=== PATIENT | female | born 1950 | race African-American/Black ===

== ENCOUNTER 2019-06-20 08:52 | Inpatient (IN) | payer MEDICARE, MEDICAID ==
[~2019-06-20] VITALS: Ht 167.6 cm; Wt 69.9 kg
[~2019-06-20 08:52] MED LIST: ACIDOPHILUS-PE1 EACH GT; AMBIEN5 MG GT; ATIVAN1 MG GT; BISACODYL10 M1 RC; CARVEDILOL6.25 MG GT; CHILDREN'S15 MG/1 M2 PO; COLACE100 MG GT; DITROPAN10 MG GT; FAMOTIDINE20 MG GT; FERROUS SU325 MG/5 M GT; FLEET ENEMA133 ML RECTAL; FUROSEMIDE20 M1 GT
[2019-06-20] MEDS ORDERED: SPIRONOLACTONE25 MG GT (09:04)
[2019-06-20] MEDS ORDERED: ARTIFICIAL TEA1 EAC2 OP (09:04)
[2019-06-20] MEDS ORDERED: LIPITOR10 MG GT (09:04)
[2019-06-20 09:05] VITALS: BP 114/72
[2019-06-20] MEDS ORDERED: BENADRYL A12.5 MG/5 ORAL (09:08)
[2019-06-20] MEDS ORDERED: CLONAZEPAM0.125 MG GT (09:08)
[2019-06-20] MEDS ORDERED: CARVEDILOL3.125 MG GT (09:08)
[2019-06-20 09:11] LABS: BASOPHILS % (AUTO) 0.5 % (0.0-2.0); EOSINOPHILS % (AUTO) 0.8 % (0.0-3.0); HEMATOCRIT 39.8 % (37.0-47.0); HEMOGLOBIN 12.4 G/DL (12.0-16.0); LYMPHOCYTES % (AUTO) 15.5 % (20.0-45.0); MEAN CORPUSCULAR VOLUME 84 FL (80-99); MONOCYTES % (AUTO) 5.3 % (1.0-10.0); NEUTROPHILS % (AUTO) 77.8 % (45.0-75.0); PLATELET COUNT 250 K/UL (150-450); RED BLOOD COUNT 4.76 M/UL (4.20-5.40); RED CELL DISTRIBUTION WIDTH 14.6 % (11.6-14.8); WHITE BLOOD COUNT 15.9 K/UL (4.8-10.8)
[2019-06-20] MEDS ORDERED: ACETAMINOP160 MG/54 ORAL (09:14)
[2019-06-20] MEDS ORDERED: VITAMIN C500 M1 GT (09:14)
[2019-06-20] MEDS ORDERED: MILK OF MA400 MG/51 ORAL (09:14)
[2019-06-20 09:24] LABS: ANION GAP 2 mmol/L (5-15); BLOOD UREA NITROGEN 19 mg/dL (7-18); CALCIUM 9.6 MG/DL (8.5-10.1); CARBON DIOXIDE 39 MMOL/L (21-32); CHLORIDE 100 MMOL/L (98-107); CREATININE 0.5 MG/DL (0.55-1.30); POTASSIUM 5.1 MMOL/L (3.5-5.1); SODIUM 141 MMOL/L (136-145)
--- NOTE | 2019-06-20 09:37 | Emergency Room Report ---
History of Present Illness General Chief Complaint: Dyspnea/Respdistress Source: Patient Present Illness HPI Patient is a 69-year-old female presented from residential after increased respiratory difficulty and desaturation. Patient had prior history of chronic debilitation secondary to spinal injury. She had been noted to have difficulty with movements to both upper and lower extremities. 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 Prior history of pneumonia. She had been receiving tube feeding. She had frequent episodes of constipation and requires frequent disimpactions for bowel movements. Had been at her baseline mental status. Patient is somewhat verbal. Previously had tardive dyskinesia due to chronic psychiatric medication use.Patient had not recently been on any antibiotics. She had not been vomiting. Allergies: Coded Allergies: No Known Allergies (Unverified , 03/03/19) Patient History Past Medical History: see triage record Now: No Reviewed Nursing Documentation: PMH: Agreed; PSxH: Agreed Nursing Documentation-PMH Hx Cardiac Problems: Yes - dept trach, cardiomyopathy, quadriplegia Hx Hypertension: Yes Hx Gastrointestinal Problems: Yes - dysphagia, g-tube, GERD History Of Psychiatric Problem: Yes - Altered mental status, unspecified, Anxiety, Parkinson's disease Review of Systems All Other Systems: negative except mentioned in HPI Physical Exam Vital Signs Date Time Temp Pulse Resp B/P (MAP) Pulse Ox O2 Delivery O2 Flow Rate FiO2 06/20/19 08:32 98.6 111 18 114/72 (86) 100 Mechanical Ventilator Sp02 EP Interpretation: reviewed, normal General Appearance: normal inspection, alert, GCS 15, Chronically Ill Head: atraumatic ENT: normal ENT inspection, normal voice, other - Tracheostomy present Neck: normal inspection, full range of motion, supple, no bony tend, tracheotomy Respiratory: normal inspection, lungs clear, no respiratory distress, no retraction, decreased breath sounds Cardiovascular #1: regular rate, rhythm, no edema Gastrointestinal: normal inspection, normal bowel sounds, non tender, soft, no guarding, no hernia, other - slight distention, G-tube stoma Genitourinary: no CVA tenderness Musculoskeletal: normal inspection, back normal, normal range of motion Neurologic: alert, motor weakness - bilateral lower extremity, responsive, speech normal, normal inspection Psychiatric: normal inspection, judgement/insight normal, mood/affect normal Medical Decision Making Diagnostic Impression: Primary Impression: Respiratory failure Additional Impressions: Bilateral pleural effusion Pneumonia Ventilator dependence ER Course Presented for desaturation. Patient presented for desaturation. Differential diagnosis include was not limited to pneumonia, bronchitis, arrhythmia, among others. Because of complexity of patient's case laboratory tests and imaging studies were ordered. ABG showed some evidence of CO2 retention with a normal pH. Chest x-ray read by radiology showed bilateral pleural effusions with possible infiltrate. Patient was noted to have some chronic history of constipation. She had previous a urinary tract infection was treated at [facility] approximately 1 month ago. Patient will be admitted to the hospital for further evaluation and treatment of desaturation and possible pneumonia. Dr. Delmy Pardo was contacted for inpatient management and will be admitting physician. Labs Test 06/20/19 08:53 06/20/19 08:55 Arterial Blood pH 7.424 (7.350-7.450) Arterial Blood Partial Pressure CO2 57.3 mmHg (35.0-45.0) Arterial Blood Partial Pressure O2 110.1 mmHg (75.0-100.0) Arterial Blood HCO3 36.7 mmol/L (22.0-26.0) Arterial Blood Oxygen Saturation 98.2 % (95-100) Arterial Blood Base Excess 10.4 (-2-2) Madhu Test Positive White Blood Count 15.9 K/UL (4.8-10.8) Red Blood Count 4.76 M/UL (4.20-5.40) Hemoglobin 12.4 G/DL (12.0-16.0) Hematocrit 39.8 % (37.0-47.0) Mean Corpuscular Volume 84 FL (80-99) Mean Corpuscular Hemoglobin 26.0 PG (27.0-31.0) Mean Corpuscular Hemoglobin Concent 31.0 G/DL (32.0-36.0) Red Cell Distribution Width 14.6 % (11.6-14.8) Platelet Count 250 K/UL (150-450) Mean Platelet Volume 7.1 FL (6.5-10.1) Neutrophils (%) (Auto) 77.8 % (45.0-75.0) Lymphocytes (%) (Auto) 15.5 % (20.0-45.0) Monocytes (%) (Auto) 5.3 % (1.0-10.0) Eosinophils (%) (Auto) 0.8 % (0.0-3.0) Basophils (%) (Auto) 0.5 % (0.0-2.0) Sodium Level 141 MMOL/L (136-145) Potassium Level 5.1 MMOL/L (3.5-5.1) Chloride Level 100 MMOL/L (98-107) Carbon Dioxide Level 39 MMOL/L (21-32) Anion Gap 2 mmol/L (5-15) Blood Urea Nitrogen 19 mg/dL (7-18) Creatinine 0.5 MG/DL (0.55-1.30) Estimat Glomerular Filtration Rate > 60 mL/min (>60) Glucose Level 150 MG/DL (74-106) Calcium Level 9.6 MG/DL (8.5-10.1) Troponin I 0.000 ng/mL (0.000-0.056) EKG Diagnostic Results Rate: normal Rhythm: NSR ST Segments: no acute changes Last Vital Signs Date Time Temp Pulse Resp B/P (MAP) Pulse Ox O2 Delivery O2 Flow Rate FiO2 06/20/19 09:07 102 15 Mechanical Ventilator 06/20/19 09:05 98.6 114/72 100 Status: unchanged Disposition: ADMITTED INPATIENT Condition: Serious Tr Sosa MD Jun 20, 2019 09:37
[2019-06-20 09:38] LABS: ALANINE AMINOTRANSFERASE 67 U/L (12-78); ALBUMIN 2.6 G/DL (3.4-5.0); ALBUMIN/GLOBULIN RATIO 0.4 (1.0-2.7); ALKALINE PHOSPHATASE 180 U/L (46-116); ASPARTATE AMINO TRANSFERASE 50 U/L (15-37); BILIRUBIN,TOTAL 0.2 MG/DL (0.2-1.0); CKMB 1.7 NG/ML (0.0-3.6); CREATINE KINASE 105 U/L (26-308); PHOSPHORUS 4.1 MG/DL (2.5-4.9)
[2019-06-20] MEDS ORDERED: Fleet's Enema 133ml RECTAL ONE (09:45)
--- NOTE | 2019-06-20 09:45 | Diagnostic Imaging Report ---
EXAM: XR Chest, 1 View CLINICAL HISTORY: Shortness of breath TECHNIQUE: Frontal view of the chest. COMPARISON: Chest x-rays dated 03/03/19 FINDINGS: Lungs: Dependent atelectasis versus infiltrates in bilateral lung bases. Pleural space: Small bilateral layering pleural effusions. Heart: Cardiac silhouette appears mildly enlarged, however may be magnified by the portable AP technique. Mediastinum: Unremarkable. Bones/joints: Unremarkable. Tubes, lines and devices: Stable positioning of the tracheostomy tube. Telemetry leads overlie the thorax. IMPRESSION: 1. Small bilateral layering pleural effusions. 2. Dependent atelectasis versus infiltrates in bilateral lung bases.
[2019-06-20] MEDS ORDERED: Vancomycin 1 GM in NS 275 ML IVPB ONE (10:00)
[2019-06-20] MEDS ORDERED: Cefepime HCl 1 GM in D5W 55 ML IVPB ONE (10:00)
[2019-06-20] MEDS ORDERED: Albuterol ud Inhalation ONE (10:49)
[2019-06-20] MEDS ORDERED: Ipratropium 0.02% Inh Soln 2.5ml UD ONE (10:49)
[2019-06-20 10:55] LABS: APPEARANCE,URINE SLIGHTLY CLOUDY; BILIRUBIN, URINE NEGATIVE (NEGATIVE); COLOR,URINE PALE YELLOW; GLUCOSE, URINE (UA) NEGATIVE (NEGATIVE); KETONES,URINE NEGATIVE (NEGATIVE); LEUKOCYTE ESTERASE ,URINE 3+ (NEGATIVE); NITRITE,URINE NEGATIVE (NEGATIVE); PH,URINE 8 (4.5-8.0); PROTEIN,URINE 1+ (NEGATIVE); UROBILINOGEN,URINE NORMAL MG/DL (0.0-1.0)
[2019-06-20] MEDS: Albuterol/Ipratropium 3ml neb HHN ONE ×2 (10:56→14:15)
[2019-06-20 11:11] VITALS: BP 111/68
[2019-06-20 12:30] VITALS: BP 126/76
--- NOTE | 2019-06-20 13:42 | Consultation ---
History of Present Illness General Date patient seen: Jun 20, 2019 Reason for Hospitalization: Dyspnea/Respdistress Present Illness HPI This is a 69-year-old female who presented from residential after increased respiratory difficulty and desaturation. Patient had prior history of chronic debilitation secondary to spinal injury. She had been noted to have difficulty with movements to both upper and lower extremities. 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 Prior history of pneumonia. She had been receiving tube feeding. She had frequent episodes of constipation and requires frequent disimpactions for bowel movements. Had been at her baseline mental status. Patient is somewhat verbal. Previously had tardive dyskinesia due to chronic psychiatric medication use.Patient had not recently been on any antibiotics. She had not been vomiting. admitted for care and management. on admission noted to have large abnormal area of skin tissue on sacral / buttock area. surgery called to evaluate and assist with care. daughter at bedside who is a surgical nurse at [employer]. states was worse and improving now. has had for some time. has great care and she advocates for turning and caring for her. Allergies: Coded Allergies: No Known Allergies (Unverified , 03/03/19) Medication History Scheduled Ascorbic Acid* (Vitamin C*), 500 MG ORAL DAILY, (Reported) Atorvastatin Calcium* (Lipitor*), 10 MG GT BEDTIME, (Reported) Cholecalciferol (Vitamin D3) (Vitamin D3), 5,000 UNIT GT DAILY, (Reported) Cran/Vitc/Mannose/Inulin/Brom (Uti-Stat Liquid), 30 ML PO BID, (Reported) Docusate Sodium* (Colace*), 100 MG GT TWICE A DAY, (Reported) Famotidine* (Pepcid 20mg tablet*), 20 MG GT DAILY, (Reported) Ferrous Sulfate (Ferrous Sulfate), 325 MG GT DAILY, (Reported) Multivitamin Liquid* (Multi-Delyn*), 5 ML ORAL DAILY, (Reported) Spironolactone* (Aldactone*), 25 MG GT DAILY, (Reported) Scheduled PRN Acetaminophen* (Acetaminophen*), 320 MG ORAL Q4HR PRN for Mild Pain/Temp > 100.5 , (Reported) Bisacodyl (Bisacodyl), 10 MG RC NEEDED PRN for Constipation, (Reported) Carvedilol* (Carvedilol*), 3.125 MG GT EVERY 12 HOURS PRN for For High Blood Pressure, (Reported) Clonazepam (Clonazepam), 0.125 MG GT BID PRN for For Anxiety, (Reported) Diphenhydramine Hcl* (Benadryl Allergy*), 25 MG ORAL Q6H PRN for Itching, ( Reported) Levalbuterol Hcl (Levalbuterol Concentrate), 1.25 MG IH EVERY 3 HOURS PRN for Bronchospasm, (Reported) Levalbuterol Hcl (Xopenex*), 0.63 MG HHN Q6H PRN for Shortness of Breath, ( Reported) Magnesium Hydroxide* (Milk Of Magnesia*), 30 ML ORAL 3XW PRN for Constipation, ( Reported) Ondansetron* (Zofran*), 4 MG IV Q6H PRN for Nausea & Vomiting, (Reported) Miscellaneous Medications Dextran 70/Hypromellose (Artificial Tears), 1 EACH OP, (Reported) Patient History Limited by: age, medical condition History Provided By: Patient, Family Member, Medical Record, PMD Healthcare decision maker Resuscitation status Advanced Directive on File Past Medical/Surgical History Past Medical/Surgical History: (1) Decubitus skin ulcer (2) Sacral decubitus ulcer, stage II (3) Incontinence associated dermatitis (4) Respiratory failure (5) Pneumonia (6) Ventilator dependence (7) Bilateral pleural effusion Review of Systems Review of Symptoms General ROS: no weight loss or fever Psychological ROS: no depression or mood changes, no memory loss Ophthalmic ROS: no visual changes or eye irritation ENT ROS: no nasal congestion, hearing loss, dizziness Allergy and Immunology ROS: no allergic symptoms or urticaria Hematological and Lymphatic ROS: no swollen glands, unusual bleeding or bruising Endocrine ROS: no polyuria, polydipsia, weight changes, temperature intolerance Respiratory ROS: no cough, shortness of breath, or wheezing Cardiovascular ROS: no chest pain or dyspnea on exertion Gastrointestinal ROS: denies abdominal pain, bright red blood in stool. Musculoskeletal ROS: no myalgias or arthralgias Neurological ROS: no TIA or stroke symptoms Dermatological ROS: no new or changing skin lesions, rashes or pruritis limited given medical condition daughter helps provide Physical Exam Physical Exam General appearance: alert, cooperative, no distress, appears stated age Head: Normocephalic, without obvious abnormality, atraumatic Eyes: conjunctivae/corneas clear. PERRL, EOM's intact. Fundi benign Throat: Lips, mucosa, and tongue normal. Teeth and gums normal Neck: supple, symmetrical, trachea midline, no adenopathy, thyroid: not enlarged, symmetric, no tenderness/mass/nodules, no carotid bruit and no JVD Lungs: clear to auscultation bilaterally Heart: regular rate and rhythm, S1, S2 normal, no murmur, click, rub or gallop Abdomen: soft, non-tender. Bowel sounds normal. No masses, no organomegaly Extremities: extremities normal, atraumatic, no cyanosis or edema Pulses: 2+ and symmetric Skin: Skin color, texture, turgor normal. No rashes or lesions Neurologic: Grossly normal Last 24 Hour Vital Signs Date Time Temp Pulse Resp B/P (MAP) Pulse Ox O2 Delivery O2 Flow Rate FiO2 06/20/19 13:18 91 10 70 06/20/19 12:30 97.9 93 21 126/76 (93) 100 06/20/19 11:55 98.6 110 13 111/68 99 Mechanical Ventilator 60 06/20/19 11:11 98.6 110 13 111/68 99 Mechanical Ventilator 60 06/20/19 10:56 115 10 100 Mechanical Ventilator 60 110 9 100 06/20/19 09:15 98 9 70 06/20/19 09:07 102 15 Mechanical Ventilator 06/20/19 09:05 98.6 102 15 114/72 100 Mechanical Ventilator 06/20/19 08:35 102 10 70 06/20/19 08:35 102 10 100 Mechanical Ventilator 70 06/20/19 08:32 98.6 111 18 114/72 (86) 100 Mechanical Ventilator Laboratory Tests Test 06/20/19 08:53 06/20/19 08:55 06/20/19 09:45 Arterial Blood pH 7.424 (7.350-7.450) Arterial Blood Partial Pressure CO2 57.3 mmHg (35.0-45.0) *H Arterial Blood Partial Pressure O2 110.1 mmHg (75.0-100.0) H Arterial Blood HCO3 36.7 mmol/L (22.0-26.0) H Arterial Blood Oxygen Saturation 98.2 % (95-100) Arterial Blood Base Excess 10.4 (-2-2) *H Madhu Test Positive White Blood Count 15.9 K/UL (4.8-10.8) H Red Blood Count 4.76 M/UL (4.20-5.40) Hemoglobin 12.4 G/DL (12.0-16.0) Hematocrit 39.8 % (37.0-47.0) Mean Corpuscular Volume 84 FL (80-99) Mean Corpuscular Hemoglobin 26.0 PG (27.0-31.0) L Mean Corpuscular Hemoglobin Concent 31.0 G/DL (32.0-36.0) L Red Cell Distribution Width 14.6 % (11.6-14.8) Platelet Count 250 K/UL (150-450) Mean Platelet Volume 7.1 FL (6.5-10.1) Neutrophils (%) (Auto) 77.8 % (45.0-75.0) H Lymphocytes (%) (Auto) 15.5 % (20.0-45.0) L Monocytes (%) (Auto) 5.3 % (1.0-10.0) Eosinophils (%) (Auto) 0.8 % (0.0-3.0) Basophils (%) (Auto) 0.5 % (0.0-2.0) Sodium Level 141 MMOL/L (136-145) Potassium Level 5.1 MMOL/L (3.5-5.1) Chloride Level 100 MMOL/L (98-107) Carbon Dioxide Level 39 MMOL/L (21-32) H Anion Gap 2 mmol/L (5-15) L Blood Urea Nitrogen 19 mg/dL (7-18) H Creatinine 0.5 MG/DL (0.55-1.30) L Estimat Glomerular Filtration Rate > 60 mL/min (>60) Glucose Level 150 MG/DL (74-106) H Lactic Acid Level 2.00 mmol/L (0.4-2.0) Calcium Level 9.6 MG/DL (8.5-10.1) Phosphorus Level 4.1 MG/DL (2.5-4.9) Magnesium Level 2.2 MG/DL (1.8-2.4) Total Bilirubin 0.2 MG/DL (0.2-1.0) Aspartate Amino Transf (AST/SGOT) 50 U/L (15-37) H Alanine Aminotransferase (ALT/SGPT) 67 U/L (12-78) Alkaline Phosphatase 180 U/L (46-116) H Total Creatine Kinase 105 U/L (26-308) Creatine Kinase MB 1.7 NG/ML (0.0-3.6) Creatine Kinase MB Relative Index 1.6 Troponin I 0.000 ng/mL (0.000-0.056) Total Protein 9.2 G/DL (6.4-8.2) H Albumin 2.6 G/DL (3.4-5.0) L Globulin 6.6 g/dL Albumin/Globulin Ratio 0.4 (1.0-2.7) L Thyroid Stimulating Hormone (TSH) 1.110 uiU/mL (0.358-3.740) Urine Color Pale yellow Urine Appearance Slightly cloudy Urine pH 8 (4.5-8.0) Urine Specific [place] 1.010 (1.005-1.035) Urine Protein 1+ (NEGATIVE) H Urine Glucose (UA) Negative (NEGATIVE) Urine Ketones Negative (NEGATIVE) Urine Blood 1+ (NEGATIVE) H Urine Nitrite Negative (NEGATIVE) Urine Bilirubin Negative (NEGATIVE) Urine Urobilinogen Normal MG/DL (0.0-1.0) Urine Leukocyte Esterase 3+ (NEGATIVE) H Urine RBC 2-4 /HPF (0 - 2) H Urine WBC 5-10 /HPF (0 - 2) H Urine Squamous Epithelial Cells Few /LPF (NONE/OCC) Urine Triple Phosphate Crystals Moderate /LPF (NONE) H Urine Bacteria Few /HPF (NONE) Microbiology Date/Time Source Procedure Growth Status 06/20/19 09:00 Rectum Received Height (Feet): 5 Height (Inches): 6.00 Weight (Pounds): 125 Assessment/Plan Problem List: (1) Sacral decubitus ulcer, stage II Assessment & Plan: Patient presented from nursing facility with sacral decubitus ulcer on admission. Patient's daughter is a surgical nurse who helps care for patient and her wounds for some time now. States that ongoing wound in the sacral area from pressure as well as incontinence. Daughter has been applying creams and helping with turning and dressing changes for some time now. Stated it is improved compared to prior. Noted to have areas of breakdown potentially is close to stage III full-thickness and small little portions but a majority it still covered with creams and at times difficult to completely evaluate. Wounds washed zinc applied dressings applied care instructions discussed with patient's family and nursing staff. Recommend turning every 2 hours, air soft mattress, nutritional optimization. Continue with dressing changes daily and as needed saturation as above. ICD Codes: L89.152 - Pressure ulcer of sacral region, stage 2 SNOMED: 673584101, [id number] (2) Incontinence associated dermatitis ICD Codes: L30.8 - Other specified dermatitis; R32 - Unspecified urinary incontinence SNOMED: 308144385 (3) Decubitus skin ulcer ICD Codes: L89.90 - Pressure ulcer of unspecified site, unspecified stage SNOMED: [id number] Mauro Roldan Jun 20, 2019 13:42
[2019-06-20] MEDS ORDERED: Milk of Magnesia 30ml Ud GT PRN (15:45)
[2019-06-20] MEDS ORDERED: Acetaminophen 650mg/20.3ml GT PRN (15:45)
[2019-06-20 16:00] VITALS: BP 111/70
[2019-06-20] MEDS: Levalbuterol Inh UD 1.25mg/0.5ml HHN SCH (19:20)
[2019-06-20 20:00] VITALS: BP 108/63
[2019-06-20] MEDS ORDERED: Zolpidem 5mg tab GT PRN (20:15)
[2019-06-20] MEDS ORDERED: Vancomycin 1 GM in D5W 275 ML IVPB SCH (21:00)
[2019-06-20] MEDS: Docusate 100mg/10ml Liq GT SCH (21:00)
[2019-06-20] MEDS: Heparin 5000 units/ml inj SUBQ SCH (21:00)
[2019-06-20] MEDS: Vancomycin 500mg/D5W 110ml IVPB SCH ×2 (22:57)
--- NOTE | 2019-06-20 23:40 | Pulmonology Progress Note ---
Assessment/Plan Assessment/Plan Pulmonary Consultation HPI Patient is a 69-year-old female admitted from her [facility] with Pneumonia, had been noted to have increased respiratory difficulty and desaturation. Patient has prior history of spinal injury, weakness with difficulty with movements to both upper and lower extremities. 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 Prior history of Cardiomyopathy, HTN, pneumonia. S/p tracheostomy and G-tube, receiving tube feeding. She had frequent episodes of constipation and requires frequent disimpactions for bowel movements. Had been at her baseline mental status. Patient is somewhat verbal. Prior history of tardive dyskinesia due to chronic psychiatric medication use. No recent vomiting. Has h/o decubitus ulcers. Allergies: No Known Allergies Past Medical History: Spinal Injury, Quadriplegia, Ventilator Dependant Respiratory Failure, Pneumonia, Hypertension, Cardiomyopathy, Hypertension, Parkinsons Disease, Tardive Dyskinesia, GERD, Decubitus Ulcers, Anxiety All Other Systems: negative except mentioned in HPI Physical Exam Vital Signs Noted Date Time Temp Pulse Resp B/P (MAP) Pulse Ox O2 Delivery O2 Flow Rate FiO2 06/20/19 08:32 98.6 111 18 114/72 (86) 100 Mechanical Ventilator General Appearance: normal inspection, alert, GCS 15, Chronically Ill Head: atraumatic ENT: normal ENT inspection, normal voice, other - Tracheostomy present Neck: normal inspection, full range of motion, supple, no bony tend, tracheotomy Respiratory: normal inspection, lungs clear, no respiratory distress, no retraction, decreased breath sounds Cardiovascular: regular rate, rhythm, HS1, HS2, RRR, no edema Gastrointestinal: normal inspection, normal bowel sounds, non tender, soft, no guarding, no hernia, other - slight distention, G-tube stoma Genitourinary: no CVA tenderness Musculoskeletal: normal inspection, back normal, normal range of motion, generally weak, no edema, decubiti Neurologic: alert, motor weakness - general, responsive to command Impression: Ventilator Dependant Respiratory failure Pneumonia Small bilateral pleural effusion Spinal Injury Quadriplegia Hypertension Cardiomyopathy Hypertension Parkinsons Disease, Tardive Dyskinesia GERD Decubitus Ulcers Anxiety Plan IV Antibiotics SIMV, adjust PS 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 G tube feeds PPX LE Dupplex Sugery following for wounds Monitor Labs Labs Test 06/20/19 08:53 06/20/19 08:55 Arterial Blood pH 7.424 (7.350-7.450) Arterial Blood Partial Pressure CO2 57.3 mmHg (35.0-45.0) Arterial Blood Partial Pressure O2 110.1 mmHg (75.0-100.0) Arterial Blood HCO3 36.7 mmol/L (22.0-26.0) Arterial Blood Oxygen Saturation 98.2 % (95-100) Arterial Blood Base Excess 10.4 (-2-2) Madhu Test Positive White Blood Count 15.9 K/UL (4.8-10.8) Red Blood Count 4.76 M/UL (4.20-5.40) Hemoglobin 12.4 G/DL (12.0-16.0) Hematocrit 39.8 % (37.0-47.0) Mean Corpuscular Volume 84 FL (80-99) Mean Corpuscular Hemoglobin 26.0 PG (27.0-31.0) Mean Corpuscular Hemoglobin Concent 31.0 G/DL (32.0-36.0) Red Cell Distribution Width 14.6 % (11.6-14.8) Platelet Count 250 K/UL (150-450) Mean Platelet Volume 7.1 FL (6.5-10.1) Neutrophils (%) (Auto) 77.8 % (45.0-75.0) Lymphocytes (%) (Auto) 15.5 % (20.0-45.0) Monocytes (%) (Auto) 5.3 % (1.0-10.0) Eosinophils (%) (Auto) 0.8 % (0.0-3.0) Basophils (%) (Auto) 0.5 % (0.0-2.0) Sodium Level 141 MMOL/L (136-145) Potassium Level 5.1 MMOL/L (3.5-5.1) Chloride Level 100 MMOL/L (98-107) Carbon Dioxide Level 39 MMOL/L (21-32) Anion Gap 2 mmol/L (5-15) Blood Urea Nitrogen 19 mg/dL (7-18) Creatinine 0.5 MG/DL (0.55-1.30) Estimat Glomerular Filtration Rate > 60 mL/min (>60) Glucose Level 150 MG/DL (74-106) Calcium Level 9.6 MG/DL (8.5-10.1) Troponin I 0.000 ng/mL (0.000-0.056) EKG: Rate: normal Rhythm: NSR ST Segments: no acute changes CXR: Basal atelectasis, small bilateral effusions Subjective ROS Limited/Unobtainable: No Allergies: Coded Allergies: No Known Allergies (Unverified , 03/03/19) Objective Last 24 Hour Vital Signs Date Time Temp Pulse Resp B/P (MAP) Pulse Ox O2 Delivery O2 Flow Rate FiO2 06/20/19 21:32 67 24 70 06/20/19 21:00 86 108/63 06/20/19 20:00 82 06/20/19 20:00 98.1 86 10 108/63 (78) 99 06/20/19 19:20 83 11 100 Mechanical Ventilator 70 85 12 70 06/20/19 17:06 84 10 70 06/20/19 16:53 80 06/20/19 16:00 99.0 89 10 111/70 (84) 99 06/20/19 16:00 Mechanical Ventilator 06/20/19 15:46 87 10 70 06/20/19 13:59 Mechanical Ventilator 06/20/19 13:18 91 10 70 06/20/19 12:30 97.9 93 21 126/76 (93) 100 06/20/19 12:11 95 06/20/19 11:55 98.6 110 13 111/68 99 Mechanical Ventilator 60 06/20/19 11:11 98.6 110 13 111/68 99 Mechanical Ventilator 60 06/20/19 10:56 115 10 100 Mechanical Ventilator 60 110 9 100 06/20/19 09:15 98 9 70 06/20/19 09:07 102 15 Mechanical Ventilator 06/20/19 09:05 98.6 102 15 114/72 100 Mechanical Ventilator 06/20/19 08:35 102 10 70 06/20/19 08:35 102 10 100 Mechanical Ventilator 70 06/20/19 08:32 98.6 111 18 114/72 (86) 100 Mechanical Ventilator Microbiology Date/Time Source Procedure Growth Status 06/20/19 09:00 Rectum Received Laboratory Tests 06/20/19 08:53: Arterial Blood pH 7.424, Arterial Blood Partial Pressure CO2 57.3*H, Arterial Blood Partial Pressure O2 110.1H, Arterial Blood HCO3 36.7H, Arterial Blood Oxygen Saturation 98.2, Arterial Blood Base Excess 10.4*H, Madhu Test Positive 06/20/19 08:55: White Blood Count 15.9H, Red Blood Count 4.76, Hemoglobin 12.4, Hematocrit 39.8 , Mean Corpuscular Volume 84, Mean Corpuscular Hemoglobin 26.0L, Mean Corpuscular Hemoglobin Concent 31.0L, Red Cell Distribution Width 14.6, Platelet Count 250, Mean Platelet Volume 7.1, Neutrophils (%) (Auto) 77.8H, Lymphocytes (%) (Auto) 15.5L, Monocytes (%) (Auto) 5.3, Eosinophils (%) (Auto) 0.8, Basophils (%) (Auto) 0.5, Sodium Level 141, Potassium Level 5.1, Chloride Level 100, Carbon Dioxide Level 39H, Anion Gap 2L, Blood Urea Nitrogen 19H, Creatinine 0.5L, Estimat Glomerular Filtration Rate > 60, Glucose Level 150H, Lactic Acid Level 2.00, Calcium Level 9.6, Phosphorus Level 4.1, Magnesium Level 2.2, Total Bilirubin 0.2, Aspartate Amino Transf (AST/SGOT) 50H, Alanine Aminotransferase (ALT/SGPT) 67, Alkaline Phosphatase 180H, Total Creatine Kinase 105, Creatine Kinase MB 1.7, Creatine Kinase MB Relative Index 1.6, Troponin I 0.000, Total Protein 9.2H, Albumin 2.6L, Globulin 6.6, Albumin/ Globulin Ratio 0.4L, Thyroid Stimulating Hormone (TSH) 1.110 06/20/19 09:45: Urine Color Pale yellow, Urine Appearance Slightly cloudy, Urine pH 8, Urine Specific [place] 1.010, Urine Protein 1+H, Urine Glucose (UA) Negative, Urine Ketones Negative, Urine Blood 1+H, Urine Nitrite Negative, Urine Bilirubin Negative, Urine Urobilinogen Normal, Urine Leukocyte Esterase 3+H, Urine RBC 2- 4H, Urine WBC 5-10H, Urine Squamous Epithelial Cells Few, Urine Triple Phosphate Crystals ModerateH, Urine Bacteria Few Current Medications Medications (Trade) Dose Ordered Sig/Rizwana Route PRN Reason Start Time Stop Time Status Last Admin Dose Admin Acetaminophen (Tylenol) 650 mg Q4H PRN GT Mild Pain/Temp > 100.5 06/20/19 15:45 07/20/19 15:44 Ascorbic Acid (Vitamin C) 500 mg DAILY GT 06/21/19 09:00 07/21/19 08:59 Atorvastatin Calcium (Lipitor) 10 mg BEDTIME GT 06/20/19 21:00 07/20/19 20:59 06/20/19 21:20 Bisacodyl (Dulcolax) 10 mg DAILYPRN PRN RECTAL Constipation 06/20/19 15:45 07/20/19 15:44 Carvedilol (Coreg) 3.125 mg EVERY 12 HOURS GT 06/20/19 21:00 07/20/19 20:59 Cefepime HCl 1 gm/ Dextrose 55 ml @ 110 mls/hr Q24H IVPB 06/21/19 09:00 06/28/19 08:59 Clonazepam (KlonoPIN) 0.125 mg DAILY GT 06/21/19 09:00 06/28/19 08:59 Docusate Sodium (Colace) 100 mg EVERY 12 HOURS GT 06/20/19 21:00 07/20/19 20:59 Heparin Sodium (Porcine) (Heparin 5000 units/ml) 5,000 units EVERY 12 HOURS SUBQ 06/20/19 21:00 07/20/19 20:59 Levalbuterol HCl (Xopenex) 0.63 mg Q6HRT HHN 06/20/19 19:00 06/25/19 18:59 06/20/19 19:20 Magnesium Hydroxide (Mom) 30 ml HSPRN PRN GT Constipation 06/20/19 15:45 07/20/19 15:44 Metronidazole 100 ml @ 100 mls/hr Q8HR IVPB 06/20/19 22:00 06/27/19 21:59 06/20/19 21:21 Multivitamins (Multivitamins W/ Minerals 15ml Liquid) 15 ml DAILY GT 06/21/19 09:00 07/21/19 08:59 Ondansetron HCl (Zofran) 4 mg Q6H PRN IVP Nausea & Vomiting 06/20/19 20:15 07/20/19 20:14 Pantoprazole (Protonix) 40 mg DAILY IVP 06/21/19 09:00 07/21/19 08:59 Spironolactone (Aldactone) 25 mg DAILY GT 06/21/19 09:00 07/21/19 08:59 Vancomycin HCl (Vanco rx to dose) 1 ea DAILY PRN MISC . 06/20/19 20:30 07/20/19 20:29 Vancomycin HCl 500 mg/Dextrose 110 ml @ 110 mls/hr Q12HR@1100,2300 IVPB 06/20/19 23:00 06/25/19 22:59 06/20/19 22:57 Vitamin D (Vitamin D) 5,000 intlu DAILY GT 06/21/19 09:00 07/21/19 08:59 Zolpidem Tartrate (Ambien) 5 mg HSPRN PRN GT Insomnia 06/20/19 20:15 06/27/19 20:14 06/20/19 21:22 Altaf Garrett MD Jun 20, 2019 23:40
[2019-06-21] MEDS: Levalbuterol Inh UD 1.25mg/0.5ml HHN SCH ×6 (01:00→23:00)
[2019-06-21 04:30] VITALS: BP 111/72
[2019-06-21 05:49] LABS: BASOPHILS % (AUTO) 0.5 % (0.0-2.0); EOSINOPHILS % (AUTO) 1.6 % (0.0-3.0); HEMATOCRIT 32.5 % (37.0-47.0); HEMOGLOBIN 10.6 G/DL (12.0-16.0); LYMPHOCYTES % (AUTO) 24.8 % (20.0-45.0); MEAN CORPUSCULAR VOLUME 82 FL (80-99); MONOCYTES % (AUTO) 5.5 % (1.0-10.0); NEUTROPHILS % (AUTO) 67.6 % (45.0-75.0); PLATELET COUNT 269 K/UL (150-450); RED BLOOD COUNT 3.99 M/UL (4.20-5.40); RED CELL DISTRIBUTION WIDTH 14.2 % (11.6-14.8); WHITE BLOOD COUNT 12.2 K/UL (4.8-10.8)
[2019-06-21 06:08] LABS: ANION GAP 5 mmol/L (5-15); BLOOD UREA NITROGEN 18 mg/dL (7-18); CALCIUM 8.5 MG/DL (8.5-10.1); CARBON DIOXIDE 36 MMOL/L (21-32); CHLORIDE 101 MMOL/L (98-107); CREATININE 0.5 MG/DL (0.55-1.30); POTASSIUM 3.9 MMOL/L (3.5-5.1); SODIUM 142 MMOL/L (136-145)
[2019-06-21 08:00] VITALS: BP 117/76
[2019-06-21] MEDS: Heparin 5000 units/ml inj SUBQ SCH ×2 (09:00→21:00)
--- NOTE | 2019-06-21 09:30 | Diagnostic Imaging Report ---
EXAM: XR Chest, 1 View CLINICAL HISTORY: INFECT TECHNIQUE: Frontal view of the chest. COMPARISON: Chest x-ray 06-20-19. FINDINGS: Lungs: Mild right lung base atelectasis. Left lung base atelectasis/airspace disease. Pleural space: Improved pleural effusions. Small residual left pleural effusion. No pneumothorax. Heart: Mild cardiomegaly. Mediastinum: Unremarkable. Bones/joints: Unremarkable. Tubes, lines and devices: Tracheostomy tube. IMPRESSION: 1. Improved pleural effusions. Right pleural effusion resolved, small residual left pleural effusion. 2. Left lung base atelectasis/airspace disease. Improved right lung base opacities.
[2019-06-21] MEDS: Spironolactone 25mg tab GT SCH (09:38)
[2019-06-21] MEDS: clonazePAM 0.5mg tab GT SCH (09:38)
[2019-06-21] MEDS: Docusate 100mg/10ml Liq GT SCH ×2 (09:38→21:37)
[2019-06-21] MEDS: Ascorbic Acid 500mg tab GT SCH (09:39)
[2019-06-21] MEDS: Multivitamins W/Minerals 15 ML UDC GT SCH (09:40)
[2019-06-21] MEDS: Vitamin D 1000 IU Tab GT SCH (09:40)
[2019-06-21] MEDS: Pantoprazole Inj IVP SCH (09:40)
[2019-06-21] MEDS: Cefepime HCl 1 GM in D5W 55 ML IVPB SCH (09:41)
[2019-06-21] MEDS ORDERED: Levalbuterol Inh UD 1.25mg/0.5ml HHN SCH (10:00)
[2019-06-21] MEDS ORDERED: NS 275ml ONE (10:03)
[2019-06-21] MEDS ORDERED: Sterile Water Irrig 1000ml IRRIG ONE (10:03)
[2019-06-21] MEDS ORDERED: Tubing IV Secondary IV ONE (10:03)
--- NOTE | 2019-06-21 10:39 | Pulmonology Progress Note ---
Assessment/Plan Assessment/Plan Pulmonary Progress Note HPI Patient is a 69-year-old female admitted from her [facility] with Pneumonia, had been noted to have increased respiratory difficulty and desaturation. Patient has prior history of spinal injury, weakness with difficulty with movements to both upper and lower extremities. 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 Prior history of Cardiomyopathy, HTN, pneumonia. S/p tracheostomy and G-tube, receiving tube feeding. She had frequent episodes of constipation and requires frequent disimpactions for bowel movements. Had been at her baseline mental status. Patient is somewhat verbal. Prior history of tardive dyskinesia due to chronic psychiatric medication use. No recent vomiting. Has h/o decubitus ulcers. CXR improving Allergies: No Known Allergies Past Medical History: Spinal Injury, Quadriplegia, Ventilator Dependant Respiratory Failure, Pneumonia, Hypertension, Cardiomyopathy, Hypertension, Parkinsons Disease, Tardive Dyskinesia, GERD, Decubitus Ulcers, Anxiety All Other Systems: negative except mentioned in HPI Physical Exam Vital Signs Noted General Appearance: normal inspection, alert, GCS 15, Chronically Ill Head: atraumatic ENT: normal ENT inspection, normal voice, other - Tracheostomy present Neck: normal inspection, full range of motion, supple, no bony tend, tracheotomy Respiratory: normal inspection, lungs clear, no respiratory distress, no retraction, decreased breath sounds Cardiovascular: regular rate, rhythm, HS1, HS2, RRR, no edema Gastrointestinal: normal inspection, normal bowel sounds, non tender, soft, no guarding, no hernia, other - slight distention, G-tube stoma Genitourinary: no CVA tenderness Musculoskeletal: normal inspection, back normal, normal range of motion, generally weak, no edema, decubiti Neurologic: alert, motor weakness - general, responsive to command Impression: Ventilator Dependant Respiratory failure Pneumonia Small bilateral pleural effusion Spinal Injury Quadriplegia Hypertension Cardiomyopathy Hypertension Parkinsons Disease, Tardive Dyskinesia GERD Decubitus Ulcers Anxiety Plan IV Antibiotics SIMV, adjust PS 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 PPX LE Alina Sugjanneth following for wounds Monitor Labs CXR repeat PRN Labs Test 06/20/19 08:53 06/20/19 08:55 Arterial Blood pH 7.424 (7.350-7.450) Arterial Blood Partial Pressure CO2 57.3 mmHg (35.0-45.0) Arterial Blood Partial Pressure O2 110.1 mmHg (75.0-100.0) Arterial Blood HCO3 36.7 mmol/L (22.0-26.0) Arterial Blood Oxygen Saturation 98.2 % (95-100) Arterial Blood Base Excess 10.4 (-2-2) Maduh Test Positive White Blood Count 15.9 K/UL (4.8-10.8) Red Blood Count 4.76 M/UL (4.20-5.40) Hemoglobin 12.4 G/DL (12.0-16.0) Hematocrit 39.8 % (37.0-47.0) Mean Corpuscular Volume 84 FL (80-99) Mean Corpuscular Hemoglobin 26.0 PG (27.0-31.0) Mean Corpuscular Hemoglobin Concent 31.0 G/DL (32.0-36.0) Red Cell Distribution Width 14.6 % (11.6-14.8) Platelet Count 250 K/UL (150-450) Mean Platelet Volume 7.1 FL (6.5-10.1) Neutrophils (%) (Auto) 77.8 % (45.0-75.0) Lymphocytes (%) (Auto) 15.5 % (20.0-45.0) Monocytes (%) (Auto) 5.3 % (1.0-10.0) Eosinophils (%) (Auto) 0.8 % (0.0-3.0) Basophils (%) (Auto) 0.5 % (0.0-2.0) Sodium Level 141 MMOL/L (136-145) Potassium Level 5.1 MMOL/L (3.5-5.1) Chloride Level 100 MMOL/L (98-107) Carbon Dioxide Level 39 MMOL/L (21-32) Anion Gap 2 mmol/L (5-15) Blood Urea Nitrogen 19 mg/dL (7-18) Creatinine 0.5 MG/DL (0.55-1.30) Estimat Glomerular Filtration Rate > 60 mL/min (>60) Glucose Level 150 MG/DL (74-106) Calcium Level 9.6 MG/DL (8.5-10.1) Troponin I 0.000 ng/mL (0.000-0.056) EKG: Rate: normal Rhythm: NSR ST Segments: no acute changes CXR: Basal atelectasis, small bilateral effusions Seen earlier Subjective ROS Limited/Unobtainable: No Allergies: Coded Allergies: No Known Allergies (Unverified , 03/03/19) Objective Last 24 Hour Vital Signs Date Time Temp Pulse Resp B/P (MAP) Pulse Ox O2 Delivery O2 Flow Rate FiO2 06/21/19 09:39 86 117/76 06/21/19 09:09 66 17 60 06/21/19 07:11 64 16 99 Mechanical Ventilator 50.0 60 86 16 60 06/21/19 05:10 71 12 70 06/21/19 04:30 97.7 84 12 111/72 (85) 98 06/21/19 04:00 Mechanical Ventilator 06/21/19 04:00 78 06/21/19 03:50 73 16 70 06/21/19 01:29 68 19 70 06/21/19 00:00 82 06/21/19 00:00 Mechanical Ventilator 06/20/19 21:32 67 24 70 06/20/19 21:00 86 108/63 06/20/19 20:00 82 06/20/19 20:00 Mechanical Ventilator 06/20/19 20:00 98.1 86 12 108/63 (78) 99 06/20/19 19:20 83 11 100 Mechanical Ventilator 70 85 12 70 06/20/19 17:06 84 10 70 06/20/19 16:53 80 06/20/19 16:00 99.0 89 10 111/70 (84) 99 06/20/19 16:00 Mechanical Ventilator 06/20/19 15:46 87 10 70 06/20/19 13:59 Mechanical Ventilator 06/20/19 13:18 91 10 70 06/20/19 12:30 97.9 93 21 126/76 (93) 100 06/20/19 12:11 95 06/20/19 11:55 98.6 110 13 111/68 99 Mechanical Ventilator 60 06/20/19 11:11 98.6 110 13 111/68 99 Mechanical Ventilator 60 06/20/19 10:56 115 10 100 Mechanical Ventilator 60 110 9 100 Intake and Output 06/20/19 06/21/19 19:00 07:00 Intake Total 655 ml Output Total 500 ml Balance 155 ml Intake IV Total 310 ml Tube Feeding 345 ml Output Urine Total 500 ml # Bowel Movements 2 Microbiology Date/Time Source Procedure Growth Status 06/20/19 09:00 Rectum Received Laboratory Tests 06/21/19 04:25: White Blood Count 12.2H, Red Blood Count 3.99L, Hemoglobin 10.6L, Hematocrit 32.5L, Mean Corpuscular Volume 82, Mean Corpuscular Hemoglobin 26.6L, Mean Corpuscular Hemoglobin Concent 32.7, Red Cell Distribution Width 14.2, Platelet Count 269, Mean Platelet Volume 6.7, Neutrophils (%) (Auto) 67.6, Lymphocytes (% ) (Auto) 24.8, Monocytes (%) (Auto) 5.5, Eosinophils (%) (Auto) 1.6, Basophils ( %) (Auto) 0.5, Sodium Level 142, Potassium Level 3.9, Chloride Level 101, Carbon Dioxide Level 36H, Anion Gap 5, Blood Urea Nitrogen 18, Creatinine 0.5L, Estimat Glomerular Filtration Rate > 60, Glucose Level 103, Calcium Level 8.5 06/21/19 10:16: Arterial Blood pH 7.427, Arterial Blood Partial Pressure CO2 55.1*H, Arterial Blood Partial Pressure O2 233.9H, Arterial Blood HCO3 35.5H, Arterial Blood Oxygen Saturation 99.3, Arterial Blood Base Excess 9.5*H, Madhu Test Positive Current Medications Medications (Trade) Dose Ordered Sig/Rizwana Route PRN Reason Start Time Stop Time Status Last Admin Dose Admin Acetaminophen (Tylenol) 650 mg Q4H PRN GT Mild Pain/Temp > 100.5 06/20/19 15:45 07/20/19 15:44 Ascorbic Acid (Vitamin C) 500 mg DAILY GT 06/21/19 09:00 07/21/19 08:59 06/21/19 09:39 Atorvastatin Calcium (Lipitor) 10 mg BEDTIME GT 06/20/19 21:00 07/20/19 20:59 06/20/19 21:20 Bisacodyl (Dulcolax) 10 mg DAILYPRN PRN RECTAL Constipation 06/20/19 15:45 07/20/19 15:44 06/21/19 08:20 Carvedilol (Coreg) 3.125 mg EVERY 12 HOURS GT 06/20/19 21:00 07/20/19 20:59 06/21/19 09:39 Cefepime HCl 1 gm/ Dextrose 55 ml @ 110 mls/hr Q24H IVPB 06/21/19 09:00 06/28/19 08:59 06/21/19 09:41 Clonazepam (KlonoPIN) 0.125 mg DAILY GT 06/21/19 09:00 06/28/19 08:59 06/21/19 09:38 Docusate Sodium (Colace) 100 mg EVERY 12 HOURS GT 06/20/19 21:00 07/20/19 20:59 06/21/19 09:38 Heparin Sodium (Porcine) (Heparin 5000 units/ml) 5,000 units EVERY 12 HOURS SUBQ 06/20/19 21:00 07/20/19 20:59 Levalbuterol HCl (Xopenex) 1.25 mg ONCE HHN 06/21/19 10:00 06/21/19 11:00 06/21/19 09:57 Levalbuterol HCl (Xopenex) 1.25 mg Q4HRT HHN 06/21/19 11:00 06/26/19 10:59 Magnesium Hydroxide (Mom) 30 ml HSPRN PRN GT Constipation 06/20/19 15:45 07/20/19 15:44 Metronidazole 100 ml @ 100 mls/hr Q8HR IVPB 06/20/19 22:00 06/27/19 21:59 06/21/19 05:19 Multivitamins (Multivitamins W/ Minerals 15ml Liquid) 15 ml DAILY GT 06/21/19 09:00 07/21/19 08:59 06/21/19 09:40 Ondansetron HCl (Zofran) 4 mg Q6H PRN IVP Nausea & Vomiting 06/20/19 20:15 07/20/19 20:14 Pantoprazole (Protonix) 40 mg DAILY IVP 06/21/19 09:00 07/21/19 08:59 06/21/19 09:40 Spironolactone (Aldactone) 25 mg DAILY GT 06/21/19 09:00 07/21/19 08:59 06/21/19 09:38 Vancomycin HCl (Vanco rx to dose) 1 ea DAILY PRN MISC . 06/20/19 20:30 07/20/19 20:29 Vancomycin HCl 500 mg/Dextrose 110 ml @ 110 mls/hr Q12HR@1100,2300 IVPB 06/20/19 23:00 06/25/19 22:59 06/20/19 22:57 Vitamin D (Vitamin D) 5,000 intlu DAILY GT 06/21/19 09:00 07/21/19 08:59 06/21/19 09:40 Zolpidem Tartrate (Ambien) 5 mg HSPRN PRN GT Insomnia 06/20/19 20:15 06/27/19 20:14 06/20/19 21:22 Altaf Garrett MD Jun 21, 2019 10:39
--- NOTE | 2019-06-21 11:17 | Surgery Progress Note ---
Surgery Progress Note Subjective Additional Comments no acute events labs noted exam stable Objective Last 24 Hour Vital Signs Date Time Temp Pulse Resp B/P (MAP) Pulse Ox O2 Delivery O2 Flow Rate FiO2 06/21/19 09:39 86 117/76 06/21/19 09:09 66 17 60 06/21/19 08:00 98.6 86 20 117/76 (90) 99 06/21/19 08:00 Mechanical Ventilator 06/21/19 08:00 86 06/21/19 07:11 64 16 99 Mechanical Ventilator 50.0 60 86 16 60 06/21/19 05:10 71 12 70 06/21/19 04:30 97.7 84 12 111/72 (85) 98 06/21/19 04:00 Mechanical Ventilator 06/21/19 04:00 78 06/21/19 03:50 73 16 70 06/21/19 01:29 68 19 70 06/21/19 00:00 82 06/21/19 00:00 Mechanical Ventilator 06/20/19 21:32 67 24 70 06/20/19 21:00 86 108/63 06/20/19 20:00 82 06/20/19 20:00 Mechanical Ventilator 06/20/19 20:00 98.1 86 12 108/63 (78) 99 06/20/19 19:20 83 11 100 Mechanical Ventilator 70 85 12 70 06/20/19 17:06 84 10 70 06/20/19 16:53 80 06/20/19 16:00 99.0 89 10 111/70 (84) 99 06/20/19 16:00 Mechanical Ventilator 06/20/19 15:46 87 10 70 06/20/19 13:59 Mechanical Ventilator 06/20/19 13:18 91 10 70 06/20/19 12:30 97.9 93 21 126/76 (93) 100 06/20/19 12:11 95 06/20/19 11:55 98.6 110 13 111/68 99 Mechanical Ventilator 60 I&O Intake and Output 06/20/19 06/21/19 19:00 07:00 Intake Total 655 ml Output Total 500 ml Balance 155 ml Intake IV Total 310 ml Tube Feeding 345 ml Output Urine Total 500 ml # Bowel Movements 2 Dressing: dry Wound: clean Cardiovascular: RSR Respiratory: clear Abdomen: soft, non-tender, present bowel sounds Extremities: no edema, no tenderness Laboratory Tests Test 06/21/19 04:25 06/21/19 10:16 White Blood Count 12.2 K/UL (4.8-10.8) H Red Blood Count 3.99 M/UL (4.20-5.40) L Hemoglobin 10.6 G/DL (12.0-16.0) L Hematocrit 32.5 % (37.0-47.0) L Mean Corpuscular Volume 82 FL (80-99) Mean Corpuscular Hemoglobin 26.6 PG (27.0-31.0) L Mean Corpuscular Hemoglobin Concent 32.7 G/DL (32.0-36.0) Red Cell Distribution Width 14.2 % (11.6-14.8) Platelet Count 269 K/UL (150-450) Mean Platelet Volume 6.7 FL (6.5-10.1) Neutrophils (%) (Auto) 67.6 % (45.0-75.0) Lymphocytes (%) (Auto) 24.8 % (20.0-45.0) Monocytes (%) (Auto) 5.5 % (1.0-10.0) Eosinophils (%) (Auto) 1.6 % (0.0-3.0) Basophils (%) (Auto) 0.5 % (0.0-2.0) Sodium Level 142 MMOL/L (136-145) Potassium Level 3.9 MMOL/L (3.5-5.1) Chloride Level 101 MMOL/L (98-107) Carbon Dioxide Level 36 MMOL/L (21-32) H Anion Gap 5 mmol/L (5-15) Blood Urea Nitrogen 18 mg/dL (7-18) Creatinine 0.5 MG/DL (0.55-1.30) L Estimat Glomerular Filtration Rate > 60 mL/min (>60) Glucose Level 103 MG/DL (74-106) Calcium Level 8.5 MG/DL (8.5-10.1) Arterial Blood pH 7.427 (7.350-7.450) Arterial Blood Partial Pressure CO2 55.1 mmHg (35.0-45.0) *H Arterial Blood Partial Pressure O2 233.9 mmHg (75.0-100.0) H Arterial Blood HCO3 35.5 mmol/L (22.0-26.0) H Arterial Blood Oxygen Saturation 99.3 % (95-100) Arterial Blood Base Excess 9.5 (-2-2) *H Madhu Test Positive Plan Problems: (1) Sacral decubitus ulcer, stage II Assessment & Plan: Patient presented from nursing facility with sacral decubitus ulcer on admission. Patient's daughter is a surgical nurse who helps care for patient and her wounds for some time now. States that ongoing wound in the sacral area from pressure as well as incontinence. Daughter has been applying creams and helping with turning and dressing changes for some time now. Stated it is improved compared to prior. Noted to have areas of breakdown potentially is close to stage III full-thickness and small little portions but a majority it still covered with creams and at times difficult to completely evaluate. Wounds washed zinc applied dressings applied care instructions discussed with patient's family and nursing staff. Recommend turning every 2 hours, air soft mattress, nutritional optimization. Continue with dressing changes daily and as needed saturation as above. (2) Incontinence associated dermatitis (3) Decubitus skin ulcer Assessment & Plan: turned patient with daughter. wound evaluate and area of stage 3 noted in small areas identified and chronic Mauro Roldan Jun 21, 2019 11:17
[2019-06-21] MEDS: Vancomycin 500mg/D5W 110ml IVPB SCH ×4 (11:56→23:23)
[2019-06-21 12:00] VITALS: BP 119/78
[2019-06-21] MEDS ORDERED: ZOFRAN 4 MG4 MG/2 ML IV (12:57)
[2019-06-21] MEDS ORDERED: UTI-STAT L3875 MG/31 GT (12:57)
[2019-06-21] MEDS ORDERED: MULTI-DELYN237 ML ORAL (12:57)
[2019-06-21] MEDS ORDERED: XOPENEX0.63 MG/3 HHN (12:57)
[2019-06-21] MEDS ORDERED: VITAMIN C500 M1 ORAL (12:57)
[2019-06-21] MEDS ORDERED: LEVALBUTER1.25 MG/0. IH (12:57)
[2019-06-21] MEDS ORDERED: VITAMIN D34000 UNIT GT (12:57)
[2019-06-21] MEDS ORDERED: MILK OF MA400 MG/51 ORAL (12:57)
[2019-06-21 16:00] VITALS: BP 121/78
[2019-06-21 20:00] VITALS: BP 117/71
[2019-06-22] MEDS: Levalbuterol Inh UD 1.25mg/0.5ml HHN SCH ×6 (03:00→23:19)
--- NOTE | 2019-06-22 05:00 | History and Physical Report ---
DATE OF ADMISSION: 06/20/2019 NOTE: INCOMPLETE DICTATION HISTORY OF PRESENT ILLNESS: This is one of several admissions to [facility] for this 69-year-old lady because of fever and shortness of breath and . Delmy Pardo M.D. DR: SLADE JOB#: [id number] CC:
[2019-06-22 05:20] LABS: BASOPHILS % (AUTO) 0.3 % (0.0-2.0); EOSINOPHILS % (AUTO) 2.5 % (0.0-3.0); HEMATOCRIT 32.3 % (37.0-47.0); HEMOGLOBIN 10.4 G/DL (12.0-16.0); LYMPHOCYTES % (AUTO) 21.3 % (20.0-45.0); MEAN CORPUSCULAR VOLUME 81 FL (80-99); MONOCYTES % (AUTO) 7.4 % (1.0-10.0); NEUTROPHILS % (AUTO) 68.5 % (45.0-75.0); PLATELET COUNT 262 K/UL (150-450); RED BLOOD COUNT 3.98 M/UL (4.20-5.40); RED CELL DISTRIBUTION WIDTH 14.3 % (11.6-14.8); WHITE BLOOD COUNT 11.6 K/UL (4.8-10.8)
[2019-06-22 05:50] LABS: ANION GAP 4 mmol/L (5-15); BLOOD UREA NITROGEN 15 mg/dL (7-18); CALCIUM 8.7 MG/DL (8.5-10.1); CARBON DIOXIDE 34 MMOL/L (21-32); CHLORIDE 105 MMOL/L (98-107); CREATININE 0.5 MG/DL (0.55-1.30); SODIUM 143 MMOL/L (136-145)
[2019-06-22 08:00] VITALS: BP 131/83
[2019-06-22] MEDS: Heparin 5000 units/ml inj SUBQ SCH ×2 (09:00→20:54)
--- NOTE | 2019-06-22 09:01 | History and Physical Report ---
DATE OF ADMISSION: 06/20/2019 This is a H and P examination to [facility] of this 69-year-old lady because of right lower lobe pneumonia. HISTORY OF PRESENT ILLNESS: The patient is a resident of an extended care facility subacute unit. The patient has been in relatively stable condition for the last several months. She is known to have several chronic medical syndrome that will be detailed in the following paragraphs, but she has been stable on current medication. On the day of admission, she developed shortness of breath, tachycardia, tachypnea, and O2 desaturation. She was transferred by paramedics to [facility] ER where she was found to have bilateral pneumonia and the patient was admitted. PAST MEDICAL HISTORY: The patient underwent cervical spine surgery following which she became quadriplegic with respiratory failure. She underwent tracheostomy. She was unable to be weaned. She had gastrostomy and transferred to subacute unit. In addition, the patient has quadriplegia, cardiomyopathy, and high blood pressure. She is ventilator dependent, she is fed by G-tube. She has frequent episodes of intestinal impaction or constipation which did not respond to the standard medical treatment. In addition, she has because of her cancer treatment that she received in the past. Her face is masked face in light of Parkinson disease as well. She denies having since the last year. ALLERGIES: No known drug allergies. MEDICATIONS: The patient has been on levalbuterol and ipratropium bromide respiratory therapy. She is on spironolactone 25 mg daily, clonazepam 0.25 mg daily, vitamin tablet daily, ascorbic acid 500 mg daily, and vitamin D 5000 units daily. She was placed on three antibiotics, cefepime 1 g q.12 h., vancomycin 1 g q.12 h., metronidazole 500 mg q.8 h. She is on atorvastatin 10 mg daily, carvedilol 3.125 mg b.i.d., and heparin 5000 units subcutaneous. She is on zolpidem 5 mg daily, . FAMILY HISTORY: Noncontributory. She has one daughter who is a surgical nurse at [employer], in good health. HABITS: The patient did not smoke, drink, or use illicit drugs. REVIEW OF SYSTEMS: The patient cannot give any information regarding her state of health. PHYSICAL EXAMINATION: VITAL SIGNS: Blood pressure is 121/78, pulse is 85, respirations are 15, and temperature of 99.5. HEENT: Eyes were normal. Pupils were round, equal, and reacting to light. Sclerae were white. Conjunctivae were pink. Extraocular movements were normal. Temporal arteries were palpable bilaterally. There was no bilateral temporal wasting. Visual meier to confrontation and neglect sign could not be assessed. Facial expression was masked face and appeared to be parkinsonian. NECK: Supple. There was no goiter. No mass. No lymphadenopathy. There was no JVD. No bruit. Carotid upstroke was 2+. LUNGS: Clear. HEART: PMI was fifth left intercostal space in midclavicular line. There was normal S1 and normal S2. There was no murmur. No arrhythmia. No S3. No S4. No pericardial rub. ABDOMEN: Soft and nontender without organomegaly. There were no masses palpable. Normal bowel sounds without bruits. There was no guarding. No rebound tenderness. No ascites. No hernia. No CVA tenderness. Liver span was 8 cm, mostly nontender. EXTREMITIES: No cyanosis, no clubbing, and no edema. Extremities were warm. NEUROLOGICAL EXAMINATION: Reflexes in biceps, triceps, and brachioradialis were difficult to obtain. Patellar retinaculum were difficult to obtain. Plantars were in flexion. Cranial nerves II through XII were symmetric and equal. Cerebellar function, there was no tremor. There was some cogwheel rigidity in the upper extremity and lower extremity, but mainly attributed to flexion contraction. 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 The patient with insomnia during the night, probably not during the day. Motor strength could not be assessed because of the patient's . LABORATORY AND DIAGNOSTIC DATA: Hemoglobin is 12.4, hematocrit 39.8 with MCV of 84, WBC of 15.9 and platelets is 250. Her BUN and creatinine is 19 and 0.5 respectively. Sodium is 141, potassium 5.1, chloride 100, and CO2 is 39. Her TSH was 1.1. Her albumin was 2.3. Total protein is 9.2. Troponin was undetected. Chest x-ray revealed small bilateral pleural effusion, atelectasis, infiltrate in both lungs. IMPRESSION: The patient has fever, tachycardia , and leukocytosis associated with abnormal x-ray. She was placed on triple antibiotics with respiratory therapy. Pulmonary consulted, Neurology consulted, and selling specialist was consulted in the management of this case. Delmy Pardo M.D. DR: Jesús JOB#: [id number] CC:
[2019-06-22] MEDS: Docusate 100mg/10ml Liq GT SCH ×2 (09:35→21:05)
[2019-06-22] MEDS: Spironolactone 25mg tab GT SCH (09:35)
[2019-06-22] MEDS: Ascorbic Acid 500mg tab GT SCH (09:35)
[2019-06-22] MEDS: Vitamin D 1000 IU Tab GT SCH (09:36)
[2019-06-22] MEDS: Pantoprazole Inj IVP SCH (09:36)
[2019-06-22] MEDS: clonazePAM 0.5mg tab GT SCH (09:36)
[2019-06-22] MEDS: Multivitamins W/Minerals 15 ML UDC GT SCH (09:37)
[2019-06-22] MEDS: Cefepime HCl 1 GM in D5W 55 ML IVPB SCH (09:41)
[2019-06-22] MEDS: Miralax 17gm pkt GT SCH (10:07)
--- NOTE | 2019-06-22 11:13 | Surgery Progress Note ---
Surgery Progress Note Subjective Additional Comments leukocytosis improving comfortable appearing daughter at bedside turned and dressings changed with daughter. zinc creamapplied small scattered areas of breakdown noted Objective Last 24 Hour Vital Signs Date Time Temp Pulse Resp B/P (MAP) Pulse Ox O2 Delivery O2 Flow Rate FiO2 06/22/19 10:42 103 10 100 Mechanical Ventilator 60 72 10 60 06/22/19 09:35 83 131/83 06/22/19 08:00 Mechanical Ventilator 06/22/19 08:00 60 06/22/19 08:00 97.7 83 20 131/83 (99) 99 06/22/19 07:59 83 10 100 Mechanical Ventilator 60 85 15 60 06/22/19 06:07 88 12 60 06/22/19 04:00 90 06/22/19 04:00 60 06/22/19 04:00 Mechanical Ventilator 06/22/19 03:29 81 12 60 06/22/19 01:30 81 12 60 06/22/19 00:00 Mechanical Ventilator 06/22/19 00:00 98.6 06/22/19 00:00 85 06/21/19 23:22 85 18 60 06/21/19 21:06 89 18 60 06/21/19 21:00 85 117/71 06/21/19 20:00 Mechanical Ventilator 06/21/19 20:00 99.9 88 20 117/71 (86) 99 06/21/19 20:00 89 06/21/19 19:28 85 18 99 Mechanical Ventilator 60 89 10 89 06/21/19 17:16 85 06/21/19 17:00 102 23 60 06/21/19 16:00 Mechanical Ventilator 06/21/19 16:00 99.5 85 15 121/78 (92) 99 06/21/19 15:02 85 20 99 Mechanical Ventilator 50.0 60 82 16 60 06/21/19 12:53 85 20 60 06/21/19 12:00 92 06/21/19 12:00 99.0 88 24 119/78 (92) 99 06/21/19 12:00 Mechanical Ventilator I&O Intake and Output 06/21/19 06/22/19 19:00 07:00 Intake Total 795 ml 905 ml Output Total 350 ml 700 ml Balance 445 ml 205 ml Intake Free Water 80 ml 200 ml IV Total 220 ml 210 ml Tube Feeding 495 ml 495 ml Output Urine Total 350 ml 700 ml # Bowel Movements 4 Dressing: dry Wound: clean Cardiovascular: RSR Respiratory: clear Abdomen: soft, non-tender, present bowel sounds Extremities: no tenderness, no cyanosis Laboratory Tests Test 06/22/19 03:25 06/22/19 09:50 White Blood Count 11.6 K/UL (4.8-10.8) H Red Blood Count 3.98 M/UL (4.20-5.40) L Hemoglobin 10.4 G/DL (12.0-16.0) L Hematocrit 32.3 % (37.0-47.0) L Mean Corpuscular Volume 81 FL (80-99) Mean Corpuscular Hemoglobin 26.2 PG (27.0-31.0) L Mean Corpuscular Hemoglobin Concent 32.3 G/DL (32.0-36.0) Red Cell Distribution Width 14.3 % (11.6-14.8) Platelet Count 262 K/UL (150-450) Mean Platelet Volume 6.2 FL (6.5-10.1) L Neutrophils (%) (Auto) 68.5 % (45.0-75.0) Lymphocytes (%) (Auto) 21.3 % (20.0-45.0) Monocytes (%) (Auto) 7.4 % (1.0-10.0) Eosinophils (%) (Auto) 2.5 % (0.0-3.0) Basophils (%) (Auto) 0.3 % (0.0-2.0) Sodium Level 143 MMOL/L (136-145) Potassium Level 4.0 MMOL/L (3.5-5.1) Chloride Level 105 MMOL/L (98-107) Carbon Dioxide Level 34 MMOL/L (21-32) H Anion Gap 4 mmol/L (5-15) L Blood Urea Nitrogen 15 mg/dL (7-18) Creatinine 0.5 MG/DL (0.55-1.30) L Estimat Glomerular Filtration Rate > 60 mL/min (>60) Glucose Level 145 MG/DL (74-106) H Calcium Level 8.7 MG/DL (8.5-10.1) Vancomycin Level Trough 8.1 ug/mL (5.0-12.0) Plan Problems: (1) Sacral decubitus ulcer, stage II Assessment & Plan: Patient presented from nursing facility with sacral decubitus ulcer on admission. Patient's daughter is a surgical nurse who helps care for patient and her wounds for some time now. States that ongoing wound in the sacral area from pressure as well as incontinence. Daughter has been applying creams and helping with turning and dressing changes for some time now. Stated it is improved compared to prior. Noted to have areas of breakdown potentially is close to stage III full-thickness and small little portions but a majority it still covered with creams and at times difficult to completely evaluate. Wounds washed zinc applied dressings applied care instructions discussed with patient's family and nursing staff. Recommend turning every 2 hours, air soft mattress, nutritional optimization. Continue with dressing changes daily and as needed saturation as above. (2) Incontinence associated dermatitis (3) Decubitus skin ulcer Mauro Roldan Jun 22, 2019 11:13
--- NOTE | 2019-06-22 11:21 | Pulmonolgy Critical Care Note ---
Critical Care - Asmt/Plan Problems: (1) Chronic respiratory failure (2) Nosocomial pneumonia (3) Sacral decubitus ulcer, stage II (4) Bilateral pleural effusion (5) Feeding by G-tube (6) Ventilator dependence Respiratory: monitor respiratory rate, adjust FIO2, CXR Cardiac: continue to monitor HR/BP Renal: F/U I&O Infectious Disease: check cultures Gastrointestinal: continue feedings/current rate Endocrine: monitor blood sugar Hematologic: monitor H/H, transfuse if hgb<8.5 Neurologic: PRN Ativan, keep patient comfortable Affect: PRN ativan Prophylaxis: Heparin Time Spent (Minutes): 40 Notes Reviewed: internal communications manager Discussed with: nurses, consultants, social work case managerrequirements manager - Objective Last 24 Hour Vital Signs Date Time Temp Pulse Resp B/P (MAP) Pulse Ox O2 Delivery O2 Flow Rate FiO2 06/22/19 10:42 103 10 100 Mechanical Ventilator 60 72 10 60 06/22/19 09:35 83 131/83 06/22/19 08:00 Mechanical Ventilator 06/22/19 08:00 60 06/22/19 08:00 97.7 83 20 131/83 (99) 99 06/22/19 07:59 83 10 100 Mechanical Ventilator 60 85 15 60 06/22/19 06:07 88 12 60 06/22/19 04:00 90 06/22/19 04:00 60 06/22/19 04:00 Mechanical Ventilator 06/22/19 03:29 81 12 60 06/22/19 01:30 81 12 60 06/22/19 00:00 Mechanical Ventilator 06/22/19 00:00 98.6 06/22/19 00:00 85 06/21/19 23:22 85 18 60 06/21/19 21:06 89 18 60 06/21/19 21:00 85 117/71 06/21/19 20:00 Mechanical Ventilator 06/21/19 20:00 99.9 88 20 117/71 (86) 99 06/21/19 20:00 89 06/21/19 19:28 85 18 99 Mechanical Ventilator 60 89 10 89 06/21/19 17:16 85 06/21/19 17:00 102 23 60 06/21/19 16:00 Mechanical Ventilator 06/21/19 16:00 99.5 85 15 121/78 (92) 99 06/21/19 15:02 85 20 99 Mechanical Ventilator 50.0 60 82 16 60 06/21/19 12:53 85 20 60 06/21/19 12:00 92 06/21/19 12:00 99.0 88 24 119/78 (92) 99 06/21/19 12:00 Mechanical Ventilator Status: awake Condition: improving HEENT: atraumatic Neck: full ROM Lungs: chest wall tender Heart: HR/BP stable Abdomen: soft, non-tender Extremities: no C/C/E, edema Micro: Microbiology Date/Time Source Procedure Growth Status 06/20/19 08:55 Blood Blood Culture - Preliminary NO GROWTH AFTER 24 HOURS Resulted 06/20/19 08:45 Blood Blood Culture - Preliminary NO GROWTH AFTER 24 HOURS Resulted 06/20/19 09:00 Nasal Nares MRSA Culture - Final NO METHICILLIN RESISTANT STAPH AUREUS... Complete 06/20/19 09:00 Rectum VRE Culture - Final NO VANCOMYCIN RESISTANT ENTEROCOCCUS ... Complete Critical Care - Subjective ROS Limited/Unobtainable: Yes Condition: critical EKG Rhythm: Sinus Rhythm FI02: 60 Vent Support Breath Rate: 10 Vent Support Mode: IMV/SIMV Vent Tidal Volume: 450 Sputum Amount: Small PEEP: 5.0 PIP: 35 Tube Feeding Amount: 45 I&O: Intake and Output 06/21/19 06/22/19 19:00 07:00 Intake Total 795 ml 905 ml Output Total 350 ml 700 ml Balance 445 ml 205 ml Intake Free Water 80 ml 200 ml IV Total 220 ml 210 ml Tube Feeding 495 ml 495 ml Output Urine Total 350 ml 700 ml # Bowel Movements 4 CXR: less pulmonary edema Labs: Laboratory Tests Test 06/22/19 03:25 06/22/19 09:50 White Blood Count 11.6 K/UL (4.8-10.8) H Red Blood Count 3.98 M/UL (4.20-5.40) L Hemoglobin 10.4 G/DL (12.0-16.0) L Hematocrit 32.3 % (37.0-47.0) L Mean Corpuscular Volume 81 FL (80-99) Mean Corpuscular Hemoglobin 26.2 PG (27.0-31.0) L Mean Corpuscular Hemoglobin Concent 32.3 G/DL (32.0-36.0) Red Cell Distribution Width 14.3 % (11.6-14.8) Platelet Count 262 K/UL (150-450) Mean Platelet Volume 6.2 FL (6.5-10.1) L Neutrophils (%) (Auto) 68.5 % (45.0-75.0) Lymphocytes (%) (Auto) 21.3 % (20.0-45.0) Monocytes (%) (Auto) 7.4 % (1.0-10.0) Eosinophils (%) (Auto) 2.5 % (0.0-3.0) Basophils (%) (Auto) 0.3 % (0.0-2.0) Sodium Level 143 MMOL/L (136-145) Potassium Level 4.0 MMOL/L (3.5-5.1) Chloride Level 105 MMOL/L (98-107) Carbon Dioxide Level 34 MMOL/L (21-32) H Anion Gap 4 mmol/L (5-15) L Blood Urea Nitrogen 15 mg/dL (7-18) Creatinine 0.5 MG/DL (0.55-1.30) L Estimat Glomerular Filtration Rate > 60 mL/min (>60) Glucose Level 145 MG/DL (74-106) H Calcium Level 8.7 MG/DL (8.5-10.1) Vancomycin Level Trough 8.1 ug/mL (5.0-12.0) Ethel Curtis MD Jun 22, 2019 11:21
[2019-06-22 12:00] VITALS: BP 145/72
[2019-06-22] MEDS ORDERED: Vancomycin 1gm/D5W 275ml IVPB ONE ×2 (12:00)
[2019-06-22] MEDS ORDERED: Levalbuterol Inh UD 1.25mg/0.5ml HHN PRN (14:00)
--- NOTE | 2019-06-22 14:48 | Consultation ---
History of Present Illness General Date patient seen: Jun 22, 2019 Chief Complaint: Dyspnea/Respdistress Present Illness HPI 69 y/o F with hx of spinal injury, quadriplegia, HTN, cardiomyopathy, GERD, chronic respiratory failure trach/vent dependant, dysphagia s/p GT, PNA, constipation, tardive dyskinesia, [facility] resident presented to ED on 06/20 with increased SOB, hypoxia No vomiting Allergies: Coded Allergies: No Known Allergies (Unverified , 03/03/19) Medication History Scheduled Ascorbic Acid* (Vitamin C*), 500 MG ORAL DAILY, (Reported) Atorvastatin Calcium* (Lipitor*), 10 MG GT BEDTIME, (Reported) Cholecalciferol (Vitamin D3) (Vitamin D3), 5,000 UNIT GT DAILY, (Reported) Cran/Vitc/Mannose/Inulin/Brom (Uti-Stat Liquid), 30 ML PO BID, (Reported) Docusate Sodium* (Colace*), 100 MG GT TWICE A DAY, (Reported) Famotidine* (Pepcid 20mg tablet*), 20 MG GT DAILY, (Reported) Ferrous Sulfate (Ferrous Sulfate), 325 MG GT DAILY, (Reported) Multivitamin Liquid* (Multi-Delyn*), 5 ML ORAL DAILY, (Reported) Spironolactone* (Aldactone*), 25 MG GT DAILY, (Reported) Scheduled PRN Acetaminophen* (Acetaminophen*), 320 MG ORAL Q4HR PRN for Mild Pain/Temp > 100.5 , (Reported) Bisacodyl (Bisacodyl), 10 MG RC NEEDED PRN for Constipation, (Reported) Carvedilol* (Carvedilol*), 3.125 MG GT EVERY 12 HOURS PRN for For High Blood Pressure, (Reported) Clonazepam (Clonazepam), 0.125 MG GT BID PRN for For Anxiety, (Reported) Diphenhydramine Hcl* (Benadryl Allergy*), 25 MG ORAL Q6H PRN for Itching, ( Reported) Levalbuterol Hcl (Levalbuterol Concentrate), 1.25 MG IH EVERY 3 HOURS PRN for Bronchospasm, (Reported) Levalbuterol Hcl (Xopenex*), 0.63 MG HHN Q6H PRN for Shortness of Breath, ( Reported) Magnesium Hydroxide* (Milk Of Magnesia*), 30 ML ORAL 3XW PRN for Constipation, ( Reported) Ondansetron* (Zofran*), 4 MG IV Q6H PRN for Nausea & Vomiting, (Reported) Miscellaneous Medications Dextran 70/Hypromellose (Artificial Tears), 1 EACH OP, (Reported) Patient History Healthcare decision maker Lucrecia Gaffney Resuscitation status Full Code Advanced Directive on File No Patient History Narrative Pmhx: as above Shx: The patient did not smoke, drink, or use illicit drugs. Fhx: non contributory Review of Systems All Other Systems: negative except mentioned in HPI Physical Exam Physical Exam Narrative General appearance: alert, cooperative, no distress, appears stated age Head: Normocephalic, without obvious abnormality, atraumatic Eyes: conjunctivae/corneas clear. PERRL, EOM's intact. Fundi benign Throat: Lips, mucosa, and tongue normal. Teeth and gums normal Neck: supple, symmetrical, trachea midline, no adenopathy, thyroid: not enlarged, symmetric, no tenderness/mass/nodules, no carotid bruit and no JVD Lungs: clear to auscultation bilaterally Heart: regular rate and rhythm, S1, S2 normal, no murmur, click, rub or gallop Abdomen: soft, non-tender. Bowel sounds normal. No masses, no organomegaly Extremities: extremities normal, atraumatic, no cyanosis or edema Pulses: 2+ and symmetric Skin: Skin color, texture, turgor normal. No rashes or lesions Neurologic: Grossly normal Last 24 Hour Vital Signs Date Time Temp Pulse Resp B/P (MAP) Pulse Ox O2 Delivery O2 Flow Rate FiO2 06/22/19 12:00 97.6 60 20 145/72 (96) 100 06/22/19 12:00 83 06/22/19 12:00 Mechanical Ventilator 06/22/19 12:00 60 06/22/19 10:42 103 10 100 Mechanical Ventilator 60 72 10 60 06/22/19 09:35 83 131/83 06/22/19 08:00 Mechanical Ventilator 06/22/19 08:00 87 06/22/19 08:00 60 06/22/19 08:00 97.7 83 20 131/83 (99) 99 06/22/19 07:59 83 10 100 Mechanical Ventilator 60 85 15 60 06/22/19 06:07 88 12 60 06/22/19 04:00 90 06/22/19 04:00 60 06/22/19 04:00 Mechanical Ventilator 06/22/19 03:29 81 12 60 06/22/19 01:30 81 12 60 06/22/19 00:00 Mechanical Ventilator 06/22/19 00:00 98.6 06/22/19 00:00 85 06/21/19 23:22 85 18 60 06/21/19 21:06 89 18 60 06/21/19 21:00 85 117/71 06/21/19 20:00 Mechanical Ventilator 06/21/19 20:00 99.9 88 20 117/71 (86) 99 06/21/19 20:00 89 06/21/19 19:28 85 18 99 Mechanical Ventilator 60 89 10 89 06/21/19 17:16 85 06/21/19 17:00 102 23 60 06/21/19 16:00 Mechanical Ventilator 06/21/19 16:00 99.5 85 15 121/78 (92) 99 06/21/19 15:02 85 20 99 Mechanical Ventilator 50.0 60 82 16 60 Intake and Output 06/21/19 06/22/19 19:00 07:00 Intake Total 795 ml 905 ml Output Total 350 ml 700 ml Balance 445 ml 205 ml Intake Free Water 80 ml 200 ml IV Total 220 ml 210 ml Tube Feeding 495 ml 495 ml Output Urine Total 350 ml 700 ml # Bowel Movements 4 Laboratory Tests Test 06/22/19 03:25 06/22/19 09:50 White Blood Count 11.6 K/UL (4.8-10.8) H Red Blood Count 3.98 M/UL (4.20-5.40) L Hemoglobin 10.4 G/DL (12.0-16.0) L Hematocrit 32.3 % (37.0-47.0) L Mean Corpuscular Volume 81 FL (80-99) Mean Corpuscular Hemoglobin 26.2 PG (27.0-31.0) L Mean Corpuscular Hemoglobin Concent 32.3 G/DL (32.0-36.0) Red Cell Distribution Width 14.3 % (11.6-14.8) Platelet Count 262 K/UL (150-450) Mean Platelet Volume 6.2 FL (6.5-10.1) L Neutrophils (%) (Auto) 68.5 % (45.0-75.0) Lymphocytes (%) (Auto) 21.3 % (20.0-45.0) Monocytes (%) (Auto) 7.4 % (1.0-10.0) Eosinophils (%) (Auto) 2.5 % (0.0-3.0) Basophils (%) (Auto) 0.3 % (0.0-2.0) Sodium Level 143 MMOL/L (136-145) Potassium Level 4.0 MMOL/L (3.5-5.1) Chloride Level 105 MMOL/L (98-107) Carbon Dioxide Level 34 MMOL/L (21-32) H Anion Gap 4 mmol/L (5-15) L Blood Urea Nitrogen 15 mg/dL (7-18) Creatinine 0.5 MG/DL (0.55-1.30) L Estimat Glomerular Filtration Rate > 60 mL/min (>60) Glucose Level 145 MG/DL (74-106) H Calcium Level 8.7 MG/DL (8.5-10.1) Vancomycin Level Trough 8.1 ug/mL (5.0-12.0) Height (Feet): 5 Height (Inches): 6.00 Weight (Pounds): 154 Medications Current Medications Medications (Trade) Dose Ordered Sig/Rizwana Route PRN Reason Start Time Stop Time Status Last Admin Dose Admin Acetaminophen (Tylenol) 650 mg Q4H PRN GT Mild Pain/Temp > 100.5 06/20/19 15:45 07/20/19 15:44 Ascorbic Acid (Vitamin C) 500 mg DAILY GT 06/21/19 09:00 07/21/19 08:59 06/22/19 09:35 Atorvastatin Calcium (Lipitor) 10 mg BEDTIME GT 06/20/19 21:00 07/20/19 20:59 06/21/19 21:37 Bisacodyl (Dulcolax) 10 mg DAILYPRN PRN RECTAL Constipation 06/20/19 15:45 07/20/19 15:44 06/21/19 08:20 Carvedilol (Coreg) 3.125 mg EVERY 12 HOURS GT 06/20/19 21:00 07/20/19 20:59 06/22/19 09:35 Cefepime HCl 1 gm/ Dextrose 55 ml @ 110 mls/hr Q24H IVPB 06/21/19 09:00 06/28/19 08:59 06/22/19 09:41 Clonazepam (KlonoPIN) 0.125 mg DAILY GT 06/21/19 09:00 06/28/19 08:59 06/22/19 09:36 Docusate Sodium (Colace) 100 mg EVERY 12 HOURS GT 06/20/19 21:00 07/20/19 20:59 06/22/19 09:35 Heparin Sodium (Porcine) (Heparin 5000 units/ml) 5,000 units EVERY 12 HOURS SUBQ 06/20/19 21:00 07/20/19 20:59 Levalbuterol HCl (Xopenex) 1.25 mg Q4H PRN HHN Shortness of breath 06/22/19 14:00 06/27/19 13:59 Levalbuterol HCl (Xopenex) 1.25 mg Q4HRT HHN 06/21/19 11:00 06/26/19 10:59 06/22/19 10:32 Magnesium Hydroxide (Mom) 30 ml HSPRN PRN GT Constipation 06/20/19 15:45 07/20/19 15:44 Metronidazole 100 ml @ 100 mls/hr Q8HR IVPB 06/20/19 22:00 06/27/19 21:59 06/22/19 06:02 Multivitamins (Multivitamins W/ Minerals 15ml Liquid) 15 ml DAILY GT 06/21/19 09:00 07/21/19 08:59 06/22/19 09:37 Ondansetron HCl (Zofran) 4 mg Q6H PRN IVP Nausea & Vomiting 06/20/19 20:15 07/20/19 20:14 Pantoprazole (Protonix) 40 mg DAILY IVP 06/21/19 09:00 07/21/19 08:59 06/22/19 09:36 Polyethylene Glycol (Miralax) 17 gm DAILY GT 06/22/19 10:00 07/22/19 20:59 06/22/19 10:07 Quetiapine Fumarate (SEROqueL) 25 mg BEDTIME ORAL 06/21/19 21:45 07/21/19 21:44 06/21/19 21:41 Spironolactone (Aldactone) 25 mg DAILY GT 06/21/19 09:00 07/21/19 08:59 06/22/19 09:35 Vancomycin HCl (Vanco rx to dose) 1 ea DAILY PRN MISC . 06/20/19 20:30 07/20/19 20:29 Vancomycin HCl 750 mg/Sodium Chloride 275 ml @ 183.333 mls/hr Q12HR@0000,1200 IVPB 06/23/19 00:00 06/28/19 00:00 Vitamin D (Vitamin D) 5,000 intlu DAILY GT 06/21/19 09:00 07/21/19 08:59 06/22/19 09:36 Assessment/Plan Assessment/Plan: Abx: IV Vancomycin 06/20- Cefepime 06/20- Flagyl 06/20- Assessment: Sepsis PNA -06/21 CXR: Improved pleural effusions. Right pleural effusion resolved, small residual left pleural effusion. Left lung base atelectasis/airspace disease. Improved right lung base opacities. -06/20 CXR: Small bilateral layering pleural effusions. Dependent atelectasis versus infiltrates in bilateral lung bases. -Bcx NTD Probable UTI -u/a wbc 5-10, nit neg, leuk +3; ucx p Afebrile Leukocytosis, improving spinal injury quadriplegia HTN cardiomyopathy GERD chronic respiratory failure trach/vent dependant dysphagia s/p GT hx of PNA constipation tardive dyskinesia [place] resident Plan: -Continue empiric IV Vancomycin, Cefepime and Flagyl #3 pending sp cx -f/u cx -Monitor CBC/CMP, temperatures -sp cx, influenza sc -PEG/trach care -aspiration precautions Thank you for this consultation. Will continue to follow along with you. Discussed with Hollie Das M.D. Jun 22, 2019 14:48
[2019-06-22] MEDS ORDERED: NS 275ml ONE (15:01)
[2019-06-22 16:00] VITALS: BP 126/71
[2019-06-22 20:00] VITALS: BP 139/75
[2019-06-22] MEDS ORDERED: Miralax 17gm pkt ORAL SCH (21:00)
[2019-06-22] MEDS: metroNIDAZOLE 500mg tab GT SCH (21:06)
[2019-06-22] MEDS: Vancomycin 750mg/NS 275ml IVPB SCH ×2 (23:16)
[2019-06-23] VITALS: BP 134/79
[2019-06-23] MEDS: Levalbuterol Inh UD 1.25mg/0.5ml HHN SCH ×6 (03:37→21:32)
[2019-06-23 04:00] VITALS: BP 149/72
[2019-06-23] MEDS: metroNIDAZOLE 500mg tab GT SCH ×3 (05:15→21:21)
[2019-06-23 06:45] LABS: BASOPHILS % (AUTO) 0.4 % (0.0-2.0); HEMATOCRIT 33.3 % (37.0-47.0); HEMOGLOBIN 10.9 G/DL (12.0-16.0); LYMPHOCYTES % (AUTO) 17.3 % (20.0-45.0); MEAN CORPUSCULAR VOLUME 80 FL (80-99); MONOCYTES % (AUTO) 6.8 % (1.0-10.0); NEUTROPHILS % (AUTO) 72.6 % (45.0-75.0); PLATELET COUNT 276 K/UL (150-450); RED BLOOD COUNT 4.14 M/UL (4.20-5.40); RED CELL DISTRIBUTION WIDTH 14.6 % (11.6-14.8); WHITE BLOOD COUNT 12.3 K/UL (4.8-10.8)
[2019-06-23 07:32] LABS: ALANINE AMINOTRANSFERASE 45 U/L (12-78); ALBUMIN 2.2 G/DL (3.4-5.0); ALBUMIN/GLOBULIN RATIO 0.4 (1.0-2.7); ALKALINE PHOSPHATASE 114 U/L (46-116); ANION GAP 6 mmol/L (5-15); ASPARTATE AMINO TRANSFERASE 26 U/L (15-37); BILIRUBIN,TOTAL 0.3 MG/DL (0.2-1.0); BLOOD UREA NITROGEN 13 mg/dL (7-18); CALCIUM 9.1 MG/DL (8.5-10.1); CARBON DIOXIDE 31 MMOL/L (21-32); CHLORIDE 105 MMOL/L (98-107); CREATININE 0.6 MG/DL (0.55-1.30); PHOSPHORUS 3.2 MG/DL (2.5-4.9); POTASSIUM 4.3 MMOL/L (3.5-5.1); SODIUM 142 MMOL/L (136-145)
[2019-06-23 08:00] VITALS: BP 166/113
[2019-06-23] MEDS: Heparin 5000 units/ml inj SUBQ SCH ×2 (09:00→21:00)
[2019-06-23] MEDS: Miralax 17gm pkt GT SCH (09:34)
[2019-06-23] MEDS: Cefepime HCl 1 GM in D5W 55 ML IVPB SCH (09:34)
[2019-06-23] MEDS: Vitamin D 1000 IU Tab GT SCH (09:35)
[2019-06-23] MEDS: Docusate 100mg/10ml Liq GT SCH ×2 (09:35→21:21)
[2019-06-23] MEDS: Spironolactone 25mg tab GT SCH (09:35)
[2019-06-23] MEDS: Pantoprazole Inj IVP SCH (09:36)
[2019-06-23] MEDS: Multivitamins W/Minerals 15 ML UDC GT SCH (09:36)
[2019-06-23] MEDS: Ascorbic Acid 500mg tab GT SCH (09:36)
[2019-06-23] MEDS: clonazePAM 0.5mg tab GT SCH (09:36)
--- NOTE | 2019-06-23 10:14 | Pulmonolgy Critical Care Note ---
Critical Care - Asmt/Plan Problems: (1) Chronic respiratory failure (2) Nosocomial pneumonia (3) Sacral decubitus ulcer, stage II (4) Bilateral pleural effusion (5) Feeding by G-tube (6) Ventilator dependence Respiratory: monitor respiratory rate, adjust FIO2, CXR Cardiac: continue to monitor HR/BP Renal: F/U I&O Infectious Disease: check cultures, other - sputum cultures are not back Endocrine: monitor blood sugar Hematologic: monitor H/H, transfuse if hgb<8.5 Neurologic: keep patient comfortable Affect: PRN ativan Notes Reviewed: nutrient management specialist, cardio Discussed with: nurses, consultants, supportive employment case managerdistrict manager - Objective Last 24 Hour Vital Signs Date Time Temp Pulse Resp B/P (MAP) Pulse Ox O2 Delivery O2 Flow Rate FiO2 06/23/19 09:35 89 166/113 06/23/19 08:53 89 15 60 06/23/19 08:00 60 06/23/19 08:00 97.9 93 18 166/113 (130) 100 93 06/23/19 08:00 88 06/23/19 07:28 83 10 100 Mechanical Ventilator 60 84 10 60 06/23/19 05:35 85 21 60 06/23/19 04:00 60 06/23/19 04:00 97.9 87 20 149/72 (97) 99 87 06/23/19 04:00 86 06/23/19 04:00 Mechanical Ventilator 06/23/19 03:37 83 12 60 06/23/19 01:36 85 23 Mechanical Ventilator 60 06/23/19 00:00 60 06/23/19 00:00 89 06/23/19 00:00 Mechanical Ventilator 06/23/19 00:00 98.3 90 19 134/79 (97) 100 06/22/19 23:19 74 10 100 Mechanical Ventilator 60 76 10 60 06/22/19 23:09 104 134/86 06/22/19 21:14 83 10 Mechanical Ventilator 60 06/22/19 21:00 60 128/75 06/22/19 20:37 85 14 100 Mechanical Ventilator 60 06/22/19 20:00 89 06/22/19 20:00 60 06/22/19 20:00 98.7 83 19 139/75 (96) 100 06/22/19 20:00 Mechanical Ventilator 06/22/19 19:28 89 23 Mechanical Ventilator 60 06/22/19 17:05 83 10 Mechanical Ventilator 60 06/22/19 16:00 60 06/22/19 16:00 Mechanical Ventilator 06/22/19 16:00 81 06/22/19 16:00 97.9 82 20 126/71 (89) 100 06/22/19 15:06 81 18 100 Mechanical Ventilator 60 72 10 60 06/22/19 12:00 97.6 60 20 145/72 (96) 100 06/22/19 12:00 83 06/22/19 12:00 Mechanical Ventilator 06/22/19 12:00 60 06/22/19 10:42 103 10 100 Mechanical Ventilator 60 72 10 60 Status: awake Condition: improving HEENT: atraumatic Lungs: rales Heart: HR/BP stable, edema Abdomen: soft, non-tender Extremities: no C/C/E Micro: Microbiology Date/Time Source Procedure Growth Status 06/22/19 15:12 Sputum Gram Stain Pending Resulted 06/22/19 15:12 Sputum Culture - Preliminary Gram Negative Bacillus 1 Resulted 06/22/19 15:04 Nasopharynx - Final Complete 06/22/19 15:04 Nasopharynx - Final Complete 06/22/19 15:04 Indwelling Cath Urine Culture - Preliminary NO GROWTH Resulted Critical Care - Subjective ROS Limited/Unobtainable: Yes Interval Events: awake, comfortable, daughter at bed site. FI02: 60 Vent Support Breath Rate: 10 Vent Support Mode: IMV/SIMV Vent Tidal Volume: 450 Sputum Amount: Small PEEP: 5.0 PIP: 34 Tube Feeding Amount: 45 I&O: Intake and Output 06/22/19 06/23/19 19:00 07:00 Intake Total 740 ml 970.000 ml Output Total 850 ml 900 ml Balance -110 ml 70.000 ml Intake Free Water 200 ml 200 ml IV Total 275.000 ml Tube Feeding 540 ml 495 ml Output Urine Total 850 ml 900 ml # Bowel Movements 1 Labs: Laboratory Tests Test 06/23/19 06:01 White Blood Count 12.3 K/UL (4.8-10.8) H Red Blood Count 4.14 M/UL (4.20-5.40) L Hemoglobin 10.9 G/DL (12.0-16.0) L Hematocrit 33.3 % (37.0-47.0) L Mean Corpuscular Volume 80 FL (80-99) Mean Corpuscular Hemoglobin 26.3 PG (27.0-31.0) L Mean Corpuscular Hemoglobin Concent 32.7 G/DL (32.0-36.0) Red Cell Distribution Width 14.6 % (11.6-14.8) Platelet Count 276 K/UL (150-450) Mean Platelet Volume 6.6 FL (6.5-10.1) Neutrophils (%) (Auto) 72.6 % (45.0-75.0) Lymphocytes (%) (Auto) 17.3 % (20.0-45.0) L Monocytes (%) (Auto) 6.8 % (1.0-10.0) Eosinophils (%) (Auto) 3.0 % (0.0-3.0) Basophils (%) (Auto) 0.4 % (0.0-2.0) Erythrocyte Sedimentation Rate Pending Sodium Level 142 MMOL/L (136-145) Potassium Level 4.3 MMOL/L (3.5-5.1) Chloride Level 105 MMOL/L (98-107) Carbon Dioxide Level 31 MMOL/L (21-32) Anion Gap 6 mmol/L (5-15) Blood Urea Nitrogen 13 mg/dL (7-18) Creatinine 0.6 MG/DL (0.55-1.30) Estimat Glomerular Filtration Rate > 60 mL/min (>60) Glucose Level 156 MG/DL (74-106) H Calcium Level 9.1 MG/DL (8.5-10.1) Phosphorus Level 3.2 MG/DL (2.5-4.9) Magnesium Level 1.8 MG/DL (1.8-2.4) Total Bilirubin 0.3 MG/DL (0.2-1.0) Aspartate Amino Transf (AST/SGOT) 26 U/L (15-37) Alanine Aminotransferase (ALT/SGPT) 45 U/L (12-78) Alkaline Phosphatase 114 U/L (46-116) C-Reactive Protein, Quantitative 1.7 mg/dL (0.00-0.90) H Pro-B-Type Natriuretic Peptide 487 pg/mL (0-125) H Total Protein 7.9 G/DL (6.4-8.2) Albumin 2.2 G/DL (3.4-5.0) L Globulin 5.7 g/dL Albumin/Globulin Ratio 0.4 (1.0-2.7) L Ethel Curtis MD Jun 23, 2019 10:14
--- NOTE | 2019-06-23 11:15 | Infectious Diseases Prog Note ---
Assessment/Plan Assessment/Plan Assessment: Sepsis PNA -2/3 sp cx GNR -06/21 CXR: Improved pleural effusions. Right pleural effusion resolved, small residual left pleural effusion. Left lung base atelectasis/airspace disease. Improved right lung base opacities. -06/20 CXR: Small bilateral layering pleural effusions. Dependent atelectasis versus infiltrates in bilateral lung bases. -Bcx NTD -influenza sc neg Probable UTI -u/a wbc 5-10, nit neg, leuk +3; ucx NTD Afebrile Leukocytosis, improving spinal injury quadriplegia HTN cardiomyopathy GERD chronic respiratory failure trach/vent dependant dysphagia s/p GT hx of PNA constipation tardive dyskinesia [facility] resident Plan: -Continue empiric IV Vancomycin, Cefepime and Flagyl #4 pending sp cx -if no gram positive growth, will d/c Vancomycin -f/u cx -Monitor CBC/CMP, temperatures -f/u sp cx -PEG/trach care -aspiration precautions Thank you for this consultation. Will continue to follow along with you. Discussed with RN Subjective Allergies: Coded Allergies: No Known Allergies (Unverified , 03/03/19) Subjective afebrile wbc overall improved Bcx NTD Objective Vital Signs Last 24 Hour Vital Signs Date Time Temp Pulse Resp B/P (MAP) Pulse Ox O2 Delivery O2 Flow Rate FiO2 06/23/19 10:58 68 11 100 Mechanical Ventilator 60 60 10 60 06/23/19 09:35 89 166/113 06/23/19 08:53 89 15 60 06/23/19 08:00 60 06/23/19 08:00 97.9 93 18 166/113 (130) 100 93 06/23/19 08:00 88 06/23/19 07:28 83 10 100 Mechanical Ventilator 60 84 10 60 06/23/19 05:35 85 21 60 06/23/19 04:00 60 06/23/19 04:00 97.9 87 20 149/72 (97) 99 87 06/23/19 04:00 86 06/23/19 04:00 Mechanical Ventilator 06/23/19 03:37 83 12 60 06/23/19 01:36 85 23 Mechanical Ventilator 60 06/23/19 00:00 60 06/23/19 00:00 89 06/23/19 00:00 Mechanical Ventilator 06/23/19 00:00 98.3 90 19 134/79 (97) 100 06/22/19 23:19 74 10 100 Mechanical Ventilator 60 76 10 60 06/22/19 23:09 104 134/86 06/22/19 21:14 83 10 Mechanical Ventilator 60 06/22/19 21:00 60 128/75 06/22/19 20:37 85 14 100 Mechanical Ventilator 60 06/22/19 20:00 89 06/22/19 20:00 60 06/22/19 20:00 98.7 83 19 139/75 (96) 100 06/22/19 20:00 Mechanical Ventilator 06/22/19 19:28 89 23 Mechanical Ventilator 60 06/22/19 17:05 83 10 Mechanical Ventilator 60 06/22/19 16:00 60 06/22/19 16:00 Mechanical Ventilator 06/22/19 16:00 81 06/22/19 16:00 97.9 82 20 126/71 (89) 100 06/22/19 15:06 81 18 100 Mechanical Ventilator 60 72 10 60 06/22/19 12:00 97.6 60 20 145/72 (96) 100 06/22/19 12:00 83 06/22/19 12:00 Mechanical Ventilator 06/22/19 12:00 60 Height (Feet): 5 Height (Inches): 6.00 Weight (Pounds): 153 Objective General appearance: alert, cooperative, no distress, appears stated age Head: Normocephalic, without obvious abnormality, atraumatic Eyes: conjunctivae/corneas clear. PERRL, EOM's intact. Fundi benign Throat: Lips, mucosa, and tongue normal. Teeth and gums normal Neck: supple, symmetrical, trachea midline, no adenopathy, thyroid: not enlarged, symmetric, no tenderness/mass/nodules, no carotid bruit and no JVD Lungs: clear to auscultation bilaterally Heart: regular rate and rhythm, S1, S2 normal, no murmur, click, rub or gallop Abdomen: soft, non-tender. Bowel sounds normal. No masses, no organomegaly Extremities: extremities normal, atraumatic, no cyanosis or edema Pulses: 2+ and symmetric Skin: Skin color, texture, turgor normal. No rashes or lesions Neurologic: Grossly normal Microbiology Date/Time Source Procedure Growth Status 06/22/19 15:12 Sputum Gram Stain Pending Resulted 06/22/19 15:12 Sputum Culture - Preliminary Gram Negative Bacillus 1 Resulted 06/22/19 15:04 Nasopharynx - Final Complete 06/22/19 15:04 Nasopharynx - Final Complete 06/22/19 15:04 Indwelling Cath Urine Culture - Preliminary NO GROWTH Resulted Laboratory Tests Test 06/23/19 06:01 White Blood Count 12.3 K/UL (4.8-10.8) H Red Blood Count 4.14 M/UL (4.20-5.40) L Hemoglobin 10.9 G/DL (12.0-16.0) L Hematocrit 33.3 % (37.0-47.0) L Mean Corpuscular Volume 80 FL (80-99) Mean Corpuscular Hemoglobin 26.3 PG (27.0-31.0) L Mean Corpuscular Hemoglobin Concent 32.7 G/DL (32.0-36.0) Red Cell Distribution Width 14.6 % (11.6-14.8) Platelet Count 276 K/UL (150-450) Mean Platelet Volume 6.6 FL (6.5-10.1) Neutrophils (%) (Auto) 72.6 % (45.0-75.0) Lymphocytes (%) (Auto) 17.3 % (20.0-45.0) L Monocytes (%) (Auto) 6.8 % (1.0-10.0) Eosinophils (%) (Auto) 3.0 % (0.0-3.0) Basophils (%) (Auto) 0.4 % (0.0-2.0) Erythrocyte Sedimentation Rate 88 MM/HR (0-30) H Sodium Level 142 MMOL/L (136-145) Potassium Level 4.3 MMOL/L (3.5-5.1) Chloride Level 105 MMOL/L (98-107) Carbon Dioxide Level 31 MMOL/L (21-32) Anion Gap 6 mmol/L (5-15) Blood Urea Nitrogen 13 mg/dL (7-18) Creatinine 0.6 MG/DL (0.55-1.30) Estimat Glomerular Filtration Rate > 60 mL/min (>60) Glucose Level 156 MG/DL (74-106) H Calcium Level 9.1 MG/DL (8.5-10.1) Phosphorus Level 3.2 MG/DL (2.5-4.9) Magnesium Level 1.8 MG/DL (1.8-2.4) Total Bilirubin 0.3 MG/DL (0.2-1.0) Aspartate Amino Transf (AST/SGOT) 26 U/L (15-37) Alanine Aminotransferase (ALT/SGPT) 45 U/L (12-78) Alkaline Phosphatase 114 U/L (46-116) C-Reactive Protein, Quantitative 1.7 mg/dL (0.00-0.90) H Pro-B-Type Natriuretic Peptide 487 pg/mL (0-125) H Total Protein 7.9 G/DL (6.4-8.2) Albumin 2.2 G/DL (3.4-5.0) L Globulin 5.7 g/dL Albumin/Globulin Ratio 0.4 (1.0-2.7) L Current Medications Medications (Trade) Dose Ordered Sig/Rizwana Route PRN Reason Start Time Stop Time Status Last Admin Dose Admin Acetaminophen (Tylenol) 650 mg Q4H PRN GT Mild Pain/Temp > 100.5 06/20/19 15:45 07/20/19 15:44 Ascorbic Acid (Vitamin C) 500 mg DAILY GT 06/21/19 09:00 07/21/19 08:59 06/23/19 09:36 Atorvastatin Calcium (Lipitor) 10 mg BEDTIME GT 06/20/19 21:00 07/20/19 20:59 06/22/19 21:05 Bisacodyl (Dulcolax) 10 mg DAILYPRN PRN RECTAL Constipation 06/20/19 15:45 07/20/19 15:44 06/23/19 09:39 Carvedilol (Coreg) 3.125 mg EVERY 12 HOURS GT 06/20/19 21:00 07/20/19 20:59 06/23/19 09:35 Cefepime HCl 1 gm/ Dextrose 55 ml @ 110 mls/hr Q24H IVPB 06/21/19 09:00 06/28/19 08:59 06/23/19 09:34 Clonazepam (KlonoPIN) 0.125 mg DAILY GT 06/21/19 09:00 06/28/19 08:59 06/23/19 09:36 Docusate Sodium (Colace) 100 mg EVERY 12 HOURS GT 06/20/19 21:00 07/20/19 20:59 06/23/19 09:35 Heparin Sodium (Porcine) (Heparin 5000 units/ml) 5,000 units EVERY 12 HOURS SUBQ 06/20/19 21:00 07/20/19 20:59 Levalbuterol HCl (Xopenex) 1.25 mg Q4H PRN HHN Shortness of breath 06/22/19 14:00 06/27/19 13:59 Levalbuterol HCl (Xopenex) 1.25 mg Q4HRT HHN 06/21/19 11:00 06/26/19 10:59 06/23/19 10:47 Magnesium Hydroxide (Mom) 30 ml HSPRN PRN GT Constipation 06/20/19 15:45 07/20/19 15:44 Metronidazole (Flagyl) 500 mg Q8HR GT 06/22/19 22:00 06/27/19 23:59 06/23/19 05:15 Multivitamins (Multivitamins W/ Minerals 15ml Liquid) 15 ml DAILY GT 06/21/19 09:00 07/21/19 08:59 06/23/19 09:36 Ondansetron HCl (Zofran) 4 mg Q6H PRN IVP Nausea & Vomiting 06/20/19 20:15 07/20/19 20:14 Pantoprazole (Protonix) 40 mg DAILY IVP 06/21/19 09:00 07/21/19 08:59 06/23/19 09:36 Polyethylene Glycol (Miralax) 17 gm DAILY GT 06/22/19 10:00 07/22/19 20:59 06/23/19 09:34 Quetiapine Fumarate (SEROqueL) 25 mg BEDTIME ORAL 06/21/19 21:45 07/21/19 21:44 06/22/19 21:05 Spironolactone (Aldactone) 25 mg DAILY GT 06/21/19 09:00 07/21/19 08:59 06/23/19 09:35 Vancomycin HCl (Vanco rx to dose) 1 ea DAILY PRN MISC . 06/20/19 20:30 07/20/19 20:29 Vancomycin HCl 750 mg/Sodium Chloride 275 ml @ 183.333 mls/hr Q12HR@0000,1200 IVPB 06/23/19 00:00 06/28/19 00:00 06/22/19 23:16 Vitamin D (Vitamin D) 5,000 intlu DAILY GT 06/21/19 09:00 07/21/19 08:59 06/23/19 09:35 Hollie Randolph M.D. Jun 23, 2019 11:15
[2019-06-23 12:00] VITALS: BP 105/56
[2019-06-23] MEDS: Vancomycin 750mg/NS 275ml IVPB SCH ×2 (12:19)
--- NOTE | 2019-06-23 13:30 | Surgery Progress Note ---
Surgery Progress Note Subjective Additional Comments no acute events comfortable appearing stable Objective Last 24 Hour Vital Signs Date Time Temp Pulse Resp B/P (MAP) Pulse Ox O2 Delivery O2 Flow Rate FiO2 06/23/19 12:45 84 14 60 06/23/19 10:58 68 11 100 Mechanical Ventilator 60 60 10 60 06/23/19 09:35 89 166/113 06/23/19 08:53 89 15 60 06/23/19 08:00 60 06/23/19 08:00 97.9 93 18 166/113 (130) 100 93 06/23/19 08:00 Mechanical Ventilator 06/23/19 08:00 88 06/23/19 07:28 83 10 100 Mechanical Ventilator 60 84 10 60 06/23/19 05:35 85 21 60 06/23/19 04:00 60 06/23/19 04:00 97.9 87 20 149/72 (97) 99 87 06/23/19 04:00 86 06/23/19 04:00 Mechanical Ventilator 06/23/19 03:37 83 12 60 06/23/19 01:36 85 23 Mechanical Ventilator 60 06/23/19 00:00 60 06/23/19 00:00 89 06/23/19 00:00 Mechanical Ventilator 06/23/19 00:00 98.3 90 19 134/79 (97) 100 06/22/19 23:19 74 10 100 Mechanical Ventilator 60 76 10 60 06/22/19 23:09 104 134/86 06/22/19 21:14 83 10 Mechanical Ventilator 60 06/22/19 21:00 60 128/75 06/22/19 20:37 85 14 100 Mechanical Ventilator 60 06/22/19 20:00 89 06/22/19 20:00 60 06/22/19 20:00 98.7 83 19 139/75 (96) 100 06/22/19 20:00 Mechanical Ventilator 06/22/19 19:28 89 23 Mechanical Ventilator 60 06/22/19 17:05 83 10 Mechanical Ventilator 60 06/22/19 16:00 60 06/22/19 16:00 Mechanical Ventilator 06/22/19 16:00 81 06/22/19 16:00 97.9 82 20 126/71 (89) 100 06/22/19 15:06 81 18 100 Mechanical Ventilator 60 72 10 60 I&O Intake and Output 06/22/19 06/23/19 19:00 07:00 Intake Total 740 ml 970.000 ml Output Total 850 ml 900 ml Balance -110 ml 70.000 ml Intake Free Water 200 ml 200 ml IV Total 275.000 ml Tube Feeding 540 ml 495 ml Output Urine Total 850 ml 900 ml # Bowel Movements 1 Dressing: dry Wound: clean Cardiovascular: RSR Respiratory: clear Abdomen: soft, non-tender, present bowel sounds Extremities: no edema, no tenderness, no cyanosis Laboratory Tests Test 06/23/19 06:01 White Blood Count 12.3 K/UL (4.8-10.8) H Red Blood Count 4.14 M/UL (4.20-5.40) L Hemoglobin 10.9 G/DL (12.0-16.0) L Hematocrit 33.3 % (37.0-47.0) L Mean Corpuscular Volume 80 FL (80-99) Mean Corpuscular Hemoglobin 26.3 PG (27.0-31.0) L Mean Corpuscular Hemoglobin Concent 32.7 G/DL (32.0-36.0) Red Cell Distribution Width 14.6 % (11.6-14.8) Platelet Count 276 K/UL (150-450) Mean Platelet Volume 6.6 FL (6.5-10.1) Neutrophils (%) (Auto) 72.6 % (45.0-75.0) Lymphocytes (%) (Auto) 17.3 % (20.0-45.0) L Monocytes (%) (Auto) 6.8 % (1.0-10.0) Eosinophils (%) (Auto) 3.0 % (0.0-3.0) Basophils (%) (Auto) 0.4 % (0.0-2.0) Erythrocyte Sedimentation Rate 88 MM/HR (0-30) H Sodium Level 142 MMOL/L (136-145) Potassium Level 4.3 MMOL/L (3.5-5.1) Chloride Level 105 MMOL/L (98-107) Carbon Dioxide Level 31 MMOL/L (21-32) Anion Gap 6 mmol/L (5-15) Blood Urea Nitrogen 13 mg/dL (7-18) Creatinine 0.6 MG/DL (0.55-1.30) Estimat Glomerular Filtration Rate > 60 mL/min (>60) Glucose Level 156 MG/DL (74-106) H Calcium Level 9.1 MG/DL (8.5-10.1) Phosphorus Level 3.2 MG/DL (2.5-4.9) Magnesium Level 1.8 MG/DL (1.8-2.4) Total Bilirubin 0.3 MG/DL (0.2-1.0) Aspartate Amino Transf (AST/SGOT) 26 U/L (15-37) Alanine Aminotransferase (ALT/SGPT) 45 U/L (12-78) Alkaline Phosphatase 114 U/L (46-116) C-Reactive Protein, Quantitative 1.7 mg/dL (0.00-0.90) H Pro-B-Type Natriuretic Peptide 487 pg/mL (0-125) H Total Protein 7.9 G/DL (6.4-8.2) Albumin 2.2 G/DL (3.4-5.0) L Globulin 5.7 g/dL Albumin/Globulin Ratio 0.4 (1.0-2.7) L Plan Problems: (1) Sacral decubitus ulcer, stage II Assessment & Plan: Patient presented from nursing facility with sacral decubitus ulcer on admission. Patient's daughter is a surgical nurse who helps care for patient and her wounds for some time now. States that ongoing wound in the sacral area from pressure as well as incontinence. Daughter has been applying creams and helping with turning and dressing changes for some time now. Stated it is improved compared to prior. Noted to have areas of breakdown potentially is close to stage III full-thickness and small little portions but a majority it still covered with creams and at times difficult to completely evaluate. Wounds washed zinc applied dressings applied care instructions discussed with patient's family and nursing staff. Recommend turning every 2 hours, air soft mattress, nutritional optimization. Continue with dressing changes daily and as needed saturation as above. (2) Incontinence associated dermatitis Assessment & Plan: as above (3) Decubitus skin ulcer Assessment & Plan: DAILY ESTIMATED NEEDS: Needs based on Critical care, wound 69.7kg 25-30 kcals/kg 8518-2484 total kcals 1.25-2 g protein/kg 87-139 g total protein 25-30 mL/kg 9303-3247 total fluid mLs NUTRITION DIAGNOSIS: Swallowing difficulty r/t resp status as evidenced by pt is trach and peg dep. CURRENT TF:Jevity 1.2 @45ml /hr ENTERAL NUTRITION RECOMMENDATIONS: REC TF CHANGE-> Osmolite 1.5 @50ml/hr x24 hrs + Prosource BID to provide 1200ml , 1800 kcal, 75g +22g pro, 914ml free H2O - Rec TF change to better meet est needs, - Start Osmolite 1.5 @30ml/hr for 6 hrs, advance 10ml/hr q4-6 hrs to goal - Add PROSOURCE BID to better meet est pro needs - Flush per MD, HOB over 30 degrees ADDITIONAL RECOMMENDATIONS: 1) Maintain calibrated bed scale wts 2) Monitor BG, need for carb control formula 3) WOUND CARE: add LELO BID + Vit C 250mg daily 4) monitor wt trend w/ TF's Mauro Roldan Jun 23, 2019 13:30
[2019-06-23 16:00] VITALS: BP 138/77
[2019-06-23 20:00] VITALS: BP 150/82
[2019-06-24] VITALS: BP 123/85
--- NOTE | 2019-06-24 00:30 | Progress Note ---
DATE: 06/23/2019 SUBJECTIVE: The patient's condition is slightly deteriorated. The patient developed tachycardia as well as peripheral edema. PHYSICAL EXAMINATION: VITAL SIGNS: Blood pressure 137/77, pulse is 92, respirations of 22, and temperature 97.8. HEENT: Eyes were normal. ENT, mucous membranes were moist and intact. NECK: JVD now at 4 cm at the supraclavicular foci at 90 degrees. LUNGS: Clear without rhonchi, rales, or wheezing. HEART: Normal sounds with regular beats. ABDOMEN: Soft and nontender with normal bowel sounds. EXTREMITIES: Warm without cyanosis, clubbing, or edema. LABORATORY AND DIAGNOSTIC DATA: Hemoglobin is 10.9, hematocrit 33.3 with MCV of 80, WBC of 12.3, and platelets of 276. Her BUN and creatinine are 13 and 0.6 respectively. Her sodium is 142, potassium 4.3, chloride 105, CO2 was 29. ProBNP is 1287. Chest x-ray revealed congestive heart failure and pleural effusion. Repeat laboratories will be done. Sputum culture results are now available with gram negative bacilli, sensitivity is unavailable as of yet. IMPRESSION: The patient has a mild sand lowly progressive congestive heart failure. Medication that was given to the patient rejected by her daughter and daughter's main concern is the amount of Ativan while the patient was on Ambien and Klonopin as well. The patient's sleep is markedly improved presently, observed the patient's sleep uninterruptedly last night. The patient does not have tachycardia or anxious behavior that required further addition of benzodiazepine. Repeat laboratory tests will be done in the morning. Delmy Pardo M.D. DR: Jesús JOB#: [id number] CC:
[2019-06-24] MEDS: Vancomycin 750mg/NS 275ml IVPB SCH ×2 (00:36)
[2019-06-24] MEDS: Levalbuterol Inh UD 1.25mg/0.5ml HHN SCH ×5 (02:51→19:39)
[2019-06-24 04:00] VITALS: BP 138/83
[2019-06-24] MEDS: metroNIDAZOLE 500mg tab GT SCH (05:10)
[2019-06-24 05:40] LABS: BASOPHILS % (AUTO) 0.3 % (0.0-2.0); HEMATOCRIT 34.7 % (37.0-47.0); HEMOGLOBIN 11.2 G/DL (12.0-16.0); LYMPHOCYTES % (AUTO) 20.2 % (20.0-45.0); MEAN CORPUSCULAR VOLUME 81 FL (80-99); NEUTROPHILS % (AUTO) 68.5 % (45.0-75.0); PLATELET COUNT 281 K/UL (150-450); RED BLOOD COUNT 4.29 M/UL (4.20-5.40); RED CELL DISTRIBUTION WIDTH 14.6 % (11.6-14.8)
[2019-06-24 05:53] LABS: ALANINE AMINOTRANSFERASE 41 U/L (12-78); ALBUMIN 2.1 G/DL (3.4-5.0); ALBUMIN/GLOBULIN RATIO 0.4 (1.0-2.7); ALKALINE PHOSPHATASE 112 U/L (46-116); ANION GAP 4 mmol/L (5-15); ASPARTATE AMINO TRANSFERASE 23 U/L (15-37); BILIRUBIN,TOTAL 0.2 MG/DL (0.2-1.0); BLOOD UREA NITROGEN 12 mg/dL (7-18); CALCIUM 8.9 MG/DL (8.5-10.1); CARBON DIOXIDE 30 MMOL/L (21-32); CHLORIDE 107 MMOL/L (98-107); CREATININE 0.6 MG/DL (0.55-1.30); PHOSPHORUS 3.5 MG/DL (2.5-4.9); POTASSIUM 4.4 MMOL/L (3.5-5.1); SODIUM 141 MMOL/L (136-145)
[2019-06-24 07:58] VITALS: BP 150/93
[2019-06-24] MEDS ORDERED: Ascorbic Acid 500mg tab GT SCH (09:00)
[2019-06-24] MEDS: Heparin 5000 units/ml inj SUBQ SCH (09:00)
[2019-06-24] MEDS: Vitamin D 1000 IU Tab GT SCH (09:46)
[2019-06-24] MEDS: Miralax 17gm pkt GT SCH (09:46)
[2019-06-24] MEDS: Spironolactone 25mg tab GT SCH (09:47)
[2019-06-24] MEDS: Docusate 100mg/10ml Liq GT SCH (09:49)
[2019-06-24] MEDS: Multivitamins W/Minerals 15 ML UDC GT SCH (09:49)
[2019-06-24] MEDS: clonazePAM 0.5mg tab GT SCH (09:49)
[2019-06-24] MEDS ORDERED: Tubing IV Secondary IV ONE (10:13)
[2019-06-24] MEDS: Cefepime HCl 1 GM in D5W 55 ML IVPB SCH (10:46)
[2019-06-24 12:00] VITALS: BP 128/76
--- NOTE | 2019-06-24 12:15 | Infectious Diseases Prog Note ---
Assessment/Plan Assessment/Plan Assessment: Sepsis PNA -06/22 sp cx K, pna (S cipro/levo, Zosyn), possible ESBL per micro lab -06/21 CXR: Improved pleural effusions. Right pleural effusion resolved, small residual left pleural effusion. Left lung base atelectasis/airspace disease. Improved right lung base opacities. -06/20 CXR: Small bilateral layering pleural effusions. Dependent atelectasis versus infiltrates in bilateral lung bases. -Bcx NTD -influenza sc neg Probable UTI -u/a wbc 5-10, nit neg, leuk +3; ucx NTD Afebrile Leukocytosis, improving spinal injury quadriplegia HTN cardiomyopathy GERD chronic respiratory failure trach/vent dependant dysphagia s/p GT hx of PNA constipation tardive dyskinesia [facility] resident Plan: -D/c empiric IV Vancomycin #5 -Switch empiric Cefepime and Flagyl #5 to Ertapenem -f/u cx -Monitor CBC/CMP, temperatures -f/u sp cx -PEG/trach care -aspiration precautions Thank you for this consultation. Will continue to follow along with you. Discussed with RN Subjective Allergies: Coded Allergies: No Known Allergies (Unverified , 03/03/19) Subjective afebrile wbc overall improved Bcx NTD Objective Vital Signs Last 24 Hour Vital Signs Date Time Temp Pulse Resp B/P (MAP) Pulse Ox O2 Delivery O2 Flow Rate FiO2 06/24/19 10:54 87 10 99 Mechanical Ventilator 50 78 12 50 06/24/19 09:47 81 150/93 06/24/19 08:00 81 06/24/19 08:00 Mechanical Ventilator 06/24/19 08:00 60 06/24/19 07:58 98.0 83 18 150/93 (112) 98 83 06/24/19 07:09 80 20 99 Mechanical Ventilator 50 78 12 50 06/24/19 05:06 70 19 50 06/24/19 04:00 98.0 80 20 138/83 (101) 99 86 06/24/19 04:00 Mechanical Ventilator 06/24/19 04:00 60 06/24/19 04:00 79 06/24/19 02:50 71 18 50 06/24/19 00:39 78 18 50 06/24/19 00:00 60 06/24/19 00:00 98.6 86 22 123/85 (98) 98 86 06/24/19 00:00 Mechanical Ventilator 06/24/19 00:00 82 06/23/19 22:33 80 19 50 06/23/19 21:32 80 21 99 Mechanical Ventilator 50 88 18 06/23/19 21:22 82 150/82 06/23/19 20:51 80 20 50 06/23/19 20:00 98.9 82 22 150/82 (104) 99 92 06/23/19 20:00 83 06/23/19 20:00 60 06/23/19 20:00 Mechanical Ventilator 06/23/19 18:32 90 32 100 Mechanical Ventilator 50 86 18 50 06/23/19 17:11 85 20 50 06/23/19 16:16 84 14 100 Mechanical Ventilator 50 87 26 50 06/23/19 16:00 60 06/23/19 16:00 97.8 92 22 138/77 (97) 100 92 06/23/19 16:00 Mechanical Ventilator 06/23/19 15:27 82 06/23/19 12:45 84 14 60 Height (Feet): 5 Height (Inches): 6.00 Weight (Pounds): 154 Objective General appearance: alert, cooperative, no distress, appears stated age Head: Normocephalic, without obvious abnormality, atraumatic Eyes: conjunctivae/corneas clear. PERRL, EOM's intact. Fundi benign Throat: Lips, mucosa, and tongue normal. Teeth and gums normal Neck: supple, symmetrical, trachea midline, no adenopathy, thyroid: not enlarged, symmetric, no tenderness/mass/nodules, no carotid bruit and no JVD Lungs: clear to auscultation bilaterally Heart: regular rate and rhythm, S1, S2 normal, no murmur, click, rub or gallop Abdomen: soft, non-tender. Bowel sounds normal. No masses, no organomegaly Extremities: extremities normal, atraumatic, no cyanosis or edema Pulses: 2+ and symmetric Skin: Skin color, texture, turgor normal. No rashes or lesions Neurologic: Grossly normal Microbiology Date/Time Source Procedure Growth Status 06/22/19 15:12 Sputum Gram Stain - Final Resulted 06/22/19 15:12 Sputum Culture - Preliminary Klebsiella Pneumoniae Resulted 06/22/19 15:04 Nasopharynx - Final Complete 06/22/19 15:04 Nasopharynx - Final Complete 06/22/19 15:04 Indwelling Cath Urine Culture - Preliminary NO GROWTH AFTER 24 HOURS Resulted Laboratory Tests Test 06/23/19 23:00 06/24/19 05:00 Vancomycin Level Trough 13.2 ug/mL (5.0-12.0) H White Blood Count 12.0 K/UL (4.8-10.8) H Red Blood Count 4.29 M/UL (4.20-5.40) Hemoglobin 11.2 G/DL (12.0-16.0) L Hematocrit 34.7 % (37.0-47.0) L Mean Corpuscular Volume 81 FL (80-99) Mean Corpuscular Hemoglobin 26.1 PG (27.0-31.0) L Mean Corpuscular Hemoglobin Concent 32.3 G/DL (32.0-36.0) Red Cell Distribution Width 14.6 % (11.6-14.8) Platelet Count 281 K/UL (150-450) Mean Platelet Volume 6.5 FL (6.5-10.1) Neutrophils (%) (Auto) 68.5 % (45.0-75.0) Lymphocytes (%) (Auto) 20.2 % (20.0-45.0) Monocytes (%) (Auto) 7.0 % (1.0-10.0) Eosinophils (%) (Auto) 4.0 % (0.0-3.0) H Basophils (%) (Auto) 0.3 % (0.0-2.0) Erythrocyte Sedimentation Rate 79 MM/HR (0-30) H Sodium Level 141 MMOL/L (136-145) Potassium Level 4.4 MMOL/L (3.5-5.1) Chloride Level 107 MMOL/L (98-107) Carbon Dioxide Level 30 MMOL/L (21-32) Anion Gap 4 mmol/L (5-15) L Blood Urea Nitrogen 12 mg/dL (7-18) Creatinine 0.6 MG/DL (0.55-1.30) Estimat Glomerular Filtration Rate > 60 mL/min (>60) Glucose Level 164 MG/DL (74-106) H Calcium Level 8.9 MG/DL (8.5-10.1) Phosphorus Level 3.5 MG/DL (2.5-4.9) Magnesium Level 1.8 MG/DL (1.8-2.4) Total Bilirubin 0.2 MG/DL (0.2-1.0) Aspartate Amino Transf (AST/SGOT) 23 U/L (15-37) Alanine Aminotransferase (ALT/SGPT) 41 U/L (12-78) Alkaline Phosphatase 112 U/L (46-116) C-Reactive Protein, Quantitative 0.9 mg/dL (0.00-0.90) Total Protein 7.5 G/DL (6.4-8.2) Albumin 2.1 G/DL (3.4-5.0) L Globulin 5.4 g/dL Albumin/Globulin Ratio 0.4 (1.0-2.7) L Current Medications Medications (Trade) Dose Ordered Sig/Rizwana Route PRN Reason Start Time Stop Time Status Last Admin Dose Admin Acetaminophen (Tylenol) 650 mg Q4H PRN GT Mild Pain/Temp > 100.5 06/20/19 15:45 07/20/19 15:44 Ascorbic Acid (Vitamin C) 250 mg DAILY GT 06/24/19 09:00 07/24/19 08:59 06/24/19 09:47 Atorvastatin Calcium (Lipitor) 10 mg BEDTIME GT 06/20/19 21:00 07/20/19 20:59 06/23/19 21:21 Bisacodyl (Dulcolax) 10 mg DAILYPRN PRN RECTAL Constipation 06/20/19 15:45 07/20/19 15:44 06/23/19 09:39 Carvedilol (Coreg) 3.125 mg EVERY 12 HOURS GT 06/20/19 21:00 07/20/19 20:59 06/24/19 09:47 Cefepime HCl 1 gm/ Dextrose 55 ml @ 110 mls/hr Q24H IVPB 06/21/19 09:00 06/28/19 08:59 06/24/19 10:46 Clonazepam (KlonoPIN) 0.125 mg DAILY GT 06/21/19 09:00 06/28/19 08:59 06/24/19 09:49 Docusate Sodium (Colace) 100 mg EVERY 12 HOURS GT 06/20/19 21:00 07/20/19 20:59 06/24/19 09:49 Heparin Sodium (Porcine) (Heparin 5000 units/ml) 5,000 units EVERY 12 HOURS SUBQ 06/20/19 21:00 07/20/19 20:59 Lansoprazole (Prevacid) 30 mg DAILY GT 06/24/19 09:00 07/24/19 08:59 06/24/19 09:46 Levalbuterol HCl (Xopenex) 1.25 mg Q4H PRN HHN Shortness of breath 06/22/19 14:00 06/27/19 13:59 Levalbuterol HCl (Xopenex) 1.25 mg Q4HRT HHN 06/21/19 11:00 06/26/19 10:59 06/24/19 10:54 Magnesium Hydroxide (Mom) 30 ml HSPRN PRN GT Constipation 06/20/19 15:45 07/20/19 15:44 Metronidazole (Flagyl) 500 mg Q8HR GT 06/22/19 22:00 06/27/19 23:59 06/24/19 05:10 Multivitamins (Multivitamins W/ Minerals 15ml Liquid) 15 ml DAILY GT 06/21/19 09:00 07/21/19 08:59 06/24/19 09:49 Ondansetron HCl (Zofran) 4 mg Q6H PRN IVP Nausea & Vomiting 06/20/19 20:15 07/20/19 20:14 Polyethylene Glycol (Miralax) 17 gm DAILY GT 06/22/19 10:00 07/22/19 20:59 06/24/19 09:46 Quetiapine Fumarate (SEROqueL) 25 mg BEDTIME ORAL 06/21/19 21:45 07/21/19 21:44 06/23/19 21:21 Spironolactone (Aldactone) 25 mg DAILY GT 06/21/19 09:00 07/21/19 08:59 06/24/19 09:47 Vancomycin HCl (Vanco rx to dose) 1 ea DAILY PRN MISC . 06/20/19 20:30 07/20/19 20:29 Vancomycin HCl 750 mg/Sodium Chloride 275 ml @ 183.333 mls/hr Q12HR@0000,1200 IVPB 06/23/19 00:00 06/28/19 00:00 06/24/19 00:36 Vitamin D (Vitamin D) 5,000 intlu DAILY GT 06/21/19 09:00 07/21/19 08:59 06/24/19 09:46 Hollie Randolph M.D. Jun 24, 2019 12:15
--- NOTE | 2019-06-24 12:30 | Pulmonology Progress Note ---
Assessment/Plan Assessment/Plan ASSESSMENT Sepsis Pneumonia Probably UTI VDRF/trach status Dysphagia, feeding by G-tube Sacral decubitus ulcer stage II History of spinal cord injury Quadriplegia Tardive dyskinesia Incontinence associated dermatitis PLAN OF CARE [facility] Vent support, trach care fup with ABG and titrate settings as needed fup with CXR SCX + Klebsiella abx as per ID , optimized based on cx venous duplex negative DVT prophylaxis aspiration precautions, G-tube feeding bowel regimen GI prophylaxis wound care as per surgeon recommendation dc plan to subacute in progress case discussed and evaluated by supervising physician Subjective Allergies: Coded Allergies: No Known Allergies (Unverified , 03/03/19) Subjective mild leukocytosis, no fevers SCX + Klebsiella daughter at the bedside Objective Last 24 Hour Vital Signs Date Time Temp Pulse Resp B/P (MAP) Pulse Ox O2 Delivery O2 Flow Rate FiO2 06/24/19 12:00 Mechanical Ventilator 06/24/19 12:00 97.8 76 18 128/76 (93) 99 76 06/24/19 12:00 60 06/24/19 10:54 87 10 99 Mechanical Ventilator 50 78 12 50 06/24/19 09:47 81 150/93 06/24/19 08:00 81 06/24/19 08:00 Mechanical Ventilator 06/24/19 08:00 60 06/24/19 07:58 98.0 83 18 150/93 (112) 98 83 06/24/19 07:09 80 20 99 Mechanical Ventilator 50 78 12 50 06/24/19 05:06 70 19 50 06/24/19 04:00 98.0 80 20 138/83 (101) 99 86 06/24/19 04:00 Mechanical Ventilator 06/24/19 04:00 60 06/24/19 04:00 79 06/24/19 02:50 71 18 50 06/24/19 00:39 78 18 50 06/24/19 00:00 60 06/24/19 00:00 98.6 86 22 123/85 (98) 98 86 06/24/19 00:00 Mechanical Ventilator 06/24/19 00:00 82 06/23/19 22:33 80 19 50 06/23/19 21:32 80 21 99 Mechanical Ventilator 50 88 18 06/23/19 21:22 82 150/82 06/23/19 20:51 80 20 50 06/23/19 20:00 98.9 82 22 150/82 (104) 99 92 06/23/19 20:00 83 06/23/19 20:00 60 06/23/19 20:00 Mechanical Ventilator 06/23/19 18:32 90 32 100 Mechanical Ventilator 50 86 18 50 06/23/19 17:11 85 20 50 06/23/19 16:16 84 14 100 Mechanical Ventilator 50 87 26 50 06/23/19 16:00 60 06/23/19 16:00 97.8 92 22 138/77 (97) 100 92 06/23/19 16:00 Mechanical Ventilator 06/23/19 15:27 82 06/23/19 12:45 84 14 60 Intake and Output 06/23/19 06/24/19 19:00 07:00 Intake Total 740 ml 965.00 ml Output Total 700 ml 900 ml Balance 40 ml 65.00 ml Intake Free Water 200 ml 150 ml IV Total 275.00 ml Tube Feeding 540 ml 540 ml Output Urine Total 700 ml 900 ml # Bowel Movements 4 2 General Appearance: other - bedridden chronically ill looking female in NAD, on vent HEENT: normocephalic, atraumatic, anicteric, status post trach - Portex # 7, secretions small, yellow, thick , other - on vent SIMV 450-60%-16 Cardiovascular: normal peripheral pulses, normal rate, regular rhythm Abdomen: soft, non tender, non distended Genitourinary: other - Martin Extremities: no edema, pedal pulses normal Neurologic/Psychiatric: abnormal gait, alert Musculoskeletal: atrophy - BLE Microbiology Date/Time Source Procedure Growth Status 06/22/19 15:12 Sputum Gram Stain - Final Resulted 06/22/19 15:12 Sputum Culture - Preliminary Klebsiella Pneumoniae Resulted 06/22/19 15:04 Nasopharynx - Final Complete 06/22/19 15:04 Nasopharynx - Final Complete 06/22/19 15:04 Indwelling Cath Urine Culture - Preliminary NO GROWTH AFTER 24 HOURS Resulted Laboratory Tests 06/23/19 23:00: Vancomycin Level Trough 13.2H 06/24/19 05:00: White Blood Count 12.0H, Red Blood Count 4.29, Hemoglobin 11.2L, Hematocrit 34.7L, Mean Corpuscular Volume 81, Mean Corpuscular Hemoglobin 26.1L, Mean Corpuscular Hemoglobin Concent 32.3, Red Cell Distribution Width 14.6, Platelet Count 281, Mean Platelet Volume 6.5, Neutrophils (%) (Auto) 68.5, Lymphocytes (% ) (Auto) 20.2, Monocytes (%) (Auto) 7.0, Eosinophils (%) (Auto) 4.0H, Basophils (%) (Auto) 0.3, Erythrocyte Sedimentation Rate 79H, Sodium Level 141, Potassium Level 4.4, Chloride Level 107, Carbon Dioxide Level 30, Anion Gap 4L, Blood Urea Nitrogen 12, Creatinine 0.6, Estimat Glomerular Filtration Rate > 60, Glucose Level 164H, Calcium Level 8.9, Phosphorus Level 3.5, Magnesium Level 1.8 , Total Bilirubin 0.2, Aspartate Amino Transf (AST/SGOT) 23, Alanine Aminotransferase (ALT/SGPT) 41, Alkaline Phosphatase 112, C-Reactive Protein, Quantitative 0.9, Total Protein 7.5, Albumin 2.1L, Globulin 5.4, Albumin/ Globulin Ratio 0.4L Current Medications Medications (Trade) Dose Ordered Sig/Rizwana Route PRN Reason Start Time Stop Time Status Last Admin Dose Admin Acetaminophen (Tylenol) 650 mg Q4H PRN GT Mild Pain/Temp > 100.5 06/20/19 15:45 07/20/19 15:44 Ascorbic Acid (Vitamin C) 250 mg DAILY GT 06/24/19 09:00 07/24/19 08:59 06/24/19 09:47 Atorvastatin Calcium (Lipitor) 10 mg BEDTIME GT 06/20/19 21:00 07/20/19 20:59 06/23/19 21:21 Bisacodyl (Dulcolax) 10 mg DAILYPRN PRN RECTAL Constipation 06/20/19 15:45 07/20/19 15:44 06/23/19 09:39 Carvedilol (Coreg) 3.125 mg EVERY 12 HOURS GT 06/20/19 21:00 07/20/19 20:59 06/24/19 09:47 Clonazepam (KlonoPIN) 0.125 mg DAILY GT 06/21/19 09:00 06/28/19 08:59 06/24/19 09:49 Docusate Sodium (Colace) 100 mg EVERY 12 HOURS GT 06/20/19 21:00 07/20/19 20:59 06/24/19 09:49 Ertapenem 1 gm/ Sodium Chloride 55 ml @ 110 mls/hr Q24H IVPB 06/24/19 13:00 06/29/19 12:59 Heparin Sodium (Porcine) (Heparin 5000 units/ml) 5,000 units EVERY 12 HOURS SUBQ 06/20/19 21:00 07/20/19 20:59 Lansoprazole (Prevacid) 30 mg DAILY GT 06/24/19 09:00 07/24/19 08:59 06/24/19 09:46 Levalbuterol HCl (Xopenex) 1.25 mg Q4H PRN HHN Shortness of breath 06/22/19 14:00 06/27/19 13:59 Levalbuterol HCl (Xopenex) 1.25 mg Q4HRT HHN 06/21/19 11:00 06/26/19 10:59 06/24/19 10:54 Magnesium Hydroxide (Mom) 30 ml HSPRN PRN GT Constipation 06/20/19 15:45 07/20/19 15:44 Multivitamins (Multivitamins W/ Minerals 15ml Liquid) 15 ml DAILY GT 06/21/19 09:00 07/21/19 08:59 06/24/19 09:49 Ondansetron HCl (Zofran) 4 mg Q6H PRN IVP Nausea & Vomiting 06/20/19 20:15 07/20/19 20:14 Polyethylene Glycol (Miralax) 17 gm DAILY GT 06/22/19 10:00 07/22/19 20:59 06/24/19 09:46 Quetiapine Fumarate (SEROqueL) 25 mg BEDTIME ORAL 06/21/19 21:45 07/21/19 21:44 06/23/19 21:21 Spironolactone (Aldactone) 25 mg DAILY GT 06/21/19 09:00 07/21/19 08:59 06/24/19 09:47 Vitamin D (Vitamin D) 5,000 intlu DAILY GT 06/21/19 09:00 07/21/19 08:59 06/24/19 09:46 Graciela Cisneros CUST[employer]ER SERVICE CONSULTANT Jun 24, 2019 12:30
[2019-06-24] MEDS ORDERED: Ertapenem 1 GM in NS 55 ML IVPB SCH (13:00)
--- NOTE | 2019-06-24 14:15 | Progress Note ---
DATE: 06/22/2019 SUBJECTIVE: The patient slept whole night without interruption and 00:26 this morning. Looks comfortable during the day. She received carvedilol 325 mg b.i.d. and heart rate declined from 120 to 80. However, carvedilol has been discontinued by her doctor and her heart rate was again to 104. PHYSICAL EXAMINATION: VITAL SIGNS: Blood pressure 134/80, pulse is 104, respirations 14, and temperature 98.7. HEENT: Eyes were normal. ENT, mucous membranes moist and intact. NECK: Supple with no JVD without lymph nodes. LUNGS: Clear in the upper lobe and a few rhonchi in the lower lobe. HEART: Normal sounds with regular beats. There is tachycardia at rest. Sinus tachycardia on monitor. ABDOMEN: Soft and nontender with normal bowel sounds. Gastrostomy site is clean. EXTREMITIES: Warm without cyanosis, clubbing, or edema. LABORATORY AND DIAGNOSTIC DATA: Hemoglobin is 10.4, hematocrit 32.3, with MCV of 81, WBC of 11.6, and platelets 252,000. Her BUN and creatinine 15 and 0.5 respectively. Her sodium is 143, potassium 4.0, chloride 105, CO2 is 34. Troponin was undetected. TSH was 1.1. BNP is unavailable. 02:37 culture for influenza A and B was negative. The patient had a chest x-ray yesterday, which shows she has atelectasis and improved pleural effusion 03:10 congestive heart failure. IMPRESSION: The patient will continue to improve 03:19 interfered tachycardia. Repeat laboratory tests will be done in the a.m. Delmy Pardo M.D. DR: Mike JOB#: [id number] CC:
--- NOTE | 2019-06-24 14:40 | Diagnostic Imaging Report ---
Indication: Dyspnea Comparison: 06/21/2019 A single view chest radiograph was obtained. Findings: Lung volumes are low. Hazy opacities at the lung bases are present. The heart is enlarged. Tracheostomy is present. Bones are osteopenic. IMPRESSION: Suspected small bilateral pleural effusions with underlying atelectasis.
--- NOTE | 2019-06-24 15:10 | Surgery Progress Note ---
Surgery Progress Note Subjective Symptoms: improved Additional Comments d/c planning Objective Last 24 Hour Vital Signs Date Time Temp Pulse Resp B/P (MAP) Pulse Ox O2 Delivery O2 Flow Rate FiO2 06/24/19 12:00 Mechanical Ventilator 06/24/19 12:00 97.8 76 18 128/76 (93) 99 76 06/24/19 12:00 60 06/24/19 11:36 79 06/24/19 10:54 87 10 99 Mechanical Ventilator 50 78 12 50 06/24/19 09:47 81 150/93 06/24/19 08:00 81 06/24/19 08:00 Mechanical Ventilator 06/24/19 08:00 60 06/24/19 07:58 98.0 83 18 150/93 (112) 98 83 06/24/19 07:09 80 20 99 Mechanical Ventilator 50 78 12 50 06/24/19 05:06 70 19 50 06/24/19 04:00 98.0 80 20 138/83 (101) 99 86 06/24/19 04:00 Mechanical Ventilator 06/24/19 04:00 60 06/24/19 04:00 79 06/24/19 02:50 71 18 50 06/24/19 00:39 78 18 50 06/24/19 00:00 60 06/24/19 00:00 98.6 86 22 123/85 (98) 98 86 06/24/19 00:00 Mechanical Ventilator 06/24/19 00:00 82 06/23/19 22:33 80 19 50 06/23/19 21:32 80 21 99 Mechanical Ventilator 50 88 18 06/23/19 21:22 82 150/82 06/23/19 20:51 80 20 50 06/23/19 20:00 98.9 82 22 150/82 (104) 99 92 06/23/19 20:00 83 06/23/19 20:00 60 06/23/19 20:00 Mechanical Ventilator 06/23/19 18:32 90 32 100 Mechanical Ventilator 50 86 18 50 06/23/19 17:11 85 20 50 06/23/19 16:16 84 14 100 Mechanical Ventilator 50 87 26 50 06/23/19 16:00 60 06/23/19 16:00 97.8 92 22 138/77 (97) 100 92 06/23/19 16:00 Mechanical Ventilator 06/23/19 15:27 82 I&O Intake and Output 06/23/19 06/24/19 19:00 07:00 Intake Total 740 ml 965.00 ml Output Total 700 ml 900 ml Balance 40 ml 65.00 ml Intake Free Water 200 ml 150 ml IV Total 275.00 ml Tube Feeding 540 ml 540 ml Output Urine Total 700 ml 900 ml # Bowel Movements 4 2 Dressing: dry Wound: clean Cardiovascular: RSR Respiratory: clear, decreased breath sounds Abdomen: soft, non-tender, present bowel sounds Extremities: no cyanosis Laboratory Tests Test 06/23/19 23:00 06/24/19 05:00 Vancomycin Level Trough 13.2 ug/mL (5.0-12.0) H White Blood Count 12.0 K/UL (4.8-10.8) H Red Blood Count 4.29 M/UL (4.20-5.40) Hemoglobin 11.2 G/DL (12.0-16.0) L Hematocrit 34.7 % (37.0-47.0) L Mean Corpuscular Volume 81 FL (80-99) Mean Corpuscular Hemoglobin 26.1 PG (27.0-31.0) L Mean Corpuscular Hemoglobin Concent 32.3 G/DL (32.0-36.0) Red Cell Distribution Width 14.6 % (11.6-14.8) Platelet Count 281 K/UL (150-450) Mean Platelet Volume 6.5 FL (6.5-10.1) Neutrophils (%) (Auto) 68.5 % (45.0-75.0) Lymphocytes (%) (Auto) 20.2 % (20.0-45.0) Monocytes (%) (Auto) 7.0 % (1.0-10.0) Eosinophils (%) (Auto) 4.0 % (0.0-3.0) H Basophils (%) (Auto) 0.3 % (0.0-2.0) Erythrocyte Sedimentation Rate 79 MM/HR (0-30) H Sodium Level 141 MMOL/L (136-145) Potassium Level 4.4 MMOL/L (3.5-5.1) Chloride Level 107 MMOL/L (98-107) Carbon Dioxide Level 30 MMOL/L (21-32) Anion Gap 4 mmol/L (5-15) L Blood Urea Nitrogen 12 mg/dL (7-18) Creatinine 0.6 MG/DL (0.55-1.30) Estimat Glomerular Filtration Rate > 60 mL/min (>60) Glucose Level 164 MG/DL (74-106) H Calcium Level 8.9 MG/DL (8.5-10.1) Phosphorus Level 3.5 MG/DL (2.5-4.9) Magnesium Level 1.8 MG/DL (1.8-2.4) Total Bilirubin 0.2 MG/DL (0.2-1.0) Aspartate Amino Transf (AST/SGOT) 23 U/L (15-37) Alanine Aminotransferase (ALT/SGPT) 41 U/L (12-78) Alkaline Phosphatase 112 U/L (46-116) C-Reactive Protein, Quantitative 0.9 mg/dL (0.00-0.90) Total Protein 7.5 G/DL (6.4-8.2) Albumin 2.1 G/DL (3.4-5.0) L Globulin 5.4 g/dL Albumin/Globulin Ratio 0.4 (1.0-2.7) L Plan Problems: (1) Sacral decubitus ulcer, stage II Assessment & Plan: Patient presented from nursing facility with sacral decubitus ulcer on admission. Patient's daughter is a surgical nurse who helps care for patient and her wounds for some time now. States that ongoing wound in the sacral area from pressure as well as incontinence. Daughter has been applying creams and helping with turning and dressing changes for some time now. Stated it is improved compared to prior. Noted to have areas of breakdown potentially is close to stage III full-thickness and small little portions but a majority it still covered with creams and at times difficult to completely evaluate. Wounds washed zinc applied dressings applied care instructions discussed with patient's family and nursing staff. Recommend turning every 2 hours, air soft mattress, nutritional optimization. Continue with dressing changes daily and as needed saturation as above. (2) Incontinence associated dermatitis Assessment & Plan: as above (3) Decubitus skin ulcer Assessment & Plan: DAILY ESTIMATED NEEDS: Needs based on Critical care, wound 69.7kg 25-30 kcals/kg 6469-6436 total kcals 1.25-2 g protein/kg 87-139 g total protein 25-30 mL/kg 9761-5086 total fluid mLs NUTRITION DIAGNOSIS: Swallowing difficulty r/t resp status as evidenced by pt is trach and peg dep. CURRENT TF:Jevity 1.2 @45ml /hr ENTERAL NUTRITION RECOMMENDATIONS: REC TF CHANGE-> Osmolite 1.5 @50ml/hr x24 hrs + Prosource BID to provide 1200ml , 1800 kcal, 75g +22g pro, 914ml free H2O - Rec TF change to better meet est needs, - Start Osmolite 1.5 @30ml/hr for 6 hrs, advance 10ml/hr q4-6 hrs to goal - Add PROSOURCE BID to better meet est pro needs - Flush per MD, HOB over 30 degrees ADDITIONAL RECOMMENDATIONS: 1) Maintain calibrated bed scale wts 2) Monitor BG, need for carb control formula 3) WOUND CARE: add LELO BID + Vit C 250mg daily 4) monitor wt trend w/ TF's Mauro Roldan Jun 24, 2019 15:10
[2019-06-24 16:00] VITALS: BP 151/94
--- NOTE | 2019-06-25 12:37 | Discharge Summary ---
Discharge Summary Discharge Summary _ DATE OF ADMISSION: 06/20/2019 DATE OF DISCHARGE: 06/24/2019 DISCHARGED BY: Dr. Pardo REASON FOR ADMISSION: 69 years old female with past medical history of ventilator dependent respiratory failure, tracheostomy status, dysphagia, feeding by G-tube, sacral decubitus ulcer, history of spinal cord injury with quadriplegia and tardive dyskinesia , presented to emergency department with respiratory difficulty and desaturation. Patient was tachycardic, but afebrile. Laboratory work-up revealed leukocytosis with WBC 15.9 , stable hemoglobin and hematocrit. ABG on current settings revealed Ventilator settings were changed to AC mode (usually at custodial she is on SIMV mode), and ABG revealed hypercapnia with PCO2 of 57. Lactic acid 2.0. BUN 19, creatinine 0.5. Troponin negative. Chest x-ray revealed small bilateral layering pleural effusion. Dependent atelectasis versus infiltrates in bilateral lung bases. Urinalysis revealed pyuria , +3 leukocyte esterase, +1 protein and few bacteria. Patient admitted for further management CONSULTANTS: pulmonary Dr. Curtis ID specialist Dr. Randolph surgery Dr. Roldan [place] [facility] [employer]RSE: Patient admitted to [facility]. Ventilator support and pulmonary toilet with bronchodilator therapy provided as needed. Patient was followed -up with ABG and chest x-ray. Patient started on empiric antibiotics. Blood cultures were negative. Influenza swab was negative. Urine culture was negative. Sputum culture revealed Klebsiella ESBL. Antibiotic regimen optimized as per ID specialist recommendation. Venous duplex bilateral lower extremity revealed no evidence of acute DVT. DVT prophylaxis provided. Aspiration precaution maintained. G-tube feeding continued. GI prophylaxis provided. Bowel regimen instituted. Wound care provided as per surgeon recommendation. Leukocytosis trended down, no fevers. Ventilator setting titrated to keep pulse oximetry above 92% . Patient was back on the SIMV mode with support rate of 10. Patient clinically stabilized and was ready for discharge to subacute facility for continuation of care. FINAL DIAGNOSES: Sepsis Pneumonia with Klebsiella ESBL Probable UTI Leukocytosis - improved Ventilator dependent respiratory failure , tracheostomy status Dysphagia , feeding by G-tube Sacral decubitus ulcer stage II History of spinal cord injury Quadriplegia Tardive dyskinesia Incontinence associated dermatitis DISCHARGE MEDICATIONS: List of medication was sent accepting facility DISCHARGE INSTRUCTIONS: Patient was discharged to the [facility]. Follow up with medical doctor at the facility. Graciela Cisneros NP Jun 25, 2019 12:37
== END 2019-06-24 20:15 | DRG 870 ==
LOC: EDBD 08:52 → EMR 09:55 → EDBEDREQ 10:24 → 2W 10:52 → EDBEDREQ 11:18 → 2W 18:32
PROC: 5A1955Z Respiratory Ventilation, Greater than 96 Consecutive Hours (ICD-10-PCS; principal; 2019-06-20)
DX: A41.9 Sepsis, unspecified organism (principal); J18.9 Pneumonia, unspecified organism; G82.50 Quadriplegia, unspecified; J96.11 Chronic respiratory failure with hypoxia; J90 Pleural effusion, not elsewhere classified; I42.9 Cardiomyopathy, unspecified; N39.0 Urinary tract infection, site not specified; Z93.0 Tracheostomy status; Z93.1 Gastrostomy status; L30.8 Other specified dermatitis; R32 Unspecified urinary incontinence; I10 Essential (primary) hypertension; K21.9 Gastro-esophageal reflux disease without esophagitis; R13.10 Dysphagia, unspecified; G24.01 Drug induced subacute dyskinesia; G20 Parkinson's disease; F41.9 Anxiety disorder, unspecified
CPT/HCPCS: 36415; 36600; 71045; 80048; 80053; 80202; 81003; 82550; 82553; 82803; 83605; 83735; 83880; 84100; 84443; 84484; 85025; 85651; 86140; 86710; 87040; 87070; 87081; 87086; 87181; 87205; 93005; 93970; 94002; 94003; 94664; 96365; 96367; 99285; J7620

== ENCOUNTER 2019-06-25 17:31 | Inpatient (IN) | payer MEDICARE, MEDICAID ==
[~2019-06-25] VITALS: Ht 167.6 cm; Wt 72.6 kg
[~2019-06-25 17:31] MED LIST changes: +ACETAMINOP160 MG/54 ORAL; +ARTIFICIAL TEA1 EAC2 OP; +BENADRYL A12.5 MG/5 ORAL; +CARVEDILOL3.125 MG GT; +CLONAZEPAM0.125 MG GT; +LEVALBUTER1.25 MG/0. IH; +LIPITOR10 MG GT; +MILK OF MA400 MG/51 ORAL; +MULTI-DELYN237 ML ORAL; +SPIRONOLACTONE25 MG GT; +UTI-STAT L3875 MG/31 GT; +VITAMIN C500 M1 GT; +VITAMIN C500 M1 ORAL; +VITAMIN D34000 UNIT GT; +XOPENEX0.63 MG/3 HHN; +ZOFRAN 4 MG4 MG/2 ML IV
[2019-06-25 17:55] VITALS: BP 147/78
--- NOTE | 2019-06-25 17:55 | NUR ---
ED Nurse Note: PT BROUGHT IN BY RA 60 FROM [facility] DUE TO BEING MORE ALTERED THAN USUAL. PT IS VENT DEPENDENT AND IS DNR. AWAKE BUT NON VERBAL. DAVEY CATH IN PLACE UPON ARRIVAL.
--- NOTE | 2019-06-25 18:10 | NUR ---
ED Nurse Note: RN UNABLE TO DRAW BLOOD FROM PT. CALLED LAB AND NOTIFIED FOR BLOOD DRAW.
--- NOTE | 2019-06-25 18:40 | NUR ---
ED Nurse Note: NAIGET AT THE BED SIDE FOR BLOOD DRAW.
[2019-06-25 19:10] VITALS: BP 78/54
--- NOTE | 2019-06-25 19:10 | NUR ---
ED Nurse Note: BP OF 78/[address] HURTADO MADE AWARE BY BRAYAN/JOHN.
[2019-06-25 19:15] LABS: HEMATOCRIT 37.8 % (37.0-47.0); HEMOGLOBIN 10.8 G/DL (12.0-16.0); MEAN CORPUSCULAR VOLUME 88 FL (80-99); PLATELET COUNT 276 K/UL (150-450); RED BLOOD COUNT 4.29 M/UL (4.20-5.40); RED CELL DISTRIBUTION WIDTH 16.1 % (11.6-14.8); WHITE BLOOD COUNT 16.8 K/UL (4.8-10.8)
--- NOTE | 2019-06-25 19:24 | NUR ---
HAND-OFF: Report given to WAN BEAL.
[2019-06-25 19:29] LABS: BASOPHILS % (AUTO) 0.3 % (0.0-2.0); LYMPHOCYTES % (AUTO) 5.5 % (20.0-45.0); MONOCYTES % (AUTO) 3.6 % (1.0-10.0); NEUTROPHILS % (AUTO) 90.6 % (45.0-75.0)
[2019-06-25 19:34] LABS: ANION GAP 4 mmol/L (5-15); BLOOD UREA NITROGEN 19 mg/dL (7-18); CALCIUM 8.7 MG/DL (8.5-10.1); CARBON DIOXIDE 35 MMOL/L (21-32); CHLORIDE 104 MMOL/L (98-107); CREATININE 0.6 MG/DL (0.55-1.30); POTASSIUM 4.7 MMOL/L (3.5-5.1); SODIUM 142 MMOL/L (136-145)
[2019-06-25 19:48] LABS: ALANINE AMINOTRANSFERASE 41 U/L (12-78); ALBUMIN 2.2 G/DL (3.4-5.0); ALBUMIN/GLOBULIN RATIO 0.4 (1.0-2.7); ALKALINE PHOSPHATASE 131 U/L (46-116); ASPARTATE AMINO TRANSFERASE 27 U/L (15-37); BILIRUBIN,TOTAL 0.2 MG/DL (0.2-1.0); CKMB 3.3 NG/ML (0.0-3.6); CREATINE KINASE 75 U/L (26-308)
[2019-06-25] MEDS ORDERED: DOPamine 400mg/250ml 250 ML IV SCH (20:00)
[2019-06-25 20:15] LABS: APPEARANCE,URINE SLIGHTLY CLOUDY; BILIRUBIN, URINE NEGATIVE (NEGATIVE); GLUCOSE, URINE (UA) NEGATIVE (NEGATIVE); KETONES,URINE NEGATIVE (NEGATIVE); LEUKOCYTE ESTERASE ,URINE NEGATIVE (NEGATIVE); NITRITE,URINE NEGATIVE (NEGATIVE); PH,URINE 5 (4.5-8.0); PROTEIN,URINE 3+ (NEGATIVE); UROBILINOGEN,URINE NORMAL MG/DL (0.0-1.0)
[2019-06-25 20:24] LABS: COLOR,URINE YELLOW
[2019-06-25] MEDS ORDERED: Lidocaine 1% Plain 30 ml INJ ONE (20:57)
[2019-06-25 21:00] VITALS: BP 76/51
--- NOTE | 2019-06-25 21:30 | NUR ---
ED Nurse Note: ERMD attempted inserted central line into R subclavian, successful in inserting central line into R femoral artery, chest xray done. Pt tolerated well.
[2019-06-25] MEDS ORDERED: Albuterol/Ipratropium 3ml neb HHN ONE (22:45)
--- NOTE | 2019-06-25 22:45 | Diagnostic Imaging Report ---
Indication: Headache Technique: Contiguous 5 mm thick transaxial imaging of the head obtained in a Siemens Sensation [address] scanner. Soft tissue and bone windows generated. Automatic Exposure Control was utilized. Total Dose length Product (DLP): [address] Dose Index Volume (CTDIvol): 62.7 mGy Comparison: none Findings: There is mild prominence of the ventricles, basal cisterns, and cerebral sulci consistent with atrophy. Mild, nonspecific, white matter hypoattenuation is noted throughout the brain consistent with chronic small vessel disease. Small cystic focus are demonstrated in the left lower cerebellum likely old infarct. There is no midline shift, edema, acute hemorrhage, mass effect, or abnormal extra-axial fluid collections. Bones are unremarkable. Impression: No acute intracranial bleed, mass effect or edema. Mild atrophy of the brain. Nonspecific white matter hypoattenuation probably due to chronic small vessel disease. 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 [facility] has communicated the preliminary results to the Emergency Department. Their findings are largely concordant with this report. The CT scanner at [facility] is accredited by the [employer] and the scans are performed using dose optimization techniques as appropriate to a performed exam including Automatic Exposure control.
--- NOTE | 2019-06-25 22:56 | Emergency Room Report ---
History of Present Illness General Chief Complaint: Altered Mental Status Source: Patient Present Illness HPI Patient is a 69-year-old female recently released from the hospital patient presented for altered mental status andIncreased lethargy. She had been recently given Ativan. Had a some episodes of hypertension at her facility and was given medications. She was chronically ventilator dependent. Allergies: Coded Allergies: No Known Allergies (Unverified , 03/03/19) Patient History Past Medical History: see triage record Past Surgical History: other - Tracheostomy, G-tube Now: No Reviewed Nursing Documentation: PMH: Agreed; PSxH: Agreed Nursing Documentation-PMH Past Medical History: No History, Except For Hx Cardiac Problems: Yes Hx Hypertension: Yes Hx Cancer: No Hx Gastrointestinal Problems: Yes Hx Neurological Problems: Yes - quadriplegia Hx Parkinson's Disease: Yes Review of Systems All Other Systems: limited - Review of systems: Review systems is limited by patient's being a poor historian Physical Exam Vital Signs Date Time Temp Pulse Resp B/P (MAP) Pulse Ox O2 Delivery O2 Flow Rate FiO2 06/25/19 17:45 98.4 101 25 147/78 (101) 96 Mechanical Ventilator 06/25/19 17:45 40 Sp02 EP Interpretation: reviewed General Appearance: lethargic, Chronically Ill Head: atraumatic Eyes: bilateral eye PERRL ENT: normal ENT inspection Neck: supple, limited range of motion, tracheotomy Respiratory: normal inspection, lungs clear, normal breath sounds, no retraction, no wheezing Cardiovascular #1: regular rate, rhythm, no edema Gastrointestinal: normal bowel sounds, non tender, soft Genitourinary: no CVA tenderness Musculoskeletal: normal inspection Neurologic: alert, motor weakness, other - Intermittently opens eyes and raises eyebrows. Skin: no rash Procedures Critical Care Time Critical Care Time Patient had a critical medical condition which untreated could potentially result in life or limb threatening injury. Total critical care time excluding procedures approximately 45 minutes. Jalen care Central Line Central Line : Consent: Emergent Central Line Lumen: triple Maximal Sterile Barrier Tech: yes cap, yes mask, yes sterile gown, yes sterile gloves, yes large sterile sheet, yes hand hygiene, yes chlorhexidine prep Central Line Postion: femoral (R) Anesthesia: Lidocaine cc's of anesthesia: 5 Complications: none Central Line Post Position: sutured, good blood return Attempts: Other - two attempted right subclavian without success. Patient Tolerated: Well Complications: None Progress Post procedure chest x-ray without evident pneumothorax Medical Decision Making Diagnostic Impression: Primary Impression: Chronic respiratory failure Additional Impression: Hypotension ER Course Patient presented for altered mental status and low blood pressure. Differential diagnosis include was not limited to pneumonia, myocardial infarction, dehydration among others. Because of complexity of patient's case laboratory tests and imaging studies were ordered. Patient is noted to be hypotensive in the emergency department. Chest x-ray read by radiology showed slightly increased infiltrate compared to baseline. Patient's blood pressure was noted to be low and central venous catheter was placed after consent from daughter was obtained. Initially attempted a right subclavian line which was unsuccessful. Subsequently placed a right femoral line with ultrasound guidance. Dr. Delmy Pardo was contacted for inpatient management due to primary care physician Laboratory Tests Test 06/26/19 08:30 06/27/19 04:30 06/27/19 09:50 06/28/19 04:00 Arterial Blood pH 7.547 (7.350-7.450) 7.509 (7.350-7.450) Arterial Blood Partial Pressure CO2 35.6 mmHg (35.0-45.0) 37.2 mmHg (35.0-45.0) Arterial Blood Partial Pressure O2 98.9 mmHg (75.0-100.0) 116.9 mmHg (75.0-100.0) H Arterial Blood HCO3 30.2 mmol/L (22.0-26.0) H 29.0 mmol/L (22.0-26.0) H Arterial Blood Oxygen Saturation 98.1 % (95-100) 98.7 % (95-100) Arterial Blood Base Excess 7.5 (-2-2) H 5.7 (-2-2) H Madhu Test Positive Positive White Blood Count 8.7 K/UL (4.8-10.8) 9.1 K/UL (4.8-10.8) Red Blood Count 3.69 M/UL (4.20-5.40) L 3.94 M/UL (4.20-5.40) L Hemoglobin 9.7 G/DL (12.0-16.0) L 10.3 G/DL (12.0-16.0) L Hematocrit 30.2 % (37.0-47.0) L 32.7 % (37.0-47.0) L Mean Corpuscular Volume 82 FL (80-99) 83 FL (80-99) Mean Corpuscular Hemoglobin 26.4 PG (27.0-31.0) L 26.0 PG (27.0-31.0) L Mean Corpuscular Hemoglobin Concent 32.3 G/DL (32.0-36.0) 31.4 G/DL (32.0-36.0) L Red Cell Distribution Width 15.1 % (11.6-14.8) H 15.5 % (11.6-14.8) H Platelet Count 219 K/UL (150-450) 214 K/UL (150-450) Mean Platelet Volume 6.1 FL (6.5-10.1) L 5.6 FL (6.5-10.1) L Neutrophils (%) (Auto) 66.3 % (45.0-75.0) 63.4 % (45.0-75.0) Lymphocytes (%) (Auto) 25.3 % (20.0-45.0) 28.3 % (20.0-45.0) Monocytes (%) (Auto) 6.7 % (1.0-10.0) 5.7 % (1.0-10.0) Eosinophils (%) (Auto) 1.1 % (0.0-3.0) 2.0 % (0.0-3.0) Basophils (%) (Auto) 0.6 % (0.0-2.0) 0.7 % (0.0-2.0) Sodium Level 145 MMOL/L (136-145) 147 MMOL/L (136-145) H Potassium Level 3.9 MMOL/L (3.5-5.1) 4.2 MMOL/L (3.5-5.1) Chloride Level 110 MMOL/L (98-107) H 110 MMOL/L (98-107) H Carbon Dioxide Level 31 MMOL/L (21-32) 30 MMOL/L (21-32) Anion Gap 4 mmol/L (5-15) L 7 mmol/L (5-15) Blood Urea Nitrogen 17 mg/dL (7-18) 13 mg/dL (7-18) Creatinine 0.5 MG/DL (0.55-1.30) L 0.5 MG/DL (0.55-1.30) L Estimate Glomerular Filtration Rate > 60 mL/min (>60) > 60 mL/min (>60) Glucose Level 112 MG/DL (74-106) H 120 MG/DL (74-106) H Calcium Level 8.4 MG/DL (8.5-10.1) L 8.6 MG/DL (8.5-10.1) Phosphorus Level 1.9 MG/DL (2.5-4.9) L 3.3 MG/DL (2.5-4.9) Magnesium Level 1.8 MG/DL (1.8-2.4) Total Bilirubin 0.3 MG/DL (0.2-1.0) Aspartate Amino Transferase (AST) 22 U/L (15-37) Alanine Aminotransferase (ALT) 28 U/L (12-78) Alkaline Phosphatase 104 U/L (46-116) Total Protein 6.4 G/DL (6.4-8.2) Albumin 2.0 G/DL (3.4-5.0) L Globulin 4.4 g/dL Albumin/Globulin Ratio 0.5 (1.0-2.7) L Pro-B-Type Natriuretic Peptide 1564 pg/mL (0-125) H Last Vital Signs Date Time Temp Pulse Resp B/P (MAP) Pulse Ox O2 Delivery O2 Flow Rate FiO2 06/25/19 22:52 88 70/48 06/25/19 22:50 40 06/25/19 21:31 18 06/25/19 21:00 98.7 98 Mechanical Ventilator Referrals: Delmy Pardo MD (PCP) Tr Sosa MD Jun 25, 2019 22:56
[2019-06-25 23:00] VITALS: BP 88/51
--- NOTE | 2019-06-25 23:50 | NUR ---
TRANSFER TO FLOOR: Patient transferred to as ordered, per DR PASCUAL. Report given to LIAN ALEJO. Belongings and medications given to . Family and or S/O informed of transfer.
[2019-06-26] VITALS (31 sets, daily range): BP systolic 70–140; BP diastolic 43–101
--- NOTE | 2019-06-26 | NUR ---
NURSE NOTES: Received pt and report from LIAN Quiñonez. Pt was brought into the ER from [facility] due to AMS. [facility] Pt became hypotensive in ER, Right femoral TLC inserted and Levophed started. Pt's currently afebrile, open eyes with pain, non-verbal, trach to vent Portex 7.0, AC 16, TV 450, FiO2 40%, PEEP 5, O2 sat 100%, BP 99/73, on Levophed at 6mcg/min. No acute distress noted. Daughter at the bedside, daughter is a nurse per stated. 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 Lungs sound diminished bilaterally, with hx of pneumonia. GT noted intact, patent LUQ. NPO at this time. Feeding on hold. Sacral pressure ulcer stage 2, and right lateral hip broken blister noted. Wound care initiated. 1 small soft brown BM noted. Mccauley started at the prison, intact, patent, draining cloudy yellow urine. The daughter doesn't want mccauley anchor stated "damage her skin," mccauley secured between thighs. HOB kept elevated. Bed in low and locked, [address] Pardo pagekristin for admission orders. Will continue to monitor.
--- NOTE | 2019-06-26 01:18 | NUR ---
NURSE NOTES: Spoke with Nursing Traveling Nurse Suresh at this time. Edvin not calling back for admission orders. Stated she Will call him at home to call us.
--- NOTE | 2019-06-26 01:40 | NUR ---
NURSE NOTES: Dr Pardo called back with orders. All orders noted and carried out. Pt's resting in bed, in no acute distress. VS stable. Will continue to monitor.
[2019-06-26] MEDS ORDERED: D5NS 1,000 ML IV SCH (01:45)
[2019-06-26] MEDS ORDERED: Acetaminophen 650mg/20.3ml GT PRN (01:45)
[2019-06-26] MEDS ORDERED: DiphenhydrAMINE 25mg/10ml Elixir NG PRN (01:45)
[2019-06-26] MEDS ORDERED: Ertapenem 1 GM in NS 55 ML IV SCH (04:00)
--- NOTE | 2019-06-26 04:00 | NUR ---
NURSE NOTES: Pt's in stable condition, levophed currently running at 2mcg/min. BP 107/67. Will continue to monitor.
[2019-06-26 05:13] LABS: BASOPHILS % (AUTO) 0.3 % (0.0-2.0); EOSINOPHILS % (AUTO) 0.6 % (0.0-3.0); HEMATOCRIT 32.8 % (37.0-47.0); HEMOGLOBIN 10.4 G/DL (12.0-16.0); LYMPHOCYTES % (AUTO) 23.6 % (20.0-45.0); MEAN CORPUSCULAR VOLUME 82 FL (80-99); MONOCYTES % (AUTO) 8.5 % (1.0-10.0); PLATELET COUNT 260 K/UL (150-450); RED BLOOD COUNT 4.01 M/UL (4.20-5.40); RED CELL DISTRIBUTION WIDTH 14.8 % (11.6-14.8); WHITE BLOOD COUNT 13.6 K/UL (4.8-10.8)
[2019-06-26 05:52] LABS: ALANINE AMINOTRANSFERASE 33 U/L (12-78); ALBUMIN 2.1 G/DL (3.4-5.0); ALBUMIN/GLOBULIN RATIO 0.4 (1.0-2.7); ALKALINE PHOSPHATASE 111 U/L (46-116); ANION GAP 5 mmol/L (5-15); ASPARTATE AMINO TRANSFERASE 25 U/L (15-37); BILIRUBIN,TOTAL 0.3 MG/DL (0.2-1.0); BLOOD UREA NITROGEN 21 mg/dL (7-18); CALCIUM 8.5 MG/DL (8.5-10.1); CARBON DIOXIDE 32 MMOL/L (21-32); CHLORIDE 104 MMOL/L (98-107); CHOLESTEROL 92 MG/DL (< 200); CREATININE 0.5 MG/DL (0.55-1.30); HDL CHOLESTEROL 37 MG/DL (40-60); POTASSIUM 4.2 MMOL/L (3.5-5.1); SODIUM 141 MMOL/L (136-145); TRIGLYCERIDES 80 MG/DL (30-150)
--- NOTE | 2019-06-26 06:00 | NUR ---
NURSE NOTES: Pt's resting in bed, in no acute distress. VS stable. Afebrile. Continue with Levophed at 2mcg/min. Will continue to monitor.
--- NOTE | 2019-06-26 06:39 | NUR ---
RESPIRATORY NOTE: Received pt on AC 16-450ml-40%- peep 5. Pt is trach to vent with Portex cuffed size 7.0, secured with trach tie. Pt is resting comfortable in the bed, no Sob or resp distress noted. Alarms are set and audible, vent is plugged into the red outlet, ambu bag is at bedside. Will continue to monitor pt.
--- NOTE | 2019-06-26 07:30 | NUR ---
HAND-OFF: Report given to LIAN Solitario.
[2019-06-26] MEDS ORDERED: Ascorbic Acid 500mg tab GT SCH (09:00)
[2019-06-26] MEDS: Docusate 100mg/10ml Liq NG SCH ×2 (09:57→18:00)
[2019-06-26] MEDS: Ertapenem 1 GM in NS 55 ML IV SCH (09:57)
[2019-06-26] MEDS: Pantoprazole Inj IVP SCH (09:57)
[2019-06-26] MEDS: Heparin 5000 units/ml inj SUBQ SCH ×2 (10:01→20:37)
--- NOTE | 2019-06-26 10:06 | Pulmonolgy Critical Care Note ---
Critical Care - Asmt/Plan Problems: (1) Septic shock (2) Chronic respiratory failure (3) Nosocomial pneumonia (4) Feeding by G-tube (5) Sacral decubitus ulcer, stage II (6) Incontinence associated dermatitis Respiratory: monitor respiratory rate, adjust FIO2, CXR Cardiac: continue pressors, continue to monitor HR/BP Renal: F/U I&O, check electrolytes Infectious Disease: check cultures Gastrointestinal: continue feedings/current rate Endocrine: monitor blood sugar Hematologic: monitor H/H Neurologic: PRN Ativan Affect: PRN ativan Prophylaxis: Protonix Disposition: keep in ICU Notes Reviewed: cardio, renal Discussed with: nurses, consultants, case resolution specialist, family member Critical Care - Objective Last 24 Hour Vital Signs Date Time Temp Pulse Resp B/P (MAP) Pulse Ox O2 Delivery O2 Flow Rate FiO2 06/26/19 09:00 68 16 104/68 (80) 100 06/26/19 08:30 70 16 40 06/26/19 08:00 40 06/26/19 08:00 Mechanical Ventilator 06/26/19 08:00 97.8 69 16 111/67 (82) 100 06/26/19 07:00 96/63 06/26/19 06:39 69 16 40 06/26/19 06:00 93/60 06/26/19 05:18 73 15 40 06/26/19 05:00 107/67 06/26/19 04:00 110/75 06/26/19 04:00 Mechanical Ventilator 06/26/19 04:00 40 06/26/19 04:00 66 06/26/19 03:02 67 13 40 06/26/19 03:00 107/76 06/26/19 02:26 115/80 06/26/19 02:00 110/76 06/26/19 01:00 107/76 06/26/19 00:43 Mechanical Ventilator 06/26/19 00:00 70 06/26/19 00:00 99/73 06/25/19 23:50 99.0 86 16 102/70 98 Mechanical Ventilator 40 06/25/19 23:30 102/70 06/25/19 23:00 99.0 86 16 88/51 98 Mechanical Ventilator 40 06/25/19 23:00 88/66 06/25/19 22:58 64 16 100 Mechanical Ventilator 40 66 16 40 06/25/19 22:52 88 70/48 06/25/19 22:50 40 06/25/19 22:30 88/62 06/25/19 22:06 86/59 06/25/19 22:00 84/54 06/25/19 21:31 98 18 40 06/25/19 21:30 79/50 06/25/19 21:00 98.7 88 16 76/51 98 Mechanical Ventilator 40 06/25/19 21:00 71/44 06/25/19 20:30 93/71 06/25/19 20:04 70/48 06/25/19 19:10 89 17 78/54 98 Mechanical Ventilator 40 06/25/19 18:00 40 06/25/19 17:55 97 13 Mechanical Ventilator 40 06/25/19 17:55 98.4 97 13 147/78 95 Mechanical Ventilator 40 06/25/19 17:45 97 13 40 06/25/19 17:45 97 13 95 Mechanical Ventilator 40 06/25/19 17:45 98.4 101 25 147/78 (101) 96 Mechanical Ventilator Status: awake Condition: critical HEENT: atraumatic, normocephalic Neck: trach Lungs: rhonchi Heart: HR/BP unstable Abdomen: soft, non-tender Extremities: no C/C/E, edema Micro: Microbiology Date/Time Source Procedure Growth Status 06/25/19 19:00 Urine,Clean Catch Urine Culture - Preliminary Resulted Accucheck: 140 Critical Care - Subjective ROS Limited/Unobtainable: Yes ICU Day: 2 Interval Events: Pt with chronic trach, just discharged a few days ago from [facility] brought in b/o ALOC and hypotension. Pt is on levophed now. BP is borderline FI02: 40 Vent Support Breath Rate: 16 Vent Support Mode: AC Vent Tidal Volume: 450 Sputum Amount: Small PEEP: 5.0 PIP: 28 Drips: Levophed I&O: Intake and Output 06/25/19 06/26/19 19:00 07:00 Intake Total 547.5 ml Output Total 330 ml Balance 217.5 ml Intake IV Total 547.5 ml Output Urine Total 330 ml # Bowel Movements 4 CXR: bibasilar infiltrate/ atelectasis Labs: Laboratory Tests Test 06/25/19 18:45 06/25/19 19:00 06/25/19 20:30 2/6/20 22:00 White Blood Count 16.8 K/UL (4.8-10.8) H Red Blood Count 4.29 M/UL (4.20-5.40) Hemoglobin 10.8 G/DL (12.0-16.0) L Hematocrit 37.8 % (37.0-47.0) Mean Corpuscular Volume 88 FL (80-99) Mean Corpuscular Hemoglobin 25.2 PG (27.0-31.0) L Mean Corpuscular Hemoglobin Concent 28.7 G/DL (32.0-36.0) L Red Cell Distribution Width 16.1 % (11.6-14.8) H Platelet Count 276 K/UL (150-450) Mean Platelet Volume 7.9 FL (6.5-10.1) Neutrophils (%) (Auto) 90.6 % (45.0-75.0) H Lymphocytes (%) (Auto) 5.5 % (20.0-45.0) L Monocytes (%) (Auto) 3.6 % (1.0-10.0) Eosinophils (%) (Auto) 0.0 % (0.0-3.0) Basophils (%) (Auto) 0.3 % (0.0-2.0) Sodium Level 142 MMOL/L (136-145) Potassium Level 4.7 MMOL/L (3.5-5.1) Chloride Level 104 MMOL/L (98-107) Carbon Dioxide Level 35 MMOL/L (21-32) H Anion Gap 4 mmol/L (5-15) L Blood Urea Nitrogen 19 mg/dL (7-18) H Creatinine 0.6 MG/DL (0.55-1.30) Estimat Glomerular Filtration Rate > 60 mL/min (>60) Glucose Level 191 MG/DL (74-106) H Lactic Acid Level 2.70 mmol/L (0.4-2.0) H 1.60 mmol/L (0.66-2.22) Calcium Level 8.7 MG/DL (8.5-10.1) Total Bilirubin 0.2 MG/DL (0.2-1.0) Aspartate Amino Transf (AST/SGOT) 27 U/L (15-37) Alanine Aminotransferase (ALT/SGPT) 41 U/L (12-78) Alkaline Phosphatase 131 U/L (46-116) H Total Creatine Kinase 75 U/L (26-308) Creatine Kinase MB 3.3 NG/ML (0.0-3.6) Creatine Kinase MB Relative Index 4.4 Troponin I 0.107 ng/mL (0.000-0.056) Total Protein 7.5 G/DL (6.4-8.2) Albumin 2.2 G/DL (3.4-5.0) L Globulin 5.3 g/dL Albumin/Globulin Ratio 0.4 (1.0-2.7) L Urine Color Yellow Urine Appearance Slightly cloudy Urine pH 5 (4.5-8.0) Urine Specific [place] 1.030 (1.005-1.035) Urine Protein 3+ (NEGATIVE) H Urine Glucose (UA) Negative (NEGATIVE) Urine Ketones Negative (NEGATIVE) Urine Blood 3+ (NEGATIVE) H Urine Nitrite Negative (NEGATIVE) Urine Bilirubin Negative (NEGATIVE) Urine Urobilinogen Normal MG/DL (0.0-1.0) Urine Leukocyte Esterase Negative (NEGATIVE) Urine RBC 0-2 /HPF (0 - 2) Urine WBC 2-4 /HPF (0 - 2) Urine Squamous Epithelial Cells Few /LPF (NONE/OCC) Urine Bacteria Moderate /HPF (NONE) H Urine Yeast Many /HPF (NONE) H Arterial Blood pH 7.380 (7.350-7.450) Arterial Blood Partial Pressure CO2 61.6 mmHg (35.0-45.0) *H Arterial Blood Partial Pressure O2 69.3 mmHg (75.0-100.0) L Arterial Blood HCO3 35.6 mmol/L (22.0-26.0) H Arterial Blood Oxygen Saturation 94.9 % (95-100) L Arterial Blood Base Excess 8.7 (-2-2) H Madhu Test Positive Test 06/26/19 03:35 06/26/19 08:30 White Blood Count 13.6 K/UL (4.8-10.8) H Red Blood Count 4.01 M/UL (4.20-5.40) L Hemoglobin 10.4 G/DL (12.0-16.0) L Hematocrit 32.8 % (37.0-47.0) L Mean Corpuscular Volume 82 FL (80-99) Mean Corpuscular Hemoglobin 25.9 PG (27.0-31.0) L Mean Corpuscular Hemoglobin Concent 31.7 G/DL (32.0-36.0) L Red Cell Distribution Width 14.8 % (11.6-14.8) Platelet Count 260 K/UL (150-450) Mean Platelet Volume 6.8 FL (6.5-10.1) Neutrophils (%) (Auto) 67.0 % (45.0-75.0) Lymphocytes (%) (Auto) 23.6 % (20.0-45.0) Monocytes (%) (Auto) 8.5 % (1.0-10.0) Eosinophils (%) (Auto) 0.6 % (0.0-3.0) Basophils (%) (Auto) 0.3 % (0.0-2.0) Erythrocyte Sedimentation Rate 96 MM/HR (0-30) H Sodium Level 141 MMOL/L (136-145) Potassium Level 4.2 MMOL/L (3.5-5.1) Chloride Level 104 MMOL/L (98-107) Carbon Dioxide Level 32 MMOL/L (21-32) Anion Gap 5 mmol/L (5-15) Blood Urea Nitrogen 21 mg/dL (7-18) H Creatinine 0.5 MG/DL (0.55-1.30) L Estimat Glomerular Filtration Rate > 60 mL/min (>60) Glucose Level 132 MG/DL (74-106) H Hemoglobin A1c 6.2 % (4.3-6.0) H Calcium Level 8.5 MG/DL (8.5-10.1) Total Bilirubin 0.3 MG/DL (0.2-1.0) Aspartate Amino Transf (AST/SGOT) 25 U/L (15-37) Alanine Aminotransferase (ALT/SGPT) 33 U/L (12-78) Alkaline Phosphatase 111 U/L (46-116) Troponin I 0.050 ng/mL (0.000-0.056) Pro-B-Type Natriuretic Peptide 8124 pg/mL (0-125) H Total Protein 6.9 G/DL (6.4-8.2) Albumin 2.1 G/DL (3.4-5.0) L Globulin 4.8 g/dL Albumin/Globulin Ratio 0.4 (1.0-2.7) L Triglycerides Level 80 MG/DL (30-150) Cholesterol Level 92 MG/DL (< 200) LDL Cholesterol 47 mg/dL (<100) HDL Cholesterol 37 MG/DL (40-60) L Cholesterol/HDL Ratio 2.5 (3.3-4.4) L Thyroid Stimulating Hormone (TSH) 0.650 uiU/mL (0.358-3.740) Free Thyroxine 1.08 NG/DL (0.76-1.46) Arterial Blood pH 7.547 (7.350-7.450) Arterial Blood Partial Pressure CO2 35.6 mmHg (35.0-45.0) Arterial Blood Partial Pressure O2 98.9 mmHg (75.0-100.0) Arterial Blood HCO3 30.2 mmol/L (22.0-26.0) H Arterial Blood Oxygen Saturation 98.1 % (95-100) Arterial Blood Base Excess 7.5 (-2-2) H Madhu Test Positive Ethel Curtis MD Jun 26, 2019 10:06
--- NOTE | 2019-06-26 10:16 | NUR ---
NURSE NOTES: Dr. Curtis made aware of ABG results, ordered to have patient ventilator setting changed to AC 12, TV: 450, FIO2: 30%, Peep 5.
--- NOTE | 2019-06-26 11:30 | NUR ---
NURSE NOTES: Patient bowel movement cleaned, stool is brown soft and of moderate size, daughter requested to have abdominal pads placed on sacral to prevent further irritation or impressions on her skin, applied Calazime, covered with abdominal pads ad taped with silk tape. tolerated entire procedure with no respiratory distress.
--- NOTE | 2019-06-26 11:41 | NUR ---
RD ASSESSMENT & RECOMMENDATIONS SEE CARE ACTIVITY FOR COMPLETE ASSESSMENT DAILY ESTIMATED NEEDS: Needs based on Critical care, wound 62kg abw 22-28 kcals/kg 0960-4891 total kcals 1.25-2 g protein/kg 77-124 g total protein 25-30 mL/kg 5921-0930 total fluid mLs NUTRITION DIAGNOSIS: * Swallowing difficulty r/t resp status as evidenced by pt is trach and peg dep. * Increased kcal/prot needs R/T wound healing as evidenced by pt admitted w/ sacral stage 2 wound * Altered nutrition related lab values R/T pre-diabetes? as evidenced by A1C of 6.2, elev FBGs (132, 191). CURRENT TF:NPO ENTERAL NUTRITION RECOMMENDATIONS: Glucerna 1.5 @ 45ml/hr x 24 hrs to provide 1080ml, 1620kcal, 89g prot, 820ml free water - As medically appropriate and w/ HD stability, * initiate Glucerna 1.5 @ 25ml/hr x 6 hrs * advance 10ml q 4-6 hrs as tolerated to goal rate. * HOB Over 30 degrees/ water flush per MD ADDITIONAL RECOMMENDATIONS: 1) Calibrated bed scale wts 2) Rec NISS once TF resumes - A1C 6.2, elev FBGs 3) WOUND CARE: add LELO BID + Vit C 250mg daily 4) Monitor lytes, replete as needed
--- NOTE | 2019-06-26 11:44 | Diagnostic Imaging Report ---
Indication: Dyspnea Comparison: 06/25/2019 at 17:46 A single view chest radiograph was obtained. Findings: Current study performed at 21:39 Pulmonary vascular congestion and interstitial edema demonstrated appearing slightly worse since the last study. Correlate clinically. Basal atelectasis and small lung volumes noted. Tracheostomy again noted. Cardiac enlargement is stable. IMPRESSION: Suspicion of mild CHF with slight worsening disease since the earlier film. Correlate clinically.
--- NOTE | 2019-06-26 12:20 | Consultation ---
History of Present Illness General Date patient seen: Jun 26, 2019 Chief Complaint: Altered Mental Status Present Illness HPI 69F well known to me from recent admission. see prior notes from last admission for details. went to facility but soon after was unresponsive. admitted to [facility] for care and management. labs noted, exam performed. discussed with daughter. surgery called to assist with care and management. Allergies: Coded Allergies: No Known Allergies (Unverified , 03/03/19) Medication History Scheduled Ascorbic Acid* (Vitamin C*), 500 MG ORAL DAILY, (Reported) Atorvastatin Calcium* (Lipitor*), 10 MG GT BEDTIME, (Reported) Cholecalciferol (Vitamin D3) (Vitamin D3), 5,000 UNIT GT DAILY, (Reported) Cran/Vitc/Mannose/Inulin/Brom (Uti-Stat Liquid), 30 ML PO BID, (Reported) Docusate Sodium* (Colace*), 100 MG GT TWICE A DAY, (Reported) Famotidine* (Pepcid 20mg tablet*), 20 MG GT DAILY, (Reported) Ferrous Sulfate (Ferrous Sulfate), 325 MG GT DAILY, (Reported) Multivitamin Liquid* (Multi-Delyn*), 5 ML ORAL DAILY, (Reported) Spironolactone* (Aldactone*), 25 MG GT DAILY, (Reported) Scheduled PRN Acetaminophen* (Acetaminophen*), 320 MG ORAL Q4HR PRN for Mild Pain/Temp > 100.5 , (Reported) Bisacodyl (Bisacodyl), 10 MG RC NEEDED PRN for Constipation, (Reported) Carvedilol* (Carvedilol*), 3.125 MG GT EVERY 12 HOURS PRN for For High Blood Pressure, (Reported) Clonazepam (Clonazepam), 0.125 MG GT BID PRN for For Anxiety, (Reported) Diphenhydramine Hcl* (Benadryl Allergy*), 25 MG ORAL Q6H PRN for Itching, ( Reported) Levalbuterol Hcl (Levalbuterol Concentrate), 1.25 MG IH EVERY 3 HOURS PRN for Bronchospasm, (Reported) Levalbuterol Hcl (Xopenex*), 0.63 MG HHN Q6H PRN for Shortness of Breath, ( Reported) Magnesium Hydroxide* (Milk Of Magnesia*), 30 ML ORAL 3XW PRN for Constipation, ( Reported) Ondansetron* (Zofran*), 4 MG IV Q6H PRN for Nausea & Vomiting, (Reported) Miscellaneous Medications Dextran 70/Hypromellose (Artificial Tears), 1 EACH OP, (Reported) Patient History Limited by: medical condition History Provided By: Family Member, Medical Record, PMD Healthcare decision maker Resuscitation status Do Not Resuscitate Advanced Directive on File Past Medical/Surgical History Past Medical/Surgical History: (1) Altered mental status (2) Septic shock (3) Decubitus skin ulcer (4) Sacral decubitus ulcer, stage II (5) Incontinence associated dermatitis (6) Chronic respiratory failure (7) Nosocomial pneumonia (8) Feeding by G-tube Review of Systems ROS Narrative cannot obtain given patients medical condition. Physical Exam General Appearance: no apparent distress Lines, tubes and drains: peripheral HEENT: mucous membranes moist Neck: normal alignment, normal inspection, other Respiratory/Chest: no respiratory distress, no accessory muscle use, decreased breath sounds, other Cardiovascular/Chest: normal rate Abdomen: soft, no organomegaly, no mass Extremities: normal inspection Skin Exam: warm/dry Neurologic: alert Last 24 Hour Vital Signs Date Time Temp Pulse Resp B/P (MAP) Pulse Ox O2 Delivery O2 Flow Rate FiO2 06/26/19 11:15 80 13 40 06/26/19 11:00 88 14 134/90 (105) 100 06/26/19 10:00 109/72 06/26/19 10:00 69 16 109/72 (84) 100 06/26/19 09:00 68 16 104/68 (80) 100 06/26/19 08:30 70 16 40 06/26/19 08:00 40 06/26/19 08:00 Mechanical Ventilator 06/26/19 08:00 97.8 69 16 111/67 (82) 100 06/26/19 07:00 96/63 06/26/19 06:39 69 16 40 06/26/19 06:00 93/60 06/26/19 05:18 73 15 40 06/26/19 05:00 107/67 06/26/19 04:00 110/75 06/26/19 04:00 Mechanical Ventilator 06/26/19 04:00 40 06/26/19 04:00 66 06/26/19 03:02 67 13 40 06/26/19 03:00 107/76 06/26/19 02:26 115/80 06/26/19 02:00 110/76 06/26/19 01:00 107/76 06/26/19 00:43 Mechanical Ventilator 06/26/19 00:00 70 06/26/19 00:00 99/73 06/25/19 23:50 99.0 86 16 102/70 98 Mechanical Ventilator 40 06/25/19 23:30 102/70 06/25/19 23:00 99.0 86 16 88/51 98 Mechanical Ventilator 40 06/25/19 23:00 88/66 06/25/19 22:58 64 16 100 Mechanical Ventilator 40 66 16 40 06/25/19 22:52 88 70/48 06/25/19 22:50 40 06/25/19 22:30 88/62 06/25/19 22:06 86/59 06/25/19 22:00 84/54 06/25/19 21:31 98 18 40 06/25/19 21:30 79/50 06/25/19 21:00 98.7 88 16 76/51 98 Mechanical Ventilator 40 06/25/19 21:00 71/44 06/25/19 20:30 93/71 06/25/19 20:04 70/48 06/25/19 19:10 89 17 78/54 98 Mechanical Ventilator 40 06/25/19 18:00 40 06/25/19 17:55 97 13 Mechanical Ventilator 40 06/25/19 17:55 98.4 97 13 147/78 95 Mechanical Ventilator 40 06/25/19 17:45 97 13 40 06/25/19 17:45 97 13 95 Mechanical Ventilator 40 06/25/19 17:45 98.4 101 25 147/78 (101) 96 Mechanical Ventilator Intake and Output 06/25/19 06/26/19 19:00 07:00 Intake Total 547.5 ml Output Total 330 ml Balance 217.5 ml Intake IV Total 547.5 ml Output Urine Total 330 ml # Bowel Movements 4 Laboratory Tests Test 06/25/19 18:45 06/25/19 19:00 06/25/19 20:30 06/25/19 22:00 White Blood Count 16.8 K/UL (4.8-10.8) H Red Blood Count 4.29 M/UL (4.20-5.40) Hemoglobin 10.8 G/DL (12.0-16.0) L Hematocrit 37.8 % (37.0-47.0) Mean Corpuscular Volume 88 FL (80-99) Mean Corpuscular Hemoglobin 25.2 PG (27.0-31.0) L Mean Corpuscular Hemoglobin Concent 28.7 G/DL (32.0-36.0) L Red Cell Distribution Width 16.1 % (11.6-14.8) H Platelet Count 276 K/UL (150-450) Mean Platelet Volume 7.9 FL (6.5-10.1) Neutrophils (%) (Auto) 90.6 % (45.0-75.0) H Lymphocytes (%) (Auto) 5.5 % (20.0-45.0) L Monocytes (%) (Auto) 3.6 % (1.0-10.0) Eosinophils (%) (Auto) 0.0 % (0.0-3.0) Basophils (%) (Auto) 0.3 % (0.0-2.0) Sodium Level 142 MMOL/L (136-145) Potassium Level 4.7 MMOL/L (3.5-5.1) Chloride Level 104 MMOL/L (98-107) Carbon Dioxide Level 35 MMOL/L (21-32) H Anion Gap 4 mmol/L (5-15) L Blood Urea Nitrogen 19 mg/dL (7-18) H Creatinine 0.6 MG/DL (0.55-1.30) Estimat Glomerular Filtration Rate > 60 mL/min (>60) Glucose Level 191 MG/DL (74-106) H Lactic Acid Level 2.70 mmol/L (0.4-2.0) H 1.60 mmol/L (0.66-2.22) Calcium Level 8.7 MG/DL (8.5-10.1) Total Bilirubin 0.2 MG/DL (0.2-1.0) Aspartate Amino Transf (AST/SGOT) 27 U/L (15-37) Alanine Aminotransferase (ALT/SGPT) 41 U/L (12-78) Alkaline Phosphatase 131 U/L (46-116) H Total Creatine Kinase 75 U/L (26-308) Creatine Kinase MB 3.3 NG/ML (0.0-3.6) Creatine Kinase MB Relative Index 4.4 Troponin I 0.107 ng/mL (0.000-0.056) Total Protein 7.5 G/DL (6.4-8.2) Albumin 2.2 G/DL (3.4-5.0) L Globulin 5.3 g/dL Albumin/Globulin Ratio 0.4 (1.0-2.7) L Urine Color Yellow Urine Appearance Slightly cloudy Urine pH 5 (4.5-8.0) Urine Specific [place] 1.030 (1.005-1.035) Urine Protein 3+ (NEGATIVE) H Urine Glucose (UA) Negative (NEGATIVE) Urine Ketones Negative (NEGATIVE) Urine Blood 3+ (NEGATIVE) H Urine Nitrite Negative (NEGATIVE) Urine Bilirubin Negative (NEGATIVE) Urine Urobilinogen Normal MG/DL (0.0-1.0) Urine Leukocyte Esterase Negative (NEGATIVE) Urine RBC 0-2 /HPF (0 - 2) Urine WBC 2-4 /HPF (0 - 2) Urine Squamous Epithelial Cells Few /LPF (NONE/OCC) Urine Bacteria Moderate /HPF (NONE) H Urine Yeast Many /HPF (NONE) H Arterial Blood pH 7.380 (7.350-7.450) Arterial Blood Partial Pressure CO2 61.6 mmHg (35.0-45.0) *H Arterial Blood Partial Pressure O2 69.3 mmHg (75.0-100.0) L Arterial Blood HCO3 35.6 mmol/L (22.0-26.0) H Arterial Blood Oxygen Saturation 94.9 % (95-100) L Arterial Blood Base Excess 8.7 (-2-2) H [place] Test Positive Test 06/26/19 03:35 06/26/19 08:30 White Blood Count 13.6 K/UL (4.8-10.8) H Red Blood Count 4.01 M/UL (4.20-5.40) L Hemoglobin 10.4 G/DL (12.0-16.0) L Hematocrit 32.8 % (37.0-47.0) L Mean Corpuscular Volume 82 FL (80-99) Mean Corpuscular Hemoglobin 25.9 PG (27.0-31.0) L Mean Corpuscular Hemoglobin Concent 31.7 G/DL (32.0-36.0) L Red Cell Distribution Width 14.8 % (11.6-14.8) Platelet Count 260 K/UL (150-450) Mean Platelet Volume 6.8 FL (6.5-10.1) Neutrophils (%) (Auto) 67.0 % (45.0-75.0) Lymphocytes (%) (Auto) 23.6 % (20.0-45.0) Monocytes (%) (Auto) 8.5 % (1.0-10.0) Eosinophils (%) (Auto) 0.6 % (0.0-3.0) Basophils (%) (Auto) 0.3 % (0.0-2.0) Erythrocyte Sedimentation Rate 96 MM/HR (0-30) H Sodium Level 141 MMOL/L (136-145) Potassium Level 4.2 MMOL/L (3.5-5.1) Chloride Level 104 MMOL/L (98-107) Carbon Dioxide Level 32 MMOL/L (21-32) Anion Gap 5 mmol/L (5-15) Blood Urea Nitrogen 21 mg/dL (7-18) H Creatinine 0.5 MG/DL (0.55-1.30) L Estimat Glomerular Filtration Rate > 60 mL/min (>60) Glucose Level 132 MG/DL (74-106) H Hemoglobin A1c 6.2 % (4.3-6.0) H Calcium Level 8.5 MG/DL (8.5-10.1) Total Bilirubin 0.3 MG/DL (0.2-1.0) Aspartate Amino Transf (AST/SGOT) 25 U/L (15-37) Alanine Aminotransferase (ALT/SGPT) 33 U/L (12-78) Alkaline Phosphatase 111 U/L (46-116) Troponin I 0.050 ng/mL (0.000-0.056) Pro-B-Type Natriuretic Peptide 8124 pg/mL (0-125) H Total Protein 6.9 G/DL (6.4-8.2) Albumin 2.1 G/DL (3.4-5.0) L Globulin 4.8 g/dL Albumin/Globulin Ratio 0.4 (1.0-2.7) L Triglycerides Level 80 MG/DL (30-150) Cholesterol Level 92 MG/DL (< 200) LDL Cholesterol 47 mg/dL (<100) HDL Cholesterol 37 MG/DL (40-60) L Cholesterol/HDL Ratio 2.5 (3.3-4.4) L Thyroid Stimulating Hormone (TSH) 0.650 uiU/mL (0.358-3.740) Free Thyroxine 1.08 NG/DL (0.76-1.46) Arterial Blood pH 7.547 (7.350-7.450) Arterial Blood Partial Pressure CO2 35.6 mmHg (35.0-45.0) Arterial Blood Partial Pressure O2 98.9 mmHg (75.0-100.0) Arterial Blood HCO3 30.2 mmol/L (22.0-26.0) H Arterial Blood Oxygen Saturation 98.1 % (95-100) Arterial Blood Base Excess 7.5 (-2-2) H [place] Test Positive Microbiology Date/Time Source Procedure Growth Status 06/25/19 19:00 Urine,Clean Catch Urine Culture - Preliminary Resulted Height (Feet): 5 Height (Inches): 6.00 Weight (Pounds): 157 Medications Current Medications Medications (Trade) Dose Ordered Sig/[place] Route PRN Reason Start Time Stop Time Status Last Admin Dose Admin Acetaminophen (Tylenol) 650 mg Q4H PRN GT Mild Pain/Temp > 100.5 06/26/19 01:45 07/26/19 01:44 Artificial Tears (Akwa-Tears) 2 drop Q2H PRN BOTH EYES Dry Eyes 06/26/19 01:45 07/26/19 01:44 Ascorbic Acid (Vitamin C) 500 mg DAILY GT 06/26/19 09:00 07/26/19 08:59 06/26/19 09:57 Carvedilol (Coreg) 3.125 mg Q12H PRN GT For High Blood Pressure 06/25/19 19:00 07/25/19 18:59 Chlorhexidine Gluconate (Julia-Hex 2%) 1 applic DAILY@1999 TOPIC 06/26/19 20:00 07/26/19 19:59 Diphenhydramine HCl (Benadryl) 25 mg QHS PRN NG Itching 06/26/19 01:45 07/26/19 01:44 Docusate Sodium (Colace) 100 mg TWICE A DAY NG 06/26/19 09:00 07/26/19 08:59 06/26/19 09:57 Ertapenem 1 gm/ Sodium Chloride 55 ml @ 110 mls/hr DAILY IV 06/26/19 09:00 06/27/19 08:59 06/26/19 09:57 Heparin Sodium (Porcine) (Heparin 5000 units/ml) 5,000 units EVERY 12 HOURS SUBQ 06/26/19 09:00 07/26/19 08:59 06/26/19 10:01 Levalbuterol HCl (Xopenex) 0.63 mg Q3H PRN HHN bronchospasm, SOB/Wheezing 06/26/19 01:45 07/01/19 01:44 Norepinephrine Bitartrate 4 mg/ Dextrose 250 ml @ 0 mls/hr Q24H IV 06/26/19 01:45 07/26/19 01:44 06/26/19 02:26 Pantoprazole (Protonix) 40 mg DAILY IVP 06/26/19 09:00 07/26/19 08:59 06/26/19 09:57 Sodium Chloride 1,000 ml @ 75 mls/hr [id number] IV 06/26/19 11:00 07/26/19 10:59 06/26/19 11:33 Assessment/Plan Problem List: (1) Septic shock Assessment & Plan: hypotensive on pressors leukocytosis lactic acidosis cxr noted ct head noted today more responsive and alert weaning off pressors cont to wean iv fluids iv abx trend labs will follow with recs thank you ICD Codes: A41.9 - Sepsis, unspecified organism; R65.21 - Severe sepsis with septic shock SNOMED: 16431613 (2) Altered mental status Assessment & Plan: Findings: There is mild prominence of the ventricles, basal cisterns, and cerebral sulci consistent with atrophy. Mild, nonspecific, white matter hypoattenuation is noted throughout the brain consistent with chronic small vessel disease. Small cystic focus are demonstrated in the left lower cerebellum likely old infarct. There is no midline shift, edema, acute hemorrhage, mass effect, or abnormal extra-axial fluid collections. Bones are unremarkable. Impression: No acute intracranial bleed, mass effect or edema. Mild atrophy of the brain. Nonspecific white matter hypoattenuation probably due to chronic small vessel disease. 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 ICD Codes: R41.82 - Altered mental status, unspecified SNOMED: 312447681 (3) Decubitus skin ulcer Assessment & Plan: patient with historic / chronic decubitus with incontinence associated dermatitis in the sacral region air mattress ordered daughter helps with care has personal turning pillow turn q2h off load pressure heel protectors offload with pillow skin protectant cream and dressings to sacral area daily and prn saturation monitor for incontinence will follow with recs nutritional optimization ICD Codes: L89.90 - Pressure ulcer of unspecified site, unspecified stage SNOMED: 524946247 (4) Sacral decubitus ulcer, stage II ICD Codes: L89.152 - Pressure ulcer of sacral region, stage 2 SNOMED: 081604840, 099749921 (5) Incontinence associated dermatitis ICD Codes: L30.8 - Other specified dermatitis; R32 - Unspecified urinary incontinence SNOMED: 323464760 (6) Chronic respiratory failure ICD Codes: J96.10 - Chronic respiratory failure, unspecified whether with hypoxia or hypercapnia SNOMED: 72965956 (7) Feeding by G-tube Assessment & Plan: DAILY ESTIMATED NEEDS: Needs based on Critical care, wound 62kg abw 22-28 kcals/kg 3601-9344 total kcals 1.25-2 g protein/kg 77-124 g total protein 25-30 mL/kg 5363-0507 total fluid mLs NUTRITION DIAGNOSIS: * Swallowing difficulty r/t resp status as evidenced by pt is trach and peg dep. * Increased kcal/prot needs R/T wound healing as evidenced by pt admitted w/ sacral stage 2 wound * Altered nutrition related lab values R/T pre-diabetes? as evidenced by A1C of 6.2, elev FBGs (132, 191). CURRENT TF:NPO ENTERAL NUTRITION RECOMMENDATIONS: Glucerna 1.5 @ 45ml/hr x 24 hrs to provide 1080ml, 1620kcal, 89g prot, 820ml free water - As medically appropriate and w/ HD stability, * initiate Glucerna 1.5 @ 25ml/hr x 6 hrs * advance 10ml q 4-6 hrs as tolerated to goal rate. * HOB Over 30 degrees/ water flush per MD ADDITIONAL RECOMMENDATIONS: 1) Calibrated bed scale wts 2) Rec NISS once TF resumes - A1C 6.2, elev FBGs 3) WOUND CARE: add LELO BID + Vit C 250mg daily 4) Monitor lytes, replete as needed ICD Codes: Z93.1 - Gastrostomy status SNOMED: 609769217, 523310068, 802385620 Mauro Roldan Jun 26, 2019 12:20
--- NOTE | 2019-06-26 13:00 | Diagnostic Imaging Report ---
Indication: Dyspnea Comparison: 06/24/2019 A single view chest radiograph was obtained. Findings: Tracheostomy noted. Lung volumes are low. Basilar atelectasis cardiomegaly and some prominence of pulmonary vascularity again demonstrated. IMPRESSION: Similar findings. No change from the prior day
--- NOTE | 2019-06-26 13:05 | NUR ---
INBOUND CALL CENTER REPRESENTATIVE NOTE Pt is admitted to ICU on 06/25/2019. Pt is awake and non-verbal. Pt's daughter Lucrecia Gaffney is at pt's bedside. DANYA spoke w/ Lucrecia and obtained psychosocial information. [place] [address]. Pt's daughter Lucrecia is the POA and the primary decision maker. Copy of POLST in the chart. Lucrecia confirmed DNR. PT is , has one adult child, and receives SSI, self payee. Emergency contact provided: Lucrecia Gaffney (POA/daughter) [phone] and Jd (Lucrecia's daughter/pt's granddaughter) [phone]. Lucrecia does not want pt to return [facility] upon DC. DANYA will relay such request to assigned CM. Signed: 06/26/19 at 1310 by STEPHIE HAGAN <Co-Signature Required>
--- NOTE | 2019-06-26 13:39 | NUR ---
NURSE NOTES: Dr. Curtis called to place an order for ST with speaking valve and for PT evaluation.
--- NOTE | 2019-06-26 14:44 | NUR ---
NURSE NOTES: wound care provided and placed on p200 bed mattress, patient remains tolerating ventilator settings changed and tolerating tube feeding at 10ml/hr through G-tube. patient repositioned with assistance from daughter.
--- NOTE | 2019-06-26 14:50 | NUR ---
SPANISH TRANSLATORCLIENT SERVICE COORDINATOR 69 YO FEMALE BIBA FROM [facility] TO ER CC ALOC SI: RESP FAILURE AMS, HYPOTENSION T. 98.5 HR 107 RR 25 B/P 78/54 AC 12 TV 450 FIO2 40% PEEP 5 PH 7.38 PCO2 61.6 PO2 69.3 HCO3 35.6 O2 SAT 96.9 WBC 16.8 CO2 35 BUN 19 UA+ PROTEIN,BLOOD,BACTERIA,YEAST HEAD CT= NO ACUTE PROCESS CXR=Tracheostomy noted. Lung volumes are low. Basilar atelectasis cardiomegaly and some prominence of pulmonary. IS: IV BOLUS NS X 1 LITER ADMITTED TO ICU @ 2350 ICU STATUS DCP PENDING HOSPITAL STAY
[2019-06-26] MEDS ORDERED: clonazePAM 0.5mg tab ORAL PRN (17:45)
--- NOTE | 2019-06-26 17:49 | NUR ---
NURSE NOTES: Dr. Pérez assessed patient at the bedside and updated on reports from lab and radiology, ordered to place orders.
--- NOTE | 2019-06-26 19:05 | Consultation ---
History of Present Illness General Date patient seen: Jun 26, 2019 Chief Complaint: Altered Mental Status Present Illness HPI 69 y/o F with hx of spinal injury, quadriplegia, HTN, cardiomyopathy, GERD, chronic respiratory failure trach/vent dependant, dysphagia s/p GT, PNA, constipation, tardive dyskinesia, NH resident presented to ED on 06/25 with for altered mental status. Of note, patient was admitted here from 06/20-06/24 for PNA, was discharge to [place] and over there was noted to be unresponsive so patient was sent back to ED. Allergies: Coded Allergies: No Known Allergies (Unverified , 03/03/19) Medication History Scheduled Ascorbic Acid* (Vitamin C*), 500 MG ORAL DAILY, (Reported) Atorvastatin Calcium* (Lipitor*), 10 MG GT BEDTIME, (Reported) Cholecalciferol (Vitamin D3) (Vitamin D3), 5,000 UNIT GT DAILY, (Reported) Cran/Vitc/Mannose/Inulin/Brom (Uti-Stat Liquid), 30 ML PO BID, (Reported) Docusate Sodium* (Colace*), 100 MG GT TWICE A DAY, (Reported) Famotidine* (Pepcid 20mg tablet*), 20 MG GT DAILY, (Reported) Ferrous Sulfate (Ferrous Sulfate), 325 MG GT DAILY, (Reported) Multivitamin Liquid* (Multi-Delyn*), 5 ML ORAL DAILY, (Reported) Spironolactone* (Aldactone*), 25 MG GT DAILY, (Reported) Scheduled PRN Acetaminophen* (Acetaminophen*), 320 MG ORAL Q4HR PRN for Mild Pain/Temp > 100.5 , (Reported) Bisacodyl (Bisacodyl), 10 MG RC NEEDED PRN for Constipation, (Reported) Carvedilol* (Carvedilol*), 3.125 MG GT EVERY 12 HOURS PRN for For High Blood Pressure, (Reported) Clonazepam (Clonazepam), 0.125 MG GT BID PRN for For Anxiety, (Reported) Diphenhydramine Hcl* (Benadryl Allergy*), 25 MG ORAL Q6H PRN for Itching, ( Reported) Levalbuterol Hcl (Levalbuterol Concentrate), 1.25 MG IH EVERY 3 HOURS PRN for Bronchospasm, (Reported) Levalbuterol Hcl (Xopenex*), 0.63 MG HHN Q6H PRN for Shortness of Breath, ( Reported) Magnesium Hydroxide* (Milk Of Magnesia*), 30 ML ORAL 3XW PRN for Constipation, ( Reported) Ondansetron* (Zofran*), 4 MG IV Q6H PRN for Nausea & Vomiting, (Reported) Miscellaneous Medications Dextran 70/Hypromellose (Artificial Tears), 1 EACH OP, (Reported) Patient History Healthcare decision maker Resuscitation status Do Not Resuscitate Advanced Directive on File Patient History Narrative Pmhx: as above Shx: reviewed Fhx: non contributory Review of Systems ROS Narrative unable to obtain Physical Exam Physical Exam Narrative Head: atraumatic ENT: normal ENT inspection, hearing grossly normal, normal voice Neck: normal inspection, full range of motion, supple, no bony tend Respiratory: normal inspection, lungs clear, normal breath sounds, no respiratory distress, no retraction, no wheezing Cardiovascular : regular rate, rhythm, no edema Gastrointestinal: normal inspection, normal bowel sounds, non tender, soft, no guarding, no hernia Genitourinary: no CVA tenderness Musculoskeletal: normal inspection, back normal, normal range of motion Last 24 Hour Vital Signs Date Time Temp Pulse Resp B/P (MAP) Pulse Ox O2 Delivery O2 Flow Rate FiO2 06/26/19 16:43 79 12 40 06/26/19 16:00 81 06/26/19 16:00 40 06/26/19 16:00 97.6 85 13 126/86 (99) 100 06/26/19 16:00 Mechanical Ventilator 06/26/19 15:00 80 12 140/88 (105) 100 06/26/19 14:49 84 12 40 06/26/19 14:00 90 12 124/101 (109) 100 06/26/19 13:30 83 12 40 06/26/19 13:00 84 12 122/86 (98) 100 06/26/19 12:30 84 12 122/86 (98) 100 06/26/19 12:00 Mechanical Ventilator 06/26/19 12:00 123/83 06/26/19 12:00 40 06/26/19 12:00 83 06/26/19 12:00 97.7 79 12 123/83 (96) 100 06/26/19 11:30 85 12 122/82 (95) 100 06/26/19 11:15 80 13 40 06/26/19 11:00 88 14 134/90 (105) 100 06/26/19 11:00 128/84 06/26/19 10:30 81 16 128/84 (99) 100 06/26/19 10:00 109/72 06/26/19 10:00 69 16 109/72 (84) 100 06/26/19 09:30 68 16 109/72 (84) 100 06/26/19 09:00 68 16 104/68 (80) 100 06/26/19 08:30 69 16 105/65 (78) 100 06/26/19 08:30 70 16 40 06/26/19 08:00 40 06/26/19 08:00 67 06/26/19 08:00 Mechanical Ventilator 06/26/19 08:00 111/67 06/26/19 08:00 97.8 69 16 111/67 (82) 100 06/26/19 07:30 67 16 111/67 (82) 100 06/26/19 07:00 67 16 95/63 (74) 100 06/26/19 07:00 96/63 06/26/19 06:39 69 16 40 06/26/19 06:00 93/60 06/26/19 05:18 73 15 40 06/26/19 05:00 107/67 06/26/19 04:00 110/75 06/26/19 04:00 Mechanical Ventilator 06/26/19 04:00 40 06/26/19 04:00 66 06/26/19 03:02 67 13 40 06/26/19 03:00 107/76 06/26/19 02:26 115/80 06/26/19 02:00 110/76 06/26/19 01:00 107/76 06/26/19 00:43 Mechanical Ventilator 06/26/19 00:00 70 06/26/19 00:00 99/73 06/25/19 23:50 99.0 86 16 102/70 98 Mechanical Ventilator 40 06/25/19 23:30 102/70 06/25/19 23:00 99.0 86 16 88/51 98 Mechanical Ventilator 40 06/25/19 23:00 88/66 06/25/19 22:58 64 16 100 Mechanical Ventilator 40 66 16 40 06/25/19 22:52 88 70/48 06/25/19 22:50 40 06/25/19 22:30 88/62 06/25/19 22:06 86/59 06/25/19 22:00 84/54 06/25/19 21:31 98 18 40 06/25/19 21:30 79/50 06/25/19 21:00 98.7 88 16 76/51 98 Mechanical Ventilator 40 06/25/19 21:00 71/44 06/25/19 20:30 93/71 06/25/19 20:04 70/48 06/25/19 19:10 89 17 78/54 98 Mechanical Ventilator 40 Intake and Output 06/25/19 06/26/19 19:00 07:00 Intake Total 547.5 ml Output Total 330 ml Balance 217.5 ml IV Total 547.5 ml Output Urine Total 330 ml # Bowel Movements 4 Laboratory Tests Test 06/25/19 18:45 06/25/19 19:00 06/25/19 20:30 06/25/19 22:00 White Blood Count 16.8 K/UL (4.8-10.8) H Red Blood Count 4.29 M/UL (4.20-5.40) Hemoglobin 10.8 G/DL (12.0-16.0) L Hematocrit 37.8 % (37.0-47.0) Mean Corpuscular Volume 88 FL (80-99) Mean Corpuscular Hemoglobin 25.2 PG (27.0-31.0) L Mean Corpuscular Hemoglobin Concent 28.7 G/DL (32.0-36.0) L Red Cell Distribution Width 16.1 % (11.6-14.8) H Platelet Count 276 K/UL (150-450) Mean Platelet Volume 7.9 FL (6.5-10.1) Neutrophils (%) (Auto) 90.6 % (45.0-75.0) H Lymphocytes (%) (Auto) 5.5 % (20.0-45.0) L Monocytes (%) (Auto) 3.6 % (1.0-10.0) Eosinophils (%) (Auto) 0.0 % (0.0-3.0) Basophils (%) (Auto) 0.3 % (0.0-2.0) Sodium Level 142 MMOL/L (136-145) Potassium Level 4.7 MMOL/L (3.5-5.1) Chloride Level 104 MMOL/L (98-107) Carbon Dioxide Level 35 MMOL/L (21-32) H Anion Gap 4 mmol/L (5-15) L Blood Urea Nitrogen 19 mg/dL (7-18) H Creatinine 0.6 MG/DL (0.55-1.30) Estimat Glomerular Filtration Rate > 60 mL/min (>60) Glucose Level 191 MG/DL (74-106) H Lactic Acid Level 2.70 mmol/L (0.4-2.0) H 1.60 mmol/L (0.66-2.22) Calcium Level 8.7 MG/DL (8.5-10.1) Total Bilirubin 0.2 MG/DL (0.2-1.0) Aspartate Amino Transf (AST/SGOT) 27 U/L (15-37) Alanine Aminotransferase (ALT/SGPT) 41 U/L (12-78) Alkaline Phosphatase 131 U/L (46-116) H Total Creatine Kinase 75 U/L (26-308) Creatine Kinase MB 3.3 NG/ML (0.0-3.6) Creatine Kinase MB Relative Index 4.4 Troponin I 0.107 ng/mL (0.000-0.056) Total Protein 7.5 G/DL (6.4-8.2) Albumin 2.2 G/DL (3.4-5.0) L Globulin 5.3 g/dL Albumin/Globulin Ratio 0.4 (1.0-2.7) L Urine Color Yellow Urine Appearance Slightly cloudy Urine pH 5 (4.5-8.0) Urine Specific [place] 1.030 (1.005-1.035) Urine Protein 3+ (NEGATIVE) H Urine Glucose (UA) Negative (NEGATIVE) Urine Ketones Negative (NEGATIVE) Urine Blood 3+ (NEGATIVE) H Urine Nitrite Negative (NEGATIVE) Urine Bilirubin Negative (NEGATIVE) Urine Urobilinogen Normal MG/DL (0.0-1.0) Urine Leukocyte Esterase Negative (NEGATIVE) Urine RBC 0-2 /HPF (0 - 2) Urine WBC 2-4 /HPF (0 - 2) Urine Squamous Epithelial Cells Few /LPF (NONE/OCC) Urine Bacteria Moderate /HPF (NONE) H Urine Yeast Many /HPF (NONE) H Arterial Blood pH 7.380 (7.350-7.450) Arterial Blood Partial Pressure CO2 61.6 mmHg (35.0-45.0) *H Arterial Blood Partial Pressure O2 69.3 mmHg (75.0-100.0) L Arterial Blood HCO3 35.6 mmol/L (22.0-26.0) H Arterial Blood Oxygen Saturation 94.9 % (95-100) L Arterial Blood Base Excess 8.7 (-2-2) H [place] Test Positive Test 06/26/19 03:35 06/26/19 08:30 White Blood Count 13.6 K/UL (4.8-10.8) H Red Blood Count 4.01 M/UL (4.20-5.40) L Hemoglobin 10.4 G/DL (12.0-16.0) L Hematocrit 32.8 % (37.0-47.0) L Mean Corpuscular Volume 82 FL (80-99) Mean Corpuscular Hemoglobin 25.9 PG (27.0-31.0) L Mean Corpuscular Hemoglobin Concent 31.7 G/DL (32.0-36.0) L Red Cell Distribution Width 14.8 % (11.6-14.8) Platelet Count 260 K/UL (150-450) Mean Platelet Volume 6.8 FL (6.5-10.1) Neutrophils (%) (Auto) 67.0 % (45.0-75.0) Lymphocytes (%) (Auto) 23.6 % (20.0-45.0) Monocytes (%) (Auto) 8.5 % (1.0-10.0) Eosinophils (%) (Auto) 0.6 % (0.0-3.0) Basophils (%) (Auto) 0.3 % (0.0-2.0) Erythrocyte Sedimentation Rate 96 MM/HR (0-30) H Sodium Level 141 MMOL/L (136-145) Potassium Level 4.2 MMOL/L (3.5-5.1) Chloride Level 104 MMOL/L (98-107) Carbon Dioxide Level 32 MMOL/L (21-32) Anion Gap 5 mmol/L (5-15) Blood Urea Nitrogen 21 mg/dL (7-18) H Creatinine 0.5 MG/DL (0.55-1.30) L Estimat Glomerular Filtration Rate > 60 mL/min (>60) Glucose Level 132 MG/DL (74-106) H Hemoglobin A1c 6.2 % (4.3-6.0) H Calcium Level 8.5 MG/DL (8.5-10.1) Total Bilirubin 0.3 MG/DL (0.2-1.0) Aspartate Amino Transf (AST/SGOT) 25 U/L (15-37) Alanine Aminotransferase (ALT/SGPT) 33 U/L (12-78) Alkaline Phosphatase 111 U/L (46-116) Troponin I 0.050 ng/mL (0.000-0.056) Pro-B-Type Natriuretic Peptide 8124 pg/mL (0-125) H Total Protein 6.9 G/DL (6.4-8.2) Albumin 2.1 G/DL (3.4-5.0) L Globulin 4.8 g/dL Albumin/Globulin Ratio 0.4 (1.0-2.7) L Triglycerides Level 80 MG/DL (30-150) Cholesterol Level 92 MG/DL (< 200) LDL Cholesterol 47 mg/dL (<100) HDL Cholesterol 37 MG/DL (40-60) L Cholesterol/HDL Ratio 2.5 (3.3-4.4) L Thyroid Stimulating Hormone (TSH) 0.650 uiU/mL (0.358-3.740) Free Thyroxine 1.08 NG/DL (0.76-1.46) Arterial Blood pH 7.547 (7.350-7.450) Arterial Blood Partial Pressure CO2 35.6 mmHg (35.0-45.0) Arterial Blood Partial Pressure O2 98.9 mmHg (75.0-100.0) Arterial Blood HCO3 30.2 mmol/L (22.0-26.0) H Arterial Blood Oxygen Saturation 98.1 % (95-100) Arterial Blood Base Excess 7.5 (-2-2) H [place] Test Positive Microbiology Date/Time Source Procedure Growth Status 06/25/19 19:00 Urine,Clean Catch Urine Culture - Preliminary Resulted Height (Feet): 5 Height (Inches): 6.00 Weight (Pounds): 157 Medications Current Medications Medications (Trade) Dose Ordered Sig/Rizwana Route PRN Reason Start Time Stop Time Status Last Admin Dose Admin Acetaminophen (Tylenol) 650 mg Q4H PRN GT Mild Pain/Temp > 100.5 06/26/19 01:45 07/26/19 01:44 Artificial Tears (Akwa-Tears) 2 drop Q2H PRN BOTH EYES Dry Eyes 06/26/19 01:45 07/26/19 01:44 Ascorbic Acid (Vitamin C) 250 mg DAILY GT 06/27/19 09:00 07/27/19 08:59 Carvedilol (Coreg) 3.125 mg Q12H PRN GT For High Blood Pressure 06/25/19 19:00 07/25/19 18:59 Chlorhexidine Gluconate (Julia-Hex 2%) 1 applic DAILY@2000 TOPIC 06/26/19 20:00 07/26/19 19:59 Clonazepam (KlonoPIN) 0.125 mg HSPRN PRN ORAL For Anxiety 06/26/19 17:45 07/03/19 17:44 Diphenhydramine HCl (Benadryl) 25 mg QHS PRN NG Itching 06/26/19 01:45 07/26/19 01:44 Docusate Sodium (Colace) 100 mg TWICE A DAY NG 06/26/19 09:00 07/26/19 08:59 06/26/19 09:57 Enalapril Maleate (Vasotec) 5 mg EVERY 12 HOURS ORAL 06/26/19 21:00 07/26/19 20:59 Ertapenem 1 gm/ Sodium Chloride 55 ml @ 110 mls/hr DAILY IV 06/26/19 09:00 07/01/19 08:59 06/26/19 09:57 Heparin Sodium (Porcine) (Heparin 5000 units/ml) 5,000 units EVERY 12 HOURS SUBQ 06/26/19 09:00 07/26/19 08:59 06/26/19 10:01 Levalbuterol HCl (Xopenex) 0.63 mg Q3H PRN HHN bronchospasm, SOB/Wheezing 06/26/19 01:45 07/01/19 01:44 Norepinephrine Bitartrate 4 mg/ Dextrose 250 ml @ 0 mls/hr Q24H IV 06/26/19 01:45 07/26/19 01:44 06/26/19 02:26 Pantoprazole (Protonix) 40 mg DAILY IVP 06/26/19 09:00 07/26/19 08:59 06/26/19 09:57 Quetiapine Fumarate (SEROqueL) 50 mg QHS ORAL 06/26/19 21:00 07/26/19 20:59 Sodium Chloride 1,000 ml @ 75 mls/hr [id number] IV 06/26/19 11:00 07/26/19 10:59 06/26/19 11:33 Spironolactone (Aldactone) 25 mg DAILY ORAL 06/27/19 09:00 07/27/19 08:59 Assessment/Plan Assessment/Plan: Abx: Ertapenem 06/24- Assessment: Septic Shock- now off pressors Afebrile Leukocytosis; improving -06/25 u/a neg; ucx p Acute on baseline encephalopathy Recent PNA, ongoing Pulmonary edema -06/25 CXR: Pulmonary vascular congestion and interstitial edema demonstrated appearing slightly worse since the last study. Basal atelectasis and small lung volumes noted. -2/3 sp cx K, pna (S cipro/levo, Zosyn) ESBL Sacral decub ulcer- not infected spinal injury quadriplegia HTN cardiomyopathy GERD chronic respiratory failure trach/vent dependant dysphagia s/p GT hx of PNA constipation tardive dyskinesia NH resident Plan: -Continue Ertapenem #3/ for PNA -f/u cx -Monitor CBC/CMP, temperatures -trach/peg/ICU care -aspiration precautions -wound care per surgical team Thank you for this consultation. Will continue to follow along with you. Discussed with Hollie Das M.D. Jun 26, 2019 19:05
--- NOTE | 2019-06-26 19:28 | NUR ---
HAND-OFF: Report given to LIAN Reed. Endorsed orders placed by Dr. Pérez. Dr. Atkinson called for consult on the case, also Dr. ceballos called who is covering for Dr. xavier.
--- NOTE | 2019-06-26 19:30 | NUR ---
NURSE NOTES: Received pt and report from LIAN Solitario. Daughter's at the bed side. Pt's AOx2-3, able to sound her words with deflated cuff. Pt's currently afebrile, trach to vent Portex 7.0, AC 12, TV 450, FiO2 40%, PEEP 5, O2 sat 100%, BP 141/85, not on pressor. No acute distress noted. Pt's SR on cardiac monitor technician. Lungs sound diminished bilaterally, with hx of pneumonia. GT noted intact, patent LUQ, running glucerna 1.5 at 20ml/hr. Sacral pressure ulcer stage 2, and right lateral hip broken blister noted. 1 small soft brown BM noted. Mccauley started at the retirement, intact, patent, draining cloudy yellow urine. mccauley secured between thighs. HOB kept elevated. Bed in low and locked, 2 rails up. Will continue to monitor.
[2019-06-26] MEDS ORDERED: Docusate 100mg/10ml Liq NG PRN (19:45)
[2019-06-26] MEDS ORDERED: HYDROGEL3000 GM TP (20:36)
[2019-06-26] MEDS ORDERED: ACETAMINOPHEN325 M1 ORAL (20:36)
[2019-06-26] MEDS ORDERED: QUETIAPINE FUMA25 MG GT (20:36)
[2019-06-26] MEDS ORDERED: ARTIFICIAL TEAR15 ML BOTH EYES (20:36)
[2019-06-26] MEDS: Dyna-Hex 2% Top Sol 2oz TOPIC SCH (20:36)
[2019-06-26] MEDS: Enalapril 5mg tab ORAL SCH (20:36)
[2019-06-26] MEDS ORDERED: MILK OF MA400 MG/51 GT (20:36)
[2019-06-26] MEDS ORDERED: INVANZ1 G1 IV (20:36)
[2019-06-26] MEDS ORDERED: ZINC OXIDE56.7 G1 TP (20:36)
[2019-06-26] MEDS ORDERED: DIPHENHYDRAMINE25 M1 GT (20:36)
[2019-06-26] MEDS ORDERED: HIBICLENS118 ML DT (20:36)
--- NOTE | 2019-06-26 23:00 | NUR ---
NURSE NOTES: Pt's resting in bed, asleep with eyes closed, in no acute distress. Noted BP 77/41, resumed her Levophed at 2mcg/min. Will continue to monitor.
[2019-06-27] VITALS (35 sets, daily range): BP systolic 89–167; BP diastolic 52–109
--- NOTE | 2019-06-27 | History and Physical Report ---
DATE OF ADMISSION: 06/25/2019 HISTORY OF PRESENT ILLNESS: This is a second admission to [facility] of this 69-year-old lady because of sudden drop in blood pressure and tachycardia. The patient was discharged 24 hours ago from this institution with a diagnosis of pneumonia and congestive heart failure, and congestive heart failure was stage 2 to 3 and she was in stable condition for the next 24 hours. On the day of admission, she initially has high blood pressure and tachycardia at 160 associated with diaphoresis and Ativan was used as it was thought to be acute anxiety disorder. In fact, the patient responded well to the Ativan and blood pressure normalized as well as heart rate resolved. Several hours later, the patient developed hypotension and hypoxia and was transferred by repairer pump to [facility] ER where she was found to be in hypovolemic shock. She was placed on dopamine drip and was admitted. PAST MEDICAL HISTORY: Last year, the patient underwent cervical spine surgery, for which she became quadriplegic associated with respiratory failure. She underwent tracheostomy and gastrostomy and referred to subacute unit where she has been for the last several months. In addition, the patient is known to have congestive heart failure, chronic psychosis, high blood pressure, sleep disorder, and recurrent infection. ALLERGIES: No known drug allergies. MEDICATIONS: The patient currently is on ertapenem 1 g IV piggyback in q.24 h., norepinephrine drip 4 mg in 250 mL which she was for several hours, but now has been weaned off. She is on pantoprazole 40 mg IV push q.24 h., heparin 5000 units subcutaneous q.12 h. She is on ascorbic acid 500 mg daily and vitamin D3 5000 units daily. She is on Seroquel 50 mg at bedtime and clonazepam 0.125 mg q.12 h. She is on IV normal saline at 100 mL per hour. FAMILY HISTORY: Noncontributory. SOCIAL HISTORY: She has one daughter in good health, who is the durable power of commonwealth attorney. She is a . She was born in [place]. She has been retired for more than 10 years. HABITS: The patient did not smoke, drink, or use illicit drugs. REVIEW OF SYSTEMS: The patient is unable to give any information regarding her state of health. PHYSICAL EXAMINATION: VITAL SIGNS: Blood pressure is 126/86, pulse is 85, respirations of 13, and temperature 97.6. HEENT: Eyes were normal. Pupils were round, equal, and reactive to light. Sclerae were white. Conjunctivae were pink. Extraocular movements are normal. Temporal arteries were palpable bilaterally. There was no bilateral temporal wasting. Visual meier to confrontation were normal. Neglect sign was negative. ENT, mucous membranes were not dehydrated. Auditory canals were clear and tympanic membranes could not be visualized. Nasal cavity was not congested. Nasal septum was intact. Soft palate was free of ulcerations. Pharynx was clear from exudate or tonsillar hypertrophy. Uvula natalia to phonation. Tongue was moist, midline, and normally papillated. NECK: Supple. There was no goiter. No mass. No lymphadenopathy. There was no JVD. No bruits. Carotid upstroke was 2+. LUNGS: Clear. There were bilateral rhonchi at both bases only. HEART: PMI was fifth left intercostal space in midclavicular line. There was normal S1 and normal S2. There was no murmur. No arrhythmia. No S3. No S4. No pericardial rub. ABDOMEN: Soft and nontender without organomegaly. Normal bowel sounds without bruit. There was no guarding. No rebound tenderness. No ascites. No hernia. No CVA tenderness. Liver span was 8 cm, smooth, and nontender. Gastrostomy site is clean. EXTREMITIES: No cyanosis, no clubbing. 2+ edema. NEUROLOGICAL: Reflexes in biceps, triceps, and brachioradialis were difficult to obtain. Patellar retinaculum were . Plantars were in flexion. Cranial nerves II through XII were symmetric and equal. Cerebellar function, there was no tremor. No nystagmus. No extrapyramidal rigidity. Sensory exam to pinprick, cotton touch, and position are grossly normal. Motor strength could not be assessed because of the patient's clinical status. LABORATORY AND DIAGNOSTIC DATA: Hemoglobin was 10.8, hematocrit 37.8, MCV of 88, WBC of 16.8, and platelets is 276,000. Her BUN and creatinine are 21 and 0.5 respectively. Her sodium is 141, potassium 4.2, chloride 104, CO2 is 32. Her calcium was 8.5 and troponin was 0.107. Her proBNP was 8124. LDL was 47 and TSH was 0.65. Her chest x-ray showed bilateral atelectasis, cardiomegaly, and pulmonary vascular congestion. IMPRESSION: The patient has congestive heart failure, bilateral atelectasis. Currently, she is ventilator dependent and fed by gastrostomy tube. PLAN: A 2D echo will be ordered. web development consultant was called to assist in the management of this case. Aldactone 25 mg daily, enalapril 5 mg b.i.d. will be added. Repeat laboratory tests will be done in the a.m. The patient will continue on ertapenem 1 g IV piggyback q.24 h. Pulmonary senior solutions consultant was called to assist in the management of this case. Delmy Pardo M.D. DR: POLI JOB#: [id number] CC:
--- NOTE | 2019-06-27 02:00 | NUR ---
NURSE NOTES: Pt's resting in bed, asleep with eyes closed. VS stable. Will continue to monitor.
--- NOTE | 2019-06-27 05:00 | NUR ---
NURSE NOTES: Pt's resting in bed, alert and responsive, in no acute distress. MAP above 65, levophed had stopped at this time. Will continue to monitor.
[2019-06-27 05:45] LABS: BASOPHILS % (AUTO) 0.6 % (0.0-2.0); EOSINOPHILS % (AUTO) 1.1 % (0.0-3.0); HEMATOCRIT 30.2 % (37.0-47.0); HEMOGLOBIN 9.7 G/DL (12.0-16.0); LYMPHOCYTES % (AUTO) 25.3 % (20.0-45.0); MEAN CORPUSCULAR VOLUME 82 FL (80-99); MONOCYTES % (AUTO) 6.7 % (1.0-10.0); NEUTROPHILS % (AUTO) 66.3 % (45.0-75.0); PLATELET COUNT 219 K/UL (150-450); RED BLOOD COUNT 3.69 M/UL (4.20-5.40); RED CELL DISTRIBUTION WIDTH 15.1 % (11.6-14.8); WHITE BLOOD COUNT 8.7 K/UL (4.8-10.8)
--- NOTE | 2019-06-27 06:00 | NUR ---
NURSE NOTES: Pt's resting in bed, in no acute distress. VS stable. Will continue to monitor.
[2019-06-27 06:37] LABS: ALANINE AMINOTRANSFERASE 28 U/L (12-78); ALBUMIN/GLOBULIN RATIO 0.5 (1.0-2.7); ALKALINE PHOSPHATASE 104 U/L (46-116); ANION GAP 4 mmol/L (5-15); ASPARTATE AMINO TRANSFERASE 22 U/L (15-37); BILIRUBIN,TOTAL 0.3 MG/DL (0.2-1.0); BLOOD UREA NITROGEN 17 mg/dL (7-18); CALCIUM 8.4 MG/DL (8.5-10.1); CARBON DIOXIDE 31 MMOL/L (21-32); CHLORIDE 110 MMOL/L (98-107); CREATININE 0.5 MG/DL (0.55-1.30); PHOSPHORUS 1.9 MG/DL (2.5-4.9); POTASSIUM 3.9 MMOL/L (3.5-5.1); SODIUM 145 MMOL/L (136-145)
--- NOTE | 2019-06-27 07:10 | NUR ---
HAND-OFF: Report given to LIAN Page.
--- NOTE | 2019-06-27 07:11 | NUR ---
NURSE NOTES: RECEIVED PATIENT FROM Chase BARRIENTOS RN. PATIENT IS LYING IN BED, ASLEEP. HOOKED TO DIRECTOR REACTOR PROJECTS. TRACH TO VENT. VENT SETTINGS PORTEX 7, AC 12, VT 450, FiO2 40%, PEEP 5. NO SIGNS OF DISTRESS OF THE MOMENT. GT IN PLACE, DRY AND INTACT. RUNNING GLUCERNA 1.5 AT 45ML/HR. DAVEY NOTED, CONNECTED TO BAG, PATENT AND DRAINING URINE. NOTED SKIN ALTERATION. ON P200 MATTRESS. PIV R H G22 AND PICC R FEMORAL TLC. RUNNING IVF NS AT 75ML/HR. CALL LIGHT WITHIN REACH. BED AT LOWEST POSITION. WILL CONTINUE TO MONITOR.
--- NOTE | 2019-06-27 07:30 | NUR ---
RESPIRATORY NOTE: received trach dependent pt with portex [address] trach is secured via trach tie/guard. no signs of resp distress. pt is alert and responsive to resp needs. slight redness around stoma but no skin tears. alarms are on and set appropriately. will cont to monitor.
--- NOTE | 2019-06-27 08:30 | NUR ---
NURSE NOTES: SUCTIONED AND REPOSITIONED PATIENT. WILL CONTINUE TO MONITOR.
[2019-06-27] MEDS: Enalapril 5mg tab ORAL SCH (09:00)
[2019-06-27] MEDS ORDERED: Ascorbic Acid 500mg tab ORAL SCH (09:00)
--- NOTE | 2019-06-27 09:11 | NUR ---
RADIOLOGY DEPT., CHEST X-RAY COMPLETED.-P.DYE
--- NOTE | 2019-06-27 09:28 | Diagnostic Imaging Report ---
EXAM: XR Chest, 1 View CLINICAL HISTORY: DYSPNEA TECHNIQUE: Frontal view of the chest. COMPARISON: 06/25/19 FINDINGS: Lungs: There is slight interval worsening of mild perihilar and lower lobe pulmonary edema. There are bibasilar infiltrates, likely representing atelectasis. Pleural space: There has been slight increase in mild bilateral pleural effusions. No pneumothorax. Heart: Unremarkable. No cardiomegaly. Mediastinum: Unremarkable. Bones/joints: Unremarkable. Tubes, lines and devices: There is a tracheostomy tube in good position. IMPRESSION: There is slight interval worsening of mild perihilar and lower lobe pulmonary edema.
--- NOTE | 2019-06-27 09:45 | Surgery Progress Note ---
Surgery Progress Note Subjective Additional Comments improving changed for incontinence air mattress arrived Objective Last 24 Hour Vital Signs Date Time Temp Pulse Resp B/P (MAP) Pulse Ox O2 Delivery O2 Flow Rate FiO2 06/27/19 09:16 98 15 40 06/27/19 07:27 82 13 40 06/27/19 07:00 79 12 102/65 (77) 100 06/27/19 06:30 82 13 99/65 (76) 99 06/27/19 06:00 84 15 109/55 (73) 99 06/27/19 05:30 79 17 102/57 (72) 99 06/27/19 05:00 78 12 40 06/27/19 05:00 82 13 100/56 (71) 99 06/27/19 05:00 102/57 06/27/19 04:30 81 12 104/59 (74) 99 06/27/19 04:00 40 06/27/19 04:00 98.7 80 13 109/60 (76) 100 06/27/19 04:00 109/60 06/27/19 04:00 Mechanical Ventilator 06/27/19 04:00 80 06/27/19 03:30 86 14 110/60 (77) 99 06/27/19 03:00 92 14 146/82 (103) 99 06/27/19 03:00 100/58 06/27/19 03:00 80 12 40 06/27/19 02:30 72 5 110/61 (77) 100 06/27/19 02:03 98/63 06/27/19 02:00 110/61 06/27/19 02:00 72 12 106/58 (74) 99 06/27/19 01:30 74 12 98/60 (73) 99 06/27/19 01:06 77 14 40 06/27/19 01:00 98/60 06/27/19 01:00 76 12 95/55 (68) 99 06/27/19 00:45 77 11 89/52 (64) 99 06/27/19 00:30 73 9 101/62 (75) 99 06/27/19 00:15 72 7 107/63 (78) 99 06/27/19 00:00 Mechanical Ventilator 06/27/19 00:00 40 06/27/19 00:00 73 06/27/19 00:00 107/63 06/27/19 00:00 98.4 76 11 105/53 (70) 99 06/26/19 23:55 78 11 87/56 (66) 99 06/26/19 23:45 82 12 83/52 (62) 99 06/26/19 23:37 70 16 116/64 (81) 97 06/26/19 23:33 84 9 73/52 (59) 98 06/26/19 23:31 85 9 70/43 (52) 98 06/26/19 23:00 79 12 40 06/26/19 23:00 77/41 06/26/19 23:00 86 11 90/52 (65) 99 06/26/19 22:30 88 15 93/51 (65) 99 06/26/19 22:00 92 16 100/53 (69) 99 06/26/19 21:30 93 10 104/58 (73) 99 06/26/19 21:04 80 12 40 06/26/19 21:00 90 18 127/68 (87) 99 06/26/19 20:36 129/80 06/26/19 20:30 90 19 129/80 (96) 99 06/26/19 20:00 Mechanical Ventilator 06/26/19 20:00 40 06/26/19 20:00 98.4 91 21 140/90 (107) 100 06/26/19 20:00 86 06/26/19 19:28 87 13 40 06/26/19 19:00 89 14 125/72 (89) 100 06/26/19 18:00 87 13 126/84 (98) 100 06/26/19 17:00 85 13 135/82 (99) 100 06/26/19 16:43 79 12 40 06/26/19 16:00 81 06/26/19 16:00 40 06/26/19 16:00 97.6 85 13 126/86 (99) 100 06/26/19 16:00 Mechanical Ventilator 06/26/19 15:00 80 12 140/88 (105) 100 06/26/19 14:49 84 12 40 06/26/19 14:00 90 12 124/101 (109) 100 06/26/19 13:30 83 12 40 06/26/19 13:00 84 12 122/86 (98) 100 06/26/19 12:30 84 12 122/86 (98) 100 06/26/19 12:00 Mechanical Ventilator 06/26/19 12:00 123/83 06/26/19 12:00 40 06/26/19 12:00 83 06/26/19 12:00 97.7 79 12 123/83 (96) 100 06/26/19 11:30 85 12 122/82 (95) 100 06/26/19 11:15 80 13 40 06/26/19 11:00 88 14 134/90 (105) 100 06/26/19 11:00 128/84 06/26/19 10:30 81 16 128/84 (99) 100 06/26/19 10:00 109/72 06/26/19 10:00 69 16 109/72 (84) 100 I&O Intake and Output 06/26/19 06/27/19 19:00 07:00 Intake Total 817.50 ml 1415.0 ml Output Total 695 ml 465 ml Balance 122.50 ml 950.0 ml Intake Free Water 20 ml 60 ml IV Total 647.50 ml 945.0 ml Tube Feeding 120 ml 410 ml Other 30 ml Output Urine Total 695 ml 465 ml # Bowel Movements 4 2 Dressing: other Wound: other Drains: other Cardiovascular: RSR Respiratory: decreased breath sounds Abdomen: soft, present bowel sounds Extremities: no cyanosis Laboratory Tests Test 06/27/19 04:30 White Blood Count 8.7 K/UL (4.8-10.8) Red Blood Count 3.69 M/UL (4.20-5.40) L Hemoglobin 9.7 G/DL (12.0-16.0) L Hematocrit 30.2 % (37.0-47.0) L Mean Corpuscular Volume 82 FL (80-99) Mean Corpuscular Hemoglobin 26.4 PG (27.0-31.0) L Mean Corpuscular Hemoglobin Concent 32.3 G/DL (32.0-36.0) Red Cell Distribution Width 15.1 % (11.6-14.8) H Platelet Count 219 K/UL (150-450) Mean Platelet Volume 6.1 FL (6.5-10.1) L Neutrophils (%) (Auto) 66.3 % (45.0-75.0) Lymphocytes (%) (Auto) 25.3 % (20.0-45.0) Monocytes (%) (Auto) 6.7 % (1.0-10.0) Eosinophils (%) (Auto) 1.1 % (0.0-3.0) Basophils (%) (Auto) 0.6 % (0.0-2.0) Sodium Level 145 MMOL/L (136-145) Potassium Level 3.9 MMOL/L (3.5-5.1) Chloride Level 110 MMOL/L (98-107) H Carbon Dioxide Level 31 MMOL/L (21-32) Anion Gap 4 mmol/L (5-15) L Blood Urea Nitrogen 17 mg/dL (7-18) Creatinine 0.5 MG/DL (0.55-1.30) L Estimat Glomerular Filtration Rate > 60 mL/min (>60) Glucose Level 112 MG/DL (74-106) H Calcium Level 8.4 MG/DL (8.5-10.1) L Phosphorus Level 1.9 MG/DL (2.5-4.9) L Magnesium Level 1.8 MG/DL (1.8-2.4) Total Bilirubin 0.3 MG/DL (0.2-1.0) Aspartate Amino Transf (AST/SGOT) 22 U/L (15-37) Alanine Aminotransferase (ALT/SGPT) 28 U/L (12-78) Alkaline Phosphatase 104 U/L (46-116) Total Protein 6.4 G/DL (6.4-8.2) Albumin 2.0 G/DL (3.4-5.0) L Globulin 4.4 g/dL Albumin/Globulin Ratio 0.5 (1.0-2.7) L Plan Problems: (1) Septic shock Assessment & Plan: hypotensive on pressors leukocytosis lactic acidosis cxr noted ct head noted today more responsive and alert weaning off pressors cont to wean iv fluids iv abx trend labs will follow with recs thank you (2) Altered mental status Assessment & Plan: Findings: There is mild prominence of the ventricles, basal cisterns, and cerebral sulci consistent with atrophy. Mild, nonspecific, white matter hypoattenuation is noted throughout the brain consistent with chronic small vessel disease. Small cystic focus are demonstrated in the left lower cerebellum likely old infarct. There is no midline shift, edema, acute hemorrhage, mass effect, or abnormal extra-axial fluid collections. Bones are unremarkable. Impression: No acute intracranial bleed, mass effect or edema. Mild atrophy of the brain. Nonspecific white matter hypoattenuation probably due to chronic small vessel disease. 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 (3) Decubitus skin ulcer Assessment & Plan: patient with historic / chronic decubitus with incontinence associated dermatitis in the sacral region air mattress ordered daughter helps with care has personal turning pillow turn q2h off load pressure heel protectors offload with pillow skin protectant cream and dressings to sacral area daily and prn saturation monitor for incontinence will follow with recs nutritional optimization (4) Sacral decubitus ulcer, stage II (5) Incontinence associated dermatitis (6) Chronic respiratory failure (7) Feeding by G-tube Assessment & Plan: DAILY ESTIMATED NEEDS: Needs based on Critical care, wound 62kg abw 22-28 kcals/kg 8678-2125 total kcals 1.25-2 g protein/kg 77-124 g total protein 25-30 mL/kg 8759-1920 total fluid mLs NUTRITION DIAGNOSIS: * Swallowing difficulty r/t resp status as evidenced by pt is trach and peg dep. * Increased kcal/prot needs R/T wound healing as evidenced by pt admitted w/ sacral stage 2 wound * Altered nutrition related lab values R/T pre-diabetes? as evidenced by A1C of 6.2, elev FBGs (132, 191). CURRENT TF:NPO ENTERAL NUTRITION RECOMMENDATIONS: Glucerna 1.5 @ 45ml/hr x 24 hrs to provide 1080ml, 1620kcal, 89g prot, 820ml free water - As medically appropriate and w/ HD stability, * initiate Glucerna 1.5 @ 25ml/hr x 6 hrs * advance 10ml q 4-6 hrs as tolerated to goal rate. * HOB Over 30 degrees/ water flush per MD ADDITIONAL RECOMMENDATIONS: 1) Calibrated bed scale wts 2) Rec NISS once TF resumes - A1C 6.2, elev FBGs 3) WOUND CARE: add LELO BID + Vit C 250mg daily 4) Monitor lytes, replete as needed Mauro Roldan Jun 27, 2019 09:45
[2019-06-27] MEDS: Levalbuterol Inh UD 1.25mg/0.5ml HHN PRN ×2 (09:47→13:12)
[2019-06-27] MEDS: Pantoprazole Inj IVP SCH (09:59)
[2019-06-27] MEDS: Ascorbic Acid 500mg tab GT SCH (10:00)
[2019-06-27] MEDS: Ertapenem 1 GM in NS 55 ML IV SCH (10:00)
[2019-06-27] MEDS: Spironolactone 25mg tab ORAL SCH (10:00)
[2019-06-27] MEDS: Heparin 5000 units/ml inj SUBQ SCH ×2 (10:05→21:08)
--- NOTE | 2019-06-27 10:09 | NUR ---
NURSE NOTES: PATIENT KEPT CLEAN AND DRY. SEEN DGT AT THE BEDSIDE AND IS AWARE OF THE SKIN ISSUES. WILL CONTINUE TO MONITOR.
--- NOTE | 2019-06-27 10:15 | NUR ---
NURSE NOTES: DGT REQUESTED TO HAVE A CLOTH TAPE AROUND [employer]. EXPLAINED RISKS TO SKIN BUT INSISTED TO HAVE A TAPE ON IT.
--- NOTE | 2019-06-27 10:34 | Pulmonolgy Critical Care Note ---
Critical Care - Asmt/Plan Assessment/Plan: ASSESSMENT Sepsis with shock Recent pneumonia with Klebsiella ESBL, ongoing Possible UTI Acute encephalopathy likely due to sepsis Acute hypercapnic respiratory failure on chronic ventilator dependent respiratory failure with tracheostomy status Pulmonary edema Elevated troponin likely secondary to increased demand due to sepsis Dysphagia , feeding by G-tube Sacral decubitus ulcer stage II Quadriplegia History of spinal injury Tardive dyskinesia Hypo phosphatemia PLAN OF CARE ICU on pressors; titrate to keep mean aBP >e 65 ,closely monitor HD status IVF Vent support ,trach care, pulmonary toilet fup with CXR and ABG ; currently on AC mode while at the [facility] mode, hypercapnia resolved ABG this am noted, decrease AC rate to 10, check ABG in am abx as per ID recx recent SCX with Klebsiella ESBL , UCX + yeast , BCX -NGTD strict aspiration precaution , GT feeding second troponin already negative, elevation in troponin was likely secondary to increased demand due to sepsis DVT prophylaxis replace P CT of the head no acute intracranial pathology, acute encephalopathy probably secondary to sepsis wound care as per surgeon recommendation supportive care DNR/DNI status case discussed and evaluated by supervising physician Critical Care - Objective Last 24 Hour Vital Signs Date Time Temp Pulse Resp B/P (MAP) Pulse Ox O2 Delivery O2 Flow Rate FiO2 06/27/19 10:00 83 15 131/78 (95) 99 06/27/19 09:47 85 12 100 Mechanical Ventilator 40 81 12 100 06/27/19 09:16 98 15 40 06/27/19 09:00 87 16 129/93 (105) 99 06/27/19 08:00 81 06/27/19 08:00 88 17 105/71 (82) 99 06/27/19 07:27 82 13 40 06/27/19 07:00 79 12 102/65 (77) 100 06/27/19 06:30 82 13 99/65 (76) 99 06/27/19 06:00 84 15 109/55 (73) 99 06/27/19 05:30 79 17 102/57 (72) 99 06/27/19 05:00 78 12 40 06/27/19 05:00 82 13 100/56 (71) 99 06/27/19 05:00 102/57 06/27/19 04:30 81 12 104/59 (74) 99 06/27/19 04:00 40 06/27/19 04:00 98.7 80 13 109/60 (76) 100 06/27/19 04:00 109/60 06/27/19 04:00 Mechanical Ventilator 06/27/19 04:00 80 06/27/19 03:30 86 14 110/60 (77) 99 06/27/19 03:00 92 14 146/82 (103) 99 06/27/19 03:00 100/58 06/27/19 03:00 80 12 40 06/27/19 02:30 72 5 110/61 (77) 100 06/27/19 02:03 98/63 06/27/19 02:00 110/61 06/27/19 02:00 72 12 106/58 (74) 99 06/27/19 01:30 74 12 98/60 (73) 99 06/27/19 01:06 77 14 40 06/27/19 01:00 98/60 06/27/19 01:00 76 12 95/55 (68) 99 06/27/19 00:45 77 11 89/52 (64) 99 06/27/19 00:30 73 9 101/62 (75) 99 06/27/19 00:15 72 7 107/63 (78) 99 06/27/19 00:00 Mechanical Ventilator 06/27/19 00:00 40 06/27/19 00:00 73 06/27/19 00:00 107/63 06/27/19 00:00 98.4 76 11 105/53 (70) 99 06/26/19 23:55 78 11 87/56 (66) 99 06/26/19 23:45 82 12 83/52 (62) 99 06/26/19 23:37 70 16 116/64 (81) 97 06/26/19 23:33 84 9 73/52 (59) 98 06/26/19 23:31 85 9 70/43 (52) 98 06/26/19 23:00 79 12 40 06/26/19 23:00 77/41 06/26/19 23:00 86 11 90/52 (65) 99 06/26/19 22:30 88 15 93/51 (65) 99 06/26/19 22:00 92 16 100/53 (69) 99 06/26/19 21:30 93 10 104/58 (73) 99 06/26/19 21:04 80 12 40 06/26/19 21:00 90 18 127/68 (87) 99 06/26/19 20:36 129/80 06/26/19 20:30 90 19 129/80 (96) 99 06/26/19 20:00 Mechanical Ventilator 06/26/19 20:00 40 06/26/19 20:00 98.4 91 21 140/90 (107) 100 06/26/19 20:00 86 06/26/19 19:28 87 13 40 06/26/19 19:00 89 14 125/72 (89) 100 06/26/19 18:00 87 13 126/84 (98) 100 06/26/19 17:00 85 13 135/82 (99) 100 06/26/19 16:43 79 12 40 06/26/19 16:00 81 06/26/19 16:00 40 06/26/19 16:00 97.6 85 13 126/86 (99) 100 06/26/19 16:00 Mechanical Ventilator 06/26/19 15:00 80 12 140/88 (105) 100 06/26/19 14:49 84 12 40 06/26/19 14:00 90 12 124/101 (109) 100 06/26/19 13:30 83 12 40 06/26/19 13:00 84 12 122/86 (98) 100 06/26/19 12:30 84 12 122/86 (98) 100 06/26/19 12:00 Mechanical Ventilator 06/26/19 12:00 123/83 06/26/19 12:00 40 06/26/19 12:00 83 06/26/19 12:00 97.7 79 12 123/83 (96) 100 06/26/19 11:30 85 12 122/82 (95) 100 06/26/19 11:15 80 13 40 06/26/19 11:00 88 14 134/90 (105) 100 06/26/19 11:00 128/84 06/26/19 10:30 81 16 128/84 (99) 100 Status: somnolent - but easily arousable and responds with head nod , other - chronically ill looking female on vent Condition: critical HEENT: atraumatic, normocephalic Neck: trach - Portex#7, secretions small amount, white color, thin consistency Lungs: clear Heart: HR/BP unstable Abdomen: soft, non-tender, active bowel sounds, feeding tube Micro: Microbiology Date/Time Source Procedure Growth Status 06/25/19 18:55 Blood Blood Culture - Preliminary NO GROWTH AFTER 24 HOURS Resulted 06/25/19 18:45 Blood Blood Culture - Preliminary NO GROWTH AFTER 24 HOURS Resulted 06/25/19 19:00 Urine,Clean Catch Urine Culture - Preliminary YEAST Resulted Accucheck: 140 Critical Care - Subjective ROS Limited/Unobtainable: Yes Interval Events: still on pressors leukocytosis resolved, afebrile mental status with some improvement Condition: critical IV Access: central EKG Rhythm: Sinus Rhythm FI02: 40 Vent Support Breath Rate: 12 Vent Support Mode: AC Vent Tidal Volume: 450 Sputum Amount: Small PEEP: 5.0 PIP: 26 Fluids: NS at 75 Drips: Levophed gtt 2 mcg/min Tube Feeding Amount: 45 I&O: Intake and Output 06/26/19 06/27/19 19:00 07:00 Intake Total 817.50 ml 1415.0 ml Output Total 695 ml 465 ml Balance 122.50 ml 950.0 ml Intake Free Water 20 ml 60 ml IV Total 647.50 ml 945.0 ml Tube Feeding 120 ml 410 ml Other 30 ml Output Urine Total 695 ml 465 ml # Bowel Movements 4 2 CXR: CXR 06/27 There is slight interval worsening of mild perihilar and lower lobe pulmonary edema. Graciela Cisneros NP Jun 27, 2019 10:34
--- NOTE | 2019-06-27 11:14 | Infectious Diseases Prog Note ---
Assessment/Plan Assessment/Plan Ertapenem 06/24- Assessment: Septic Shock- now off pressors Afebrile Leukocytosis; Sp doubt UTI -06/25 u/a neg; ucx : yeast ( colonizer ) Acute on baseline encephalopathy Recent PNA, ongoing Pulmonary edema -06/27 CXR : There is slight interval worsening of mild perihilar and lower lobe pulmonary edema. -06/25 CXR: Pulmonary vascular congestion and interstitial edema demonstrated appearing slightly worse since the last study. Basal atelectasis and small lung volumes noted. -06/22 sp cx K, pna (S cipro/levo, Zosyn) ESBL Sacral decub ulcer- not infected spinal injury quadriplegia HTN cardiomyopathy GERD chronic respiratory failure trach/vent dependant dysphagia s/p GT hx of PNA constipation tardive dyskinesia [facility] resident Plan: -Continue Ertapenem # 08/24 for PNA -f/u cx -Monitor CBC/CMP, temperatures -trach/peg/ICU care -aspiration precautions -wound care per surgical team Subjective Allergies: Coded Allergies: No Known Allergies (Unverified , 03/03/19) Subjective in ICU no vent Objective Vital Signs Last 24 Hour Vital Signs Date Time Temp Pulse Resp B/P (MAP) Pulse Ox O2 Delivery O2 Flow Rate FiO2 06/27/19 10:00 83 15 131/78 (95) 99 06/27/19 09:47 85 12 100 Mechanical Ventilator 40 81 12 100 06/27/19 09:16 98 15 40 06/27/19 09:00 87 16 129/93 (105) 99 06/27/19 08:00 40 06/27/19 08:00 81 06/27/19 08:00 88 17 105/71 (82) 99 06/27/19 07:27 82 13 40 06/27/19 07:00 79 12 102/65 (77) 100 06/27/19 06:30 82 13 99/65 (76) 99 06/27/19 06:00 84 15 109/55 (73) 99 06/27/19 05:30 79 17 102/57 (72) 99 06/27/19 05:00 78 12 40 06/27/19 05:00 82 13 100/56 (71) 99 06/27/19 05:00 102/57 06/27/19 04:30 81 12 104/59 (74) 99 06/27/19 04:00 40 06/27/19 04:00 98.7 80 13 109/60 (76) 100 06/27/19 04:00 109/60 06/27/19 04:00 Mechanical Ventilator 06/27/19 04:00 80 06/27/19 03:30 86 14 110/60 (77) 99 06/27/19 03:00 92 14 146/82 (103) 99 06/27/19 03:00 100/58 06/27/19 03:00 80 12 40 06/27/19 02:30 72 5 110/61 (77) 100 06/27/19 02:03 98/63 06/27/19 02:00 110/61 06/27/19 02:00 72 12 106/58 (74) 99 06/27/19 01:30 74 12 98/60 (73) 99 06/27/19 01:06 77 14 40 06/27/19 01:00 98/60 06/27/19 01:00 76 12 95/55 (68) 99 06/27/19 00:45 77 11 89/52 (64) 99 06/27/19 00:30 73 9 101/62 (75) 99 06/27/19 00:15 72 7 107/63 (78) 99 06/27/19 00:00 Mechanical Ventilator 06/27/19 00:00 40 06/27/19 00:00 73 06/27/19 00:00 107/63 06/27/19 00:00 98.4 76 11 105/53 (70) 99 06/26/19 23:55 78 11 87/56 (66) 99 06/26/19 23:45 82 12 83/52 (62) 99 06/26/19 23:37 70 16 116/64 (81) 97 06/26/19 23:33 84 9 73/52 (59) 98 06/26/19 23:31 85 9 70/43 (52) 98 06/26/19 23:00 79 12 40 06/26/19 23:00 77/41 06/26/19 23:00 86 11 90/52 (65) 99 06/26/19 22:30 88 15 93/51 (65) 99 06/26/19 22:00 92 16 100/53 (69) 99 06/26/19 21:30 93 10 104/58 (73) 99 06/26/19 21:04 80 12 40 06/26/19 21:00 90 18 127/68 (87) 99 06/26/19 20:36 129/80 06/26/19 20:30 90 19 129/80 (96) 99 06/26/19 20:00 Mechanical Ventilator 06/26/19 20:00 40 06/26/19 20:00 98.4 91 21 140/90 (107) 100 06/26/19 20:00 86 06/26/19 19:28 87 13 40 06/26/19 19:00 89 14 125/72 (89) 100 06/26/19 18:00 87 13 126/84 (98) 100 06/26/19 17:00 85 13 135/82 (99) 100 06/26/19 16:43 79 12 40 06/26/19 16:00 81 06/26/19 16:00 40 06/26/19 16:00 97.6 85 13 126/86 (99) 100 06/26/19 16:00 Mechanical Ventilator 06/26/19 15:00 80 12 140/88 (105) 100 06/26/19 14:49 84 12 40 06/26/19 14:00 90 12 124/101 (109) 100 06/26/19 13:30 83 12 40 06/26/19 13:00 84 12 122/86 (98) 100 06/26/19 12:30 84 12 122/86 (98) 100 06/26/19 12:00 Mechanical Ventilator 06/26/19 12:00 123/83 06/26/19 12:00 40 06/26/19 12:00 83 06/26/19 12:00 97.7 79 12 123/83 (96) 100 06/26/19 11:30 85 12 122/82 (95) 100 06/26/19 11:15 80 13 40 Height (Feet): 5 Height (Inches): 6.00 Weight (Pounds): 155 Respiratory/Chest: normal breath sounds, no accessory muscle use Cardiovascular: regular rhythm Abdomen: soft, non tender, no organomegaly Microbiology Date/Time Source Procedure Growth Status 06/25/19 18:55 Blood Blood Culture - Preliminary NO GROWTH AFTER 24 HOURS Resulted 06/25/19 18:45 Blood Blood Culture - Preliminary NO GROWTH AFTER 24 HOURS Resulted 06/25/19 19:00 Urine,Clean Catch Urine Culture - Preliminary YEAST Resulted Laboratory Tests Test 06/27/19 04:30 06/27/19 09:50 White Blood Count 8.7 K/UL (4.8-10.8) Red Blood Count 3.69 M/UL (4.20-5.40) L Hemoglobin 9.7 G/DL (12.0-16.0) L Hematocrit 30.2 % (37.0-47.0) L Mean Corpuscular Volume 82 FL (80-99) Mean Corpuscular Hemoglobin 26.4 PG (27.0-31.0) L Mean Corpuscular Hemoglobin Concent 32.3 G/DL (32.0-36.0) Red Cell Distribution Width 15.1 % (11.6-14.8) H Platelet Count 219 K/UL (150-450) Mean Platelet Volume 6.1 FL (6.5-10.1) L Neutrophils (%) (Auto) 66.3 % (45.0-75.0) Lymphocytes (%) (Auto) 25.3 % (20.0-45.0) Monocytes (%) (Auto) 6.7 % (1.0-10.0) Eosinophils (%) (Auto) 1.1 % (0.0-3.0) Basophils (%) (Auto) 0.6 % (0.0-2.0) Sodium Level 145 MMOL/L (136-145) Potassium Level 3.9 MMOL/L (3.5-5.1) Chloride Level 110 MMOL/L (98-107) H Carbon Dioxide Level 31 MMOL/L (21-32) Anion Gap 4 mmol/L (5-15) L Blood Urea Nitrogen 17 mg/dL (7-18) Creatinine 0.5 MG/DL (0.55-1.30) L Estimat Glomerular Filtration Rate > 60 mL/min (>60) Glucose Level 112 MG/DL (74-106) H Calcium Level 8.4 MG/DL (8.5-10.1) L Phosphorus Level 1.9 MG/DL (2.5-4.9) L Magnesium Level 1.8 MG/DL (1.8-2.4) Total Bilirubin 0.3 MG/DL (0.2-1.0) Aspartate Amino Transf (AST/SGOT) 22 U/L (15-37) Alanine Aminotransferase (ALT/SGPT) 28 U/L (12-78) Alkaline Phosphatase 104 U/L (46-116) Total Protein 6.4 G/DL (6.4-8.2) Albumin 2.0 G/DL (3.4-5.0) L Globulin 4.4 g/dL Albumin/Globulin Ratio 0.5 (1.0-2.7) L Arterial Blood pH 7.509 (7.350-7.450) Arterial Blood Partial Pressure CO2 37.2 mmHg (35.0-45.0) Arterial Blood Partial Pressure O2 116.9 mmHg (75.0-100.0) H Arterial Blood HCO3 29.0 mmol/L (22.0-26.0) H Arterial Blood Oxygen Saturation 98.7 % (95-100) Arterial Blood Base Excess 5.7 (-2-2) H Madhu Test Positive Current Medications Medications (Trade) Dose Ordered Sig/Rizwana Route PRN Reason Start Time Stop Time Status Last Admin Dose Admin Acetaminophen (Tylenol) 650 mg Q4H PRN GT Mild Pain/Temp > 100.5 06/26/19 01:45 07/26/19 01:44 Artificial Tears (Akwa-Tears) 2 drop Q2H PRN BOTH EYES Dry Eyes 06/26/19 01:45 07/26/19 01:44 Ascorbic Acid (Vitamin C) 250 mg DAILY GT 06/27/19 09:00 07/27/19 08:59 06/27/19 10:00 Carvedilol (Coreg) 3.125 mg Q12H PRN GT For High Blood Pressure 06/25/19 19:00 07/25/19 18:59 Chlorhexidine Gluconate (Julia-Hex 2%) 1 applic DAILY@1999 TOPIC 06/26/19 20:00 07/26/19 19:59 06/26/19 20:36 Clonazepam (KlonoPIN) 0.125 mg HSPRN PRN ORAL For Anxiety 06/26/19 17:45 07/03/19 17:44 Diphenhydramine HCl (Benadryl) 25 mg QHS PRN NG Itching 06/26/19 01:45 07/26/19 01:44 Docusate Sodium (Colace) 100 mg NEEDED PRN NG constipation 06/26/19 19:45 07/26/19 08:59 Enalapril Maleate (Vasotec) 5 mg EVERY 12 HOURS ORAL 06/26/19 21:00 07/26/19 20:59 06/26/19 20:36 Ertapenem 1 gm/ Sodium Chloride 55 ml @ 110 mls/hr DAILY IV 06/26/19 09:00 07/01/19 08:59 06/27/19 10:00 Heparin Sodium (Porcine) (Heparin 5000 units/ml) 5,000 units EVERY 12 HOURS SUBQ 06/26/19 09:00 07/26/19 08:59 06/27/19 10:05 Levalbuterol HCl (Xopenex) 0.63 mg Q3H PRN HHN bronchospasm, SOB/Wheezing 06/26/19 01:45 07/01/19 01:44 06/27/19 09:47 Norepinephrine Bitartrate 4 mg/ Dextrose 250 ml @ 0 mls/hr Q24H IV 06/26/19 01:45 07/26/19 01:44 06/26/19 23:00 Pantoprazole (Protonix) 40 mg DAILY IVP 06/26/19 09:00 07/26/19 08:59 06/27/19 09:59 Phosphorus (Phospha 250 Neutral) 250 mg THREE TIMES A DAY GT 06/27/19 13:00 06/28/19 09:01 Quetiapine Fumarate (SEROqueL) 50 mg QHS ORAL 06/26/19 21:00 07/26/19 20:59 06/26/19 20:36 Sodium Chloride 1,000 ml @ 75 mls/hr [id number] IV 06/26/19 11:00 07/26/19 10:59 06/27/19 00:52 Spironolactone (Aldactone) 25 mg DAILY ORAL 06/27/19 09:00 07/27/19 08:59 06/27/19 10:00 Porfirio Atkinson MD Jun 27, 2019 11:14
--- NOTE | 2019-06-27 12:30 | NUR ---
NURSE NOTES: NOTED ANOTHER BOWEL INCONTINENCE. GRANDDAUGHTER SEEN AT THE BEDSIDE. PATIENT TURNED AND REPOSITIONED. SUCTIONED SECRETION.
[2019-06-27] MEDS ORDERED: D5W 275ml ONE (13:05)
[2019-06-27] MEDS ORDERED: D5NS 1000ml IV ONE (13:05)
--- NOTE | 2019-06-27 13:43 | NUR ---
PT Note Acknowledged order for PT eval/tx. Attempted to see patient but was advised by RN/CN to hold PT for now as patient is critical.
[2019-06-27] MEDS: Phospha 250 Neutral tab GT SCH ×2 (13:54→18:10)
--- NOTE | 2019-06-27 14:30 | NUR ---
NURSE NOTES: TURNED AND REPOSITIONED PATIENT. ORAL/TRACH SECRETION SUCTIONED.
--- NOTE | 2019-06-27 15:07 | NUR ---
NURSE NOTES: SEEN AND EXAMINED BY DR ONEIL WITH NEW ORDERS MADE AND CARRIED OUT. INFORMED OF LOW BP DURING NIGHT TIME.
--- NOTE | 2019-06-27 17:30 | NUR ---
NURSE NOTES: PATIENT KEPT CLEAN AND DRY. ANOTHER BM NOTED. TURNED AND REPOSITIONED PT. WILL CONTINUE TO MONITOR.
[2019-06-27] MEDS: Enalapril 2.5mg tab GT SCH (18:10)
--- NOTE | 2019-06-27 18:58 | NUR ---
RESPIRATORY NOTE: Received pt on AC 10, 450VT, 40%, PEEP +5. Pt is trach-dependent w/ a cuffed, Portex 7 tube. Pt is alert/awake, follows commands. B/S tree. rhonchi, sxn small amounts of thick/thin, pale-yellow secretions. Vent plugged into red outlet, ambubag at bedside. Pt denies SOB/chest pain at this time, no distress noted. Will continue to monitor pt.
--- NOTE | 2019-06-27 19:20 | NUR ---
HAND-OFF: Report given to Tex Norman RN.
--- NOTE | 2019-06-27 19:30 | NUR ---
NURSE NOTES: Received pt in no apparent distress; awake, alert opens eyes spontaneously; non verbal due to trach. Pt lying on her right side with one pillow on her left leg. Vented and noted vent settings of AC10 TV450 fiO2 .40 peep 5; secretions clear, thin ocally and via tracheal suctioning. O2 sats 100%. Pt has a GT with GTF of Glucerna 1.5 running at 45ml/h with 0 residuals; abdomen soft; no BM at this time. FC patent, tubes straight and not lying on her skin or underneath it. Pt wiggles left feet to make her needs known i.e., suctioning and repositioning. Daughter just called and gave specific instructions on how her mom is to be cared for, how to reposition her and how pillows are to be placed. Plan of care explained to her. Will continue to monitor
[2019-06-27] MEDS: Dyna-Hex 2% Top Sol 2oz TOPIC SCH (21:10)
--- NOTE | 2019-06-27 22:00 | NUR ---
NURSE NOTES: Repositioned with HOB elevated; oral care and suctioning done. VSS. Tolerating TF.
[2019-06-28] VITALS (24 sets, daily range): BP systolic 93–188; BP diastolic 44–113
--- NOTE | 2019-06-28 | NUR ---
NURSE NOTES: sleeping, no distress, VSS. Afebrile. Tolerating feedings and current vent parameters.
--- NOTE | 2019-06-28 00:15 | Progress Note ---
DATE: 06/27/2019 SUBJECTIVE: The patient is awake, alert, attentive, and hemodynamically improved. Yesterday, she had . Today she has facial expression and . PHYSICAL EXAMINATION: VITAL SIGNS: Blood pressure is 124/79, her pulse is 85, respirations are 14, and temperature is 98.1. HEENT: Eyes are normal. ENT, mucous membranes were moist and intact. NECK: Supple with no JVD without lymph nodes. Tracheostomy site is clean. LUNGS: Clear without rhonchi, rales, or wheezing. HEART: Normal sounds with regular beats. There is no S3, S4, or pericardial rub. ABDOMEN: Soft and nontender with normal bowel sounds. EXTREMITIES: Warm without cyanosis, clubbing, or edema. Her JVD was 4 cm yesterday . LABORATORY AND DIAGNOSTIC DATA: Hemoglobin is 9.7, hematocrit of 30.2 with MCV of 82, WBC of 8.7, and platelets 219,000. BUN and creatinine is 17 and 0.5 respectively. Her sodium is 145, potassium 3.9, chloride 110, CO2 is 31, and calcium is 8.4. SGOT, SGPT, and alkaline phosphatase are normal. Albumin is 2.0 and total protein is 6.4. IMPRESSION AND PLAN: The patient has congestive heart failure, which appears systolic and diastolic type, which has improved since the use of Aldactone and enalapril. However, enalapril causing her hypertension and medication was withheld and she will now receive enalapril 2.5 mg q.12 h. for blood pressure above 120. Repeat laboratory tests will be done in the a.m. including CBC and BMP. Chest x-ray and BNP. Delmy Pardo M.D. DR: NORMA JOB#: [id number] CC:
--- NOTE | 2019-06-28 02:00 | NUR ---
NURSE NOTES: suctioned orally via tracheal, secretions clear. Repositioned by pulling her up on bed maintaining the right sided position with pillow under left leg. Martin tube straight and not touching skin. Tolerating GTF
--- NOTE | 2019-06-28 04:00 | NUR ---
NURSE NOTES: Had 1 large amt of greenish soft to semi liquid stool. Cleaned and partial bath given. Sacral dressings dry and intact. afebrile, NSR, BP stable. Right femoral TLC dressing changed; caps changed as well. Martin tubing straight and not touching the skin. Good urine output.
[2019-06-28 06:15] LABS: BASOPHILS % (AUTO) 0.7 % (0.0-2.0); HEMATOCRIT 32.7 % (37.0-47.0); HEMOGLOBIN 10.3 G/DL (12.0-16.0); LYMPHOCYTES % (AUTO) 28.3 % (20.0-45.0); MEAN CORPUSCULAR VOLUME 83 FL (80-99); MONOCYTES % (AUTO) 5.7 % (1.0-10.0); NEUTROPHILS % (AUTO) 63.4 % (45.0-75.0); PLATELET COUNT 214 K/UL (150-450); RED BLOOD COUNT 3.94 M/UL (4.20-5.40); RED CELL DISTRIBUTION WIDTH 15.5 % (11.6-14.8); WHITE BLOOD COUNT 9.1 K/UL (4.8-10.8)
--- NOTE | 2019-06-28 06:41 | NUR ---
RESPIRATORY NOTE: Received pt on trach cuffed Portex 7.0, secured with trach tie. Pt is awake, alert, able to follow simple commands. Pt is trach to vent with the settings: AC 10-450ml-40%-peep 5. No SOB or in resp distress noted. Carlos rhonchi B/S heard upon auscultation, suctioned small amount of thick/ thin white parker secretions without incidents. Alarms are set and audible, vent plugged into the red outlet. ambu bag is at bed side. Will continue to monitor.
[2019-06-28 06:42] LABS: ANION GAP 7 mmol/L (5-15); BLOOD UREA NITROGEN 13 mg/dL (7-18); CALCIUM 8.6 MG/DL (8.5-10.1); CARBON DIOXIDE 30 MMOL/L (21-32); CHLORIDE 110 MMOL/L (98-107); CREATININE 0.5 MG/DL (0.55-1.30); PHOSPHORUS 3.3 MG/DL (2.5-4.9); POTASSIUM 4.2 MMOL/L (3.5-5.1); SODIUM 147 MMOL/L (136-145)
--- NOTE | 2019-06-28 07:14 | NUR ---
HAND-OFF: Report given to Li Whitman RN.
--- NOTE | 2019-06-28 07:15 | NUR ---
NURSE NOTES: Received patient from LIAN Lopez. Patient vital signs stable at this time. Patient sleeping but easily aroused at this time. Patient quadriplegic an nonverbal but follows movement and answers yes/no questions with nodding head/shaking head. Patient on trach to ventilator with setting of AC 10, tidal volume 450, FiO2 40%, and PEEP 5. Patient tolerating setting with no sign of acute distress and SpO2 100% with RR of 16. Patient showing sinus rhythm on the court recording monitor. Patient has gastrostomy tube that is patent, asymptomatic, and running glucerna 1.5 at 45mL/hr at this time. Patient has mccauley for urine retention that is patent, asymptomatic, and draining straw yellow urine at this time. Patient has sacral partial thickness pressure injury that is dry, intact, and covered with optifoam. Patient has right hand 22 gauge peripherl IV that is patent and saline locked and right femoral TLC that is patent, asymptomatic, dressing dry and intact and NS running at 75mL/hr at this time. Patient bed in low position with bed alarm on and call light in reach. VS stable. Will continue to monitor. Addendum: 06/28/19 at 1021 by April Whitman RN Oral care and repositioning done at this time.
--- NOTE | 2019-06-28 08:30 | NUR ---
NURSE NOTES: Received phone call from Patient daughter, Lucrecia. Daughter informed that patient has an order to transfer to [facility]. Received in report that patient needed to be kept on her right side but daughter reported that patient only on right side during night and turned every two hours on any side/supine during the day. Daughter also requested that patient not have her legs or arms elevated on pillows. It was explained to her why this is done, but she reports that she is aware and patient is claustrophobic. Will follow up and reposition every two hours and remove all excess pillows per family request.
--- NOTE | 2019-06-28 08:31 | NUR ---
NURSE NOTES: Spoke with Graciela Cisneros NP. Received verbal order to transfer patient to [facility]. Order read back, verified, and placed.
--- NOTE | 2019-06-28 08:50 | Diagnostic Imaging Report ---
EXAM: XR Chest, 1 View CLINICAL HISTORY: SOB TECHNIQUE: Frontal view of the chest. COMPARISON: 1 day prior FINDINGS: Lungs: Since the prior study there has been ischemic change and mild perihilar and lower lobe pulmonary edema with mild bilateral pleural effusions and bibasilar atelectasis. Pleural space: See above. Heart: Mildly enlarged. Mediastinum: Unremarkable. Bones/joints: Unremarkable. Tubes, lines and devices: There is a tracheostomy tube in unchanged position. IMPRESSION: Since the prior study there has been ischemic change and mild perihilar and lower lobe pulmonary edema with mild bilateral pleural effusions and bibasilar atelectasis.
[2019-06-28] MEDS: Pantoprazole Inj IVP SCH (09:02)
[2019-06-28] MEDS: Spironolactone 25mg tab ORAL SCH (09:02)
[2019-06-28] MEDS: Ascorbic Acid 500mg tab GT SCH (09:02)
[2019-06-28] MEDS: Enalapril 2.5mg tab GT SCH ×2 (09:03→17:47)
[2019-06-28] MEDS: Phospha 250 Neutral tab GT SCH (09:03)
[2019-06-28] MEDS: Heparin 5000 units/ml inj SUBQ SCH ×2 (09:05→20:46)
--- NOTE | 2019-06-28 09:32 | Pulmonolgy Critical Care Note ---
Critical Care - Asmt/Plan Assessment/Plan: ASSESSMENT Sepsis with shock Recent pneumonia with Klebsiella ESBL, ongoing Possible UTI Acute encephalopathy likely due to sepsis Acute hypercapnic respiratory failure on chronic ventilator dependent respiratory failure with tracheostomy status Pulmonary edema Elevated troponin likely secondary to increased demand due to sepsis Dysphagia , feeding by G-tube Sacral decubitus ulcer stage II Quadriplegia History of spinal injury Tardive dyskinesia Hypo phosphatemia -resolved PLAN OF CARE ICU off pressors; moniotr HD status closely IVF vent support ,trach care, pulmonary toilet this am ABG stable on current settings after AC rate down to 10 fup with CXR and ABG ; currently on AC mode while at the [facility] mode, hypercapnia resolved abx as per ID recx recent SCX with Klebsiella ESBL , UCX + yeast/colonizer as per ID , BCX -NGTD strict aspiration precaution , GT feeding second troponin already negative, elevation in troponin was likely secondary to increased demand due to sepsis DVT prophylaxis P replace , stable, CT of the head no acute intracranial pathology, acute encephalopathy probably secondary to sepsis wound care as per surgeon recommendation supportive care DNR/DNI status transfer to [facility] case discussed and evaluated by supervising physician Critical Care - Objective Last 24 Hour Vital Signs Date Time Temp Pulse Resp B/P (MAP) Pulse Ox O2 Delivery O2 Flow Rate FiO2 06/28/19 09:03 148/80 06/28/19 08:45 35 06/28/19 08:30 81 14 40 06/28/19 08:00 40 06/28/19 08:00 Mechanical Ventilator 06/28/19 08:00 98.6 81 14 126/77 (93) 97 06/28/19 07:00 86 16 135/78 (97) 98 06/28/19 06:41 85 15 40 06/28/19 06:00 78 12 115/64 (81) 99 06/28/19 05:16 82 12 40 06/28/19 05:00 81 18 132/72 (92) 99 06/28/19 04:00 Mechanical Ventilator 06/28/19 04:00 98.4 96 19 174/113 (133) 98 06/28/19 04:00 88 06/28/19 04:00 40 06/28/19 03:00 85 13 130/64 (86) 99 06/28/19 02:40 85 16 40 06/28/19 02:00 87 16 122/77 (92) 99 06/28/19 01:45 130/64 06/28/19 01:00 78 13 124/83 (97) 100 06/28/19 01:00 80 10 40 06/28/19 00:00 Mechanical Ventilator 06/28/19 00:00 40 06/28/19 00:00 82 06/28/19 00:00 97.8 82 11 135/77 (96) 99 06/27/19 23:00 89 12 118/68 (85) 99 06/27/19 22:55 99 19 40 06/27/19 22:00 97 16 112/60 (77) 98 06/27/19 21:12 97 16 40 06/27/19 21:00 92 21 132/71 (91) 99 06/27/19 20:04 88 06/27/19 20:03 40 06/27/19 20:00 98.4 94 14 141/76 (97) 99 06/27/19 20:00 Mechanical Ventilator 06/27/19 19:00 91 20 135/82 (99) 99 06/27/19 18:55 94 13 40 06/27/19 18:10 167/109 06/27/19 18:00 107 19 167/109 (128) 97 06/27/19 17:00 90 17 137/76 (96) 100 06/27/19 16:48 85 16 40 06/27/19 16:00 89 06/27/19 16:00 Mechanical Ventilator 06/27/19 16:00 40 06/27/19 16:00 98.8 06/27/19 16:00 87 16 141/78 (99) 100 06/27/19 15:00 85 14 124/79 (94) 100 06/27/19 14:46 82 14 40 06/27/19 14:00 83 16 131/74 (93) 100 06/27/19 13:24 86 13 40 06/27/19 13:11 86 10 100 Mechanical Ventilator 40 87 10 100 06/27/19 13:00 90 20 136/81 (99) 99 06/27/19 12:00 Mechanical Ventilator 06/27/19 12:00 85 06/27/19 12:00 40 06/27/19 12:00 98.1 99 21 160/90 (113) 100 06/27/19 11:30 83 17 145/84 (104) 100 06/27/19 11:09 83 19 40 06/27/19 11:00 40 06/27/19 11:00 83 16 127/82 (97) 100 06/27/19 10:00 83 15 131/78 (95) 99 06/27/19 09:47 85 12 100 Mechanical Ventilator 40 81 12 100 Objective: Status: somnolent , but easily arousable and responds with head nod , chronically ill looking female on vent Condition: critical HEENT: atraumatic, normocephalic Neck: trach - Portex#7, secretions small amount, white color, thin consistency Lungs: clear Heart: HR/BP unstable Abdomen: soft, non-tender, active bowel sounds, feeding tube Micro: Microbiology Date/Time Source Procedure Growth Status 06/25/19 18:55 Blood Blood Culture - Preliminary NO GROWTH AFTER 48 HOURS Resulted 06/25/19 18:45 Blood Blood Culture - Preliminary NO GROWTH AFTER 48 HOURS Resulted 06/27/19 03:40 Sputum Induced Gram Stain - Final Resulted 06/27/19 03:40 Sputum Culture - Preliminary Gram Negative Stan Resulted 06/25/19 19:00 Urine,Clean Catch Urine Culture - Final Mirtha Tropicalis Complete 06/26/19 00:00 Rectum - Final NO CARBAPENEM-RESISTANT ENTEROBACTERI... Complete 06/26/19 00:00 Rectum VRE Culture - Final NO VANCOMYCIN RESISTANT ENTEROCOCCUS ... Complete Accucheck: 140 Critical Care - Subjective Interval Events: off pressors leukocytosis resolved, afebrile ABG stable on current settings Condition: improving IV Access: central - R femoral TL EKG Rhythm: Sinus Rhythm FI02: 35 Vent Support Breath Rate: 10 Vent Support Mode: AC Vent Tidal Volume: 450 Sputum Amount: Scant PEEP: 5.0 PIP: 24 Fluids: NS at 75 Tube Feeding Amount: 45 I&O: Intake and Output 06/27/19 06/28/19 19:00 07:00 Intake Total 1640 ml 1365 ml Output Total 483 ml 1225 ml Balance 1157 ml 140 ml Intake Free Water 0 ml IV Total 1010 ml 825 ml Tube Feeding 540 ml 540 ml Blood Product 90 ml Output Urine Total 480 ml 1225 ml Stool Total 3 ml # Bowel Movements 3 2 CXR: CXR 06/28 mild perihilar and lower lobe pulmonary edema with mild bilateral pleural effusions and bibasilar atelectasis. Graciela Cisneros NP Jun 28, 2019 09:32
[2019-06-28] MEDS: Ertapenem 1 GM in NS 55 ML IV SCH (09:33)
--- NOTE | 2019-06-28 10:20 | NUR ---
NURSE NOTES: Vital signs stable. Patient repositioned at this time. Will continue to monitor.
--- NOTE | 2019-06-28 10:39 | NUR ---
NURSE NOTES: Patient had small green/brown loose bowel movement. Patient repositioned, pulled up, and cleaned at this time.
--- NOTE | 2019-06-28 11:33 | NUR ---
NURSE NOTES: Daughter at the bedside. Daughter adamant that patient not be cleaned during the risk control director after she specifically asked that she not be moved/cleaned during the night. I reported that patient had a bowel movement and needed to be cleaned at that time. Daughter responded with "oh ok." Physical therapy at the bedside working with the patient.
--- NOTE | 2019-06-28 12:00 | NUR ---
NURSE NOTES: Patient vital signs stable at this time. Patient awake and denies pain or discomfort at this time. Patient remains on trach to ventilator with setting of AC 10, tidal volume 450, FiO2 40%, and PEEP 5. Patient tolerating setting with no sign of acute distress and SpO2 100% with RR of 15. Patient showing sinus rhythm on the cardiac cath lab technologist. Gastrostomy tube remains patent, asymptomatic, and running glucerna 1.5 at 45mL/hr at this time with no residual noted. Martin for urine retention remains patent, asymptomatic, and draining straw yellow urine at this time. All wound dressings dry and intact. Right hand 22 gauge peripheral IV and right femoral TLC remains patent, asymptomatic, dressing dry and intact and NS running at 75mL/hr at this time. Patient bed in low position with bed alarm on and call light in reach. VS stable. Oral care, oral/tracheal suctioning, repositioning, and bed bath done at this time. Patient has had 3 total thin, watery bowel movements this morning. Will continue to monitor.
--- NOTE | 2019-06-28 13:35 | NUR ---
NURSE NOTES: Patient daughter is an RN and deflated patient's tracheostomy cuff so she could have her cough up secretions below the cuff and speak with her. Notified her that this is not our proper procedure, but she insisted. Will monitor for any sign of respiratory distress.
--- NOTE | 2019-06-28 15:11 | NUR ---
NURSE NOTES: Offered to reposition patient. Daughter declined stating that patient is fine and had just been repositioned when she was cleaned around 1pm. Will continue to monitor and reposition again as needed and every 2 hours per protocol.
--- NOTE | 2019-06-28 16:00 | NUR ---
NURSE NOTES: Patient vital signs stable at this time. Patient awake and watching television. Daughter at the bedside. Patient remains on trach to ventilator with setting of AC 10, tidal volume 450, FiO2 40%, and PEEP 5. Patient tolerating setting with no sign of acute distress and SpO2 100% with RR of 15. Patient showing sinus rhythm on the black powder glazing operator. Gastrostomy tube remains patent, asymptomatic, and running Glucerna 1.5 at 45mL/hr at this time with no residual noted. Martin remains patent, asymptomatic, and draining straw yellow urine at this time. Right hand 22 gauge peripheral IV remains patent and saline locked and right femoral TLC remains patent, asymptomatic, dressing dry and intact and NS running at 75mL/hr at this time. Patient bed in low position with bed alarm on and call light in reach. Oral care offered to patient. Patient/daughter refused at this time. Will continue to monitor and offer at a later time.
--- NOTE | 2019-06-28 16:08 | NUR ---
PT note PT eval completed, treatment initiated. Patient's daughter was present all throughout eval/tx. Patient has muscle weakness in all extremities specially the proximal muscles and has decreased sitting balance. She can benefit from PT services to increase her muscle strength and balance to improve her functional mobility to [facility]. Addendum: 06/28/19 at 1610 by DIAMANTE TORRES PT Amended: Links added.
--- NOTE | 2019-06-28 18:00 | NUR ---
NURSE NOTES: Vital signs stable. Patient and daughter decline oral care and repositioning. Will continue to monitor. Patient has order to transfer to [facility]. WIll follow up. Daughter notified of transfer plan.
--- NOTE | 2019-06-28 19:30 | NUR ---
HAND-OFF: Report given to LIAN Reed. Vital signs stable. Daughter at the bedside. Endorsed to follow up.
--- NOTE | 2019-06-28 19:35 | NUR ---
NURSE NOTES: Received pt and report from LIAN Chen. Daughter's at the bed side. Pt's AOx2-3, able to sound her words with deflated cuff. Pt's currently afebrile, trach to vent Portex 7.0, AC 10, TV 450, FiO2 35%, PEEP 5, O2 sat 100%, VS stable. No acute distress noted. Pt's SR on monitor and storage bin tender. Lungs sound diminished bilaterally, with hx of pneumonia. GT noted intact, patent LUQ, running glucerna 1.5 at 45ml/hr, at goal. Martin started at the group home, intact, patent, draining cloudy yellow urine. Martin secured between thighs. HOB kept elevated. Bed in low and locked, 2 rails up. Will continue to monitor.
[2019-06-28] MEDS: Levalbuterol Inh UD 1.25mg/0.5ml HHN PRN (20:24)
[2019-06-28] MEDS: Dyna-Hex 2% Top Sol 2oz TOPIC SCH (20:45)
--- NOTE | 2019-06-28 22:00 | NUR ---
NURSE NOTES: Pt's resting in bed, in no acute distress. VS stable Will continue to monitor.
[2019-06-29] VITALS (7 sets, daily range): BP systolic 110–153; BP diastolic 60–88
--- NOTE | 2019-06-29 00:05 | NUR ---
NURSE NOTES: Received pt from [facility]; pt was transferred from ICU to SDU without incident via portable bed. VS remain stable upon transfer. Patient belongings checked at bedside upon transfer. Pt is awake, alert and opens eyes spontaneously. Pt is non-verbal due to trach, but able to make needs know with facial expressions and by wiggling feet. Pt placed on tele monitor and remains SR with a HR of 77 noted with no s/sx of cardiac distress. Pt is trach to vent and tolerating current vent settings well. Vent settings as follows: AC10 TV450 fiO2 40% peep 5 with an O2 saturation of 97% noted.Pt has a GT with Glucerna 1.5 running at 45ml/hr as prescribed. Martin Catheter noted which remains patent and draining yellow urine to gravity. R femoral TLC noted, dressing and catheter remain asymptomatic, patent and intact. R hand 22g IV catheter noted which remains asymptomatic, patent and intact. NS currently infusing at 75mL/hr as prescribed. Lab values and diagnostics reviewed. Skin alterations noted. Will continue plan of care. Will continue to monitor.
--- NOTE | 2019-06-29 00:15 | NUR ---
TRANSFER TO FLOOR: Patient transferred to [facility], per staff. Report given to LIAN Mejía. Belongings and medications given to on going nurse. Family and or S/O informed of transfer.
[2019-06-29] MEDS ORDERED: Acetaminophen 650mg/20.3ml GT PRN (01:45)
[2019-06-29 04:51] LABS: BASOPHILS % (AUTO) 0.8 % (0.0-2.0); EOSINOPHILS % (AUTO) 2.2 % (0.0-3.0); HEMATOCRIT 31.5 % (37.0-47.0); HEMOGLOBIN 10.3 G/DL (12.0-16.0); LYMPHOCYTES % (AUTO) 24.3 % (20.0-45.0); MEAN CORPUSCULAR VOLUME 81 FL (80-99); MONOCYTES % (AUTO) 5.8 % (1.0-10.0); PLATELET COUNT 210 K/UL (150-450); RED BLOOD COUNT 3.89 M/UL (4.20-5.40); RED CELL DISTRIBUTION WIDTH 15.2 % (11.6-14.8); WHITE BLOOD COUNT 10.6 K/UL (4.8-10.8)
[2019-06-29 05:27] LABS: ALANINE AMINOTRANSFERASE 26 U/L (12-78); ALBUMIN 2.1 G/DL (3.4-5.0); ALBUMIN/GLOBULIN RATIO 0.4 (1.0-2.7); ALKALINE PHOSPHATASE 102 U/L (46-116); ANION GAP 4 mmol/L (5-15); ASPARTATE AMINO TRANSFERASE 20 U/L (15-37); BILIRUBIN,TOTAL 0.3 MG/DL (0.2-1.0); BLOOD UREA NITROGEN 9 mg/dL (7-18); CALCIUM 8.9 MG/DL (8.5-10.1); CARBON DIOXIDE 32 MMOL/L (21-32); CHLORIDE 109 MMOL/L (98-107); CREATININE 0.4 MG/DL (0.55-1.30); POTASSIUM 4.3 MMOL/L (3.5-5.1); SODIUM 144 MMOL/L (136-145)
--- NOTE | 2019-06-29 07:24 | NUR ---
NURSE NOTES: Pt continues to decline wound care photos both upon arrival and before end of shift.
--- NOTE | 2019-06-29 07:25 | NUR ---
HAND-OFF: Report given to Valentina Zheng RN. Pt remains stable at this time.
--- NOTE | 2019-06-29 07:55 | NUR ---
NURSE NOTES: received pt in the bed, awake, vent dependent, vital signs stable, no co pain, no SOB, skin warm and dry to touch, dressing dry and intact on sacral area, tolerate GT feeding well, Martin catheter with yellow urine, TLC on RT groin, dressing dry and intact, bed in low position, HOB elevated.
[2019-06-29] MEDS: Ertapenem 1 GM in NS 55 ML IV SCH (08:55)
[2019-06-29] MEDS: Pantoprazole Inj IVP SCH (08:55)
[2019-06-29] MEDS: Ascorbic Acid 500mg tab GT SCH (08:56)
[2019-06-29] MEDS: Spironolactone 25mg tab GT SCH (08:58)
[2019-06-29] MEDS: Enalapril 2.5mg tab GT SCH ×2 (08:58→18:32)
[2019-06-29] MEDS: Heparin 5000 units/ml inj SUBQ SCH ×2 (09:00→20:14)
--- NOTE | 2019-06-29 10:19 | NUR ---
RADIOLOGY DEPT., CHEST X-RAY DONE.-P.DYE
--- NOTE | 2019-06-29 10:46 | CDS Physician Query ---
Clarification is required for compliance, coding accuracy, and to reflect severity of illness for this patient Dear Dr. Pebbles Richards Date: 06.29.19 CDS: Paola Lan "Heart Failure / CHF" documented in the progress note as "appears systolic and diastolic". Please Clarify: Acuity [ ] Acute x ] Chronic [ ] Acute on Chronic Present on Admission: [ ] Yes [ ] No [x Clinically Undetermined pebbles richards __\\\\ Physician signature Date Please also document in your Progress Notes and/or Discharge Summary and indicate if the condition was present on admission. MANUELD
--- NOTE | 2019-06-29 10:55 | Infectious Diseases Prog Note ---
Assessment/Plan Assessment/Plan Assessment: Septic Shock- now off pressors Afebrile Leukocytosis; Sp doubt UTI -06/25 u/a neg; ucx : yeast ( colonizer ) Acute on baseline encephalopathy Recent PNA, ongoing Pulmonary edema -06/28 CXR: Since the prior study there has been ischemic change and mild perihilar and lower lobe pulmonary edema with mild bilateral pleural effusions and bibasilar atelectasis. -06/27 CXR : There is slight interval worsening of mild perihilar and lower lobe pulmonary edema. -06/25 CXR: Pulmonary vascular congestion and interstitial edema demonstrated appearing slightly worse since the last study. Basal atelectasis and small lung volumes noted. -06/22 sp cx K, pna (S cipro/levo, Zosyn) ESBL Sacral decub ulcer- not infected spinal injury quadriplegia HTN cardiomyopathy GERD chronic respiratory failure trach/vent dependant dysphagia s/p GT hx of PNA constipation tardive dyskinesia NH resident Plan: -Continue Ertapenem # 10/24-10 for PNA -f/u cx -Monitor CBC/CMP, temperatures -trach/peg care -aspiration precautions -wound care per surgical team Subjective Allergies: Coded Allergies: No Known Allergies (Unverified , 03/03/19) Subjective afebrile no leukocytosis out of ICU, now on [facility] Objective Vital Signs Last 24 Hour Vital Signs Date Time Temp Pulse Resp B/P (MAP) Pulse Ox O2 Delivery O2 Flow Rate FiO2 06/29/19 09:00 86 20 35 06/29/19 08:58 130/86 06/29/19 08:00 35 06/29/19 08:00 98.1 86 19 130/86 (101) 96 06/29/19 08:00 Mechanical Ventilator Mechanical Ventilator 06/29/19 07:00 85 18 35 06/29/19 05:22 72 11 35 06/29/19 04:00 35 06/29/19 04:00 Mechanical Ventilator Mechanical Ventilator 06/29/19 04:00 98.2 77 12 124/77 (93) 96 06/29/19 03:33 76 06/29/19 02:46 73 11 35 06/29/19 01:04 72 11 35 06/29/19 00:00 Mechanical Ventilator Mechanical Ventilator 06/29/19 00:00 80 13 110/60 (77) 98 06/28/19 23:36 76 12 35 06/28/19 23:00 78 13 93/44 (60) 94 06/28/19 22:00 81 13 102/61 (75) 95 06/28/19 21:00 89 13 116/66 (83) 95 06/28/19 20:56 86 13 35 06/28/19 20:24 83 15 100 Mechanical Ventilator 35 82 14 98 06/28/19 20:00 98.5 79 24 143/87 (105) 100 06/28/19 20:00 Mechanical Ventilator Mechanical Ventilator 06/28/19 20:00 82 06/28/19 20:00 35 06/28/19 19:25 80 16 35 06/28/19 19:00 90 18 163/91 (115) 94 06/28/19 18:00 79 18 162/98 (119) 99 06/28/19 17:47 159/97 06/28/19 17:00 79 16 188/102 (130) 97 06/28/19 16:53 81 17 35 06/28/19 16:00 98.6 78 16 152/94 (113) 98 06/28/19 16:00 40 06/28/19 16:00 Mechanical Ventilator Mechanical Ventilator 06/28/19 16:00 78 06/28/19 15:00 79 18 148/89 (108) 98 06/28/19 14:46 84 17 35 06/28/19 14:00 77 17 152/93 (112) 97 06/28/19 13:00 75 16 145/78 (100) 99 06/28/19 12:42 79 12 35 06/28/19 12:00 40 06/28/19 12:00 Mechanical Ventilator Mechanical Ventilator 06/28/19 12:00 98.6 84 18 160/98 (118) 96 06/28/19 12:00 77 06/28/19 11:16 82 13 35 06/28/19 11:00 77 16 137/79 (98) 99 Height (Feet): 5 Height (Inches): 6.00 Weight (Pounds): 161 Objective Status: somnolent , but easily arousable and responds with head nod , chronically ill looking female on vent HEENT: atraumatic, normocephalic Neck: trach - secretions small amount, white color, thin consistency Lungs: clear Heart: no murmurs Abdomen: soft, non-tender, active bowel sounds, feeding tube Microbiology Date/Time Source Procedure Growth Status 06/27/19 03:40 Sputum Induced Gram Stain - Final Resulted 06/27/19 03:40 Sputum Culture - Preliminary Gram Negative Stan Resulted Laboratory Tests Test 06/29/19 04:05 White Blood Count 10.6 K/UL (4.8-10.8) Red Blood Count 3.89 M/UL (4.20-5.40) L Hemoglobin 10.3 G/DL (12.0-16.0) L Hematocrit 31.5 % (37.0-47.0) L Mean Corpuscular Volume 81 FL (80-99) Mean Corpuscular Hemoglobin 26.5 PG (27.0-31.0) L Mean Corpuscular Hemoglobin Concent 32.7 G/DL (32.0-36.0) Red Cell Distribution Width 15.2 % (11.6-14.8) H Platelet Count 210 K/UL (150-450) Mean Platelet Volume 6.6 FL (6.5-10.1) Neutrophils (%) (Auto) 67.0 % (45.0-75.0) Lymphocytes (%) (Auto) 24.3 % (20.0-45.0) Monocytes (%) (Auto) 5.8 % (1.0-10.0) Eosinophils (%) (Auto) 2.2 % (0.0-3.0) Basophils (%) (Auto) 0.8 % (0.0-2.0) Sodium Level 144 MMOL/L (136-145) Potassium Level 4.3 MMOL/L (3.5-5.1) Chloride Level 109 MMOL/L (98-107) H Carbon Dioxide Level 32 MMOL/L (21-32) Anion Gap 4 mmol/L (5-15) L Blood Urea Nitrogen 9 mg/dL (7-18) Creatinine 0.4 MG/DL (0.55-1.30) L Estimat Glomerular Filtration Rate > 60 mL/min (>60) Glucose Level 121 MG/DL (74-106) H Calcium Level 8.9 MG/DL (8.5-10.1) Total Bilirubin 0.3 MG/DL (0.2-1.0) Aspartate Amino Transf (AST/SGOT) 20 U/L (15-37) Alanine Aminotransferase (ALT/SGPT) 26 U/L (12-78) Alkaline Phosphatase 102 U/L (46-116) Pro-B-Type Natriuretic Peptide 1133 pg/mL (0-125) H Total Protein 6.8 G/DL (6.4-8.2) Albumin 2.1 G/DL (3.4-5.0) L Globulin 4.7 g/dL Albumin/Globulin Ratio 0.4 (1.0-2.7) L Current Medications Medications (Trade) Dose Ordered Sig/Rizwana Route PRN Reason Start Time Stop Time Status Last Admin Dose Admin Acetaminophen (Tylenol) 650 mg Q4H PRN GT Mild Pain/Temp > 100.5 06/29/19 01:45 07/26/19 01:44 Artificial Tears (Akwa-Tears) 2 drop Q2H PRN BOTH EYES Dry Eyes 06/29/19 01:45 07/26/19 01:44 Ascorbic Acid (Vitamin C) 250 mg DAILY GT 06/29/19 09:00 07/27/19 08:59 06/29/19 08:56 Carvedilol (Coreg) 3.125 mg Q12H PRN GT For High Blood Pressure 06/29/19 07:00 07/25/19 18:59 Chlorhexidine Gluconate (Julia-Hex 2%) 1 applic DAILY@2000 TOPIC 06/29/19 20:00 07/26/19 19:59 Clonazepam (KlonoPIN) 0.125 mg HSPRN PRN ORAL For Anxiety 06/29/19 17:45 07/03/19 17:44 Diphenhydramine HCl (Benadryl) 25 mg QHS PRN GT Itching 06/29/19 21:00 07/26/19 01:44 Docusate Sodium (Colace) 100 mg NEEDED PRN GT constipation 06/29/19 19:45 07/26/19 08:59 Enalapril Maleate (Vasotec) 2.5 mg BID GT 06/29/19 09:00 07/26/19 20:59 06/29/19 08:58 Ertapenem 1 gm/ Sodium Chloride 55 ml @ 110 mls/hr DAILY IV 06/29/19 09:00 07/01/19 08:59 06/29/19 08:55 Heparin Sodium (Porcine) (Heparin 5000 units/ml) 5,000 units EVERY 12 HOURS SUBQ 06/29/19 09:00 07/26/19 08:59 06/29/19 09:00 Levalbuterol HCl (Xopenex) 0.63 mg Q3H PRN HHN bronchospasm, SOB/Wheezing 06/29/19 01:45 07/01/19 01:44 Pantoprazole (Protonix) 40 mg DAILY IVP 06/29/19 09:00 07/26/19 08:59 06/29/19 08:55 Quetiapine Fumarate (SEROqueL) 50 mg QHS GT 06/29/19 21:00 07/26/19 20:59 Sodium Chloride 1,000 ml @ 75 mls/hr [id number] IV 06/29/19 00:30 07/26/19 10:59 06/29/19 00:40 Spironolactone (Aldactone) 25 mg DAILY GT 06/29/19 09:00 07/27/19 08:59 06/29/19 08:58 Hollie Randolph M.D. Jun 29, 2019 10:55
--- NOTE | 2019-06-29 10:57 | Pulmonolgy Critical Care Note ---
Critical Care - Asmt/Plan Problems: (1) Septic shock (2) Chronic respiratory failure (3) Nosocomial pneumonia (4) Feeding by G-tube (5) Sacral decubitus ulcer, stage II (6) Incontinence associated dermatitis Respiratory: monitor respiratory rate, adjust FIO2, CXR Cardiac: continue to monitor HR/BP Renal: F/U I&O, check electrolytes Infectious Disease: check cultures Gastrointestinal: continue feedings/current rate Endocrine: monitor blood sugar Hematologic: monitor H/H, transfuse if hgb<8.5 Neurologic: PRN Ativan, keep patient comfortable Affect: PRN ativan Prophylaxis: Heparin Time Spent (Minutes): 40 Notes Reviewed: physician anesthesiologist, cardio, renal Discussed with: nurses, consultants, casework specialistcommunity relations manager - Objective Last 24 Hour Vital Signs Date Time Temp Pulse Resp B/P (MAP) Pulse Ox O2 Delivery O2 Flow Rate FiO2 06/29/19 09:00 86 20 35 06/29/19 08:58 130/86 06/29/19 08:00 35 06/29/19 08:00 98.1 86 19 130/86 (101) 96 06/29/19 08:00 Mechanical Ventilator Mechanical Ventilator 06/29/19 07:00 85 18 35 06/29/19 05:22 72 11 35 06/29/19 04:00 35 06/29/19 04:00 Mechanical Ventilator Mechanical Ventilator 06/29/19 04:00 98.2 77 12 124/77 (93) 96 06/29/19 03:33 76 06/29/19 02:46 73 11 35 06/29/19 01:04 72 11 35 06/29/19 00:00 Mechanical Ventilator Mechanical Ventilator 06/29/19 00:00 80 13 110/60 (77) 98 06/28/19 23:36 76 12 35 06/28/19 23:00 78 13 93/44 (60) 94 06/28/19 22:00 81 13 102/61 (75) 95 06/28/19 21:00 89 13 116/66 (83) 95 06/28/19 20:56 86 13 35 06/28/19 20:24 83 15 100 Mechanical Ventilator 35 82 14 98 06/28/19 20:00 98.5 79 24 143/87 (105) 100 06/28/19 20:00 Mechanical Ventilator Mechanical Ventilator 2/9/20 20:00 82 06/28/19 20:00 35 06/28/19 19:25 80 16 35 06/28/19 19:00 90 18 163/91 (115) 94 06/28/19 18:00 79 18 162/98 (119) 99 06/28/19 17:47 159/97 06/28/19 17:00 79 16 188/102 (130) 97 06/28/19 16:53 81 17 35 06/28/19 16:00 98.6 78 16 152/94 (113) 98 06/28/19 16:00 40 06/28/19 16:00 Mechanical Ventilator Mechanical Ventilator 06/28/19 16:00 78 06/28/19 15:00 79 18 148/89 (108) 98 06/28/19 14:46 84 17 35 06/28/19 14:00 77 17 152/93 (112) 97 06/28/19 13:00 75 16 145/78 (100) 99 06/28/19 12:42 79 12 35 06/28/19 12:00 40 06/28/19 12:00 Mechanical Ventilator Mechanical Ventilator 06/28/19 12:00 98.6 84 18 160/98 (118) 96 06/28/19 12:00 77 06/28/19 11:16 82 13 35 06/28/19 11:00 77 16 137/79 (98) 99 Status: awake Condition: critical Neck: trach Lungs: rhonchi Heart: HR/BP stable Abdomen: soft, non-tender Extremities: edema Decubiti: location Micro: Microbiology Date/Time Source Procedure Growth Status 06/27/19 03:40 Sputum Induced Gram Stain - Final Resulted 06/27/19 03:40 Sputum Culture - Preliminary Gram Negative Stan Resulted Accucheck: 140 Critical Care - Subjective ROS Limited/Unobtainable: Yes Condition: critical EKG Rhythm: Sinus Rhythm FI02: 35 Vent Support Breath Rate: 10 Vent Support Mode: AC Vent Tidal Volume: 450 Sputum Amount: Small PEEP: 5.0 PIP: 25 Tube Feeding Amount: 45 I&O: Intake and Output 06/28/19 06/29/19 19:00 07:00 Intake Total 1582.5 ml 1290 ml Output Total 1670 ml 500 ml Balance -87.5 ml 790 ml Intake Free Water 30 ml IV Total 942.5 ml 750 ml Tube Feeding 540 ml 450 ml Other 100 ml 60 ml Output Urine Total 1670 ml 500 ml # Bowel Movements 5 CXR: mild perihilar and lower lobe pulmonary edema with mild bilateral pleural effusions and bibasilar atelectasis. Labs: Laboratory Tests Test 06/29/19 04:05 White Blood Count 10.6 K/UL (4.8-10.8) Red Blood Count 3.89 M/UL (4.20-5.40) L Hemoglobin 10.3 G/DL (12.0-16.0) L Hematocrit 31.5 % (37.0-47.0) L Mean Corpuscular Volume 81 FL (80-99) Mean Corpuscular Hemoglobin 26.5 PG (27.0-31.0) L Mean Corpuscular Hemoglobin Concent 32.7 G/DL (32.0-36.0) Red Cell Distribution Width 15.2 % (11.6-14.8) H Platelet Count 210 K/UL (150-450) Mean Platelet Volume 6.6 FL (6.5-10.1) Neutrophils (%) (Auto) 67.0 % (45.0-75.0) Lymphocytes (%) (Auto) 24.3 % (20.0-45.0) Monocytes (%) (Auto) 5.8 % (1.0-10.0) Eosinophils (%) (Auto) 2.2 % (0.0-3.0) Basophils (%) (Auto) 0.8 % (0.0-2.0) Sodium Level 144 MMOL/L (136-145) Potassium Level 4.3 MMOL/L (3.5-5.1) Chloride Level 109 MMOL/L (98-107) H Carbon Dioxide Level 32 MMOL/L (21-32) Anion Gap 4 mmol/L (5-15) L Blood Urea Nitrogen 9 mg/dL (7-18) Creatinine 0.4 MG/DL (0.55-1.30) L Estimat Glomerular Filtration Rate > 60 mL/min (>60) Glucose Level 121 MG/DL (74-106) H Calcium Level 8.9 MG/DL (8.5-10.1) Total Bilirubin 0.3 MG/DL (0.2-1.0) Aspartate Amino Transf (AST/SGOT) 20 U/L (15-37) Alanine Aminotransferase (ALT/SGPT) 26 U/L (12-78) Alkaline Phosphatase 102 U/L (46-116) Pro-B-Type Natriuretic Peptide 1133 pg/mL (0-125) H Total Protein 6.8 G/DL (6.4-8.2) Albumin 2.1 G/DL (3.4-5.0) L Globulin 4.7 g/dL Albumin/Globulin Ratio 0.4 (1.0-2.7) L Ethel Curtis MD Jun 29, 2019 10:57
--- NOTE | 2019-06-29 11:15 | Progress Note ---
DATE: 06/28/2019 SUBJECTIVE: The patient is awake, alert, afebrile, and hemodynamically stable. She facial expression with no attempt to communicate. PHYSICAL EXAMINATION: VITAL SIGNS: Blood pressure 110/60, pulse is 78, respirations are 13, and temperature is 98.5. HEENT: Eyes were normal. ENT, mucous membranes were moist and intact. NECK: Supple with no JVD without lymph nodes. Tracheostomy site is clean. LUNGS: Clear without rhonchi, rales, or wheezing. HEART: Normal sounds with regular heart beats. ABDOMEN: Soft and nontender with normal bowel sounds. Gastrostomy site is clean. EXTREMITIES: Warm without cyanosis, clubbing, or edema. LABORATORY AND DIAGNOSTIC DATA: Hemoglobin is 10.3, hematocrit 32.7, MCV of 83, WBC of 9.1, and platelets are 214,000. Her BUN and creatinine are 13 and 0.51 respectively. Her sodium is 147, potassium 4.2, chloride 110, and CO2 is 30. Her proBNP declined from 8124 to 1500. A chest x-ray today showed and bilateral pleural effusions. IMPRESSION AND PLAN: Clinically, the patient's condition has significantly improved. She has been transferred now from ICU to [facility]. Repeat laboratory tests will be done in a.m. Delmy Pardo M.D. DR: GURVINDER JOB#: [id number] CC:
--- NOTE | 2019-06-29 11:23 | NUR ---
NURSE NOTES: PT saw pt, tolerate well, sit on edge on the bed, speech therapist assess pt for speech valve, pt not tolerate, continue monitoring.
--- NOTE | 2019-06-29 12:06 | NUR ---
*-* DISCHARGE PLANNING *-* PATIENT HAS BEEN REFERRED TO: [facility] P; [phone] F: [phone]
--- NOTE | 2019-06-29 12:11 | NUR ---
RD ASSESSMENT & RECOMMENDATIONS SEE CARE ACTIVITY FOR COMPLETE ASSESSMENT DAILY ESTIMATED NEEDS: Needs based on Critical care, wound 62kg abw 22-28 kcals/kg 9850-6815 total kcals 1.25-2 g protein/kg 77-124 g total protein 25-30 mL/kg 0028-9980 total fluid mLs NUTRITION DIAGNOSIS: * Swallowing difficulty r/t resp status as evidenced by pt is trach and peg dep. * Increased kcal/prot needs R/T wound healing as evidenced by pt admitted w/ sacral wound, stage 2 per [facility] adm eval, new eval pending. * Altered nutrition related lab values R/T pre-diabetes? as evidenced by A1C of 6.2, elev FBGs (132, 191 -> now improved). CURRENT TF:Glucerna 1.5 @ 45ml/hr x 24 hrs ENTERAL NUTRITION RECOMMENDATIONS: Glucerna 1.5 @ 45ml/hr x 24 hrs to provide 1080ml, 1620kcal, 89g prot, 820ml free water * Maintain current TF * HOB Over 30 degrees/ water flush per MD ADDITIONAL RECOMMENDATIONS: 1) Calibrated bed scale wts 2) Rec NISS: A1C 6.2 3) WOUND CARE: Continue LELO BID + Vit C 250mg QD 4) Monitor lytes, replete as needed . .
[2019-06-29] MEDS: Levalbuterol Inh UD 1.25mg/0.5ml HHN PRN ×2 (12:38→17:34)
--- NOTE | 2019-06-29 13:30 | NUR ---
NURSE NOTES: pt up on chair, tolerate well, daughter in the room, no co pain, continue monitoring.
--- NOTE | 2019-06-29 14:36 | Diagnostic Imaging Report ---
Indication: Dyspnea Comparison: 06/28/2019 A single view chest radiograph was obtained. Findings: Pulmonary vascular congestion and interstitial edema demonstrated. Hazy basilar opacities again noted. Tracheostomy noted. Heart is enlarged. IMPRESSION: No change since the previous day
--- NOTE | 2019-06-29 15:01 | NUR ---
OPERATING ENGINEERWAX BLENDER SI: RESP FAILURE TRACH/VENT DEPENDENT,AMS T. 98.1 HR 82 RR 15 B/P 137/88 AC 16 TV 450 FIO2 35% PEEP 5 BNP 1133 CXR= NO CHANGES IS: ERTAPENEM IV PROTONIX IV IVF NS@ 75ML/HR STEP DOWN STATUS
--- NOTE | 2019-06-29 16:23 | Surgery Progress Note ---
Surgery Progress Note Subjective Symptoms: improved Additional Comments up in chair today family at bedside doing much better Objective Last 24 Hour Vital Signs Date Time Temp Pulse Resp B/P (MAP) Pulse Ox O2 Delivery O2 Flow Rate FiO2 06/29/19 16:00 Mechanical Ventilator Mechanical Ventilator 06/29/19 16:00 35 06/29/19 14:59 54 16 35 06/29/19 13:00 56 16 35 06/29/19 12:38 85 16 100 Mechanical Ventilator 35 89 16 99 06/29/19 12:00 85 06/29/19 12:00 35 06/29/19 12:00 Mechanical Ventilator Mechanical Ventilator 06/29/19 11:57 98.1 82 15 137/88 (104) 100 06/29/19 11:22 80 14 35 06/29/19 09:00 86 20 35 06/29/19 08:58 130/86 06/29/19 08:00 35 06/29/19 08:00 98.1 86 19 130/86 (101) 96 06/29/19 08:00 89 06/29/19 08:00 Mechanical Ventilator Mechanical Ventilator 06/29/19 07:00 85 18 35 06/29/19 05:22 72 11 35 06/29/19 04:00 35 06/29/19 04:00 Mechanical Ventilator Mechanical Ventilator 06/29/19 04:00 98.2 77 12 124/77 (93) 96 06/29/19 03:33 76 06/29/19 02:46 73 11 35 06/29/19 01:04 72 11 35 06/29/19 00:00 Mechanical Ventilator Mechanical Ventilator 06/29/19 00:00 80 13 110/60 (77) 98 06/28/19 23:36 76 12 35 06/28/19 23:00 78 13 93/44 (60) 94 06/28/19 22:00 81 13 102/61 (75) 95 06/28/19 21:00 89 13 116/66 (83) 95 06/28/19 20:56 86 13 35 06/28/19 20:24 83 15 100 Mechanical Ventilator 35 82 14 98 06/28/19 20:00 98.5 79 24 143/87 (105) 100 06/28/19 20:00 Mechanical Ventilator Mechanical Ventilator 06/28/19 20:00 82 06/28/19 20:00 35 06/28/19 19:25 80 16 35 06/28/19 19:00 90 18 163/91 (115) 94 06/28/19 18:00 79 18 162/98 (119) 99 06/28/19 17:47 159/97 06/28/19 17:00 79 16 188/102 (130) 97 06/28/19 16:53 81 17 35 I&O Intake and Output 06/28/19 06/29/19 19:00 07:00 Intake Total 1582.5 ml 1410 ml Output Total 1670 ml 500 ml Balance -87.5 ml 910 ml Intake Free Water 30 ml IV Total 942.5 ml 825 ml Tube Feeding 540 ml 495 ml Other 100 ml 60 ml Output Urine Total 1670 ml 500 ml # Bowel Movements 5 Dressing: dry Wound: clean Cardiovascular: RSR Respiratory: clear Abdomen: soft, flat, non-tender, present bowel sounds Extremities: no edema, no tenderness, no cyanosis Laboratory Tests Test 06/29/19 04:05 White Blood Count 10.6 K/UL (4.8-10.8) Red Blood Count 3.89 M/UL (4.20-5.40) L Hemoglobin 10.3 G/DL (12.0-16.0) L Hematocrit 31.5 % (37.0-47.0) L Mean Corpuscular Volume 81 FL (80-99) Mean Corpuscular Hemoglobin 26.5 PG (27.0-31.0) L Mean Corpuscular Hemoglobin Concent 32.7 G/DL (32.0-36.0) Red Cell Distribution Width 15.2 % (11.6-14.8) H Platelet Count 210 K/UL (150-450) Mean Platelet Volume 6.6 FL (6.5-10.1) Neutrophils (%) (Auto) 67.0 % (45.0-75.0) Lymphocytes (%) (Auto) 24.3 % (20.0-45.0) Monocytes (%) (Auto) 5.8 % (1.0-10.0) Eosinophils (%) (Auto) 2.2 % (0.0-3.0) Basophils (%) (Auto) 0.8 % (0.0-2.0) Sodium Level 144 MMOL/L (136-145) Potassium Level 4.3 MMOL/L (3.5-5.1) Chloride Level 109 MMOL/L (98-107) H Carbon Dioxide Level 32 MMOL/L (21-32) Anion Gap 4 mmol/L (5-15) L Blood Urea Nitrogen 9 mg/dL (7-18) Creatinine 0.4 MG/DL (0.55-1.30) L Estimat Glomerular Filtration Rate > 60 mL/min (>60) Glucose Level 121 MG/DL (74-106) H Calcium Level 8.9 MG/DL (8.5-10.1) Total Bilirubin 0.3 MG/DL (0.2-1.0) Aspartate Amino Transf (AST/SGOT) 20 U/L (15-37) Alanine Aminotransferase (ALT/SGPT) 26 U/L (12-78) Alkaline Phosphatase 102 U/L (46-116) Pro-B-Type Natriuretic Peptide 1133 pg/mL (0-125) H Total Protein 6.8 G/DL (6.4-8.2) Albumin 2.1 G/DL (3.4-5.0) L Globulin 4.7 g/dL Albumin/Globulin Ratio 0.4 (1.0-2.7) L Plan Problems: (1) Septic shock Assessment & Plan: hypotensive on pressors leukocytosis lactic acidosis cxr noted ct head noted today more responsive and alert weaning off pressors cont to wean iv fluids iv abx trend labs will follow with recs thank you (2) Altered mental status Assessment & Plan: Findings: There is mild prominence of the ventricles, basal cisterns, and cerebral sulci consistent with atrophy. Mild, nonspecific, white matter hypoattenuation is noted throughout the brain consistent with chronic small vessel disease. Small cystic focus are demonstrated in the left lower cerebellum likely old infarct. There is no midline shift, edema, acute hemorrhage, mass effect, or abnormal extra-axial fluid collections. Bones are unremarkable. Impression: No acute intracranial bleed, mass effect or edema. Mild atrophy of the brain. Nonspecific white matter hypoattenuation probably due to chronic small vessel disease. 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 (3) Decubitus skin ulcer Assessment & Plan: patient with historic / chronic decubitus with incontinence associated dermatitis in the sacral region air mattress ordered daughter helps with care has personal turning pillow turn q2h off load pressure heel protectors offload with pillow skin protectant cream and dressings to sacral area daily and prn saturation monitor for incontinence will follow with recs nutritional optimization (4) Sacral decubitus ulcer, stage II (5) Incontinence associated dermatitis (6) Chronic respiratory failure (7) Feeding by G-tube Assessment & Plan: DAILY ESTIMATED NEEDS: Needs based on Critical care, wound 62kg abw 22-28 kcals/kg 1123-4802 total kcals 1.25-2 g protein/kg 77-124 g total protein 25-30 mL/kg 2230-4259 total fluid mLs NUTRITION DIAGNOSIS: * Swallowing difficulty r/t resp status as evidenced by pt is trach and peg dep. * Increased kcal/prot needs R/T wound healing as evidenced by pt admitted w/ sacral stage 2 wound * Altered nutrition related lab values R/T pre-diabetes? as evidenced by A1C of 6.2, elev FBGs (132, 191). CURRENT TF:NPO ENTERAL NUTRITION RECOMMENDATIONS: Glucerna 1.5 @ 45ml/hr x 24 hrs to provide 1080ml, 1620kcal, 89g prot, 820ml free water - As medically appropriate and w/ HD stability, * initiate Glucerna 1.5 @ 25ml/hr x 6 hrs * advance 10ml q 4-6 hrs as tolerated to goal rate. * HOB Over 30 degrees/ water flush per MD ADDITIONAL RECOMMENDATIONS: 1) Calibrated bed scale wts 2) Rec NISS once TF resumes - A1C 6.2, elev FBGs 3) WOUND CARE: add LELO BID + Vit C 250mg daily 4) Monitor lytes, replete as needed Additional Comments improving d/c planning Mauro Roldan Jun 29, 2019 16:23
[2019-06-29] MEDS ORDERED: clonazePAM 0.5mg tab ORAL PRN (17:45)
--- NOTE | 2019-06-29 18:58 | NUR ---
HAND-OFF: Report given to CLEMENT BEAL,no distress at this time.
--- NOTE | 2019-06-29 19:00 | NUR ---
NURSE NOTES: Received pt from Valentina Zheng RN; Pt is awake, alert and opens eyes spontaneously. Pt is non-verbal due to trach, but able to make needs know with facial expressions and by wiggling feet. Pt on tele monitor and remains SR with a HR of 82 noted with no s/sx of cardiac distress. Pt is trach to vent and tolerating current vent settings well. Vent settings as follows: AC10 TV450 fiO2 40% peep 5 with an O2 saturation of 98% noted. Pt has a GT with Glucerna 1.5 running at 45ml/hr as prescribed. Martin Catheter noted which remains patent and draining yellow urine to gravity. R femoral TLC noted, dressing and catheter remain asymptomatic, patent and intact. R hand 22g IV catheter noted which remains asymptomatic, patent and intact. NS currently infusing at 75mL/hr as prescribed. Lab values and diagnostics reviewed. Skin alterations noted. Family remains present at bedside. Will continue plan of care. Will continue to monitor.
[2019-06-29] MEDS ORDERED: Docusate 100mg/10ml Liq GT PRN (19:45)
--- NOTE | 2019-06-29 19:45 | NUR ---
NURSE NOTES: Pt provided with partial bath, oral care and linen change. Pt tolerated care well but remains dependent. Pt continues resting in bed; bed remains in lowest position with safety wheels engaged, side rails up x3, call light within reach and bed alarm activated.
[2019-06-29] MEDS: Dyna-Hex 2% Top Sol 2oz TOPIC SCH (20:07)
--- NOTE | 2019-06-29 20:10 | NUR ---
NURSE NOTES: Pt refused Heparin. Pt and family educated but continue to declined. Will continue to monitor.
[2019-06-29] MEDS ORDERED: DiphenhydrAMINE 25mg/10ml Elixir GT PRN (21:00)
--- NOTE | 2019-06-29 21:30 | NUR ---
NURSE NOTES: RT present at bedside to perform trach care. Pt refuses. Will reattempt in the morning. Will continue to monitor.
--- NOTE | 2019-06-29 23:43 | NUR ---
NURSE NOTES: Dr Pardo present at bedside to evaluate patient. Plan to D/C patient back to [facility] tomorrow 06/30/19. Notified senior designer/art director.
--- NOTE | 2019-06-30 | NUR ---
NURSE NOTES: Pt refuses 00:00 vitals. Pt educated but continues to refuse. Pt continues resting in bed; bed remains in lowest position with safety wheels engaged, side rails up x3, call light within reach and bed alarm activated.
--- NOTE | 2019-06-30 02:12 | NUR ---
NURSE NOTES: Suctioning performed for excess secretions. Pt tolerated care well but continues to decline VS. Pt continues resting in bed; bed remains in lowest position with safety wheels engaged, side rails up x3, call light within reach and bed alarm activated.
--- NOTE | 2019-06-30 04:30 | Progress Note ---
DATE: 06/29/2019 SUBJECTIVE: The patient is awake, alert, afebrile, and hemodynamically stable. PHYSICAL EXAMINATION: VITAL SIGNS: Blood pressure is 153/84, her pulse is 75, respirations are 16, and temperature 98.7. HEENT: Eyes were normal. ENT, mucous membranes were moist and intact. NECK: Supple with no JVD without lymph nodes. Tracheostomy site is clean. LUNGS: Clear without rhonchi, rales, or wheezing. HEART: Normal sounds with regular beats. ABDOMEN: Soft and nontender with normal bowel sounds. EXTREMITIES: Warm without cyanosis, clubbing, or edema. LABORATORY AND DIAGNOSTIC DATA: Hemoglobin is 10.3, hematocrit 31.5 with MCV of 81, WBC of 10.6, and platelets are 210,000. BUN and creatinine are 9 and 0.5 respectively. Her sodium is 144, potassium 4.3, chloride 109, and CO2 is 32. SGOT, SGPT, and alkaline phosphatase are normal. Her BNP continued to decline. It was 1664 yesterday. It is today. Albumin is 2.1. Her total protein is 6.8. Her chest x-ray done today revealed edema. Gastrostomy site is in place. IMPRESSION: The patient has congestive heart failure, progressively improving. PLAN: CBC, BMP, LFT, and BNP will be ordered in a.m. Delmy Pardo M.D. DR: GURVINDER JOB#: [id number] CC:
--- NOTE | 2019-06-30 05:44 | NUR ---
NURSE NOTES: RT present at bedside to perform trach care. Pt refuses. Will reattempt in the morning. Will continue to monitor.
--- NOTE | 2019-06-30 07:21 | NUR ---
HAND-OFF: Report given to LIAN Huffman. Pt remains stable at this time.
[2019-06-30 07:47] LABS: BASOPHILS % (AUTO) 0.9 % (0.0-2.0); EOSINOPHILS % (AUTO) 3.2 % (0.0-3.0); HEMATOCRIT 33.5 % (37.0-47.0); HEMOGLOBIN 10.8 G/DL (12.0-16.0); LYMPHOCYTES % (AUTO) 20.4 % (20.0-45.0); MEAN CORPUSCULAR VOLUME 82 FL (80-99); MONOCYTES % (AUTO) 5.8 % (1.0-10.0); NEUTROPHILS % (AUTO) 69.8 % (45.0-75.0); PLATELET COUNT 233 K/UL (150-450); RED CELL DISTRIBUTION WIDTH 15.4 % (11.6-14.8); WHITE BLOOD COUNT 9.9 K/UL (4.8-10.8)
[2019-06-30 08:00] VITALS: BP 134/87
[2019-06-30 08:02] LABS: ALANINE AMINOTRANSFERASE 35 U/L (12-78); ALBUMIN 2.2 G/DL (3.4-5.0); ALBUMIN/GLOBULIN RATIO 0.4 (1.0-2.7); ALKALINE PHOSPHATASE 107 U/L (46-116); ANION GAP 4 mmol/L (5-15); ASPARTATE AMINO TRANSFERASE 22 U/L (15-37); BILIRUBIN,TOTAL 0.4 MG/DL (0.2-1.0); BLOOD UREA NITROGEN 17 mg/dL (7-18); CALCIUM 8.9 MG/DL (8.5-10.1); CARBON DIOXIDE 30 MMOL/L (21-32); CHLORIDE 109 MMOL/L (98-107); CREATININE 0.4 MG/DL (0.55-1.30); POTASSIUM 4.4 MMOL/L (3.5-5.1); SODIUM 143 MMOL/L (136-145)
[2019-06-30] MEDS: Enalapril 2.5mg tab GT SCH ×2 (08:46→17:22)
[2019-06-30] MEDS: Spironolactone 25mg tab GT SCH (08:47)
[2019-06-30] MEDS: Ertapenem 1 GM in NS 55 ML IV SCH (08:47)
[2019-06-30] MEDS: Ascorbic Acid 500mg tab GT SCH (08:47)
[2019-06-30] MEDS: Pantoprazole Inj IVP SCH (08:47)
[2019-06-30] MEDS: Heparin 5000 units/ml inj SUBQ SCH ×2 (08:47→20:12)
--- NOTE | 2019-06-30 09:35 | NUR ---
RADIOLOGY DEPT., CHEST X-RAY DONE.-P.DYE
--- NOTE | 2019-06-30 10:33 | Pulmonolgy Critical Care Note ---
Critical Care - Asmt/Plan Problems: (1) Septic shock (2) Chronic respiratory failure (3) Nosocomial pneumonia (4) Feeding by G-tube (5) Sacral decubitus ulcer, stage II (6) Incontinence associated dermatitis Respiratory: monitor respiratory rate, adjust FIO2, CXR Cardiac: continue to monitor HR/BP Renal: F/U I&O, keep IV fluid Gastrointestinal: continue feedings/current rate Endocrine: monitor blood sugar, check HgA1C Hematologic: transfuse if hgb<8.5 Neurologic: PRN Ativan, PRN Morphine, keep patient comfortable Affect: PRN ativan Prophylaxis: Protonix, Heparin Time Spent (Minutes): 40 Notes Reviewed: cardio, renal Discussed with: nurses, consultants, employment case managerscientific research manager - Objective Last 24 Hour Vital Signs Date Time Temp Pulse Resp B/P (MAP) Pulse Ox O2 Delivery O2 Flow Rate FiO2 06/30/19 09:00 83 14 35 06/30/19 08:46 134/87 06/30/19 08:00 35 06/30/19 08:00 98.0 81 14 134/87 (103) 98 06/30/19 07:29 82 14 35 06/30/19 05:00 75 12 35 06/30/19 04:00 Mechanical Ventilator Mechanical Ventilator 06/30/19 04:00 35 06/30/19 03:38 75 06/30/19 03:36 75 12 35 06/30/19 01:30 88 16 35 06/30/19 00:00 35 06/30/19 00:00 Mechanical Ventilator Mechanical Ventilator 06/29/19 23:26 86 06/29/19 21:29 86 19 35 06/29/19 20:00 98.1 74 16 142/84 (103) 98 06/29/19 20:00 Mechanical Ventilator Mechanical Ventilator 06/29/19 20:00 35 06/29/19 19:30 67 16 35 06/29/19 19:04 77 06/29/19 18:32 153/84 06/29/19 18:00 97.8 75 16 153/84 (107) 100 06/29/19 17:39 83 10 100 Mechanical Ventilator 35 80 10 98 06/29/19 16:59 80 16 35 06/29/19 16:00 Mechanical Ventilator Mechanical Ventilator 06/29/19 16:00 97.8 75 16 153/84 (107) 100 06/29/19 16:00 85 06/29/19 16:00 35 06/29/19 14:59 54 16 35 06/29/19 13:00 56 16 35 06/29/19 12:38 85 16 100 Mechanical Ventilator 35 89 16 99 06/29/19 12:00 85 06/29/19 12:00 35 06/29/19 12:00 Mechanical Ventilator Mechanical Ventilator 06/29/19 11:57 98.1 82 15 137/88 (104) 100 06/29/19 11:22 80 14 35 Status: awake Condition: critical HEENT: atraumatic, normocephalic Neck: trach Heart: HR/BP stable, edema, irregular Abdomen: non-tender, feeding tube Extremities: no C/C/E Accucheck: 140 Critical Care - Subjective ROS Limited/Unobtainable: Yes Condition: critical EKG Rhythm: Sinus Rhythm FI02: 35 Vent Support Breath Rate: 10 Vent Support Mode: AC Vent Tidal Volume: 450 Sputum Amount: Small PEEP: 5.0 PIP: 26 Tube Feeding Amount: 45 I&O: Intake and Output 06/29/19 06/30/19 19:00 07:00 Intake Total 1608 ml 1348.75 ml Output Total 1600 ml 1400 ml Balance 8 ml -51.25 ml Intake Free Water 150 ml 30 ml IV Total 918 ml 823.75 ml Tube Feeding 540 ml 495 ml Output Urine Total 1600 ml 1400 ml # Bowel Movements 5 CXR: Pulmonary vascular congestion and interstitial edema demonstrated. Hazy basilar opacities again noted. Tracheostomy noted. Heart is enlarged. Labs: Laboratory Tests Test 06/30/19 07:00 White Blood Count 9.9 K/UL (4.8-10.8) Red Blood Count 4.10 M/UL (4.20-5.40) L Hemoglobin 10.8 G/DL (12.0-16.0) L Hematocrit 33.5 % (37.0-47.0) L Mean Corpuscular Volume 82 FL (80-99) Mean Corpuscular Hemoglobin 26.2 PG (27.0-31.0) L Mean Corpuscular Hemoglobin Concent 32.1 G/DL (32.0-36.0) Red Cell Distribution Width 15.4 % (11.6-14.8) H Platelet Count 233 K/UL (150-450) Mean Platelet Volume 7.2 FL (6.5-10.1) Neutrophils (%) (Auto) 69.8 % (45.0-75.0) Lymphocytes (%) (Auto) 20.4 % (20.0-45.0) Monocytes (%) (Auto) 5.8 % (1.0-10.0) Eosinophils (%) (Auto) 3.2 % (0.0-3.0) H Basophils (%) (Auto) 0.9 % (0.0-2.0) Sodium Level 143 MMOL/L (136-145) Potassium Level 4.4 MMOL/L (3.5-5.1) Chloride Level 109 MMOL/L (98-107) H Carbon Dioxide Level 30 MMOL/L (21-32) Anion Gap 4 mmol/L (5-15) L Blood Urea Nitrogen 17 mg/dL (7-18) Creatinine 0.4 MG/DL (0.55-1.30) L Estimat Glomerular Filtration Rate > 60 mL/min (>60) Glucose Level 127 MG/DL (74-106) H Calcium Level 8.9 MG/DL (8.5-10.1) Total Bilirubin 0.4 MG/DL (0.2-1.0) Aspartate Amino Transf (AST/SGOT) 22 U/L (15-37) Alanine Aminotransferase (ALT/SGPT) 35 U/L (12-78) Alkaline Phosphatase 107 U/L (46-116) Pro-B-Type Natriuretic Peptide 605 pg/mL (0-125) H Total Protein 7.1 G/DL (6.4-8.2) Albumin 2.2 G/DL (3.4-5.0) L Globulin 4.9 g/dL Albumin/Globulin Ratio 0.4 (1.0-2.7) L Ethel Curtis MD Jun 30, 2019 10:33
[2019-06-30 12:00] VITALS: BP 133/93
--- NOTE | 2019-06-30 12:12 | Infectious Diseases Prog Note ---
Assessment/Plan Assessment/Plan Assessment: Septic Shock- now off pressors Afebrile Leukocytosis; Sp doubt UTI -06/25 u/a neg; ucx : yeast ( colonizer ) Acute on baseline encephalopathy Recent PNA, ongoing Pulmonary edema -06/28 CXR: Since the prior study there has been ischemic change and mild perihilar and lower lobe pulmonary edema with mild bilateral pleural effusions and bibasilar atelectasis. -06/27 CXR : There is slight interval worsening of mild perihilar and lower lobe pulmonary edema. sp cx GNR -06/25 CXR: Pulmonary vascular congestion and interstitial edema demonstrated appearing slightly worse since the last study. Basal atelectasis and small lung volumes noted. -06/22 sp cx K, pna (S cipro/levo, Zosyn) ESBL Sacral decub ulcer- not infected spinal injury quadriplegia HTN cardiomyopathy GERD chronic respiratory failure trach/vent dependant dysphagia s/p GT hx of PNA constipation tardive dyskinesia [facility] resident Plan: -Continue Ertapenem # 11/23-10 for PNA -f/u cx -Monitor CBC/CMP, temperatures -trach/peg care -aspiration precautions -wound care per surgical team Subjective Allergies: Coded Allergies: No Known Allergies (Unverified , 03/03/19) Subjective afebrile no leukocytosis clinically much improved; more alert, sitting down in chair, communicating Objective Vital Signs Last 24 Hour Vital Signs Date Time Temp Pulse Resp B/P (MAP) Pulse Ox O2 Delivery O2 Flow Rate FiO2 06/30/19 11:15 88 26 35 06/30/19 09:00 83 14 35 06/30/19 08:46 134/87 06/30/19 08:00 Mechanical Ventilator 35.0 Mechanical Ventilator 35.0 06/30/19 08:00 35 06/30/19 08:00 98.0 81 14 134/87 (103) 98 06/30/19 07:40 80 06/30/19 07:29 82 14 35 06/30/19 05:00 75 12 35 06/30/19 04:00 Mechanical Ventilator Mechanical Ventilator 06/30/19 04:00 35 06/30/19 03:38 75 06/30/19 03:36 75 12 35 06/30/19 01:30 88 16 35 06/30/19 00:00 35 06/30/19 00:00 Mechanical Ventilator Mechanical Ventilator 06/29/19 23:26 86 06/29/19 21:29 86 19 35 06/29/19 20:00 98.1 74 16 142/84 (103) 98 06/29/19 20:00 Mechanical Ventilator Mechanical Ventilator 06/29/19 20:00 35 06/29/19 19:30 67 16 35 06/29/19 19:04 77 06/29/19 18:32 153/84 06/29/19 18:00 97.8 75 16 153/84 (107) 100 06/29/19 17:39 83 10 100 Mechanical Ventilator 35 80 10 98 06/29/19 16:59 80 16 35 06/29/19 16:00 Mechanical Ventilator Mechanical Ventilator 06/29/19 16:00 97.8 75 16 153/84 (107) 100 06/29/19 16:00 85 06/29/19 16:00 35 06/29/19 14:59 54 16 35 06/29/19 13:00 56 16 35 06/29/19 12:38 85 16 100 Mechanical Ventilator 35 89 16 99 Height (Feet): 5 Height (Inches): 6.00 Weight (Pounds): 161 Objective Status: chronically ill looking female on vent, allert HEENT: atraumatic, normocephalic Neck: trach - secretions small amount, white color, thin consistency Lungs: clear Heart: no murmurs Abdomen: soft, non-tender, active bowel sounds, feeding tube Laboratory Tests Test 06/30/19 07:00 White Blood Count 9.9 K/UL (4.8-10.8) Red Blood Count 4.10 M/UL (4.20-5.40) L Hemoglobin 10.8 G/DL (12.0-16.0) L Hematocrit 33.5 % (37.0-47.0) L Mean Corpuscular Volume 82 FL (80-99) Mean Corpuscular Hemoglobin 26.2 PG (27.0-31.0) L Mean Corpuscular Hemoglobin Concent 32.1 G/DL (32.0-36.0) Red Cell Distribution Width 15.4 % (11.6-14.8) H Platelet Count 233 K/UL (150-450) Mean Platelet Volume 7.2 FL (6.5-10.1) Neutrophils (%) (Auto) 69.8 % (45.0-75.0) Lymphocytes (%) (Auto) 20.4 % (20.0-45.0) Monocytes (%) (Auto) 5.8 % (1.0-10.0) Eosinophils (%) (Auto) 3.2 % (0.0-3.0) H Basophils (%) (Auto) 0.9 % (0.0-2.0) Sodium Level 143 MMOL/L (136-145) Potassium Level 4.4 MMOL/L (3.5-5.1) Chloride Level 109 MMOL/L (98-107) H Carbon Dioxide Level 30 MMOL/L (21-32) Anion Gap 4 mmol/L (5-15) L Blood Urea Nitrogen 17 mg/dL (7-18) Creatinine 0.4 MG/DL (0.55-1.30) L Estimat Glomerular Filtration Rate > 60 mL/min (>60) Glucose Level 127 MG/DL (74-106) H Calcium Level 8.9 MG/DL (8.5-10.1) Total Bilirubin 0.4 MG/DL (0.2-1.0) Aspartate Amino Transf (AST/SGOT) 22 U/L (15-37) Alanine Aminotransferase (ALT/SGPT) 35 U/L (12-78) Alkaline Phosphatase 107 U/L (46-116) Pro-B-Type Natriuretic Peptide 605 pg/mL (0-125) H Total Protein 7.1 G/DL (6.4-8.2) Albumin 2.2 G/DL (3.4-5.0) L Globulin 4.9 g/dL Albumin/Globulin Ratio 0.4 (1.0-2.7) L Current Medications Medications (Trade) Dose Ordered Sig/Rizwana Route PRN Reason Start Time Stop Time Status Last Admin Dose Admin Acetaminophen (Tylenol) 650 mg Q4H PRN GT Mild Pain/Temp > 100.5 06/29/19 01:45 07/26/19 01:44 Artificial Tears (Akwa-Tears) 2 drop Q2H PRN BOTH EYES Dry Eyes 06/29/19 01:45 07/26/19 01:44 Ascorbic Acid (Vitamin C) 250 mg DAILY GT 06/29/19 09:00 07/27/19 08:59 06/30/19 08:47 Carvedilol (Coreg) 3.125 mg Q12H PRN GT For High Blood Pressure 06/29/19 07:00 07/25/19 18:59 Chlorhexidine Gluconate (Julia-Hex 2%) 1 applic DAILY@2000 TOPIC 06/29/19 20:00 07/26/19 19:59 06/29/19 20:07 Clonazepam (KlonoPIN) 0.125 mg HSPRN PRN ORAL For Anxiety 06/29/19 17:45 07/03/19 17:44 Diphenhydramine HCl (Benadryl) 25 mg QHS PRN GT Itching 06/29/19 21:00 07/26/19 01:44 Docusate Sodium (Colace) 100 mg NEEDED PRN GT constipation 06/29/19 19:45 07/26/19 08:59 Enalapril Maleate (Vasotec) 2.5 mg BID GT 06/29/19 09:00 07/26/19 20:59 06/30/19 08:46 Ertapenem 1 gm/ Sodium Chloride 55 ml @ 110 mls/hr DAILY IV 06/29/19 09:00 07/01/19 08:59 06/30/19 08:47 Heparin Sodium (Porcine) (Heparin 5000 units/ml) 5,000 units EVERY 12 HOURS SUBQ 06/29/19 09:00 07/26/19 08:59 06/29/19 09:00 Levalbuterol HCl (Xopenex) 0.63 mg Q3H PRN HHN bronchospasm, SOB/Wheezing 06/29/19 01:45 07/01/19 01:44 06/29/19 17:34 Pantoprazole (Protonix) 40 mg DAILY IVP 06/29/19 09:00 07/26/19 08:59 06/30/19 08:47 Quetiapine Fumarate (SEROqueL) 50 mg QHS GT 06/29/19 21:00 07/26/19 20:59 06/29/19 20:07 Sodium Chloride 1,000 ml @ 75 mls/hr [id number] IV 06/29/19 00:30 07/26/19 10:59 06/30/19 02:29 Spironolactone (Aldactone) 25 mg DAILY GT 06/29/19 09:00 07/27/19 08:59 06/30/19 08:47 Hollie Randolph M.D. Jun 30, 2019 12:12
--- NOTE | 2019-06-30 14:06 | Surgery Progress Note ---
Surgery Progress Note Subjective Additional Comments no acute events comfortable stable in chair discussed care plan with daughter. dressings was malpositioned this AM. will address Objective Last 24 Hour Vital Signs Date Time Temp Pulse Resp B/P (MAP) Pulse Ox O2 Delivery O2 Flow Rate FiO2 06/30/19 13:00 80 25 35 06/30/19 12:00 99.6 87 15 133/93 (106) 98 06/30/19 12:00 Mechanical Ventilator 35.0 Mechanical Ventilator 35.0 06/30/19 11:40 86 06/30/19 11:15 88 26 35 06/30/19 09:00 83 14 35 06/30/19 08:46 134/87 06/30/19 08:00 Mechanical Ventilator 35.0 Mechanical Ventilator 35.0 06/30/19 08:00 35 06/30/19 08:00 98.0 81 14 134/87 (103) 98 06/30/19 07:40 80 06/30/19 07:29 82 14 35 06/30/19 05:00 75 12 35 06/30/19 04:00 Mechanical Ventilator Mechanical Ventilator 06/30/19 04:00 35 06/30/19 03:38 75 06/30/19 03:36 75 12 35 06/30/19 01:30 88 16 35 06/30/19 00:00 35 06/30/19 00:00 Mechanical Ventilator Mechanical Ventilator 06/29/19 23:26 86 06/29/19 21:29 86 19 35 06/29/19 20:00 98.1 74 16 142/84 (103) 98 06/29/19 20:00 Mechanical Ventilator Mechanical Ventilator 06/29/19 20:00 35 06/29/19 19:30 67 16 35 06/29/19 19:04 77 06/29/19 18:32 153/84 06/29/19 18:00 97.8 75 16 153/84 (107) 100 06/29/19 17:39 83 10 100 Mechanical Ventilator 35 80 10 98 06/29/19 16:59 80 16 35 06/29/19 16:00 Mechanical Ventilator Mechanical Ventilator 06/29/19 16:00 97.8 75 16 153/84 (107) 100 06/29/19 16:00 85 06/29/19 16:00 35 06/29/19 14:59 54 16 35 I&O Intake and Output 06/29/19 06/30/19 19:00 07:00 Intake Total 1608 ml 1348.75 ml Output Total 1600 ml 1400 ml Balance 8 ml -51.25 ml Intake Free Water 150 ml 30 ml IV Total 918 ml 823.75 ml Tube Feeding 540 ml 495 ml Output Urine Total 1600 ml 1400 ml # Bowel Movements 5 Dressing: dry Wound: clean Cardiovascular: RSR Respiratory: clear Abdomen: soft, non-tender, present bowel sounds Extremities: no edema, no tenderness, no cyanosis Laboratory Tests Test 06/30/19 07:00 White Blood Count 9.9 K/UL (4.8-10.8) Red Blood Count 4.10 M/UL (4.20-5.40) L Hemoglobin 10.8 G/DL (12.0-16.0) L Hematocrit 33.5 % (37.0-47.0) L Mean Corpuscular Volume 82 FL (80-99) Mean Corpuscular Hemoglobin 26.2 PG (27.0-31.0) L Mean Corpuscular Hemoglobin Concent 32.1 G/DL (32.0-36.0) Red Cell Distribution Width 15.4 % (11.6-14.8) H Platelet Count 233 K/UL (150-450) Mean Platelet Volume 7.2 FL (6.5-10.1) Neutrophils (%) (Auto) 69.8 % (45.0-75.0) Lymphocytes (%) (Auto) 20.4 % (20.0-45.0) Monocytes (%) (Auto) 5.8 % (1.0-10.0) Eosinophils (%) (Auto) 3.2 % (0.0-3.0) H Basophils (%) (Auto) 0.9 % (0.0-2.0) Sodium Level 143 MMOL/L (136-145) Potassium Level 4.4 MMOL/L (3.5-5.1) Chloride Level 109 MMOL/L (98-107) H Carbon Dioxide Level 30 MMOL/L (21-32) Anion Gap 4 mmol/L (5-15) L Blood Urea Nitrogen 17 mg/dL (7-18) Creatinine 0.4 MG/DL (0.55-1.30) L Estimat Glomerular Filtration Rate > 60 mL/min (>60) Glucose Level 127 MG/DL (74-106) H Calcium Level 8.9 MG/DL (8.5-10.1) Total Bilirubin 0.4 MG/DL (0.2-1.0) Aspartate Amino Transf (AST/SGOT) 22 U/L (15-37) Alanine Aminotransferase (ALT/SGPT) 35 U/L (12-78) Alkaline Phosphatase 107 U/L (46-116) Pro-B-Type Natriuretic Peptide 605 pg/mL (0-125) H Total Protein 7.1 G/DL (6.4-8.2) Albumin 2.2 G/DL (3.4-5.0) L Globulin 4.9 g/dL Albumin/Globulin Ratio 0.4 (1.0-2.7) L Plan Problems: (1) Septic shock Assessment & Plan: hypotensive on pressors leukocytosis lactic acidosis cxr noted ct head noted today more responsive and alert weaning off pressors cont to wean iv fluids iv abx trend labs will follow with recs thank you (2) Altered mental status Assessment & Plan: Findings: There is mild prominence of the ventricles, basal cisterns, and cerebral sulci consistent with atrophy. Mild, nonspecific, white matter hypoattenuation is noted throughout the brain consistent with chronic small vessel disease. Small cystic focus are demonstrated in the left lower cerebellum likely old infarct. There is no midline shift, edema, acute hemorrhage, mass effect, or abnormal extra-axial fluid collections. Bones are unremarkable. Impression: No acute intracranial bleed, mass effect or edema. Mild atrophy of the brain. Nonspecific white matter hypoattenuation probably due to chronic small vessel disease. 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 (3) Decubitus skin ulcer Assessment & Plan: patient with historic / chronic decubitus with incontinence associated dermatitis in the sacral region air mattress ordered daughter helps with care has personal turning pillow turn q2h off load pressure heel protectors offload with pillow skin protectant cream and dressings to sacral area daily and prn saturation monitor for incontinence will follow with recs nutritional optimization (4) Sacral decubitus ulcer, stage II (5) Incontinence associated dermatitis (6) Chronic respiratory failure (7) Feeding by G-tube Assessment & Plan: DAILY ESTIMATED NEEDS: Needs based on Critical care, wound 62kg abw 22-28 kcals/kg 0638-4620 total kcals 1.25-2 g protein/kg 77-124 g total protein 25-30 mL/kg 8170-9654 total fluid mLs NUTRITION DIAGNOSIS: * Swallowing difficulty r/t resp status as evidenced by pt is trach and peg dep. * Increased kcal/prot needs R/T wound healing as evidenced by pt admitted w/ sacral stage 2 wound * Altered nutrition related lab values R/T pre-diabetes? as evidenced by A1C of 6.2, elev FBGs (132, 191). CURRENT TF:NPO ENTERAL NUTRITION RECOMMENDATIONS: Glucerna 1.5 @ 45ml/hr x 24 hrs to provide 1080ml, 1620kcal, 89g prot, 820ml free water - As medically appropriate and w/ HD stability, * initiate Glucerna 1.5 @ 25ml/hr x 6 hrs * advance 10ml q 4-6 hrs as tolerated to goal rate. * HOB Over 30 degrees/ water flush per MD ADDITIONAL RECOMMENDATIONS: 1) Calibrated bed scale wts 2) Rec NISS once TF resumes - A1C 6.2, elev FBGs 3) WOUND CARE: add LELO BID + Vit C 250mg daily 4) Monitor lytes, replete as needed Mauro Roldan Jun 30, 2019 14:06
--- NOTE | 2019-06-30 14:14 | Diagnostic Imaging Report ---
Indication: Shortness of breath Technique: One view of the chest Comparison: 06/29/2019 Findings: Bilateral interstitial congestion, bilateral basilar atelectasis and possible consolidation are again demonstrated, probably not significantly changed. The heart is borderline enlarged. There is again demonstrated a tracheostomy Impression: Unchanged, over one day, findings as above.
[2019-06-30] MEDS: Levalbuterol Inh UD 1.25mg/0.5ml HHN PRN ×2 (14:16→18:15)
--- NOTE | 2019-06-30 14:22 | NUR ---
ST NOTE (DISCHARGE NOTE IF PT D/C TODAY): SPEECH THERAPY NOTE: PATIENT ALERT AND WANTS TO TRY TO SPEAK USING THE SPEAKING VALVE WITH HER DTR AND RT PRESENT. CALLED RT [facility] TO FIND MORE STRATEGIES TO GET HER TO TOLERATE VALVE BETTER (SEE RT, GIACOMO NOTES). PER HER DTR, SHE HAS TRIED THIS MANY TIMES WITH OTHER RTs WITH MINIMAL SUCCESS. HER DTR FEELS SHE IS HAVING DIFFICULTY DUE TO LUNG ATELECTASIS AND ISSUES WITH ANXIETY. THE PATIENT ONLY TOLERATED A FEW MINUTES OF SPEAKING VALVE INLINE AND THEN STARTED TO FEEL SOB EVEN THOUGH VITALS GOOD. PATIENT PREFERRED TRYING TO SPEAK USING LEAK SPEECH (WHICH SHE DID AT THE [facility] BUT NOT DURING STAY AT [facility] [place]). SHE WAS ABLE TO SAYS SOME VOWELS FOR 1-2 SECONDS AND COUNT SLOWLY 4 NUMBERS WITH MAX CUES TO EXAGGERATE HER LIPS/TONGUE MOVEMENTS. ARTICULATION SKILLS ARE LIMITED DUE TO TARDIVE DYSKINESIA WITH TONGUE MOSTLY BUT ALSO HAS A DX OF PD NOT COMPLETELY CONFIRMED DX PER HER DTR. THE CT HEAD ALSO SAID POSSIBLE SMALL TINY INFARCT IN THE LEFT CEREBELLUM. SHE NEEDED ORAL SUCTION FOR MILD AMOUNTS OF SALIVA ACCUMULATION X2. PLAN: CONTINUE WITH SKILLED MECHANICAL SPECIALIST SERVICES FOR LEAK SPEECH TRAINING AND TRIALS OF PASSY-ANUJ SPEAKING VALVE WITH MECHANICAL SPECIALIST AT [facility]. IF PO CONSIDERED FOR ORAL GRATIFICATION, CONSIDER MODIFIED BARIUM SWALLOW STUDY OUTPT PRIOR TO PO TRIALS. CONTINUE WITH ORAL CARE AND NONORAL PEG FEEDINGS FOR NOW. PATIENT MAY GO TO SNF TODAY PER HER DTR. HER DTR WANTED TO SEE IF HER MEDS FOR ANXIETY COULD BE LOOKED AT AND SHE WAS TOLD THAT LIKELY THE F/UP MAY HAVE TO BE WITH A PSYCHIATRIST AT THE SNF.
[2019-06-30 16:00] VITALS: BP 130/65
[2019-06-30] MEDS ORDERED: ENALAPRIL MALE2.5 MG GT (16:19)
[2019-06-30] MEDS ORDERED: PROTONIX IV40 MG IV (16:23)
[2019-06-30] MEDS ORDERED: POLYVINYL ALCOH15 ML OP (16:26)
[2019-06-30] MEDS ORDERED: SPIRONOLACTONE100 MG GT (16:29)
--- NOTE | 2019-06-30 18:47 | NUR ---
NURSE NOTES: report given to carlton mojica
--- NOTE | 2019-06-30 18:57 | NUR ---
NURSE NOTES: Received pt from LIAN Huffman; Pt is awake, alert and opens eyes spontaneously. Pt is non-verbal due to trach, but able to make needs know with facial expressions and by wiggling feet. Pt on tele monitor and remains SR with a HR of 81 noted with no s/sx of cardiac distress. Pt is trach to vent and tolerating current vent settings well. Vent settings as follows: SIMV 10 TV 450 PEEP 0 as tolerated with an O2 saturation of 97% noted. Pt has a GT with Glucerna 1.5 running at 45ml/hr as prescribed. Martin Catheter noted which remains patent and draining yellow urine to gravity. R femoral TLC noted, dressing and catheter remain asymptomatic, patent and intact. R hand 22g IV catheter noted which remains asymptomatic, patent and intact. NS currently infusing at 75mL/hr as prescribed. Lab values and diagnostics reviewed. Skin alterations noted. Family remains present at bedside. Will continue plan of care. Will continue to monitor.
[2019-06-30 20:00] VITALS: BP 148/85
[2019-06-30] MEDS: Dyna-Hex 2% Top Sol 2oz TOPIC SCH (20:12)
--- NOTE | 2019-06-30 21:00 | NUR ---
NURSE NOTES: Pt declined scheduled Heparin administration. Pt and family educated but continues to decline at this time. Will continue to monitor.
--- NOTE | 2019-07-01 | NUR ---
NURSE NOTES: Pt declined midnight vitals. Pt educated but continues to decline at this time. Will continue to monitor.
[2019-07-01 04:00] VITALS: BP 142/65
--- NOTE | 2019-07-01 05:56 | NUR ---
NURSE NOTES: Pt provided with a bed bath, linen change, oral care and wound care at patient request. Large brown BM noted, wound dressing saturated with stool and therefore changed. RT present at bedside performing trach care. Pt tolerated care well. Pt remains resting in bed; bed remains in lowest position with safety wheels engaged, call light within reach, bed alarm activated and side rails up x3. Will continue to monitor. Will continue plan of care.
--- NOTE | 2019-07-01 06:45 | Progress Note ---
DATE: 06/30/2019 SUBJECTIVE: The patient is awake, alert, afebrile, hemodynamically stable. She has facial expression. PHYSICAL EXAMINATION: VITAL SIGNS: Blood pressure 148/65, pulse is 91, respirations of 23, and temperature is 98.2. HEENT: Eyes were normal. ENT, mucous membranes intact. NECK: Supple with no JVD without lymph nodes. Tracheostomy site is clean. LUNGS: Clear without rhonchi, rales, or wheezing. HEART: Normal sounds with regular beats. ABDOMEN: Soft and nontender with normal bowel sounds. EXTREMITIES: Warm without cyanosis, clubbing, or edema. LABORATORY AND DIAGNOSTIC DATA: Her hemoglobin is 10.8, hematocrit 33.5 with MCV of 82, WBC of 9.9, and platelets are 223,000. Her BUN and creatinine are 17 and 0.4 respectively. Sodium is 143, potassium 4.4, chloride 100, CO2 is 30. Her proBNP declined from 1500 to 605. Her chest x-ray revealed the patient has bilateral interstitial congestion and bilateral basilar atelectasis. Heart is borderline enlarged. IMPRESSION: The patient clinically and markedly improved. She will be discharged to [facility] subacute unit with current medication. She will continue the antibiotic ertapenem and completion of therapy. Delmy Pardo M.D. DR: MOLINA JOB#: [id number] CC:
--- NOTE | 2019-07-01 07:13 | NUR ---
HAND-OFF: Report given to LIAN Hines. Pt remains stable at this time.
--- NOTE | 2019-07-01 07:15 | NUR ---
NURSE NOTES: Received pt from LIAN Casey; Observed patient in bed, pt is awake, alert and opens eyes spontaneously. Pt is non-verbal due to trach, but able to make needs know with facial expressions. monitor car operator shows SR with a HR of 88. Pt is trach to vent with settings: SIMV 10 TV 450 PEEP 0 patient tolerating well, no respiratory distress noted. Pt has a GT with Glucerna 1.5 running at 45ml/hr as prescribed. HOB elevate. Martin Catheter noted which remains patent and draining to gravity with yellow urine output. R femoral TLC noted, dressing and catheter remain asymptomatic, patent and intact, draining well to gravity. R hand 22g IV catheter noted, patent and asymptomatic, NS currently infusing at 75mL/hr as prescribed. Will continue plan of care. Will continue to monitor.
[2019-07-01 08:00] VITALS: BP 166/95
--- NOTE | 2019-07-01 08:04 | NUR ---
NURSE NOTES: Decorator Mannequin at bedside for blood draw.
[2019-07-01] MEDS: Ertapenem 1 GM in NS 55 ML IV SCH (08:19)
[2019-07-01 08:38] LABS: BASOPHILS % (AUTO) 0.6 % (0.0-2.0); EOSINOPHILS % (AUTO) 2.5 % (0.0-3.0); HEMATOCRIT 39.6 % (37.0-47.0); HEMOGLOBIN 12.4 G/DL (12.0-16.0); LYMPHOCYTES % (AUTO) 21.7 % (20.0-45.0); MEAN CORPUSCULAR VOLUME 83 FL (80-99); MONOCYTES % (AUTO) 6.5 % (1.0-10.0); NEUTROPHILS % (AUTO) 68.6 % (45.0-75.0); PLATELET COUNT 265 K/UL (150-450); WHITE BLOOD COUNT 11.1 K/UL (4.8-10.8)
[2019-07-01] MEDS: Spironolactone 25mg tab GT SCH (08:44)
[2019-07-01] MEDS: Enalapril 2.5mg tab GT SCH (08:44)
[2019-07-01] MEDS: Pantoprazole Inj IVP SCH (08:45)
[2019-07-01] MEDS: Ascorbic Acid 500mg tab GT SCH (08:45)
[2019-07-01 08:57] LABS: ALANINE AMINOTRANSFERASE 44 U/L (12-78); ALBUMIN 2.5 G/DL (3.4-5.0); ALBUMIN/GLOBULIN RATIO 0.4 (1.0-2.7); ALKALINE PHOSPHATASE 121 U/L (46-116); ANION GAP 3 mmol/L (5-15); ASPARTATE AMINO TRANSFERASE 33 U/L (15-37); BILIRUBIN,TOTAL 0.4 MG/DL (0.2-1.0); BLOOD UREA NITROGEN 16 mg/dL (7-18); CALCIUM 9.5 MG/DL (8.5-10.1); CARBON DIOXIDE 30 MMOL/L (21-32); CHLORIDE 104 MMOL/L (98-107); CREATININE 0.5 MG/DL (0.55-1.30); PHOSPHORUS 3.9 MG/DL (2.5-4.9); POTASSIUM 4.9 MMOL/L (3.5-5.1); SODIUM 137 MMOL/L (136-145)
[2019-07-01] MEDS: Heparin 5000 units/ml inj SUBQ SCH (09:00)
--- NOTE | 2019-07-01 09:00 | NUR ---
NURSE NOTES: Patient's daughter refused Heparin to be given to patient.
--- NOTE | 2019-07-01 09:20 | NUR ---
NURSE NOTES: Complete bed bath and pericare provided, wound dressings replaced. Suctioned patient orally and via trach, patient tolerated well. Patient left supine per daughter's request. HOB elevated, TF ongoing. All needs attended to. Bed locked, alarmed, and in lowest position,side rails are up x3, call light left within reach. Will continue to monitor patient.
--- NOTE | 2019-07-01 09:38 | Surgery Progress Note ---
Surgery Progress Note Subjective Additional Comments leukocytosis exam stable Objective Last 24 Hour Vital Signs Date Time Temp Pulse Resp B/P (MAP) Pulse Ox O2 Delivery O2 Flow Rate FiO2 07/01/19 08:44 166/95 07/01/19 08:00 Mechanical Ventilator Mechanical Ventilator 07/01/19 07:44 88 07/01/19 07:20 78 22 35 07/01/19 04:58 80 18 35 07/01/19 04:27 82 07/01/19 04:00 98.0 92 24 142/65 (90) 99 07/01/19 04:00 Mechanical Ventilator Mechanical Ventilator 07/01/19 03:10 59 18 35 07/01/19 02:12 64 18 35 07/01/19 00:00 Mechanical Ventilator Mechanical Ventilator 06/30/19 23:32 100 06/30/19 22:51 67 18 35 06/30/19 21:04 91 24 35 06/30/19 20:00 Mechanical Ventilator Mechanical Ventilator 06/30/19 20:00 98.2 91 25 148/85 (106) 99 06/30/19 19:33 98 06/30/19 18:40 94 26 35 06/30/19 18:11 78 19 96 Mechanical Ventilator 35 06/30/19 18:10 79 18 98 Mechanical Ventilator 35 78 19 96 06/30/19 17:22 130/65 06/30/19 17:21 79 22 35 06/30/19 16:00 98 06/30/19 16:00 Mechanical Ventilator 35.0 Mechanical Ventilator 35.0 06/30/19 16:00 97.7 92 26 130/65 (86) 99 06/30/19 15:15 86 24 35 06/30/19 14:18 96 16 98 Mechanical Ventilator 35 94 16 94 06/30/19 13:00 80 25 35 06/30/19 12:00 99.6 87 15 133/93 (106) 98 06/30/19 12:00 Mechanical Ventilator 35.0 Mechanical Ventilator 35.0 06/30/19 11:40 86 06/30/19 11:15 88 26 35 I&O Intake and Output 06/30/19 07/01/19 19:00 07:00 Intake Total 1325 ml 1518.75 ml Output Total 1350 ml 1900 ml Balance -25 ml -381.25 ml Intake Free Water 80 ml IV Total 785 ml 898.75 ml Tube Feeding 540 ml 540 ml Output Urine Total 1350 ml 1900 ml # Bowel Movements 5 2 Dressing: dry Wound: clean Cardiovascular: RSR Respiratory: clear Abdomen: soft, non-tender, present bowel sounds Extremities: no tenderness, no cyanosis, other Laboratory Tests Test 07/01/19 08:05 White Blood Count 11.1 K/UL (4.8-10.8) H Red Blood Count 4.80 M/UL (4.20-5.40) Hemoglobin 12.4 G/DL (12.0-16.0) Hematocrit 39.6 % (37.0-47.0) Mean Corpuscular Volume 83 FL (80-99) Mean Corpuscular Hemoglobin 25.9 PG (27.0-31.0) L Mean Corpuscular Hemoglobin Concent 31.4 G/DL (32.0-36.0) L Red Cell Distribution Width 16.0 % (11.6-14.8) H Platelet Count 265 K/UL (150-450) Mean Platelet Volume 6.7 FL (6.5-10.1) Neutrophils (%) (Auto) 68.6 % (45.0-75.0) Lymphocytes (%) (Auto) 21.7 % (20.0-45.0) Monocytes (%) (Auto) 6.5 % (1.0-10.0) Eosinophils (%) (Auto) 2.5 % (0.0-3.0) Basophils (%) (Auto) 0.6 % (0.0-2.0) Erythrocyte Sedimentation Rate Pending Sodium Level 137 MMOL/L (136-145) Potassium Level 4.9 MMOL/L (3.5-5.1) Chloride Level 104 MMOL/L (98-107) Carbon Dioxide Level 30 MMOL/L (21-32) Anion Gap 3 mmol/L (5-15) L Blood Urea Nitrogen 16 mg/dL (7-18) Creatinine 0.5 MG/DL (0.55-1.30) L Estimat Glomerular Filtration Rate > 60 mL/min (>60) Glucose Level 150 MG/DL (74-106) H Calcium Level 9.5 MG/DL (8.5-10.1) Phosphorus Level 3.9 MG/DL (2.5-4.9) Magnesium Level 1.7 MG/DL (1.8-2.4) L Total Bilirubin 0.4 MG/DL (0.2-1.0) Aspartate Amino Transf (AST/SGOT) 33 U/L (15-37) Alanine Aminotransferase (ALT/SGPT) 44 U/L (12-78) Alkaline Phosphatase 121 U/L (46-116) H C-Reactive Protein, Quantitative 1.0 mg/dL (0.00-0.90) H Total Protein 8.1 G/DL (6.4-8.2) Albumin 2.5 G/DL (3.4-5.0) L Globulin 5.6 g/dL Albumin/Globulin Ratio 0.4 (1.0-2.7) L Plan Problems: (1) Septic shock Assessment & Plan: improved and downgraded from ICU leukocytosis 11k lactic acidosis resolved cxr noted ct head noted responsive and alert improving overall no acute surgical intervention cont with local care iv fluids iv abx trend labs will follow with recs thank you (2) Altered mental status Assessment & Plan: Findings: There is mild prominence of the ventricles, basal cisterns, and cerebral sulci consistent with atrophy. Mild, nonspecific, white matter hypoattenuation is noted throughout the brain consistent with chronic small vessel disease. Small cystic focus are demonstrated in the left lower cerebellum likely old infarct. There is no midline shift, edema, acute hemorrhage, mass effect, or abnormal extra-axial fluid collections. Bones are unremarkable. Impression: No acute intracranial bleed, mass effect or edema. Mild atrophy of the brain. Nonspecific white matter hypoattenuation probably due to chronic small vessel disease. 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 (3) Decubitus skin ulcer Assessment & Plan: patient with historic / chronic decubitus with incontinence associated dermatitis in the sacral region air mattress ordered daughter helps with care has personal turning pillow turn q2h off load pressure heel protectors offload with pillow skin protectant cream and dressings to sacral area daily and prn saturation monitor for incontinence will follow with recs nutritional optimization (4) Sacral decubitus ulcer, stage II (5) Incontinence associated dermatitis (6) Chronic respiratory failure (7) Feeding by G-tube Assessment & Plan: DAILY ESTIMATED NEEDS: Needs based on Critical care, wound 62kg abw 22-28 kcals/kg 2082-0235 total kcals 1.25-2 g protein/kg 77-124 g total protein 25-30 mL/kg 9445-8438 total fluid mLs NUTRITION DIAGNOSIS: * Swallowing difficulty r/t resp status as evidenced by pt is trach and peg dep. * Increased kcal/prot needs R/T wound healing as evidenced by pt admitted w/ sacral stage 2 wound * Altered nutrition related lab values R/T pre-diabetes? as evidenced by A1C of 6.2, elev FBGs (132, 191). CURRENT TF:NPO ENTERAL NUTRITION RECOMMENDATIONS: Glucerna 1.5 @ 45ml/hr x 24 hrs to provide 1080ml, 1620kcal, 89g prot, 820ml free water - As medically appropriate and w/ HD stability, * initiate Glucerna 1.5 @ 25ml/hr x 6 hrs * advance 10ml q 4-6 hrs as tolerated to goal rate. * HOB Over 30 degrees/ water flush per MD ADDITIONAL RECOMMENDATIONS: 1) Calibrated bed scale wts 2) Rec NISS once TF resumes - A1C 6.2, elev FBGs 3) WOUND CARE: add LELO BID + Vit C 250mg daily 4) Monitor lytes, replete as needed Mauro Roldan Jul 01, 2019 09:38
[2019-07-01] MEDS ORDERED: Levalbuterol Inh UD 1.25mg/0.5ml HHN SCH (11:00)
--- NOTE | 2019-07-01 11:00 | NUR ---
NURSE NOTES: PT at bedside, daughter present at bedside as well.
[2019-07-01] MEDS ORDERED: Levalbuterol Inh UD 1.25mg/0.5ml HHN PRN (11:15)
--- NOTE | 2019-07-01 11:22 | NUR ---
NURSE NOTES: Dr Randolph notified and made aware of WBC this morning. No orders received at this time. Will continue to monitor.
--- NOTE | 2019-07-01 11:47 | Pulmonolgy Critical Care Note ---
Critical Care - Asmt/Plan Problems: (1) Septic shock (2) Chronic respiratory failure (3) Nosocomial pneumonia (4) Feeding by G-tube (5) Sacral decubitus ulcer, stage II (6) Incontinence associated dermatitis Respiratory: monitor respiratory rate, adjust FIO2, CXR Cardiac: continue to monitor HR/BP Renal: F/U I&O, keep IV fluid Infectious Disease: check cultures Gastrointestinal: continue feedings/current rate Endocrine: monitor blood sugar Hematologic: monitor H/H, transfuse if hgb<8.5 Neurologic: PRN Morphine, keep patient comfortable Affect: PRN ativan Prophylaxis: Heparin Notes Reviewed: cardio Discussed with: nurses, consultants, case assistantclassification case manager - Objective Last 24 Hour Vital Signs Date Time Temp Pulse Resp B/P (MAP) Pulse Ox O2 Delivery O2 Flow Rate FiO2 07/01/19 11:29 63 12 35 07/01/19 08:57 79 22 35 07/01/19 08:44 166/95 07/01/19 08:00 Mechanical Ventilator Mechanical Ventilator 07/01/19 08:00 97.2 92 22 166/95 (118) 99 07/01/19 07:44 88 07/01/19 07:20 78 22 35 07/01/19 04:58 80 18 35 07/01/19 04:27 82 07/01/19 04:00 98.0 92 24 142/65 (90) 99 07/01/19 04:00 Mechanical Ventilator Mechanical Ventilator 07/01/19 03:10 59 18 35 07/01/19 02:12 64 18 35 07/01/19 00:00 Mechanical Ventilator Mechanical Ventilator 06/30/19 23:32 100 06/30/19 22:51 67 18 35 06/30/19 21:04 91 24 35 06/30/19 20:00 Mechanical Ventilator Mechanical Ventilator 06/30/19 20:00 98.2 91 25 148/85 (106) 99 06/30/19 19:33 98 06/30/19 18:40 94 26 35 06/30/19 18:11 78 19 96 Mechanical Ventilator 35 06/30/19 18:10 79 18 98 Mechanical Ventilator 35 78 19 96 06/30/19 17:22 130/65 06/30/19 17:21 79 22 35 06/30/19 16:00 98 06/30/19 16:00 Mechanical Ventilator 35.0 Mechanical Ventilator 35.0 06/30/19 16:00 97.7 92 26 130/65 (86) 99 06/30/19 15:15 86 24 35 06/30/19 14:18 96 16 98 Mechanical Ventilator 35 94 16 94 06/30/19 13:00 80 25 35 06/30/19 12:00 99.6 87 15 133/93 (106) 98 06/30/19 12:00 Mechanical Ventilator 35.0 Mechanical Ventilator 35.0 Status: awake Condition: critical, grave HEENT: atraumatic Lungs: rales, rhonchi Heart: HR/BP stable Abdomen: soft, feeding tube Decubiti: location Accucheck: 140 Critical Care - Subjective ROS Limited/Unobtainable: No Condition: critical EKG Rhythm: Sinus Rhythm FI02: 35 Vent Support Breath Rate: 10 Vent Support Mode: IMV/SIMV Vent Tidal Volume: 450 Sputum Amount: Small PEEP: 5.0 PIP: 18 Tube Feeding Amount: 45 I&O: Intake and Output 06/30/19 07/01/19 19:00 07:00 Intake Total 1325 ml 1518.75 ml Output Total 1350 ml 1900 ml Balance -25 ml -381.25 ml Intake Free Water 80 ml IV Total 785 ml 898.75 ml Tube Feeding 540 ml 540 ml Output Urine Total 1350 ml 1900 ml # Bowel Movements 5 2 CXR: no change Labs: Laboratory Tests Test 07/01/19 08:05 White Blood Count 11.1 K/UL (4.8-10.8) H Red Blood Count 4.80 M/UL (4.20-5.40) Hemoglobin 12.4 G/DL (12.0-16.0) Hematocrit 39.6 % (37.0-47.0) Mean Corpuscular Volume 83 FL (80-99) Mean Corpuscular Hemoglobin 25.9 PG (27.0-31.0) L Mean Corpuscular Hemoglobin Concent 31.4 G/DL (32.0-36.0) L Red Cell Distribution Width 16.0 % (11.6-14.8) H Platelet Count 265 K/UL (150-450) Mean Platelet Volume 6.7 FL (6.5-10.1) Neutrophils (%) (Auto) 68.6 % (45.0-75.0) Lymphocytes (%) (Auto) 21.7 % (20.0-45.0) Monocytes (%) (Auto) 6.5 % (1.0-10.0) Eosinophils (%) (Auto) 2.5 % (0.0-3.0) Basophils (%) (Auto) 0.6 % (0.0-2.0) Erythrocyte Sedimentation Rate 45 MM/HR (0-30) H Sodium Level 137 MMOL/L (136-145) Potassium Level 4.9 MMOL/L (3.5-5.1) Chloride Level 104 MMOL/L (98-107) Carbon Dioxide Level 30 MMOL/L (21-32) Anion Gap 3 mmol/L (5-15) L Blood Urea Nitrogen 16 mg/dL (7-18) Creatinine 0.5 MG/DL (0.55-1.30) L Estimat Glomerular Filtration Rate > 60 mL/min (>60) Glucose Level 150 MG/DL (74-106) H Calcium Level 9.5 MG/DL (8.5-10.1) Phosphorus Level 3.9 MG/DL (2.5-4.9) Magnesium Level 1.7 MG/DL (1.8-2.4) L Total Bilirubin 0.4 MG/DL (0.2-1.0) Aspartate Amino Transf (AST/SGOT) 33 U/L (15-37) Alanine Aminotransferase (ALT/SGPT) 44 U/L (12-78) Alkaline Phosphatase 121 U/L (46-116) H C-Reactive Protein, Quantitative 1.0 mg/dL (0.00-0.90) H Total Protein 8.1 G/DL (6.4-8.2) Albumin 2.5 G/DL (3.4-5.0) L Globulin 5.6 g/dL Albumin/Globulin Ratio 0.4 (1.0-2.7) L Ethel Curtis MD Jul 01, 2019 11:47
[2019-07-01 12:00] VITALS: BP 117/65
--- NOTE | 2019-07-01 13:50 | NUR ---
*-* DISCHARGE PLANNING *-* PATIENT HAS BEEN REFERRED BACK TO: [facility] P; [phone] F: [phone] SPOKE WITH NEG[facility] PATIENT HAS BEEN ACCEPTED TO [facility] SKILLED
[2019-07-01] MEDS ORDERED: LORazepam Inj 2mg/ml 1ml IV SCH (14:00)
--- NOTE | 2019-07-01 14:20 | NUR ---
NURSE NOTES: Daughter's patient requesting Ativan IV for patient, per daughter patient seems anxious at this time. Dr Pardo contacted, received orders, carried out. Ativan 1mg IVP given. BP 159/99 HR 96. Patient still sitting up in chair, daughter present at bedside. Will continue to monitor.
--- NOTE | 2019-07-01 15:45 | NUR ---
NURSE NOTES: Report given to LIAN Velazquez from [facility] via telephone.
[2019-07-01 16:00] VITALS: BP 130/95
[2019-07-01] MEDS ORDERED: Tubing IV Secondary IV ONE (16:05)
--- NOTE | 2019-07-01 16:06 | NUR ---
NURSE NOTES: Patient discharged back to [facility] per Dr Prado. product/industry consultant removed prior to discharge. IV 22g on right forearm intact, patent, and asymptomatic. Belongings taken by daughter present at bedside. VSS.
--- NOTE | 2019-07-01 17:42 | Infectious Diseases Prog Note ---
Assessment/Plan Assessment/Plan Assessment: Septic Shock- now off pressors Afebrile Leukocytosis; mild recurrent doubt UTI -06/25 u/a neg; ucx : yeast ( colonizer ) Acute on baseline encephalopathy Recent PNA, ongoing Pulmonary edema -06/28 CXR: Since the prior study there has been ischemic change and mild perihilar and lower lobe pulmonary edema with mild bilateral pleural effusions and bibasilar atelectasis. -06/27 CXR : There is slight interval worsening of mild perihilar and lower lobe pulmonary edema. sp cx GNR -06/25 CXR: Pulmonary vascular congestion and interstitial edema demonstrated appearing slightly worse since the last study. Basal atelectasis and small lung volumes noted. -06/22 sp cx K, pna (S cipro/levo, Zosyn) ESBL Sacral decub ulcer- not infected spinal injury quadriplegia HTN cardiomyopathy GERD chronic respiratory failure trach/vent dependant dysphagia s/p GT hx of PNA constipation tardive dyskinesia [facility] resident Plan: -Continue Ertapenem # 12/27 for PNA -f/u cx -Monitor CBC/CMP, temperatures -trach/peg care -aspiration precautions -wound care per surgical team Subjective Allergies: Coded Allergies: No Known Allergies (Unverified , 03/03/19) Subjective *late entry* afebrile mild leukocytosis Objective Vital Signs Last 24 Hour Vital Signs Date Time Temp Pulse Resp B/P (MAP) Pulse Ox O2 Delivery O2 Flow Rate FiO2 07/01/19 16:00 98.0 96 22 130/95 (107) 100 07/01/19 16:00 Mechanical Ventilator Mechanical Ventilator 07/01/19 15:27 101 07/01/19 13:22 91 24 35 07/01/19 12:00 97.7 95 22 117/65 (82) 99 07/01/19 12:00 Mechanical Ventilator Mechanical Ventilator 07/01/19 11:32 95 07/01/19 11:29 63 12 35 07/01/19 08:57 79 22 35 07/01/19 08:44 166/95 07/01/19 08:00 Mechanical Ventilator Mechanical Ventilator 07/01/19 08:00 97.2 92 22 166/95 (118) 99 07/01/19 07:44 88 07/01/19 07:20 78 22 35 07/01/19 04:58 80 18 35 07/01/19 04:27 82 07/01/19 04:00 98.0 92 24 142/65 (90) 99 07/01/19 04:00 Mechanical Ventilator Mechanical Ventilator 07/01/19 03:10 59 18 35 07/01/19 02:12 64 18 35 07/01/19 00:00 Mechanical Ventilator Mechanical Ventilator 06/30/19 23:32 100 06/30/19 22:51 67 18 35 06/30/19 21:04 91 24 35 06/30/19 20:00 Mechanical Ventilator Mechanical Ventilator 06/30/19 20:00 98.2 91 25 148/85 (106) 99 06/30/19 19:33 98 06/30/19 18:40 94 26 35 06/30/19 18:11 78 19 96 Mechanical Ventilator 35 06/30/19 18:10 79 18 98 Mechanical Ventilator 35 78 19 96 Height (Feet): 5 Height (Inches): 6.00 Weight (Pounds): 160 Objective Status: chronically ill looking female on vent, allert HEENT: atraumatic, normocephalic Neck: trach - secretions small amount, white color, thin consistency Lungs: clear Heart: no murmurs Abdomen: soft, non-tender, active bowel sounds, feeding tube Laboratory Tests Test 07/01/19 08:05 White Blood Count 11.1 K/UL (4.8-10.8) H Red Blood Count 4.80 M/UL (4.20-5.40) Hemoglobin 12.4 G/DL (12.0-16.0) Hematocrit 39.6 % (37.0-47.0) Mean Corpuscular Volume 83 FL (80-99) Mean Corpuscular Hemoglobin 25.9 PG (27.0-31.0) L Mean Corpuscular Hemoglobin Concent 31.4 G/DL (32.0-36.0) L Red Cell Distribution Width 16.0 % (11.6-14.8) H Platelet Count 265 K/UL (150-450) Mean Platelet Volume 6.7 FL (6.5-10.1) Neutrophils (%) (Auto) 68.6 % (45.0-75.0) Lymphocytes (%) (Auto) 21.7 % (20.0-45.0) Monocytes (%) (Auto) 6.5 % (1.0-10.0) Eosinophils (%) (Auto) 2.5 % (0.0-3.0) Basophils (%) (Auto) 0.6 % (0.0-2.0) Erythrocyte Sedimentation Rate 45 MM/HR (0-30) H Sodium Level 137 MMOL/L (136-145) Potassium Level 4.9 MMOL/L (3.5-5.1) Chloride Level 104 MMOL/L (98-107) Carbon Dioxide Level 30 MMOL/L (21-32) Anion Gap 3 mmol/L (5-15) L Blood Urea Nitrogen 16 mg/dL (7-18) Creatinine 0.5 MG/DL (0.55-1.30) L Estimat Glomerular Filtration Rate > 60 mL/min (>60) Glucose Level 150 MG/DL (74-106) H Calcium Level 9.5 MG/DL (8.5-10.1) Phosphorus Level 3.9 MG/DL (2.5-4.9) Magnesium Level 1.7 MG/DL (1.8-2.4) L Total Bilirubin 0.4 MG/DL (0.2-1.0) Aspartate Amino Transf (AST/SGOT) 33 U/L (15-37) Alanine Aminotransferase (ALT/SGPT) 44 U/L (12-78) Alkaline Phosphatase 121 U/L (46-116) H C-Reactive Protein, Quantitative 1.0 mg/dL (0.00-0.90) H Total Protein 8.1 G/DL (6.4-8.2) Albumin 2.5 G/DL (3.4-5.0) L Globulin 5.6 g/dL Albumin/Globulin Ratio 0.4 (1.0-2.7) L Hollie Randolph M.D. Jul 01, 2019 17:42
--- NOTE | 2019-07-02 10:56 | Discharge Summary ---
Discharge Summary Discharge Summary _ DATE OF ADMISSION: 06/25/2019 DATE OF DISCHARGE: 07/01/2019 DISCHARGED BY: Dr. Pardo REASON FOR ADMISSION: 69 years old female with DNR/DNI status, with past medical history of chronic respiratory failure, ventilator dependent, tracheostomy status, hypertension, cardiomyopathy dysphagia, G-tube, history of spinal cord injury, quadriplegia, Parkinson disease, recent pneumonia , was [facility] to [facility] and over there was noted to be unresponsive. Patient subsequently was sent back to emergency department for altered mental status. Upon evaluation patient was found to be hypotensive and tachypneic. No fevers. ABG on AC mode revealed PCO2 61.6. pH 7.38 . Laboratory work-up revealed significant leukocytosis 16.8, hemoglobin 10.8, hematocrit 27.8. ESR 96. Stable electrolytes. BUN 19, creatinine 0.6. Glucose 181. Troponin minimally elevated- 0.107. Albumin 2.2. Urinalysis revealed moderate bacteria, many yeast, no pyuria. Chest x-ray demonstrated similar findings with basilar atelectasis , cardiomegaly and prominence of pulmonary vasculature. CT of the head revealed no acute intracranial pathology. 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 In emergency department central line was placed for pressors via right subclavian vein. Chest x-ray postprocedure revealed no evidence of complication. Patient subsequently admitted to ICU. CONSULTANTS: pulmonary Dr. Curtis ID specialist [facility] COURSE: Patient admitted to ICU and started on pressors, titrated to keep mean arterial blood pressure above 65. Hemodynamic status was closely monitored. Patient's shortly was able to be weaned off pressors. Patient was on IV fluids and antibiotic as per ID specialist recommendation. Blood cultures were negative. Urine culture revealed Mirtha, colonizer as per ID recommendation. Sputum culture revealed Pseudomonas 2 different species. Ertapenem continued for pneumonia. Ventilator support and tracheostomy care provided. Pulmonary toilet provided meticulously. Patient was followed-up with chest x-ray and ABG. ABG stabilized. Hypercapnia resolved. Patient was able to be weaned to SIMV mode ( usual mode at the facility at the baseline) with the support rate of 10. DVT prophylaxis provided. Strict aspiration precaution maintained. G-tube feeding continued. Second troponin was already negative. Initial minimal elevation of troponin was likely secondary to increased demand due to sepsis. Potassium replaced and remained stable. Wound care provided as per surgeon recommendation. Continue wouind care at the facility. Supportive care provided. Patient was transferred to stepdown unit . Supportive care provided. DVT and GI prophylaxis provided. Home medication continued including beta-ariel, Aldactone and Vasotec for cardiomyopathy. ProBNP trended down from initial 8124 down to 605. Patient clinically improved and was stable for discharge to subacute [facility] facility for continuation of care. FINAL DIAGNOSES: Sepsis with shock Pseudomonas pneumonia with recent history of Klebsiella ESBL pneumonia Acute encephalopathy, likely due to sepsis Acute hypercapnic respiratory failure on chronic ventilator dependent respiratory failure with tracheostomy status Pulmonary edema Cardiomyopathy Elevated troponin, likely secondary to increased demand due to sepsis - resolved Dysphagia , feeding by G-tube Sacral decubitus ulcer stage II , present on admission Quadriplegia History of spinal injury Tardive dyskinesia Hypophosphatemia - resolved GERD DISCHARGE MEDICATIONS: List of medication was sent to accepting facility. DISCHARGE INSTRUCTIONS: Patient was discharged to [facility]acute [facility]. Follow-up with medical provider at the facility. Graciela Cisneros NP Jul 02, 2019 10:56
--- NOTE | 2019-07-02 19:00 | Discharge Summary ---
DATE OF ADMISSION: 06/25/2019 DATE OF DISCHARGE: 07/01/2019 This is one of several admissions to [facility] for this 69-year-old lady because of hypotension, hypoxia, and cardiac arrhythmia. HISTORY OF PRESENT ILLNESS: Details of the event and circumstances that led the patient to be admitted to this medical unit can be found in the H and P. In brief, the patient was discharged brief period prior to the present admission. She was stable upon discharge and stable upon arrival to the facility, but within 24 hours, the patient developed hypotension, tachycardia, and hypoxia. She was transferred by emergency team to [facility] ER and was admitted. HOSPITAL COURSE: Upon admission, the patient underwent clinical, biological, and imaging studies. Clinical assessment revealed the patient was hypotensive, tachycardic, and she received volume replacement and was placed in the ICU and required pressor support. Her blood pressure stabilized. Chest x-ray showed bilateral atelectasis and the pneumonia; however, proBNP was 8000. She has bilateral pleural effusion. She has cardiomegaly and peripheral edema. The patient received initially carvedilol 3.125 mg b.i.d.; however, this regimen caused hypotension and medication was discontinued and the patient was placed on enalapril 2.5 mg b.i.d. and Aldactone 25 mg daily. Her condition progressively improved within several days. She was able to be transferred from the intensive care unit to the [facility]. She was placed on broad-spectrum antibiotics as well as JV inhibitor and spironolactone and her condition continued to be improved. She has wound care that was attended by the wound care team. She has history of mood disorder and anxiety disorder and required the use of Ativan low dose 0.125 mg b.i.d., and on the day of discharge, 1 mg of Ativan IV push during her stay most of the time at the bedside. She will be discharged to [facility] subacute unit. Ordered medications will be renewed. Delmy Pardo M.D. DR: Mike JOB#: [id number] CC:
== END 2019-07-01 16:06 | DRG 870 ==
LOC: EDSEX 17:31 → EDBD 17:31 → EMR 17:40 → ICU 19:55 → EDBEDREQSVC 20:20 → EDBEDREQ 20:21 → 2W 06-28 23:50
PROC: 5A1955Z Respiratory Ventilation, Greater than 96 Consecutive Hours (ICD-10-PCS; principal; 2019-06-25)
DX: A41.9 Sepsis, unspecified organism (principal); R65.21 Severe sepsis with septic shock; G82.50 Quadriplegia, unspecified; G93.41 Metabolic encephalopathy; J15.0 Pneumonia due to Klebsiella pneumoniae; J96.22 Acute and chronic respiratory failure with hypercapnia; Z99.11 Dependence on respirator [ventilator] status; N39.0 Urinary tract infection, site not specified; I42.9 Cardiomyopathy, unspecified; I50.42 Chronic combined systolic (congestive) and diastolic (congestive) heart failure; L89.152 Pressure ulcer of sacral region, stage 2; G24.01 Drug induced subacute dyskinesia; I11.0 Hypertensive heart disease with heart failure; L30.8 Other specified dermatitis; R32 Unspecified urinary incontinence; K21.9 Gastro-esophageal reflux disease without esophagitis; Y95 Nosocomial condition; E83.39 Other disorders of phosphorus metabolism; S14.109S Unspecified injury at unspecified level of cervical spinal cord, sequela; X58.XXXS Exposure to other specified factors, sequela; Z93.1 Gastrostomy status; Z93.0 Tracheostomy status
CPT/HCPCS: 36415; 36600; 70450; 71045; 80048; 80053; 80061; 80202; 81003; 82550; 82553; 82803; 82962; 83036; 83605; 83735; 83880; 84100; 84439; 84443; 84484; 85025; 85651; 86140; 86710; 87040; 87070; 87081; 87086; 87181; 87205; 93005; 93306; 93970; 94002; 94003; 94640; 94664; 96360; 96365; 96367; 99285; 99291; C9399; J7030; J7620

== ENCOUNTER 2020-04-09 08:50 | Inpatient (IN) | payer MEDICARE, MEDICAID ==
[~2020-04-09] VITALS: Ht 167.6 cm; Wt 68.0 kg
[~2020-04-09 08:50] MED LIST changes: +ACETAMINOPHEN325 M1 GT; +ARTIFICIAL TEAR15 ML BOTH EYES; +DIPHENHYDRAMINE25 M1 GT; +ENALAPRIL MALE2.5 MG GT; +HIBICLENS118 ML DT; +HYDROGEL3000 GM TP; +INVANZ1 G1 IV; +MILK OF MA400 MG/51 GT; +POLYVINYL ALCOH15 ML OP; +PROTONIX IV40 MG IV; +QUETIAPINE FUMA25 MG GT; +SPIRONOLACTONE100 MG GT; -VITAMIN C500 M1 ORAL; +ZINC OXIDE56.7 G1 TP
[2020-04-09 09:00] VITALS: BP 208/98
[2020-04-09] MEDS ORDERED: Morphine Sulfate 2mg/ml Inj(IV/IM USE ONLY) IVP ONE (09:15)
[2020-04-09 09:23] LABS: HEMATOCRIT 49.2 % (37.0-47.0); MEAN CORPUSCULAR VOLUME 86 FL (80-99); PLATELET COUNT 385 K/UL (150-450); RED BLOOD COUNT 5.74 M/UL (4.20-5.40); RED CELL DISTRIBUTION WIDTH 18.2 % (11.6-14.8)
[2020-04-09 09:29] LABS: APPEARANCE,URINE SLIGHTLY CLOUDY; BILIRUBIN, URINE NEGATIVE (NEGATIVE); COLOR,URINE PALE YELLOW; GLUCOSE, URINE (UA) NEGATIVE (NEGATIVE); KETONES,URINE NEGATIVE (NEGATIVE); LEUKOCYTE ESTERASE ,URINE 3+ (NEGATIVE); NITRITE,URINE POSITIVE (NEGATIVE); PH,URINE 9 (4.5-8.0); PROTEIN,URINE NEGATIVE (NEGATIVE); UROBILINOGEN,URINE NORMAL MG/DL (0.0-1.0)
[2020-04-09] MEDS ORDERED: RENA-VITE RX T1 EAC1 GT (09:32)
[2020-04-09] MEDS ORDERED: TRAMADOL HCL50 MG GT (09:32)
[2020-04-09] MEDS ORDERED: ZOFRAN4 M3 GT (09:32)
[2020-04-09] MEDS ORDERED: FLEET ENEMA133 ML RECTAL (09:32)
[2020-04-09] MEDS ORDERED: METFORMIN HCL500 M1 GT (09:32)
[2020-04-09] MEDS ORDERED: VITAMIN D325 MC1 GT (09:32)
[2020-04-09] MEDS ORDERED: ACIDOPHILUS1 EAC7 GT (09:32)
[2020-04-09] MEDS ORDERED: DITROPAN XL5 MG ORAL (09:32)
[2020-04-09] MEDS ORDERED: XOPENEX HFA15 GM IH (09:32)
[2020-04-09 10:01] LABS: ALANINE AMINOTRANSFERASE 63 U/L (12-78); ALBUMIN 3.4 G/DL (3.4-5.0); ALBUMIN/GLOBULIN RATIO 0.6 (1.0-2.7); ALKALINE PHOSPHATASE 182 U/L (46-116); ANION GAP 4 mmol/L (5-15); ASPARTATE AMINO TRANSFERASE 76 U/L (15-37); BILIRUBIN,TOTAL 0.4 MG/DL (0.2-1.0); BLOOD UREA NITROGEN 20 mg/dL (7-18); CALCIUM 9.4 MG/DL (8.5-10.1); CARBON DIOXIDE 32 MMOL/L (21-32); CHLORIDE 96 MMOL/L (98-107); CKMB 1.5 NG/ML (0.0-3.6); CREATINE KINASE 64 U/L (26-308); CREATININE 0.4 MG/DL (0.55-1.30); FERRITIN 285 NG/ML (8-388); LACTATE DEHYDROGENASE 228 U/L (81-234); POTASSIUM 5.3 MMOL/L (3.5-5.1); SODIUM 132 MMOL/L (136-145)
--- NOTE | 2020-04-09 10:03 | Diagnostic Imaging Report ---
EXAM: XR Chest, 1 View CLINICAL HISTORY: CP TECHNIQUE: Frontal view of the chest. COMPARISON: No relevant prior studies available. FINDINGS/IMPRESSION: Midline tracheostomy tube. Elevation of the right hemidiaphragm. Small bilateral pleural effusions with mild vascular condition. Patchy airspace opacities at the lung bases may represent infiltrate. Correlate with lateral view if clinically indicated. No pneumothorax. Cardiomegaly. Follow-up chest radiograph (2-view) recommended.
[2020-04-09] MEDS ORDERED: Piperacillin/Tazobactam 3.375 GM in NS 110 ML IVPB ONE (10:30)
[2020-04-09] MEDS ORDERED: Azithromycin 500 MG in NS 275 ML IV ONE (10:30)
[2020-04-09 11:00] VITALS: BP 91/68
--- NOTE | 2020-04-09 11:15 | Emergency Room Report ---
History of Present Illness General Chief Complaint: Chest Pain Source: Patient, Family Member, EMS Present Illness HPI 70-year-old female presents to ED for evaluation. Brought in by EMS from half-way facility. Reportedly had chest pain and low O2 sat per nursing. Patient on trach. Is able to verbalize if her cuff is deflated. States she was having chest pain. No fevers or chills. Daughter at bedside who is a surgical nurse at [employer] [facility] [employer]. States patient was recently treated for UTI with antibiotics. No other aggravating relieving factors. No other associated symptoms Allergies: Coded Allergies: No Known Allergies (Unverified , 03/03/19) COVID-19 Screening Contact w/high risk pt: No Experienced COVID-19 symptoms?: No COVID-19 Testing performed SHIPPER AND RECEIVING: Yes COVID-19 Screening: Negative COVID-19 COVID-19 Testing Source: nasal Patient History Past Medical History: HTN, dementia Past Surgical History: other - Trach Pertinent Family History: none Social History: Denies: smoking, alcohol use, drug use Immunizations: UTD Reviewed Nursing Documentation: PMH: Agreed; PSxH: Agreed Nursing Documentation-PMH Past Medical History: No History, Except For Hx Cardiac Problems: Yes Hx Hypertension: Yes Hx Cancer: No Hx Gastrointestinal Problems: Yes - dysphagia, gerd Hx Neurological Problems: Yes - quadriplegia Hx Parkinson's Disease: Yes Review of Systems All Other Systems: negative except mentioned in HPI Physical Exam Vital Signs Date Time Temp Pulse Resp B/P (MAP) Pulse Ox O2 Delivery O2 Flow Rate FiO2 04/09/20 08:52 97.9 107 24 227/135 (165) 90 Mechanical Ventilator 04/09/20 09:20 100 Sp02 EP Interpretation: reviewed, normal General Appearance: no apparent distress, alert, GCS 15, non-toxic Head: normocephalic, atraumatic Eyes: bilateral eye normal inspection, bilateral eye PERRL ENT: hearing grossly normal, normal pharynx, no angioedema, normal voice Neck: full range of motion, supple/symm/no masses, tracheotomy Respiratory: chest non-tender, crackles, speaking full sentences Cardiovascular #1: regular rate, rhythm, no edema Cardiovascular #2: 2+ carotid (R), 2+ carotid (L), 2+ radial (R), 2+ radial (L), 2+ dorsalis pedis (R), 2+ dorsalis pedis (L) Gastrointestinal: normal bowel sounds, non tender, soft, non-distended, no guarding, no rebound Rectal: deferred Genitourinary: normal inspection, no CVA tenderness Musculoskeletal: back normal Neurologic: alert, motor strength/tone normal, oriented x3, sensory intact, responsive, speech normal Psychiatric: judgement/insight normal, memory normal, mood/affect normal, no suicidal/homicidal ideation Reflexes: 3+ bicep (R), 3+ bicep (L), 3+ tricep (R), 3+ tricep (L), 3+ knee (R), 3+ knee (L) Skin: other - See nursing notes Lymphatic: no adenopathy Procedures Critical Care Time Critical Care Time i. I feel this is a highly complex case requiring extensive working including EKG/Rhythm strip, Xray/CT/US, Blood/urine lab work, repeat exams while in ED, and administration of strong opiates/narcotics for pain control, admission to hospital or close patient follow up. Total time: 60 min bedside evaluation and treatment excludes procedures (EKG). Reason for critical care: Respiratory distress Possible complications: hypotension, hypertension, WA, shock, arrhythmias, metabolic acidosis, end organ damage, respiratory failure. Interventions: Labs, EKG, chest x-ray, ABG, IV fluids, discussion with daughter, broad-spectrum antibiotics, adjustment of ventilator settings Course: Patient presenting with chest pain, low O2 sat. From half-way facility. Placed on ventilator. Chest x-ray shows bilateral infiltrates. Significant white count. Covid negative. Troponin negative. ABG shows acidosis with hypercapnia. Ventilator settings adjusted. Discussed findings with daughter. Broad-spectrum antibiotics given. IV fluids given. Consultations: nursing staff, EMS, family Performed by: Dr Barton Tolerated well condition = serious j. because of unstable vital signs this patient had a condition that could potentially threaten life or limb. I feel this is a critical patient who required my full attention while patient was considered critical. Total Critical Care Time excluding procedures was greater than 60 minutes Medical Decision Making Diagnostic Impression: Primary Impression: Chronic respiratory failure Qualified Codes: J96.11 - Chronic respiratory failure with hypoxia; J96.12 - Chronic respiratory failure with hypercapnia Additional Impression: Nosocomial pneumonia ER Course Hospital Course 70-year-old female presents with shortness of breath, hypoxia. History of trach. Differential diagnoses include: Pneumonia, CHF exacerbation, pneumothorax, fluid overload Clinical course Patient placed on stretcher. Isolation. I wore full PPE. On cardiac exercise specialist. Connected to ventilator. After initial history and physical, I ordered nebulizer treatments. I ordered labs, IV fluids, EKG, chest x-ray, blood cultures, UA. ABG shows hypercapnia with acidosis. Ventilator settings adjusted including rate, tidal volume and FiO2. Respirations improved. Chest x-ray shows Bilateral infiltrates. Covid swab negative Labs - marked leukocytosis, electrolytes okay, lactic okay, troponin negative CXR -bilateral opacities EKGT wave inversions in lateral leads no acute ischemic changes interpreted by me Given fluid boluses. Given broad-spectrum antibiotics. O2 sats improved after ventilator adjustments. Discussed with daughter at bedside. She is agreeable with treatment plan. Case discussed with Dr. Pardo and he agreed to the patient to his service for further care and support I feel this is a highly complex case requiring extensive working including EKG/Rhythm strip, Xray/CT/US, Blood/urine lab work, repeat exams while in ED, and administration of strong opiates/narcotics for pain control, admission to hospital or close patient follow up. Diagnosis -chronic respiratory failure, nosocomial pneumonia Patient admitted to SDU in serious condition Laboratory Tests Test 04/09/20 08:45 04/09/20 09:08 White Blood Count 25.0 K/UL (4.8-10.8) *H Red Blood Count 5.74 M/UL (4.20-5.40) H Hemoglobin 14.0 G/DL (12.0-16.0) Hematocrit 49.2 % (37.0-47.0) H Mean Corpuscular Volume 86 FL (80-99) Mean Corpuscular Hemoglobin 24.4 PG (27.0-31.0) L Mean Corpuscular Hemoglobin Concent 28.5 G/DL (32.0-36.0) L Red Cell Distribution Width 18.2 % (11.6-14.8) H Platelet Count 385 K/UL (150-450) Mean Platelet Volume 7.3 FL (6.5-10.1) Neutrophils (%) (Auto) % (45.0-75.0) Lymphocytes (%) (Auto) % (20.0-45.0) Monocytes (%) (Auto) % (1.0-10.0) Eosinophils (%) (Auto) % (0.0-3.0) Basophils (%) (Auto) % (0.0-2.0) Differential Total Cells Counted 100 Neutrophils % (Manual) 72 % (45-75) Lymphocytes % (Manual) 20 % (20-45) Monocytes % (Manual) 4 % (1-10) Eosinophils % (Manual) 4 % (0-3) H Basophils % (Manual) 0 % (0-2) Band Neutrophils 0 % (0-8) Platelet Estimate Adequate Platelet Morphology Normal Anisocytosis 1+ Prothrombin Time 10.8 SEC (9.30-11.50) Prothromb Time International Ratio 1.0 (0.9-1.1) Activated Partial Thromboplast Time 29 SEC (23-33) D-Dimer 1.23 mg/L FEU (0.00-0.49) H Urine Color Pale yellow Urine Appearance Slightly cloudy Urine pH 9 (4.5-8.0) Urine Specific [place] 1.015 (1.005-1.035) Urine Protein Negative (NEGATIVE) Urine Glucose (UA) Negative (NEGATIVE) Urine Ketones Negative (NEGATIVE) Urine Blood Negative (NEGATIVE) Urine Nitrite Positive (NEGATIVE) H Urine Bilirubin Negative (NEGATIVE) Urine Urobilinogen Normal MG/DL (0.0-1.0) Urine Leukocyte Esterase 3+ (NEGATIVE) H Urine RBC 0-2 /HPF (0 - 2) Urine WBC 2-4 /HPF (0 - 2) Urine Squamous Epithelial Cells Few /LPF (NONE/OCC) Urine Triple Phosphate Crystals Moderate /LPF (NONE) H Urine Bacteria Many /HPF (NONE) H Sodium Level 132 MMOL/L (136-145) L Potassium Level 5.3 MMOL/L (3.5-5.1) H Chloride Level 96 MMOL/L (98-107) L Carbon Dioxide Level 32 MMOL/L (21-32) Anion Gap 4 mmol/L (5-15) L Blood Urea Nitrogen 20 mg/dL (7-18) H Creatinine 0.4 MG/DL (0.55-1.30) L Estimat Glomerular Filtration Rate > 60 mL/min (>60) Glucose Level 222 MG/DL (74-106) H Lactic Acid Level 2.00 mmol/L (0.4-2.0) Calcium Level 9.4 MG/DL (8.5-10.1) Ferritin 285 NG/ML (8-388) Total Bilirubin 0.4 MG/DL (0.2-1.0) Aspartate Amino Transf (AST/SGOT) 76 U/L (15-37) H Alanine Aminotransferase (ALT/SGPT) 63 U/L (12-78) Alkaline Phosphatase 182 U/L (46-116) H Lactate Dehydrogenase 228 U/L (81-234) Total Creatine Kinase 64 U/L (26-308) Creatine Kinase MB 1.5 NG/ML (0.0-3.6) Creatine Kinase MB Relative Index 2.3 Troponin I 0.007 ng/mL (0.000-0.056) C-Reactive Protein, Quantitative 0.7 mg/dL (0.00-0.90) Pro-B-Type Natriuretic Peptide 127 pg/mL (0-125) H Total Protein 9.4 G/DL (6.4-8.2) H Albumin 3.4 G/DL (3.4-5.0) Globulin 6.0 g/dL Albumin/Globulin Ratio 0.6 (1.0-2.7) L Lipase 505 U/L (73-393) H Arterial Blood pH 7.254 (7.350-7.450) Arterial Blood Partial Pressure CO2 72.1 mmHg (35.0-45.0) *H Arterial Blood Partial Pressure O2 110.9 mmHg (75.0-100.0) H Arterial Blood HCO3 31.2 mmol/L (22.0-26.0) H Arterial Blood Oxygen Saturation 97.8 % (95-100) Arterial Blood Base Excess 2.2 (-2-2) H Madhu Test Positive EKG Diagnostic Results Troponin ordered: Yes Rate: normal Rhythm: NSR ST Segments: other - twave inversions in lateral leads ASA given to the pt in ED: No Rhythm Strip Diag. Results EP Interpretation: yes Rhythm: NSR, no PVC's, no ectopy Chest X-Ray Diagnostic Results Chest X-Ray Diagnostic Results : Chest X-Ray Ordered: Yes # of Views/Limited/Complete: 1 View Indication: Shortness of Breath EP Interpretation: Yes Interpretation: no pneumothorax, other - Elevated right hemidiaphragm, bilateral opacities, trach Impression: Other - Pneumonia Electronically Signed by: Electronically signed by Norberto Barton MD Last Vital Signs Date Time Temp Pulse Resp B/P (MAP) Pulse Ox O2 Delivery O2 Flow Rate FiO2 04/09/20 09:20 116 14 100 04/09/20 09:00 Mechanical Ventilator 04/09/20 09:00 97.9 208/98 90 Status: improved Disposition: ADMITTED INPATIENT Condition: Serious Referrals: Delmy Pardo MD (PCP) Norberto Barton MD Apr 09, 2020 11:15
--- NOTE | 2020-04-09 11:34 | Consultation ---
History of Present Illness General Date patient seen: Apr 09, 2020 Time patient seen: 11:32 Chief Complaint: Chest Pain Referring physician: PCP Reason for Consultation: Sepsis Present Illness HPI 70yo F who presents from SNF with CP and low O2 sat, pt is s/p trach. No fevers/chills. Recently treated with abx for UTI. No other new issues. Pt is nonverbal, s/p trach/PEG, but awake, smiling. Slightly hypotensive currently in ED, going to get IVF D/w ED MD. Allergies: Coded Allergies: No Known Allergies (Unverified , 03/03/19) Medication History Scheduled Ascorbic Acid* (Vitamin C*), 500 MG ORAL DAILY, (Reported) Atorvastatin Calcium* (Lipitor*), 10 MG GT BEDTIME, (Reported) Chlorhexidine Gluconate* (Hibiclens*), 15 ML DT BID, (Reported) Cholecalciferol (Vitamin D3) (Vitamin D3*), 25 MCG PO DAILY, (Reported) Cran/Vitc/Mannose/Inulin/Brom (Uti-Stat Liquid), 30 ML GT BID, (Reported) Docusate Sodium* (Colace*), 100 MG GT TWICE A DAY, (Reported) Enalapril Maleate* (Enalapril Maleate*), 2.5 MG GT BID, (Reported) Ertapenem (Invanz), 1 GM IV DAILY, (Reported) Famotidine* (Pepcid 20mg tablet*), 20 MG GT DAILY, (Reported) Gel Base No.41 (Hydrogel), Unknown Dose TP DAILY, (Reported) Magnesium Hydroxide* (Milk Of Magnesia*), 30 ML GT DAILY, (Reported) Metformin Hcl* (Metformin Hcl*), 500 MG ORAL TWICE A DAY, (Reported) Na Phos,M-B/Na Phos,Di-Ba* (Fleet Enema*), 133 ML RECTAL DAILY, (Reported) Oxybutynin Chloride (Ditropan Xl), 5 MG ORAL DAILY, (Reported) Pantoprazole* (Protonix*), 40 MG IV DAILY, (Reported) Polyvinyl Alcohol (Polyvinyl Alcohol), 2 DROP OP Q2H, (Reported) Quetiapine Fumarate* (Seroquel*), 25 MG GT DAILY, (Reported) Spironolactone* (Spironolactone*), 25 MG GT DAILY, (Reported) Zinc Oxide (Zinc Oxide), 56.7 GM TP DAILY, (Reported) Scheduled PRN Acetaminophen* (Acetaminophen 325MG Tablet*), 650 MG ORAL Q4H PRN for Mild Pain/Temp > 100.5, (Reported) Carvedilol* (Carvedilol*), 3.125 MG GT EVERY 12 HOURS PRN for For High Blood Pressure, (Reported) Clonazepam (Clonazepam), 0.125 MG GT BID PRN for For Anxiety, (Reported) Diphenhydramine Hcl* (Diphenhydramine Hcl*), 25 MG GT BEDTIME PRN for Itching, (Reported) Levalbuterol Hcl (Xopenex*), 0.63 MG HHN Q6H PRN for Shortness of Breath, (Reported) Ondansetron* (Zofran*), 4 MG ORAL Q6H PRN for Nausea & Vomiting, (Reported) Tramadol Hcl* (Ultram*), 50 MG ORAL Q8HR PRN for For Pain, (Reported) Miscellaneous Medications Dextran 70/Hypromellose (Artificial Tears Eye Drops*), 1 DROP BOTH EYES, ( Reported) Lactobacillus Acidophilus (Acidophilus), 1 EACH PO, (Reported) Levalbuterol Tartrate (Xopenex Hfa), 15 GM IH, (Reported) Vit B Cmplx 3/Fa/Vit C/Biotin (Margareth-Demetrius Rx Tablet), 1 EACH PO, (Reported) Patient History Healthcare decision maker Resuscitation status Advanced Directive on File Review of Systems ROS Narrative Unable to assess 2/2 pt status Physical Exam Physical Exam Narrative Gen: NAD HEENT: NCAT, trach CV: RRR Pulm: Rhonchi BL anteriorly Abd: Soft, NTND, +PEG Ext: No c/c/e Neuro: Awake Last 24 Hour Vital Signs Date Time Temp Pulse Resp B/P (MAP) Pulse Ox O2 Delivery O2 Flow Rate FiO2 04/09/20 09:20 116 14 100 04/09/20 09:00 107 24 Mechanical Ventilator 04/09/20 09:00 97.9 110 24 208/98 90 Mechanical Ventilator 04/09/20 08:52 97.9 107 24 227/135 (165) 90 Mechanical Ventilator Laboratory Tests Test 04/09/20 08:45 04/09/20 09:08 White Blood Count 25.0 K/UL (4.8-10.8) *H Red Blood Count 5.74 M/UL (4.20-5.40) H Hemoglobin 14.0 G/DL (12.0-16.0) Hematocrit 49.2 % (37.0-47.0) H Mean Corpuscular Volume 86 FL (80-99) Mean Corpuscular Hemoglobin 24.4 PG (27.0-31.0) L Mean Corpuscular Hemoglobin Concent 28.5 G/DL (32.0-36.0) L Red Cell Distribution Width 18.2 % (11.6-14.8) H Platelet Count 385 K/UL (150-450) Mean Platelet Volume 7.3 FL (6.5-10.1) Neutrophils (%) (Auto) % (45.0-75.0) Lymphocytes (%) (Auto) % (20.0-45.0) Monocytes (%) (Auto) % (1.0-10.0) Eosinophils (%) (Auto) % (0.0-3.0) Basophils (%) (Auto) % (0.0-2.0) Differential Total Cells Counted 100 Neutrophils % (Manual) 72 % (45-75) Lymphocytes % (Manual) 20 % (20-45) Monocytes % (Manual) 4 % (1-10) Eosinophils % (Manual) 4 % (0-3) H Basophils % (Manual) 0 % (0-2) Band Neutrophils 0 % (0-8) Platelet Estimate Adequate Platelet Morphology Normal Anisocytosis 1+ Prothrombin Time 10.8 SEC (9.30-11.50) Prothromb Time International Ratio 1.0 (0.9-1.1) Activated Partial Thromboplast Time 29 SEC (23-33) D-Dimer 1.23 mg/L FEU (0.00-0.49) H Urine Color Pale yellow Urine Appearance Slightly cloudy Urine pH 9 (4.5-8.0) Urine Specific [place] 1.015 (1.005-1.035) Urine Protein Negative (NEGATIVE) Urine Glucose (UA) Negative (NEGATIVE) Urine Ketones Negative (NEGATIVE) Urine Blood Negative (NEGATIVE) Urine Nitrite Positive (NEGATIVE) H Urine Bilirubin Negative (NEGATIVE) Urine Urobilinogen Normal MG/DL (0.0-1.0) Urine Leukocyte Esterase 3+ (NEGATIVE) H Urine RBC 0-2 /HPF (0 - 2) Urine WBC 2-4 /HPF (0 - 2) Urine Squamous Epithelial Cells Few /LPF (NONE/OCC) Urine Triple Phosphate Crystals Moderate /LPF (NONE) H Urine Bacteria Many /HPF (NONE) H Sodium Level 132 MMOL/L (136-145) L Potassium Level 5.3 MMOL/L (3.5-5.1) H Chloride Level 96 MMOL/L (98-107) L Carbon Dioxide Level 32 MMOL/L (21-32) Anion Gap 4 mmol/L (5-15) L Blood Urea Nitrogen 20 mg/dL (7-18) H Creatinine 0.4 MG/DL (0.55-1.30) L Estimat Glomerular Filtration Rate > 60 mL/min (>60) Glucose Level 222 MG/DL (74-106) H Lactic Acid Level 2.00 mmol/L (0.4-2.0) Calcium Level 9.4 MG/DL (8.5-10.1) Ferritin 285 NG/ML (8-388) Total Bilirubin 0.4 MG/DL (0.2-1.0) Aspartate Amino Transf (AST/SGOT) 76 U/L (15-37) H Alanine Aminotransferase (ALT/SGPT) 63 U/L (12-78) Alkaline Phosphatase 182 U/L (46-116) H Lactate Dehydrogenase 228 U/L (81-234) Total Creatine Kinase 64 U/L (26-308) Creatine Kinase MB 1.5 NG/ML (0.0-3.6) Creatine Kinase MB Relative Index 2.3 Troponin I 0.007 ng/mL (0.000-0.056) C-Reactive Protein, Quantitative 0.7 mg/dL (0.00-0.90) Pro-B-Type Natriuretic Peptide 127 pg/mL (0-125) H Total Protein 9.4 G/DL (6.4-8.2) H Albumin 3.4 G/DL (3.4-5.0) Globulin 6.0 g/dL Albumin/Globulin Ratio 0.6 (1.0-2.7) L Lipase 505 U/L (73-393) H Arterial Blood pH 7.254 (7.350-7.450) Arterial Blood Partial Pressure CO2 72.1 mmHg (35.0-45.0) *H Arterial Blood Partial Pressure O2 110.9 mmHg (75.0-100.0) H Arterial Blood HCO3 31.2 mmol/L (22.0-26.0) H Arterial Blood Oxygen Saturation 97.8 % (95-100) Arterial Blood Base Excess 2.2 (-2-2) H Madhu Test Positive Microbiology Date/Time Source Procedure Growth Status 04/09/20 09:00 Rectum Received 04/09/20 08:45 Nasopharynx SARS-CoV-2 RdRp Gene Assay - Final Complete Height (Feet): 5 Height (Inches): 6.00 Weight (Pounds): 150 Medications Current Medications Medications (Trade) Dose Ordered Sig/Rizwana Route PRN Reason Start Time Stop Time Status Last Admin Dose Admin Sodium Chloride 1,000 ml @ 999 mls/hr Q1H1M ONCE IV 04/09/20 11:30 04/09/20 12:30 Assessment/Plan Assessment/Plan: 70yo F with: Afebrile Leukocytosis to 25 Hypoxia S/p trach on vent Hypotension 04/09 BCx p COVID rapid test neg UA neg, UCx p Cr 0.4 PMH: Spinal injury Quadriplegia HTN Cardiomyopathy GERD Chronic respiratory failure trach/vent dependant Dysphagia s/p GT hx of PNA Constipation Tardive dyskinesia [facility] resident Plan: Start vanco IV empiric Cont Zosyn #1 for pna Obtain resp cx MRSA nares F/u BCx, UCx Trend WBC Trend BP, if very hypotensive can broaden to meropenem Monitor CBC/CMP Monitor resp status Monitor temp curve, hemodynamics D/w RN and ED MD Thank you for this consult. [facility] will continue to follow. Jacquie Slaughter M.D. Apr 09, 2020 11:34
[2020-04-09 13:00] VITALS: BP 107/75
[2020-04-09] MEDS ORDERED: Vancomycin 500mg/D5W 110ml IVPB SCH ×2 (13:00)
--- NOTE | 2020-04-09 13:20 | Operative Note - PDOC ---
Operative Note Operative Note Date of Operation/Procedure: Apr 09, 2020 Pre-op Diagnosis: Sepsis, leukocytosis, hypotension Procedure: Right femoral central venous catheter insertion Post-op Diagnosis: same as pre-op Surgeon: Mauro Roldan MD Anesthesia: local Specimen: none Complications: none Condition: unstable Fluids: Not applicable Estimated Blood Loss: minimal Drains: none Implant(s) used?: No Indications for Procedure 70-year-old female presented from care facility identified to have leukocytosis hypotension trach on vent support. Patient being resuscitated in the emergency department when identified to be hypotensive and required central venous catheter insertion for fluids with poor peripheral access. Surgery called to evaluate and assist patient seen in emergency department consent was obtained from the patient's daughter Description of Procedure Patient was made comfortable the bedside in the supine position the right groin was prepped and draped in the same surgical fashion. Anatomic landmarks identified. Local anesthetic infiltrated. The right femoral vein was cannulated on first stick without complication good venous flow identified. Guidewire placed through the needle needle removed. Small skin incision made around the guidewire. Dilator used and tract was dilated. Triple-lumen catheter inserted over guidewire without complication. Guidewire was removed and discarded. Line was sutured in place. Dressings were applied. All the 3 ports flushed and aspirated appropriately without complication. Line okay to use. Mauro Roldan Apr 09, 2020 13:20
[2020-04-09 13:58] VITALS: BP 106/65
[2020-04-09] MEDS ORDERED: Zosyn 3.375gm in NS 110ml IVPB SCH ×2 (14:00→18:00)
[2020-04-09 16:00] VITALS: BP 106/72
[2020-04-09] MEDS ORDERED: Sodium Polystyrene Sulfonate 15gm Powder GT SCH (16:06)
[2020-04-09] MEDS ORDERED: clonazePAM 0.5mg tab GT PRN (16:15)
[2020-04-09] MEDS ORDERED: Vancomycin 500 MG in D5W 110 ML IVPB SCH (17:15)
[2020-04-09] MEDS: Zosyn 3.375gm in NS 110ml IVPB SCH (17:38)
[2020-04-09] MEDS: Vancomycin 500mg/D5W 110ml IVPB SCH ×2 (17:47)
[2020-04-09] MEDS ORDERED: Piperacillin/Tazobactam 3.375 GM in NS 110 ML IVPB SCH (18:00)
[2020-04-09 18:18] LABS: APPEARANCE,URINE VERY CLOUDY; BILIRUBIN, URINE NEGATIVE (NEGATIVE); GLUCOSE, URINE (UA) NEGATIVE (NEGATIVE); KETONES,URINE NEGATIVE (NEGATIVE); LEUKOCYTE ESTERASE ,URINE 3+ (NEGATIVE); NITRITE,URINE POSITIVE (NEGATIVE); PH,URINE 9 (4.5-8.0); PROTEIN,URINE 2+ (NEGATIVE); UROBILINOGEN,URINE NORMAL MG/DL (0.0-1.0)
[2020-04-09 18:22] LABS: COLOR,URINE YELLOW
[2020-04-09] MEDS: Levalbuterol Inh UD 1.25mg/0.5ml HHN SCH (19:21)
[2020-04-09 20:00] VITALS: BP 108/68
--- NOTE | 2020-04-09 20:00 | Consultation ---
DATE OF CONSULTATION: 04/09/2020 CARDIOLOGY CONSULTATION CONSULTING PHYSICIAN: Altaf Mchugh MD. REFERRING PHYSICIAN: Delmy Pardo MD. REASON FOR CONSULTATION: Hypotension and arrhythmias. HISTORY OF PRESENT ILLNESS: This 70-year-old female with tracheostomy and respiratory failure, [facility] with hypoxia, chest pain, and shortness of breath. She was noted to be hypotensive in the emergency room. She was pancultured and started on antimicrobials. She has had episodes of bigeminy and ventricular ectopy. I have been asked to assist with cardiovascular care. The patient is unable to give historical data. Records are reviewed and discussions with primary care physician undertaken as well. PAST MEDICAL HISTORY: Includes respiratory failure, tracheostomy, quadriplegia following spinal cord injury, dysphagia with G-tube, hypertension, hypertensive cardiomyopathy, gastroesophageal reflux disease, constipation, tardive dyskinesias, hyperlipidemia, and dementia with agitation. ALLERGIES: None. MEDICATIONS: Reviewed and reconciled. FAMILY HISTORY: Not known. SOCIAL HISTORY: Not obtainable presently. REVIEW OF SYSTEMS: Cannot be reliably obtained from the patient. However, extensive chart reviews undertaken with pertinent data outlined above. PHYSICAL EXAMINATION: VITAL SIGNS: Initial blood pressure 227/135, heart rate 107, respiratory rate 24, and afebrile. Subsequently 91/68, 98, 16. HEENT: Oropharynx is clear. NECK: With tracheostomy and thin secretions. LUNGS: With bilateral rhonchi. CARDIAC: Regular rhythm and rate. Normal S1, S2 with occasional ectopic beats. No appreciable murmur. ABDOMEN: Soft and nontender with G-tube intact. EXTREMITIES: Revealed contractures and muscle atrophy. Trace dependent edema. SKIN: Without rash or decubitus to the extent visualized. DIAGNOSTIC DATA: Chest x-ray reveals bilateral interstitial opacities. EKG reveals sinus rhythm with T-wave inversions in the lateral leads. LABORATORY DATA: White count 25, hemoglobin 14, platelets 385,000. ABG - 7.25, 72, 110. Lactic acid 2. Troponin negative. Urinalysis with 2 to 4 white cells and many bacteria. IMPRESSION: 1. Shock, sepsis. 2. Hypovolemia. 3. Acute myocardial ischemia. 4. Nonsustained ventricular arrhythmias. 5. Healthcare-associated pneumonia. 6. Respiratory failure with tracheostomy. 7. Dysphagia with G-tube. 8. Hypertensive cardiomyopathy with labile blood pressure. 9. Acute respiratory acidosis PLAN: 1. Volume support with isotonic fluids. 2. Vent support - adjust settings. 3. Antimicrobials. 4. Respiratory hygiene. 5. Limit beta-agonist. 6. DVT prophylaxis. 7. Echocardiogram to assess left ventricular function. 8. Titrate beta-ariel once blood pressure parameters are stable and we will consider additional antiarrhythmics should there be signs of systolic left ventricular dysfunction. Altaf Mchugh M.D. DR: RADHA JOB#: [id number] CC: ROLLY
[2020-04-10] VITALS: BP 108/55
[2020-04-10] MEDS: Zosyn 3.375gm in NS 110ml IVPB SCH ×3 (01:58→17:45)
--- NOTE | 2020-04-10 02:29 | History and Physical Report ---
DATE OF ADMISSION: 04/09/2020 This is the first admission to [facility] of 70 years old lady because of chest pain and right lower lobe pneumonia. HISTORY OF PRESENT ILLNESS: The patient is a resident of an extended care facility subacute unit, where she has been in stable condition now for more than 9 months. She is known to have several chronic medical syndrome that will be described in the following paragraphs, but has been stable on current medication. During the early hours of the morning, the patient developed chest pain, shortness of breath, tachycardia without fever, and O2 saturation in the upper 70. She was transferred to [facility] ER by street commissioner, where she was assessed and was found to be initially hypotensive, tachycardic and hypoxic. However, after respiratory therapy that included frequent suction, the patient's condition stabilized, assessment for myocardial injury was negative. The patient's O2 saturation natalia to 98. Chest x-ray showed right lower lobe infiltrate and the patient was admitted. PAST MEDICAL HISTORY: More than a year ago, the patient underwent cervical surgery following which she became quadriplegic. In addition, she is known to have hyperlipidemia. She became respiratory dependent, underwent tracheostomy and gastrostomy and referred to subacute unit. In addition, the patient has neurogenic bladder, chronic psychosis, mood disorder, chronic pain disorder, hyperlipidemia and hypovitaminosis D. ALLERGIES: No known drug allergy. MEDICATIONS: The patient has been on respiratory therapy with albuterol sulfate and ipratropium bromide inhalation therapy every 6 hours. She is on atorvastatin 10 mg daily, vitamin D3 5000 units via G-tube daily. She is on Seroquel 50 mg at bedtime, Klonopin 0.125 mg b.i.d., tramadol 50 mg t.i.d. FAMILY HISTORY: Noncontributory. 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 HABITS: The patient did not smoke, drink, or use illicit drugs. REVIEW OF SYSTEMS: The patient is unable to give any information regarding her state of health. However, she is able to answer, yes and no by head nod. PHYSICAL EXAMINATION: VITAL SIGNS: Blood pressure is 91/68, pulse is 98, respirations are 16, temperature 97.9. HEENT: Eyes were normal. Pupils were round, equal, and reactive to light. Sclerae was white. Conjunctiva was pink. Extraocular movements were normal. Temporal arteries were palpable bilaterally. There was no bilateral temporal wasting. Visual field to confrontation. Neglect sign appeared normal. Ear, nose, and throat mucous membranes were not dehydrated. Auditory canals were clear and tympanic membranes could not be visualized. Nasal cavity was not congested. Nasal septum was intact. Soft palate was free of ulcerations. Pharynx, uvula could not be visualized. Tongue was moist, midline, and normally papillated. NECK: Supple. There was no goiter. No mass. No lymphadenopathy. There was no JVD. No bruits. Carotid upstroke was 2+. Tracheostomy site was clean. LUNGS: There is bilateral rhonchi at both bases only. HEART: PMI was in fourth left intercostal space midclavicular line. There was normal S1 and normal S2. There was no murmur. No arrhythmia. No S3. No S4. No pericardial rub. ABDOMEN: Soft and nontender without organomegaly. There were no masses palpable. Normal bowel sounds without bruits. There was no guarding. No rebound tenderness. No ascites. No hernia. No CVA tenderness. Liver span was 8 cm, mostly nontender. EXTREMITIES: No cyanosis, no clubbing, and no edema. Extremities were warm. NEUROLOGICAL: Reflexes in biceps, triceps, and brachioradialis were present. Patellar retinaculum were difficult to obtain. Plantars were in flexion. Cranial nerves II to XII were symmetric and equal. Cerebellar function, there was no tremor. No nystagmus. No extrapyramidal rigidity. The patient's oral cavity is persistently open, but tongue remained in midline. There was facial symmetry. LABORATORY AND DIAGNOSTIC DATA: Hemoglobin is 14.0, hematocrit 49.2 with MCV of 86, WBC of 25,000, and platelets 385. Her BUN and creatinine is 20 and 0.4 respectively. Her sodium is 142, potassium 5.3, chloride 96, CO2 is 32. Her lactic acid was 2. Her albumin was 3.4 and total protein of 9.4. Her lipase is 505. Total CK 64, troponin is 0.007. Glucose was 222. LDH was 228. Her urinalysis was clean with WBC of 5 to 10 per high-power field. INR was 1, PTT was 29, and D-dimer was 1.23. The COVID-19 was negative. The chest shows cardiomegaly, small bilateral pleural effusion and patchy opacity of the right lung base. PLAN: The patient was placed on Zosyn 3.375 g IV piggyback every six hours, vancomycin 1 g IV piggyback q.12. Infectious Disease oracle application consultant and Pulmonary consultants were called to assist in the management of this case. Repeat laboratory tests will be done in the a.m. Delmy Pardo M.D. DR: Vesna JOB#: [id number] CC:
[2020-04-10 04:00] VITALS: BP 128/83
[2020-04-10] MEDS: Vancomycin 500mg/D5W 110ml IVPB SCH ×4 (04:21→16:04)
[2020-04-10 08:00] VITALS: BP 129/79
[2020-04-10] MEDS: Levalbuterol Inh UD 1.25mg/0.5ml HHN SCH ×3 (08:00→19:02)
[2020-04-10 08:12] LABS: BASOPHILS % (AUTO) 0.8 % (0.0-2.0); EOSINOPHILS % (AUTO) 4.5 % (0.0-3.0); HEMOGLOBIN 10.1 G/DL (12.0-16.0); LYMPHOCYTES % (AUTO) 18.3 % (20.0-45.0); MEAN CORPUSCULAR VOLUME 85 FL (80-99); MONOCYTES % (AUTO) 4.8 % (1.0-10.0); NEUTROPHILS % (AUTO) 71.6 % (45.0-75.0); PLATELET COUNT 254 K/UL (150-450); RED BLOOD COUNT 4.12 M/UL (4.20-5.40); RED CELL DISTRIBUTION WIDTH 17.7 % (11.6-14.8); WHITE BLOOD COUNT 11.2 K/UL (4.8-10.8)
[2020-04-10 08:44] LABS: ALANINE AMINOTRANSFERASE 49 U/L (12-78); ALBUMIN 2.5 G/DL (3.4-5.0); ALBUMIN/GLOBULIN RATIO 0.6 (1.0-2.7); ALKALINE PHOSPHATASE 117 U/L (46-116); ANION GAP 5 mmol/L (5-15); ASPARTATE AMINO TRANSFERASE 36 U/L (15-37); BILIRUBIN,TOTAL 0.3 MG/DL (0.2-1.0); BLOOD UREA NITROGEN 16 mg/dL (7-18); CALCIUM 8.3 MG/DL (8.5-10.1); CARBON DIOXIDE 31 MMOL/L (21-32); CHLORIDE 103 MMOL/L (98-107); CREATININE 0.5 MG/DL (0.55-1.30); POTASSIUM 3.5 MMOL/L (3.5-5.1); SODIUM 139 MMOL/L (136-145)
[2020-04-10] MEDS: Heparin 5000 units/ml inj SUBQ SCH ×2 (09:00→20:35)
[2020-04-10] MEDS: Ascorbic Acid 500mg tab GT SCH (09:54)
--- NOTE | 2020-04-10 09:56 | Diagnostic Imaging Report ---
EXAM: XR Chest, 1 View CLINICAL HISTORY: CP TECHNIQUE: Frontal view of the chest. COMPARISON: Chest radiograph April 09, 2020 FINDINGS/IMPRESSION: Midline tracheostomy tube. Low lung volumes secondary to poor inspiration. Airspace opacities in the bilateral lower lung field, correlate for infiltrate. Superimposed atelectasis not excluded. Small left pleural effusion. Mild-moderate vascular congestion. No pneumothorax. Cardiomegaly. Calcified, tortuous aorta. When compared to yesterday's chest radiograph there is mild improvement in the degree of aeration. Continued chest radiograph follow-up recommended.
--- NOTE | 2020-04-10 10:28 | Consultation ---
History of Present Illness General Chief Complaint: Chest Pain Referring physician: PCP Reason for Consultation: Sepsis Present Illness Allergies: Coded Allergies: No Known Allergies (Unverified , 03/03/19) Medication History Scheduled Ascorbic Acid* (Vitamin C*), 500 MG ORAL DAILY, (Reported) Atorvastatin Calcium* (Lipitor*), 10 MG GT BEDTIME, (Reported) Chlorhexidine Gluconate* (Hibiclens*), 15 ML DT BID, (Reported) Cholecalciferol (Vitamin D3) (Vitamin D3*), 25 MCG PO DAILY, (Reported) Cran/Vitc/Mannose/Inulin/Brom (Uti-Stat Liquid), 30 ML GT BID, (Reported) Docusate Sodium* (Colace*), 100 MG GT TWICE A DAY, (Reported) Enalapril Maleate* (Enalapril Maleate*), 2.5 MG GT BID, (Reported) Ertapenem (Invanz), 1 GM IV DAILY, (Reported) Famotidine* (Pepcid 20mg tablet*), 20 MG GT DAILY, (Reported) Gel Base No.41 (Hydrogel), Unknown Dose TP DAILY, (Reported) Magnesium Hydroxide* (Milk Of Magnesia*), 30 ML GT DAILY, (Reported) Metformin Hcl* (Metformin Hcl*), 500 MG ORAL TWICE A DAY, (Reported) Na Phos,M-B/Na Phos,Di-Ba* (Fleet Enema*), 133 ML RECTAL DAILY, (Reported) Oxybutynin Chloride (Ditropan Xl), 5 MG ORAL DAILY, (Reported) Pantoprazole* (Protonix*), 40 MG IV DAILY, (Reported) Polyvinyl Alcohol (Polyvinyl Alcohol), 2 DROP OP Q2H, (Reported) Quetiapine Fumarate* (Seroquel*), 25 MG GT DAILY, (Reported) Spironolactone* (Spironolactone*), 25 MG GT DAILY, (Reported) Zinc Oxide (Zinc Oxide), 56.7 GM TP DAILY, (Reported) Scheduled PRN Acetaminophen* (Acetaminophen 325MG Tablet*), 650 MG ORAL Q4H PRN for Mild Pain/Temp > 100.5, (Reported) Carvedilol* (Carvedilol*), 3.125 MG GT EVERY 12 HOURS PRN for For High Blood Pressure, (Reported) Clonazepam (Clonazepam), 0.125 MG GT BID PRN for For Anxiety, (Reported) Diphenhydramine Hcl* (Diphenhydramine Hcl*), 25 MG GT BEDTIME PRN for Itching, (Reported) Levalbuterol Hcl (Xopenex*), 0.63 MG HHN Q6H PRN for Shortness of Breath, (Reported) Ondansetron* (Zofran*), 4 MG ORAL Q6H PRN for Nausea & Vomiting, (Reported) Tramadol Hcl* (Ultram*), 50 MG ORAL Q8HR PRN for For Pain, (Reported) Miscellaneous Medications Dextran 70/Hypromellose (Artificial Tears Eye Drops*), 1 DROP BOTH EYES, (Reported) Lactobacillus Acidophilus (Acidophilus), 1 EACH PO, (Reported) Levalbuterol Tartrate (Xopenex Hfa), 15 GM IH, (Reported) Vit B Cmplx 3/Fa/Vit C/Biotin (Margareth-Demetrius Rx Tablet), 1 EACH PO, (Reported) Patient History Healthcare decision maker N Resuscitation status Advanced Directive on File Physical Exam Last 24 Hour Vital Signs Date Time Temp Pulse Resp B/P (MAP) Pulse Ox O2 Delivery O2 Flow Rate FiO2 04/10/20 09:00 76 04/10/20 07:29 42 10 100 Mechanical Ventilator 35 49 10 35 04/10/20 04:00 Mechanical Ventilator 04/10/20 04:00 76 04/10/20 04:00 35 04/10/20 04:00 96.9 78 11 128/83 (98) 99 04/10/20 02:54 77 10 35 04/10/20 00:00 97.2 76 13 108/55 (72) 99 04/10/20 00:00 Mechanical Ventilator 04/10/20 00:00 35 04/10/20 00:00 75 04/09/20 22:43 80 11 35 04/09/20 20:00 97.0 74 13 108/68 (81) 99 04/09/20 20:00 73 04/09/20 20:00 Mechanical Ventilator 04/09/20 20:00 60 04/09/20 19:32 35 04/09/20 19:21 72 10 98 40 76 14 04/09/20 16:00 97.2 79 10 106/72 (83) 99 04/09/20 16:00 Mechanical Ventilator 04/09/20 16:00 60 04/09/20 15:24 75 04/09/20 15:00 76 10 40 04/09/20 15:00 76 10 100 Mechanical Ventilator 40 04/09/20 13:58 97.7 87 17 106/65 (79) 98 04/09/20 13:40 Mechanical Ventilator 04/09/20 13:00 97.9 78 16 107/75 100 Mechanical Ventilator 100 04/09/20 13:00 97.9 78 16 107/75 100 Mechanical Ventilator 100 04/09/20 11:00 97.9 98 16 91/68 100 Mechanical Ventilator 100 04/09/20 10:30 97 12 100 Intake and Output 04/09/20 04/10/20 19:00 07:00 Intake Total 3260 ml 860 ml Output Total 1150 ml 7800 ml Balance 2110 ml -6940 ml Intake Free Water 20 ml 200 ml IV Total 3185 ml Tube Feeding 55 ml 660 ml Output Urine Total 1150 ml 7800 ml Laboratory Tests Test 04/09/20 18:00 04/09/20 19:25 04/10/20 06:30 Urine Color Yellow Urine Appearance Very cloudy Urine pH 9 (4.5-8.0) Urine Specific [place] 1.020 (1.005-1.035) Urine Protein 2+ (NEGATIVE) H Urine Glucose (UA) Negative (NEGATIVE) Urine Ketones Negative (NEGATIVE) Urine Blood 2+ (NEGATIVE) H Urine Nitrite Positive (NEGATIVE) H Urine Bilirubin Negative (NEGATIVE) Urine Urobilinogen Normal MG/DL (0.0-1.0) Urine Leukocyte Esterase 3+ (NEGATIVE) H Urine RBC 2-4 /HPF (0 - 2) H Urine WBC 5-10 /HPF (0 - 2) H Urine Squamous Epithelial Cells Moderate /LPF (NONE/OCC) H Urine Triple Phosphate Crystals Moderate /LPF (NONE) H Urine Bacteria Many /HPF (NONE) H Arterial Blood pH 7.363 (7.350-7.450) Arterial Blood Partial Pressure CO2 44.8 mmHg (35.0-45.0) Arterial Blood Partial Pressure O2 109.8 mmHg (75.0-100.0) H Arterial Blood HCO3 24.9 mmol/L (22.0-26.0) Arterial Blood Oxygen Saturation 98.0 % (95-100) Arterial Blood Base Excess -0.6 (-2-2) Madhu Test Positive White Blood Count 11.2 K/UL (4.8-10.8) #H Red Blood Count 4.12 M/UL (4.20-5.40) L Hemoglobin 10.1 G/DL (12.0-16.0) L Hematocrit 35.0 % (37.0-47.0) L Mean Corpuscular Volume 85 FL (80-99) Mean Corpuscular Hemoglobin 24.6 PG (27.0-31.0) L Mean Corpuscular Hemoglobin Concent 28.9 G/DL (32.0-36.0) L Red Cell Distribution Width 17.7 % (11.6-14.8) H Platelet Count 254 K/UL (150-450) Mean Platelet Volume 7.0 FL (6.5-10.1) Neutrophils (%) (Auto) 71.6 % (45.0-75.0) Lymphocytes (%) (Auto) 18.3 % (20.0-45.0) L Monocytes (%) (Auto) 4.8 % (1.0-10.0) Eosinophils (%) (Auto) 4.5 % (0.0-3.0) H Basophils (%) (Auto) 0.8 % (0.0-2.0) Sodium Level 139 MMOL/L (136-145) Potassium Level 3.5 MMOL/L (3.5-5.1) Chloride Level 103 MMOL/L (98-107) Carbon Dioxide Level 31 MMOL/L (21-32) Anion Gap 5 mmol/L (5-15) Blood Urea Nitrogen 16 mg/dL (7-18) Creatinine 0.5 MG/DL (0.55-1.30) L Estimat Glomerular Filtration Rate > 60 mL/min (>60) Glucose Level 115 MG/DL (74-106) #H Calcium Level 8.3 MG/DL (8.5-10.1) L Magnesium Level 1.8 MG/DL (1.8-2.4) Total Bilirubin 0.3 MG/DL (0.2-1.0) Aspartate Amino Transf (AST/SGOT) 36 U/L (15-37) Alanine Aminotransferase (ALT/SGPT) 49 U/L (12-78) Alkaline Phosphatase 117 U/L (46-116) H Pro-B-Type Natriuretic Peptide 439 pg/mL (0-125) H Total Protein 7.0 G/DL (6.4-8.2) Albumin 2.5 G/DL (3.4-5.0) L Globulin 4.5 g/dL Albumin/Globulin Ratio 0.6 (1.0-2.7) L Microbiology Date/Time Source Procedure Growth Status 04/09/20 18:00 Urine,Clean Catch Urine Culture - Preliminary NO GROWTH Resulted 04/09/20 11:50 Sputum Gram Stain - Final Resulted 04/09/20 11:50 Sputum Sputum Culture Pending Resulted Height (Feet): 5 Height (Inches): 6.00 Weight (Pounds): 150 Medications Current Medications Medications (Trade) Dose Ordered Sig/Rizwana Route PRN Reason Start Time Stop Time Status Last Admin Dose Admin Artificial Tears (Akwa-Tears) 2 drop Q2H PRN BOTH EYES Dry Eyes 04/10/20 07:00 05/10/20 06:59 Ascorbic Acid (Vitamin C) 500 mg DAILY GT 04/10/20 09:00 05/10/20 08:59 04/10/20 09:54 Atorvastatin Calcium (Lipitor) 10 mg BEDTIME GT 04/09/20 21:00 07/08/20 20:59 04/09/20 21:46 Chlorhexidine Gluconate (Julia-Hex 2%) 1 applic DAILY@2000 TOPIC 04/10/20 20:00 07/09/20 19:59 Clonazepam (KlonoPIN) 0.125 mg BIDPRN PRN GT For Anxiety 04/09/20 16:15 04/16/20 16:14 Heparin Sodium (Porcine) (Heparin 5000 units/ml) 5,000 units EVERY 12 HOURS SUBQ 04/10/20 09:00 05/25/20 08:59 Levalbuterol HCl (Xopenex) 0.63 mg TIDRT HHN 04/09/20 19:00 04/14/20 18:59 04/10/20 08:00 Piperacillin Sod/ Tazobactam Sod 3.375 gm/Sodium Chloride 110 ml @ 27.5 mls/hr Q8H IVPB 04/09/20 18:00 04/16/20 17:59 04/10/20 09:54 Quetiapine Fumarate (SEROqueL) 25 mg Q12HR GT 04/09/20 21:00 05/24/20 20:59 04/10/20 09:54 Tramadol HCl (Ultram) 50 mg Q8H PRN GT For Pain 04/09/20 16:15 04/16/20 16:14 Vancomycin HCl (Vanco pharmacy to dose) 1 ea DAILY PRN MISC Per rx protocol 04/09/20 11:45 05/09/20 11:44 Vancomycin HCl 500 mg/Dextrose 110 ml @ 110 mls/hr Q12HR@0500,1700 IVPB 04/09/20 17:15 04/14/20 17:14 04/10/20 04:21 Assessment/Plan Assessment/Plan: Hematology Consultation REQ MD: Delmy Pardo RFC: Anemia, High wbc DOS: 04/10/2020 ID 70yr-old female presents to ED for evaluation. Brought in by EMS from halfway facility. Reportedly had chest pain and low O2 sat per nursing. Patient on trach. Is able to verbalize if her cuff is deflated. States she was having chest pain. No fevers or chills. Daughter at bedside who is a surgical nurse at [employer]. States patient was recently treated for UTI with antibiotics. No other aggravating relieving factors. No other associated symptoms, seen by surg and id, is on abx, rapid drop in wbc and anemia, heme consulted. Allergies: No Known Allergies (Unverified , 03/03/19) COVID-19 Screening Contact w/high risk pt: No Experienced COVID-19 symptoms?: No COVID-19 Testing performed [employer]: Yes COVID-19 Screening: Negative COVID-19 COVID-19 Testing Source: nasal Patient History Past Medical History: HTN, dementia Past Surgical History: other - Trach Pertinent Family History: none Social History: Denies: smoking, alcohol use, drug use Immunizations: UTD Reviewed Nursing Documentation: PMH: Agreed; PSxH: Agreed Nursing Documentation-PMH Past Medical History: No History, Except For Hx Cardiac Problems: Yes Hx Hypertension: Yes Hx Cancer: No Hx Gastrointestinal Problems: Yes - dysphagia, gerd Hx Neurological Problems: Yes - quadriplegia Hx Parkinson's Disease: Yes Review of Systems All Other Systems: negative except mentioned in HPI Physical Exam Sp02 EP Interpretation: reviewed, normal General Appearance: no apparent distress, alert Head: normocephalic, atraumatic Heent: bilateral eye normal inspection s/P vent/trach Respiratory: chest non-tender, crackles, speaking full sentences CV: regular rate, rhythm, no edema Gastrointestinal: normal bowel sounds Genitourinary: normal inspection Skin: other - See nursing notes Lymphatic: no adenopathy Labs; reviewed Imaging: noted Assesment and Recs # Anemia of chronic disease due to underlying chronic medical issues, multifactorial v Gi bleed --> Anemia workup has been ordered, rule out gi bleed --> No evidence of hemolysis is noted, peripheral smear has been reviewed. --> Hgb goal >7. Transfuse prn. --> Epogen or iron at this time is not particularly indicated --> Medications have been reviewed --> low threshold for gi evaluation in case has occult + # Leukocytosis/elevated white blood cell count, unspecified likely related to underlying infection --> CXR with pna --> have reviewed peripheral smear and bandemia/neutrophilia noted --> ABX vanc/zosyn --> monitor for resolution --> wbc 25-->11 # Elevated ddimer --> venous duiplex legs # Chest pain rule out acs --> trop neg # Respiratory failure s/p trach/vent Placed on ventilator. # Nosocomial pneumonia # Dvt ppx heparin sq The timing of this note does not necessarily reflect the time of the patient was seen. Greatly appreciate consultation. Martin Hernandez MD Apr 10, 2020 10:28
--- NOTE | 2020-04-10 11:01 | Consultation ---
History of Present Illness General Date patient seen: Apr 10, 2020 Time patient seen: 09:45 Chief Complaint: Chest Pain Referring physician: Dr Pardo Reason for Consultation: chr resp failure, pneumonia Present Illness HPI 70 years old female, with past medical history of chronic ventilator dependent respiratory failure with tracheostomy status, COPD, hypertension, cardiomyopathy with EF 40%, quadriplegia, secondary to cervical injury from the surgery, dysphagia, feeding by G-tube, hyperlipidemia, chronic pain syndrome, psychosis , DNR/DNI status, was sent from the extended facility due to shortness of breath, chest pain , tachycardia and hypoxia. No reported fever or chills. Patient subsequently was transferred to emergency room for further evaluation and management. In emergency department patient was hypoxic , tachycardic and hypertensive with blood pressure 227/135. ABG revealed acidosis with hypercapnia. Chest x-ray showed bilateral infiltrates. Rapid COVID-19 was negative. Laboratory work-up revealed marked leukocytosis with WBC 25, stable hemoglobin and hematocrit. Lactic acid 2.0. Sodium 132, potassium 5.3. BUN 20, creatinine 0.2. Glucose 222. Troponin negative, pro BNP 127, EKG revealed T wave inversion in lateral leads , no acute ischemic changes UA with borerline pyuria and many bacteria. Patient received IV fluids, pancultured, started on empiric antibiotic . nebulizing treatment provided. Hyperkalemia was treated. Patient admitted to stepdown unit for further management. Pulmonary consult was requested to assist in management of this patient given chronic respiratory failure and healthcare associated pneumonia. Allergies: Coded Allergies: No Known Allergies (Unverified , 03/03/19) Medication History Scheduled Ascorbic Acid* (Vitamin C*), 500 MG ORAL DAILY, (Reported) Atorvastatin Calcium* (Lipitor*), 10 MG GT BEDTIME, (Reported) Chlorhexidine Gluconate* (Hibiclens*), 15 ML DT BID, (Reported) Cholecalciferol (Vitamin D3) (Vitamin D3*), 25 MCG PO DAILY, (Reported) Cran/Vitc/Mannose/Inulin/Brom (Uti-Stat Liquid), 30 ML GT BID, (Reported) Docusate Sodium* (Colace*), 100 MG GT TWICE A DAY, (Reported) Enalapril Maleate* (Enalapril Maleate*), 2.5 MG GT BID, (Reported) Ertapenem (Invanz), 1 GM IV DAILY, (Reported) Famotidine* (Pepcid 20mg tablet*), 20 MG GT DAILY, (Reported) Gel Base No.41 (Hydrogel), Unknown Dose TP DAILY, (Reported) Magnesium Hydroxide* (Milk Of Magnesia*), 30 ML GT DAILY, (Reported) Metformin Hcl* (Metformin Hcl*), 500 MG ORAL TWICE A DAY, (Reported) Na Phos,M-B/Na Phos,Di-Ba* (Fleet Enema*), 133 ML RECTAL DAILY, (Reported) Oxybutynin Chloride (Ditropan Xl), 5 MG ORAL DAILY, (Reported) Pantoprazole* (Protonix*), 40 MG IV DAILY, (Reported) Polyvinyl Alcohol (Polyvinyl Alcohol), 2 DROP OP Q2H, (Reported) Quetiapine Fumarate* (Seroquel*), 25 MG GT DAILY, (Reported) Spironolactone* (Spironolactone*), 25 MG GT DAILY, (Reported) Zinc Oxide (Zinc Oxide), 56.7 GM TP DAILY, (Reported) Scheduled PRN Acetaminophen* (Acetaminophen 325MG Tablet*), 650 MG ORAL Q4H PRN for Mild Pain/Temp > 100.5, (Reported) Carvedilol* (Carvedilol*), 3.125 MG GT EVERY 12 HOURS PRN for For High Blood Pressure, (Reported) Clonazepam (Clonazepam), 0.125 MG GT BID PRN for For Anxiety, (Reported) Diphenhydramine Hcl* (Diphenhydramine Hcl*), 25 MG GT BEDTIME PRN for Itching, (Reported) Levalbuterol Hcl (Xopenex*), 0.63 MG HHN Q6H PRN for Shortness of Breath, (Reported) Ondansetron* (Zofran*), 4 MG ORAL Q6H PRN for Nausea & Vomiting, (Reported) Tramadol Hcl* (Ultram*), 50 MG ORAL Q8HR PRN for For Pain, (Reported) Miscellaneous Medications Dextran 70/Hypromellose (Artificial Tears Eye Drops*), 1 DROP BOTH EYES, (Reported) Lactobacillus Acidophilus (Acidophilus), 1 EACH PO, (Reported) Levalbuterol Tartrate (Xopenex Hfa), 15 GM IH, (Reported) Vit B Cmplx 3/Fa/Vit C/Biotin (Margareth-Demetrius Rx Tablet), 1 EACH PO, (Reported) Patient History Limited by: medical condition History Provided By: Medical Record, EMS Healthcare decision maker N Resuscitation status DNR/DNI status Advanced Directive on File Past Medical/Surgical History Past Medical/Surgical History: (1) Feeding by G-tube (2) Chronic respiratory failure (3) Sacral decubitus ulcer, stage II (4) Cardiomyopathy (5) CHF (congestive heart failure) Review of Systems ROS Narrative not obtainable given pt medical condition Physical Exam General Appearance: other - bedridden, chroncially ill looking, on vetn AC awake and alert, able to follow simple commands Lines, tubes and drains: peripheral HEENT: normocephalic, atraumatic, anicteric Neck: non-tender, trach Respiratory/Chest: other - scattered rhonchi bilaterally Cardiovascular/Chest: normal rate, regular rhythm - SR with some PVC Abdomen: normal bowel sounds, non tender, soft, other - G tube Genitourinary/Rectal: other - Martin Extremities: non-tender, normal capillary refill, no edema Skin Exam: other - L heel dry scab Neurologic: abnormal gait, alert, other - awake, able to follow simple commands and comprehend simple phrases, quadriplegia Musculoskeletal: atrophy Last 24 Hour Vital Signs Date Time Temp Pulse Resp B/P (MAP) Pulse Ox O2 Delivery O2 Flow Rate FiO2 04/10/20 09:00 76 04/10/20 07:29 42 10 100 Mechanical Ventilator 35 49 10 35 04/10/20 04:00 Mechanical Ventilator 04/10/20 04:00 76 04/10/20 04:00 35 04/10/20 04:00 96.9 78 11 128/83 (98) 99 04/10/20 02:54 77 10 35 04/10/20 00:00 97.2 76 13 108/55 (72) 99 04/10/20 00:00 Mechanical Ventilator 04/10/20 00:00 35 04/10/20 00:00 75 04/09/20 22:43 80 11 35 04/09/20 20:00 97.0 74 13 108/68 (81) 99 04/09/20 20:00 73 04/09/20 20:00 Mechanical Ventilator 04/09/20 20:00 60 04/09/20 19:32 35 04/09/20 19:21 72 10 98 40 76 14 04/09/20 16:00 97.2 79 10 106/72 (83) 99 04/09/20 16:00 Mechanical Ventilator 04/09/20 16:00 60 04/09/20 15:24 75 04/09/20 15:00 76 10 40 04/09/20 15:00 76 10 100 Mechanical Ventilator 40 04/09/20 13:58 97.7 87 17 106/65 (79) 98 04/09/20 13:40 Mechanical Ventilator 04/09/20 13:00 97.9 78 16 107/75 100 Mechanical Ventilator 100 04/09/20 13:00 97.9 78 16 107/75 100 Mechanical Ventilator 100 04/09/20 11:00 97.9 98 16 91/68 100 Mechanical Ventilator 100 Intake and Output 04/09/20 04/10/20 19:00 07:00 Intake Total 3260 ml 860 ml Output Total 1150 ml 7800 ml Balance 2110 ml -6940 ml Intake Free Water 20 ml 200 ml IV Total 3185 ml Tube Feeding 55 ml 660 ml Output Urine Total 1150 ml 7800 ml Laboratory Tests Test 04/09/20 18:00 04/09/20 19:25 04/10/20 06:30 Urine Color Yellow Urine Appearance Very cloudy Urine pH 9 (4.5-8.0) Urine Specific [place] 1.020 (1.005-1.035) Urine Protein 2+ (NEGATIVE) H Urine Glucose (UA) Negative (NEGATIVE) Urine Ketones Negative (NEGATIVE) Urine Blood 2+ (NEGATIVE) H Urine Nitrite Positive (NEGATIVE) H Urine Bilirubin Negative (NEGATIVE) Urine Urobilinogen Normal MG/DL (0.0-1.0) Urine Leukocyte Esterase 3+ (NEGATIVE) H Urine RBC 2-4 /HPF (0 - 2) H Urine WBC 5-10 /HPF (0 - 2) H Urine Squamous Epithelial Cells Moderate /LPF (NONE/OCC) H Urine Triple Phosphate Crystals Moderate /LPF (NONE) H Urine Bacteria Many /HPF (NONE) H Arterial Blood pH 7.363 (7.350-7.450) Arterial Blood Partial Pressure CO2 44.8 mmHg (35.0-45.0) Arterial Blood Partial Pressure O2 109.8 mmHg (75.0-100.0) H Arterial Blood HCO3 24.9 mmol/L (22.0-26.0) Arterial Blood Oxygen Saturation 98.0 % (95-100) Arterial Blood Base Excess -0.6 (-2-2) Madhu Test Positive White Blood Count 11.2 K/UL (4.8-10.8) #H Red Blood Count 4.12 M/UL (4.20-5.40) L Hemoglobin 10.1 G/DL (12.0-16.0) L Hematocrit 35.0 % (37.0-47.0) L Mean Corpuscular Volume 85 FL (80-99) Mean Corpuscular Hemoglobin 24.6 PG (27.0-31.0) L Mean Corpuscular Hemoglobin Concent 28.9 G/DL (32.0-36.0) L Red Cell Distribution Width 17.7 % (11.6-14.8) H Platelet Count 254 K/UL (150-450) Mean Platelet Volume 7.0 FL (6.5-10.1) Neutrophils (%) (Auto) 71.6 % (45.0-75.0) Lymphocytes (%) (Auto) 18.3 % (20.0-45.0) L Monocytes (%) (Auto) 4.8 % (1.0-10.0) Eosinophils (%) (Auto) 4.5 % (0.0-3.0) H Basophils (%) (Auto) 0.8 % (0.0-2.0) Sodium Level 139 MMOL/L (136-145) Potassium Level 3.5 MMOL/L (3.5-5.1) Chloride Level 103 MMOL/L (98-107) Carbon Dioxide Level 31 MMOL/L (21-32) Anion Gap 5 mmol/L (5-15) Blood Urea Nitrogen 16 mg/dL (7-18) Creatinine 0.5 MG/DL (0.55-1.30) L Estimat Glomerular Filtration Rate > 60 mL/min (>60) Glucose Level 115 MG/DL (74-106) #H Calcium Level 8.3 MG/DL (8.5-10.1) L Magnesium Level 1.8 MG/DL (1.8-2.4) Total Bilirubin 0.3 MG/DL (0.2-1.0) Aspartate Amino Transf (AST/SGOT) 36 U/L (15-37) Alanine Aminotransferase (ALT/SGPT) 49 U/L (12-78) Alkaline Phosphatase 117 U/L (46-116) H Pro-B-Type Natriuretic Peptide 439 pg/mL (0-125) H Total Protein 7.0 G/DL (6.4-8.2) Albumin 2.5 G/DL (3.4-5.0) L Globulin 4.5 g/dL Albumin/Globulin Ratio 0.6 (1.0-2.7) L Microbiology Date/Time Source Procedure Growth Status 04/09/20 18:00 Urine,Clean Catch Urine Culture - Preliminary NO GROWTH Resulted 04/09/20 11:50 Sputum Gram Stain - Final Resulted 04/09/20 11:50 Sputum Sputum Culture Pending Resulted Height (Feet): 5 Height (Inches): 6.00 Weight (Pounds): 150 Medications Current Medications Medications (Trade) Dose Ordered Sig/Rizwana Route PRN Reason Start Time Stop Time Status Last Admin Dose Admin Artificial Tears (Akwa-Tears) 2 drop Q2H PRN BOTH EYES Dry Eyes 04/10/20 07:00 05/10/20 06:59 Ascorbic Acid (Vitamin C) 500 mg DAILY GT 04/10/20 09:00 05/10/20 08:59 04/10/20 09:54 Atorvastatin Calcium (Lipitor) 10 mg BEDTIME GT 04/09/20 21:00 07/08/20 20:59 04/09/20 21:46 Chlorhexidine Gluconate (Julia-Hex 2%) 1 applic DAILY@1999 TOPIC 04/10/20 20:00 07/09/20 19:59 Clonazepam (KlonoPIN) 0.125 mg BIDPRN PRN GT For Anxiety 04/09/20 16:15 04/16/20 16:14 Heparin Sodium (Porcine) (Heparin 5000 units/ml) 5,000 units EVERY 12 HOURS SUBQ 04/10/20 09:00 05/25/20 08:59 Levalbuterol HCl (Xopenex) 0.63 mg TIDRT HHN 04/09/20 19:00 04/14/20 18:59 04/10/20 08:00 Piperacillin Sod/ Tazobactam Sod 3.375 gm/Sodium Chloride 110 ml @ 27.5 mls/hr Q8H IVPB 04/09/20 18:00 04/16/20 17:59 04/10/20 09:54 Quetiapine Fumarate (SEROqueL) 25 mg Q12HR GT 04/09/20 21:00 05/24/20 20:59 04/10/20 09:54 Tramadol HCl (Ultram) 50 mg Q8H PRN GT For Pain 04/09/20 16:15 04/16/20 16:14 Vancomycin HCl (Vanco pharmacy to dose) 1 ea DAILY PRN MISC Per rx protocol 04/09/20 11:45 05/09/20 11:44 Vancomycin HCl 500 mg/Dextrose 110 ml @ 110 mls/hr Q12HR@0500,1700 IVPB 04/09/20 17:15 04/14/20 17:14 04/10/20 04:21 Assessment/Plan Assessment/Plan: ASSESSMENT Acute on chronic hypoxemic hypercapnic respiratory failure Chronic resp failure, tracheostomy status Probably sepsis HCAP Pyuria, probably UTI Dysphagia, feeding by G tube Cardiomyopathy Tachycardia-resolved HTN with initial HTN urgency- currently hypotensive Hyperlipidemia Quadriplegia 2 to cervical injury Anemia Hyperkalemia- resolved PLAN OF CARE LEANNE vent support, pulm toilet HHN with levalbuterol prn, avoid beta agonist if able ABG in am abx as per iD - currently on broad spectrum vanco and Zosyn fup with cx DVT prophylaxis Venous Duplex BLE ECHO pending prior EF 40% monitor volumes cardio follows, will need guideline directed medical Therapy for CHF strict aspiration precautions, GT feeding, monitor [place] monitor HH with goal t keep Hgb > 7 heme on board pain management supportive care DNR/DNI status Thank imani for a consult! case discussed and evaluated by supervising physician Graciela Cisneros NP Apr 10, 2020 11:01
[2020-04-10 12:00] VITALS: BP 139/86
[2020-04-10] MEDS ORDERED: OMEPRAZOLE20 M3 GT (13:49)
[2020-04-10] MEDS ORDERED: SENNA8.6 M2 GT (13:49)
[2020-04-10] MEDS ORDERED: VITAMIN A & D113 GM TP (13:49)
[2020-04-10] MEDS ORDERED: BISACODYL5 MG ORAL (13:49)
[2020-04-10 16:00] VITALS: BP 134/71
--- NOTE | 2020-04-10 17:40 | Consultation ---
History of Present Illness General Date patient seen: Apr 10, 2020 Reason for Hospitalization: Chest Pain Present Illness HPI 70F well known to me recent ER line placement presented with abnormal labs, respiratory insufficiency, desaturation, admitted for care and management. bp improved but respiratory still concerning. airway eval. surgery called to evaluate and assist with care. patient unable to provide history or participate in exam. no n/v/. Allergies: Coded Allergies: No Known Allergies (Unverified , 03/03/19) COVID-19 Screening Contact w/high risk pt: No Experienced COVID-19 symptoms?: No Medication History Scheduled Ascorbic Acid* (Vitamin C*), 500 MG GT DAILY, (Reported) Atorvastatin Calcium* (Lipitor*), 10 MG GT BEDTIME, (Reported) Chlorhexidine Gluconate* (Hibiclens*), 15 ML DT BID, (Reported) Cholecalciferol (Vitamin D3) (Vitamin D3*), 25 MCG GT DAILY, (Reported) Cran/Vitc/Mannose/Inulin/Brom (Uti-Stat Liquid), 30 ML GT BID, (Reported) Docusate Sodium* (Colace*), 100 MG GT TWICE A DAY, (Reported) Enalapril Maleate* (Enalapril Maleate*), 2.5 MG GT BID, (Reported) Magnesium Hydroxide* (Milk Of Magnesia*), 30 ML GT DAILY, (Reported) Metformin Hcl* (Metformin Hcl*), 500 MG GT TWICE A DAY, (Reported) Na Phos,M-B/Na Phos,Di-Ba* (Fleet Enema*), 133 ML RECTAL DAILY, (Reported) Omeprazole (Omeprazole), 20 MG GT DAILY, (Reported) Oxybutynin Chloride (Ditropan Xl), 5 MG ORAL DAILY, (Reported) Petrolatum,White/Lanolin (Vitamin A & D Ointment), 113 GM TP DAILY, (Reported) Quetiapine Fumarate* (Seroquel*), 25 MG GT DAILY, (Reported) Sennosides (Senna), 17.2 MG GT BEDTIME, (Reported) Spironolactone* (Spironolactone*), 25 MG GT DAILY, (Reported) Scheduled PRN Acetaminophen* (Acetaminophen 325MG Tablet*), 650 MG GT Q4H PRN for Mild Pain/Temp > 100.5, (Reported) Bisacodyl* (Dulcolax*), 10 MG ORAL DAILY PRN for Constipation, (Reported) Clonazepam (Clonazepam), 0.125 MG GT BID PRN for For Anxiety, (Reported) Levalbuterol Hcl (Xopenex*), 0.63 MG HHN Q6H PRN for Shortness of Breath, (Reported) Ondansetron* (Zofran*), 4 MG GT Q6H PRN for Nausea & Vomiting, (Reported) Tramadol Hcl* (Ultram*), 50 MG GT Q8HR PRN for For Pain, (Reported) Miscellaneous Medications Lactobacillus Acidophilus (Acidophilus), 1 EACH GT, (Reported) Levalbuterol Tartrate (Xopenex Hfa), 15 GM IH, (Reported) Vit B Cmplx 3/Fa/Vit C/Biotin (Margareth-Demetrius Rx Tablet), 1 EACH GT, (Reported) Discontinued Medications Carvedilol* (Carvedilol*), 3.125 MG GT EVERY 12 HOURS PRN for For High Blood Pressure, (Reported) Discontinued Reason: Therapy completed Dextran 70/Hypromellose (Artificial Tears Eye Drops*), 1 DROP BOTH EYES, (Reported) Discontinued Reason: Therapy completed Diphenhydramine Hcl* (Diphenhydramine Hcl*), 25 MG GT BEDTIME PRN for Itching, (Reported) Discontinued Reason: Therapy completed Ertapenem (Invanz), 1 GM IV DAILY, (Reported) Discontinued Reason: Therapy completed Famotidine* (Pepcid 20mg tablet*), 20 MG GT DAILY, (Reported) Discontinued Reason: Therapy completed Gel Base No.41 (Hydrogel), Unknown Dose TP DAILY, (Reported) Discontinued Reason: Therapy completed Pantoprazole* (Protonix*), 40 MG IV DAILY, (Reported) Discontinued Reason: Therapy completed Polyvinyl Alcohol (Polyvinyl Alcohol), 2 DROP OP Q2H, (Reported) Discontinued Reason: Therapy completed Zinc Oxide (Zinc Oxide), 56.7 GM TP DAILY, (Reported) Discontinued Reason: Therapy completed Patient History Limited by: medical condition History Provided By: Medical Record, PMD Healthcare decision maker N Resuscitation status Advanced Directive on File Past Medical/Surgical History Past Medical/Surgical History: (1) Altered mental status (2) Pneumonia (3) Chest pain (4) Septic shock (5) CHF (congestive heart failure) (6) Cardiomyopathy (7) Decubitus skin ulcer (8) Sacral decubitus ulcer, stage II (9) Incontinence associated dermatitis (10) Chronic respiratory failure (11) Nosocomial pneumonia (12) Feeding by G-tube Review of Systems Review of Symptoms General ROS: no weight loss or fever Psychological ROS: no depression or mood changes, no memory loss Ophthalmic ROS: no visual changes or eye irritation ENT ROS: no nasal congestion, hearing loss, dizziness Allergy and Immunology ROS: no allergic symptoms or urticaria Hematological and Lymphatic ROS: no swollen glands, unusual bleeding or bruising Endocrine ROS: no polyuria, polydipsia, weight changes, temperature intolerance Respiratory ROS: no cough, shortness of breath, or wheezing Cardiovascular ROS: no chest pain or dyspnea on exertion Gastrointestinal ROS: denies abdominal pain, bright red blood in stool. Musculoskeletal ROS: no myalgias or arthralgias Neurological ROS: no TIA or stroke symptoms Dermatological ROS: no new or changing skin lesions, rashes or pruritis limited given medical condition Physical Exam Physical Exam General appearance: mild distress, appears stated age Head: Normocephalic, without obvious abnormality, atraumatic Eyes: conjunctivae/corneas clear. PERRL, EOM's intact. Fundi benign Throat: Lips, mucosa, and tongue normal. Teeth and gums normal Neck: supple, symmetrical, trachea midline, no adenopathy, thyroid: not enlarged, symmetric, no tenderness/mass/nodules, no carotid bruit and no JVD trach Lungs: clear to auscultation bilaterally Heart: regular rate and rhythm, S1, S2 normal, no murmur, click, rub or gallop Abdomen: soft, non-tender. Bowel sounds normal. No masses, no organomegaly ft Extremities: extremities normal, atraumatic, no cyanosis or edema Pulses: 2+ and symmetric Skin: Skin as below Neurologic: Grossly normal Last 24 Hour Vital Signs Date Time Temp Pulse Resp B/P (MAP) Pulse Ox O2 Delivery O2 Flow Rate FiO2 04/10/20 16:28 94 04/10/20 15:42 99 11 35 04/10/20 12:28 96 04/10/20 12:00 35 04/10/20 12:00 Mechanical Ventilator 04/10/20 12:00 98.2 90 14 139/86 (103) 98 11/22/20 11:38 92 24 100 Mechanical Ventilator 35 101 10 35 04/10/20 09:00 76 04/10/20 08:00 97.9 76 11 129/79 (96) 99 04/10/20 08:00 35 04/10/20 08:00 Mechanical Ventilator 04/10/20 07:29 42 10 100 Mechanical Ventilator 35 49 10 35 04/10/20 04:00 Mechanical Ventilator 04/10/20 04:00 76 04/10/20 04:00 35 04/10/20 04:00 96.9 78 11 128/83 (98) 99 04/10/20 02:54 77 10 35 04/10/20 00:00 97.2 76 13 108/55 (72) 99 04/10/20 00:00 Mechanical Ventilator 04/10/20 00:00 35 04/10/20 00:00 75 04/09/20 22:43 80 11 35 04/09/20 20:00 97.0 74 13 108/68 (81) 99 04/09/20 20:00 73 04/09/20 20:00 Mechanical Ventilator 04/09/20 20:00 60 04/09/20 19:32 35 04/09/20 19:21 72 10 98 40 76 14 Intake and Output 04/09/20 04/10/20 19:00 07:00 Intake Total 3260 ml 860 ml Output Total 1150 ml 7800 ml Balance 2110 ml -6940 ml Intake Free Water 20 ml 200 ml IV Total 3185 ml Tube Feeding 55 ml 660 ml Output Urine Total 1150 ml 7800 ml Laboratory Tests Test 04/09/20 18:00 04/09/20 19:25 04/10/20 06:30 Urine Color Yellow Urine Appearance Very cloudy Urine pH 9 (4.5-8.0) Urine Specific [place] 1.020 (1.005-1.035) Urine Protein 2+ (NEGATIVE) H Urine Glucose (UA) Negative (NEGATIVE) Urine Ketones Negative (NEGATIVE) Urine Blood 2+ (NEGATIVE) H Urine Nitrite Positive (NEGATIVE) H Urine Bilirubin Negative (NEGATIVE) Urine Urobilinogen Normal MG/DL (0.0-1.0) Urine Leukocyte Esterase 3+ (NEGATIVE) H Urine RBC 2-4 /HPF (0 - 2) H Urine WBC 5-10 /HPF (0 - 2) H Urine Squamous Epithelial Cells Moderate /LPF (NONE/OCC) H Urine Triple Phosphate Crystals Moderate /LPF (NONE) H Urine Bacteria Many /HPF (NONE) H Arterial Blood pH 7.363 (7.350-7.450) Arterial Blood Partial Pressure CO2 44.8 mmHg (35.0-45.0) Arterial Blood Partial Pressure O2 109.8 mmHg (75.0-100.0) H Arterial Blood HCO3 24.9 mmol/L (22.0-26.0) Arterial Blood Oxygen Saturation 98.0 % (95-100) Arterial Blood Base Excess -0.6 (-2-2) Madhu Test Positive White Blood Count 11.2 K/UL (4.8-10.8) #H Red Blood Count 4.12 M/UL (4.20-5.40) L Hemoglobin 10.1 G/DL (12.0-16.0) L Hematocrit 35.0 % (37.0-47.0) L Mean Corpuscular Volume 85 FL (80-99) Mean Corpuscular Hemoglobin 24.6 PG (27.0-31.0) L Mean Corpuscular Hemoglobin Concent 28.9 G/DL (32.0-36.0) L Red Cell Distribution Width 17.7 % (11.6-14.8) H Platelet Count 254 K/UL (150-450) Mean Platelet Volume 7.0 FL (6.5-10.1) Neutrophils (%) (Auto) 71.6 % (45.0-75.0) Lymphocytes (%) (Auto) 18.3 % (20.0-45.0) L Monocytes (%) (Auto) 4.8 % (1.0-10.0) Eosinophils (%) (Auto) 4.5 % (0.0-3.0) H Basophils (%) (Auto) 0.8 % (0.0-2.0) Sodium Level 139 MMOL/L (136-145) Potassium Level 3.5 MMOL/L (3.5-5.1) Chloride Level 103 MMOL/L (98-107) Carbon Dioxide Level 31 MMOL/L (21-32) Anion Gap 5 mmol/L (5-15) Blood Urea Nitrogen 16 mg/dL (7-18) Creatinine 0.5 MG/DL (0.55-1.30) L Estimat Glomerular Filtration Rate > 60 mL/min (>60) Glucose Level 115 MG/DL (74-106) #H Calcium Level 8.3 MG/DL (8.5-10.1) L Magnesium Level 1.8 MG/DL (1.8-2.4) Total Bilirubin 0.3 MG/DL (0.2-1.0) Aspartate Amino Transf (AST/SGOT) 36 U/L (15-37) Alanine Aminotransferase (ALT/SGPT) 49 U/L (12-78) Alkaline Phosphatase 117 U/L (46-116) H Pro-B-Type Natriuretic Peptide 439 pg/mL (0-125) H Total Protein 7.0 G/DL (6.4-8.2) Albumin 2.5 G/DL (3.4-5.0) L Globulin 4.5 g/dL Albumin/Globulin Ratio 0.6 (1.0-2.7) L Microbiology Date/Time Source Procedure Growth Status 04/09/20 18:00 Urine,Clean Catch Urine Culture - Preliminary NO GROWTH Resulted Height (Feet): 5 Height (Inches): 6.00 Weight (Pounds): 150 Medications Current Medications Medications (Trade) Dose Ordered Sig/Rizwana Route PRN Reason Start Time Stop Time Status Last Admin Dose Admin Artificial Tears (Akwa-Tears) 2 drop Q2H PRN BOTH EYES Dry Eyes 04/10/20 07:00 05/10/20 06:59 Ascorbic Acid (Vitamin C) 500 mg DAILY GT 04/10/20 09:00 05/10/20 08:59 04/10/20 09:54 Atorvastatin Calcium (Lipitor) 10 mg BEDTIME GT 04/09/20 21:00 07/08/20 20:59 04/09/20 21:46 Chlorhexidine Gluconate (Julia-Hex 2%) 1 applic DAILY@1999 TOPIC 04/10/20 20:00 07/09/20 19:59 Clonazepam (KlonoPIN) 0.125 mg BIDPRN PRN GT For Anxiety 04/09/20 16:15 04/16/20 16:14 Heparin Sodium (Porcine) (Heparin 5000 units/ml) 5,000 units EVERY 12 HOURS SUBQ 04/10/20 09:00 05/25/20 08:59 Levalbuterol HCl (Xopenex) 0.63 mg TIDRT HHN 04/09/20 19:00 04/14/20 18:59 04/10/20 14:06 Piperacillin Sod/ Tazobactam Sod 3.375 gm/Sodium Chloride 110 ml @ 27.5 mls/hr Q8H IVPB 04/09/20 18:00 04/16/20 17:59 04/10/20 09:54 Quetiapine Fumarate (SEROqueL) 25 mg Q12HR GT 04/09/20 21:00 05/24/20 20:59 04/10/20 09:54 Tramadol HCl (Ultram) 50 mg Q8H PRN GT For Pain 04/09/20 16:15 04/16/20 16:14 Vancomycin HCl (Vanco pharmacy to dose) 1 ea DAILY PRN MISC Per rx protocol 04/09/20 11:45 05/09/20 11:44 Vancomycin HCl 500 mg/Dextrose 110 ml @ 110 mls/hr Q12HR@0500,1700 IVPB 04/09/20 17:15 04/14/20 17:14 04/10/20 16:04 Assessment/Plan Problem List: (1) CHF (congestive heart failure) ICD Codes: I50.9 - Heart failure, unspecified SNOMED: 16146730 (2) Cardiomyopathy ICD Codes: I42.9 - Cardiomyopathy, unspecified SNOMED: 88139186 (3) Septic shock Assessment & Plan: bp improved okay for diet abd exam benign trach okay. needs more insufflation of cuff for volumes DAILY ESTIMATED NEEDS: Needs based on Critical care, wound 62.6kg abw 22-28 kcals/kg 6279-5439 total kcals 1.25-2 g protein/kg 78-125 g total protein 25-30 mL/kg 3049-5999 total fluid mLs NUTRITION DIAGNOSIS: * Swallowing difficulty r/t resp status as evidenced by pt is trach and peg dep. (CURRENT TF: Glucerna 1.2 @55ml/hr x 24 hrs) ENTERAL NUTRITION RECOMMENDATIONS: Glucerna 1.2 @ 55ml/hr x 24 hrs + Prosource 1 pack daily to provide 1320ml, 1584 kcal, 79g pro + 22g pro, 1063ml free H2O * Maintain current TF * Add Prosource 1 pack daily to better meet est pro needs (added 11g pro) * HOB Over 30 degrees/ water flush per MD ADDITIONAL RECOMMENDATIONS: 1) Calibrated bed scale wts 2) Rec niss/ poc for glycemic control ICD Codes: A41.9 - Sepsis, unspecified organism; R65.21 - Severe sepsis with septic shock SNOMED: 74311107 (4) Altered mental status ICD Codes: R41.82 - Altered mental status, unspecified SNOMED: 133905671 (5) Chest pain ICD Codes: R07.9 - Chest pain, unspecified SNOMED: 77898702 (6) Pneumonia ICD Codes: J18.9 - Pneumonia, unspecified organism SNOMED: 720740073 (7) Decubitus skin ulcer Assessment & Plan: patient with historic / chronic decubitus with incontinence associated dermatitis in the sacral region air mattress ordered daughter helps with care has personal turning pillow turn q2h off load pressure heel protectors offload with pillow skin protectant cream and dressings to sacral area daily and prn saturation monitor for incontinence will follow with recs nutritional optimization ICD Codes: L89.90 - Pressure ulcer of unspecified site, unspecified stage SNOMED: 807380212 (8) Sacral decubitus ulcer, stage II ICD Codes: L89.152 - Pressure ulcer of sacral region, stage 2 SNOMED: 906726497, 226670520 (9) Incontinence associated dermatitis Assessment & Plan: local care provided high risk for breakdown monitor and change accordingly ICD Codes: L30.8 - Other specified dermatitis; R32 - Unspecified urinary incontinence SNOMED: 074309535 (10) Chronic respiratory failure ICD Codes: J96.10 - Chronic respiratory failure, unspecified whether with hypoxia or hypercapnia SNOMED: 85023224 Qualifiers: Qualified Codes: J96.11 - Chronic respiratory failure with hypoxia; J96.12 - Chronic respiratory failure with hypercapnia (11) Nosocomial pneumonia ICD Codes: J18.9 - Pneumonia, unspecified organism; Y95 - Nosocomial condition SNOMED: 401752061 (12) Feeding by G-tube ICD Codes: Z93.1 - Gastrostomy status SNOMED: 035258120, 260285473, 338298428 Mauro Roldan Apr 10, 2020 17:40
--- NOTE | 2020-04-10 19:57 | Cardiology Progress Note ---
Subjective DATE OF SERVICE: Apr 10, 2020 On vent support. ABG's improved. Monitor: Sinus with PVC's - no sustained arrhythmias Objective Last 24 Hour Vital Signs Date Time Temp Pulse Resp B/P (MAP) Pulse Ox O2 Delivery O2 Flow Rate FiO2 04/10/20 19:02 85 13 100 Mechanical Ventilator 35 89 10 35 04/10/20 16:28 94 04/10/20 16:00 98.2 88 11 134/71 (92) 100 04/10/20 16:00 Mechanical Ventilator 04/10/20 16:00 35 04/10/20 15:42 99 11 35 04/10/20 12:28 96 04/10/20 12:00 35 04/10/20 12:00 Mechanical Ventilator 04/10/20 12:00 98.2 90 14 139/86 (103) 98 04/10/20 11:38 92 24 100 Mechanical Ventilator 35 101 10 35 04/10/20 09:00 76 04/10/20 08:00 97.9 76 11 129/79 (96) 99 04/10/20 08:00 35 04/10/20 08:00 Mechanical Ventilator 04/10/20 07:29 42 10 100 Mechanical Ventilator 35 49 10 35 04/10/20 04:00 Mechanical Ventilator 04/10/20 04:00 76 04/10/20 04:00 35 04/10/20 04:00 96.9 78 11 128/83 (98) 99 04/10/20 02:54 77 10 35 04/10/20 00:00 97.2 76 13 108/55 (72) 99 04/10/20 00:00 Mechanical Ventilator 04/10/20 00:00 35 04/10/20 00:00 75 04/09/20 22:43 80 11 35 04/09/20 20:00 97.0 74 13 108/68 (81) 99 04/09/20 20:00 73 04/09/20 20:00 Mechanical Ventilator 04/09/20 20:00 60 HEENT: Thick Trach secretions RHYTHM: NSR, PVCs LUNGS: bilateral rhonchi CARDIAC: normal rate, regular rhythm, normal S1 and S2 ABDOMEN: normal bowel sounds, non tender, soft, G-Tube intact EXTREMITIES: non-tender, trace edema Laboratory Tests Test 04/10/20 06:30 White Blood Count 11.2 K/UL (4.8-10.8) #H Red Blood Count 4.12 M/UL (4.20-5.40) L Hemoglobin 10.1 G/DL (12.0-16.0) L Hematocrit 35.0 % (37.0-47.0) L Mean Corpuscular Volume 85 FL (80-99) Mean Corpuscular Hemoglobin 24.6 PG (27.0-31.0) L Mean Corpuscular Hemoglobin Concent 28.9 G/DL (32.0-36.0) L Red Cell Distribution Width 17.7 % (11.6-14.8) H Platelet Count 254 K/UL (150-450) Mean Platelet Volume 7.0 FL (6.5-10.1) Neutrophils (%) (Auto) 71.6 % (45.0-75.0) Lymphocytes (%) (Auto) 18.3 % (20.0-45.0) L Monocytes (%) (Auto) 4.8 % (1.0-10.0) Eosinophils (%) (Auto) 4.5 % (0.0-3.0) H Basophils (%) (Auto) 0.8 % (0.0-2.0) Sodium Level 139 MMOL/L (136-145) Potassium Level 3.5 MMOL/L (3.5-5.1) Chloride Level 103 MMOL/L (98-107) Carbon Dioxide Level 31 MMOL/L (21-32) Anion Gap 5 mmol/L (5-15) Blood Urea Nitrogen 16 mg/dL (7-18) Creatinine 0.5 MG/DL (0.55-1.30) L Estimat Glomerular Filtration Rate > 60 mL/min (>60) Glucose Level 115 MG/DL (74-106) #H Calcium Level 8.3 MG/DL (8.5-10.1) L Magnesium Level 1.8 MG/DL (1.8-2.4) Total Bilirubin 0.3 MG/DL (0.2-1.0) Aspartate Amino Transf (AST/SGOT) 36 U/L (15-37) Alanine Aminotransferase (ALT/SGPT) 49 U/L (12-78) Alkaline Phosphatase 117 U/L (46-116) H Pro-B-Type Natriuretic Peptide 439 pg/mL (0-125) H Total Protein 7.0 G/DL (6.4-8.2) Albumin 2.5 G/DL (3.4-5.0) L Globulin 4.5 g/dL Albumin/Globulin Ratio 0.6 (1.0-2.7) L Microbiology Date/Time Source Procedure Growth Status 04/09/20 18:00 Urine,Clean Catch Urine Culture - Preliminary NO GROWTH Resulted 04/09/20 11:50 Sputum Gram Stain - Final Resulted 04/09/20 11:50 Sputum Sputum Culture Pending Resulted 04/09/20 09:00 Rectum Received 04/09/20 08:45 Urine,Clean Catch Urine Culture - Preliminary Gram Negative Stan Resulted 04/09/20 08:45 Nasopharynx SARS-CoV-2 RdRp Gene Assay - Final Complete Assessment/Plan Assessment/Plan Acute respiratory acidosis - improved Paroxysmal ventricular arrhythmias and ectopy Respiratory failure with trach Hypertensive cardiomyopathy Healthcare associated PNA Sepsis with recovering shock Hypovolemia/dehydration resolved Acute myocardial ischemia recovered Mild acute diastolic CHF with increase in BNP to 439 Abx Vent support Off IVF Maintain therapeutic K+/Mg++ levels DVT prophylaxis Altaf Mchugh MD Apr 10, 2020 19:57
[2020-04-10 20:00] VITALS: BP 110/80
[2020-04-10] MEDS: Dyna-Hex 2% Top Sol 2oz TOPIC SCH (20:02)
--- NOTE | 2020-04-10 20:37 | Cardiology Report ---
APPROVED REPORT EKG Measurement Heart [id number] <Conclusion> Sinus tachycardia with occasional premature ventricular complexes Possible Left atrial enlargement Septal infarct, age undetermined ST & T wave abnormality, consider inferolateral ischemia Abnormal ECG
--- NOTE | 2020-04-10 22:01 | General Progress Note ---
Subjective Constitutional: Reports: no symptoms HEENT: Reports: no symptoms Cardiovascular: Reports: no symptoms Respiratory: Reports: no symptoms Gastrointestinal/Abdominal: Reports: no symptoms Genitourinary: Reports: no symptoms Neurologic/Psychiatric: Reports: no symptoms Endocrine: Reports: no symptoms Hematologic/Lymphatic: Reports: no symptoms Allergies: Coded Allergies: No Known Allergies (Unverified , 03/03/19) Objective Last 24 Hour Vital Signs Date Time Temp Pulse Resp B/P (MAP) Pulse Ox O2 Delivery O2 Flow Rate FiO2 04/10/20 20:00 98.2 79 16 110/80 (90) 100 04/10/20 20:00 Mechanical Ventilator 04/10/20 20:00 90 04/10/20 20:00 35 04/10/20 19:02 85 13 100 Mechanical Ventilator 35 89 10 35 04/10/20 16:28 94 04/10/20 16:00 98.2 88 11 134/71 (92) 100 04/10/20 16:00 Mechanical Ventilator 04/10/20 16:00 35 04/10/20 15:42 99 11 35 04/10/20 12:28 96 04/10/20 12:00 35 04/10/20 12:00 Mechanical Ventilator 04/10/20 12:00 98.2 90 14 139/86 (103) 98 04/10/20 11:38 92 24 100 Mechanical Ventilator 35 101 10 35 04/10/20 09:00 76 04/10/20 08:00 97.9 76 11 129/79 (96) 99 04/10/20 08:00 35 04/10/20 08:00 Mechanical Ventilator 04/10/20 07:29 42 10 100 Mechanical Ventilator 35 49 10 35 04/10/20 04:00 Mechanical Ventilator 04/10/20 04:00 76 04/10/20 04:00 35 04/10/20 04:00 96.9 78 11 128/83 (98) 99 04/10/20 02:54 77 10 35 04/10/20 00:00 97.2 76 13 108/55 (72) 99 04/10/20 00:00 Mechanical Ventilator 04/10/20 00:00 35 04/10/20 00:00 75 04/09/20 22:43 80 11 35 Intake and Output 04/09/20 04/10/20 19:00 07:00 Intake Total 3260 ml 860 ml Output Total 1150 ml 7800 ml Balance 2110 ml -6940 ml Intake Free Water 20 ml 200 ml IV Total 3185 ml Tube Feeding 55 ml 660 ml Output Urine Total 1150 ml 7800 ml Laboratory Tests 04/10/20 06:30: White Blood Count 11.2#H, Red Blood Count 4.12L, Hemoglobin 10.1L, Hematocrit 35.0L, Mean Corpuscular Volume 85, Mean Corpuscular Hemoglobin 24.6L, Mean Corpuscular Hemoglobin Concent 28.9L, Red Cell Distribution Width 17.7H, Platelet Count 254, Mean Platelet Volume 7.0, Neutrophils (%) (Auto) 71.6, Lymphocytes (%) (Auto) 18.3L, Monocytes (%) (Auto) 4.8, Eosinophils (%) (Auto) 4.5H, Basophils (%) (Auto) 0.8, Sodium Level 139, Potassium Level 3.5, Chloride Level 103, Carbon Dioxide Level 31, Anion Gap 5, Blood Urea Nitrogen 16, Creatinine 0.5L, Estimat Glomerular Filtration Rate > 60, Glucose Level 115#H, Calcium Level 8.3L, Magnesium Level 1.8, Total Bilirubin 0.3, Aspartate Amino Transf (AST/SGOT) 36, Alanine Aminotransferase (ALT/SGPT) 49, Alkaline Phosphatase 117H, Pro-B-Type Natriuretic Peptide 439H, Total Protein 7.0, Albumin 2.5L, Globulin 4.5, Albumin/Globulin Ratio 0.6L Height (Feet): 5 Height (Inches): 6.00 Weight (Pounds): 150 General Appearance: WD/WN, no apparent distress, alert EENT: normal ENT inspection Neck: non-tender, normal alignment, supple, normal inspection Cardiovascular: normal rate, regular rhythm, no gallop/murmur, no JVD Respiratory/Chest: lungs clear, normal breath sounds, no respiratory distress, no accessory muscle use, rhonchi - right Abdomen: normal bowel sounds, non tender, soft, no organomegaly, no mass Extremities: non-tender Neurologic: alert, responsive, aphasia Assessment/Plan Status Narrative Awake alert afebrile hemodynamically stable substantially less congested attentive with normal attention span with no toxic facies laboratory tests WBC dropped from 25,000-11,000 CBC the rest of the CBC is normal repeat chest x-ray revealed improvement in consolidation is currently on vancomycin and Zosyn we will continue with the same treatment repeat laboratory tests will be done in Delmy Gastelum MD, MD Apr 10, 2020 22:01
[2020-04-11] VITALS: BP 113/76
[2020-04-11] MEDS: Zosyn 3.375gm in NS 110ml IVPB SCH ×3 (01:05→18:07)
[2020-04-11 04:00] VITALS: BP 97/70
[2020-04-11 04:19] LABS: BASOPHILS % (AUTO) 0.5 % (0.0-2.0); EOSINOPHILS % (AUTO) 6.8 % (0.0-3.0); HEMATOCRIT 33.4 % (37.0-47.0); HEMOGLOBIN 9.6 G/DL (12.0-16.0); MEAN CORPUSCULAR VOLUME 85 FL (80-99); MONOCYTES % (AUTO) 7.5 % (1.0-10.0); NEUTROPHILS % (AUTO) 66.2 % (45.0-75.0); PLATELET COUNT 245 K/UL (150-450); RED BLOOD COUNT 3.92 M/UL (4.20-5.40); RED CELL DISTRIBUTION WIDTH 18.2 % (11.6-14.8); WHITE BLOOD COUNT 9.8 K/UL (4.8-10.8)
[2020-04-11 04:37] LABS: ANION GAP 2 mmol/L (5-15); BLOOD UREA NITROGEN 13 mg/dL (7-18); CALCIUM 8.7 MG/DL (8.5-10.1); CARBON DIOXIDE 33 MMOL/L (21-32); CHLORIDE 105 MMOL/L (98-107); CREATININE 0.5 MG/DL (0.55-1.30); POTASSIUM 4.2 MMOL/L (3.5-5.1); SODIUM 140 MMOL/L (136-145)
[2020-04-11] MEDS: Vancomycin 1gm/D5W 275ml IVPB SCH ×4 (05:31→18:07)
--- NOTE | 2020-04-11 06:47 | Hematology/Onc Progress Note ---
Assessment/Plan Assessment/Plan Assesment and Recs # Anemia of chronic disease due to underlying chronic medical issues, multifactorial v Gi bleed --> Anemia workup has been ordered, rule out gi bleed --> No evidence of hemolysis is noted, peripheral smear has been reviewed. --> Hgb goal >7. Transfuse prn. --> Epogen or iron at this time is not particularly indicated --> Medications have been reviewed --> low threshold for gi evaluation in case has occult + --> hgb 14->9.6 # Leukocytosis/elevated white blood cell count, unspecified likely related to underlying infection --> CXR with pna --> have reviewed peripheral smear and bandemia/neutrophilia noted --> ABX vanc/zosyn --> monitor for resolution --> wbc 25-->11-->9.8 # Elevated ddimer --> venous duiplex legs # Chest pain rule out acs --> trop neg # Respiratory failure s/p trach/vent Placed on ventilator. # Nosocomial pneumonia # Dvt ppx heparin sq The timing of this note does not necessarily reflect the time of the patient was seen. Greatly appreciate consultation. Subjective Constitutional: Denies: no symptoms, chills, fever, malaise, weakness, other HEENT: Denies: no symptoms, eye pain, blurred vision, tearing, double vision, ear pain, ear discharge, nose pain, nose congestion, throat pain, throat swelling, mouth pain, mouth swelling, other Cardiovascular: Denies: no symptoms, chest pain, edema, irregular heart rate, lightheadedness, palpitations, syncope, other Respiratory: Denies: no symptoms, cough, shortness of breath, SOB with excertion, SOB at rest, sputum, wheezing, other Gastrointestinal/Abdominal: Denies: no symptoms, abdomen distended, abdominal pain, black stools, tarry stools, blood in stool, constipated, diarrhea, difficulty swallowing, nausea, poor appetite, poor fluid intake, rectal bleeding, vomiting, other Genitourinary: Denies: no symptoms, burning, discharge, frequency, flank pain, hematuria, incontinence, pain, urgency, other Neurologic/Psychiatric: Denies: no symptoms, anxiety, depressed, emotional problems, headache, numbness, paresthesia, pre-existing deficit, seizure, tingling, tremors, weakness, other Endocrine: Denies: no symptoms, excessive sweating, flushing, intolerance to cold, intolerance to heat, increased hunger, increased thirst, increased urine, unexplained weight gain, unexplained weight loss, other Hematologic/Lymphatic: Denies: no symptoms, anemia, easy bleeding, easy bruising, adenopathy, other Allergies: Coded Allergies: No Known Allergies (Unverified , 03/03/19) Subjective 04/11 labs reviewed, meds noted, no bleeding, no fc, hgb low Objective Objective Current Medications Medications (Trade) Dose Ordered Sig/Rizwana Route PRN Reason Start Time Stop Time Status Last Admin Dose Admin Artificial Tears (Akwa-Tears) 2 drop Q2H PRN BOTH EYES Dry Eyes 04/10/20 07:00 05/10/20 06:59 Ascorbic Acid (Vitamin C) 500 mg DAILY GT 04/10/20 09:00 05/10/20 08:59 04/10/20 09:54 Atorvastatin Calcium (Lipitor) 10 mg BEDTIME GT 04/09/20 21:00 07/08/20 20:59 04/10/20 21:24 Chlorhexidine Gluconate (Julia-Hex 2%) 1 applic DAILY@2000 TOPIC 04/10/20 20:00 07/09/20 19:59 04/10/20 20:02 Clonazepam (KlonoPIN) 0.125 mg BIDPRN PRN GT For Anxiety 04/09/20 16:15 04/16/20 16:14 Heparin Sodium (Porcine) (Heparin 5000 units/ml) 5,000 units EVERY 12 HOURS SUBQ 04/10/20 09:00 05/25/20 08:59 Levalbuterol HCl (Xopenex) 0.63 mg TIDRT HHN 04/09/20 19:00 04/14/20 18:59 04/10/20 19:02 Piperacillin Sod/ Tazobactam Sod 3.375 gm/Sodium Chloride 110 ml @ 27.5 mls/hr Q8H IVPB 04/09/20 18:00 04/16/20 17:59 04/11/20 01:05 Quetiapine Fumarate (SEROqueL) 25 mg Q12HR GT 04/09/20 21:00 05/24/20 20:59 04/10/20 21:24 Tramadol HCl (Ultram) 50 mg Q8H PRN GT For Pain 04/09/20 16:15 04/16/20 16:14 Vancomycin HCl (Vanco pharmacy to dose) 1 ea DAILY PRN MISC Per rx protocol 04/09/20 11:45 05/09/20 11:44 Vancomycin HCl 1 gm/Dextrose 275 ml @ 183.708 mls/hr Q12H IVPB 04/11/20 06:00 04/16/20 05:59 04/11/20 05:31 Last 24 Hour Vital Signs Date Time Temp Pulse Resp B/P (MAP) Pulse Ox O2 Delivery O2 Flow Rate FiO2 04/11/20 04:00 Mechanical Ventilator 04/11/20 04:00 98.2 80 15 97/70 (79) 100 04/11/20 04:00 35 04/11/20 03:51 86 10 35 04/11/20 03:32 78 04/11/20 00:10 82 04/11/20 00:00 98.4 83 14 113/76 (88) 100 04/11/20 00:00 Mechanical Ventilator 04/10/20 22:46 91 13 35 04/10/20 20:00 98.2 79 16 110/80 (90) 100 04/10/20 20:00 Mechanical Ventilator 04/10/20 20:00 90 04/10/20 20:00 35 04/10/20 19:02 85 13 100 Mechanical Ventilator 35 89 10 35 04/10/20 16:28 94 04/10/20 16:00 98.2 88 11 134/71 (92) 100 04/10/20 16:00 Mechanical Ventilator 04/10/20 16:00 35 04/10/20 15:42 99 11 35 04/10/20 12:28 96 04/10/20 12:00 35 04/10/20 12:00 Mechanical Ventilator 04/10/20 12:00 98.2 90 14 139/86 (103) 98 04/10/20 11:38 92 24 100 Mechanical Ventilator 35 101 10 35 04/10/20 09:00 76 04/10/20 08:00 97.9 76 11 129/79 (96) 99 04/10/20 08:00 35 04/10/20 08:00 Mechanical Ventilator 04/10/20 07:29 42 10 100 Mechanical Ventilator 35 49 10 35 11/22/20 04:00 Mechanical Ventilator 04/10/20 04:00 76 04/10/20 04:00 35 04/10/20 04:00 96.9 78 11 128/83 (98) 99 04/10/20 02:54 77 10 35 04/10/20 00:00 97.2 76 13 108/55 (72) 99 04/10/20 00:00 Mechanical Ventilator 04/10/20 00:00 35 04/10/20 00:00 75 04/09/20 22:43 80 11 35 04/09/20 20:00 97.0 74 13 108/68 (81) 99 04/09/20 20:00 73 04/09/20 20:00 Mechanical Ventilator 04/09/20 20:00 60 04/09/20 19:32 35 04/09/20 19:21 72 10 98 40 76 14 04/09/20 16:00 97.2 79 10 106/72 (83) 99 04/09/20 16:00 Mechanical Ventilator 04/09/20 16:00 60 04/09/20 15:24 75 04/09/20 15:00 76 10 40 04/09/20 15:00 76 10 100 Mechanical Ventilator 40 04/09/20 13:58 97.7 87 17 106/65 (79) 98 04/09/20 13:40 Mechanical Ventilator 04/09/20 13:00 97.9 78 16 107/75 100 Mechanical Ventilator 100 04/09/20 13:00 97.9 78 16 107/75 100 Mechanical Ventilator 100 04/09/20 11:00 97.9 98 16 91/68 100 Mechanical Ventilator 100 04/09/20 10:30 97 12 100 04/09/20 09:20 116 14 100 04/09/20 09:00 107 24 Mechanical Ventilator 04/09/20 09:00 97.9 110 24 208/98 90 Mechanical Ventilator 04/09/20 08:52 97.9 107 24 227/135 (165) 90 Mechanical Ventilator Intake and Output 04/10/20 04/11/20 19:00 07:00 Intake Total 530.0 ml 932.5 ml Output Total 1450 ml 5850 ml Balance -920.0 ml -4917.5 ml Intake Free Water 200 ml 300 ml IV Total 220.0 ml 137.5 ml Tube Feeding 110 ml 495 ml Output Urine Total 1450 ml 5850 ml Labs Test 04/09/20 08:45 04/09/20 09:08 04/09/20 18:00 04/09/20 19:25 White Blood Count 25.0 K/UL (4.8-10.8) Red Blood Count 5.74 M/UL (4.20-5.40) Hemoglobin 14.0 G/DL (12.0-16.0) Hematocrit 49.2 % (37.0-47.0) Mean Corpuscular Volume 86 FL (80-99) Mean Corpuscular Hemoglobin 24.4 PG (27.0-31.0) Mean Corpuscular Hemoglobin Concent 28.5 G/DL (32.0-36.0) Red Cell Distribution Width 18.2 % (11.6-14.8) Platelet Count 385 K/UL (150-450) Mean Platelet Volume 7.3 FL (6.5-10.1) Neutrophils (%) (Auto) % (45.0-75.0) Lymphocytes (%) (Auto) % (20.0-45.0) Monocytes (%) (Auto) % (1.0-10.0) Eosinophils (%) (Auto) % (0.0-3.0) Basophils (%) (Auto) % (0.0-2.0) Differential Total Cells Counted 100 Neutrophils % (Manual) 72 % (45-75) Lymphocytes % (Manual) 20 % (20-45) Monocytes % (Manual) 4 % (1-10) Eosinophils % (Manual) 4 % (0-3) Basophils % (Manual) 0 % (0-2) Band Neutrophils 0 % (0-8) Platelet Estimate Adequate Platelet Morphology Normal Anisocytosis 1+ Prothrombin Time 10.8 SEC (9.30-11.50) Prothromb Time International Ratio 1.0 (0.9-1.1) Activated Partial Thromboplast Time 29 SEC (23-33) D-Dimer 1.23 mg/L FEU (0.00-0.49) Urine Color Pale yellow Yellow Urine Appearance Slightly cloudy Very cloudy Urine pH 9 (4.5-8.0) 9 (4.5-8.0) Urine Specific [place] 1.015 (1.005-1.035) 1.020 (1.005-1.035) Urine Protein Negative (NEGATIVE) 2+ (NEGATIVE) Urine Glucose (UA) Negative (NEGATIVE) Negative (NEGATIVE) Urine Ketones Negative (NEGATIVE) Negative (NEGATIVE) Urine Blood Negative (NEGATIVE) 2+ (NEGATIVE) Urine Nitrite Positive (NEGATIVE) Positive (NEGATIVE) Urine Bilirubin Negative (NEGATIVE) Negative (NEGATIVE) Urine Urobilinogen Normal MG/DL (0.0-1.0) Normal MG/DL (0.0-1.0) Urine Leukocyte Esterase 3+ (NEGATIVE) 3+ (NEGATIVE) Urine RBC 0-2 /HPF (0 - 2) 2-4 /HPF (0 - 2) Urine WBC 2-4 /HPF (0 - 2) 5-10 /HPF (0 - 2) Urine Squamous Epithelial Cells Few /LPF (NONE/OCC) Moderate /LPF (NONE/OCC) Urine Triple Phosphate Crystals Moderate /LPF (NONE) Moderate /LPF (NONE) Urine Bacteria Many /HPF (NONE) Many /HPF (NONE) Sodium Level 132 MMOL/L (136-145) Potassium Level 5.3 MMOL/L (3.5-5.1) Chloride Level 96 MMOL/L (98-107) Carbon Dioxide Level 32 MMOL/L (21-32) Anion Gap 4 mmol/L (5-15) Blood Urea Nitrogen 20 mg/dL (7-18) Creatinine 0.4 MG/DL (0.55-1.30) Estimat Glomerular Filtration Rate > 60 mL/min (>60) Glucose Level 222 MG/DL (74-106) Lactic Acid Level 2.00 mmol/L (0.4-2.0) Calcium Level 9.4 MG/DL (8.5-10.1) Ferritin 285 NG/ML (8-388) Total Bilirubin 0.4 MG/DL (0.2-1.0) Aspartate Amino Transf (AST/SGOT) 76 U/L (15-37) Alanine Aminotransferase (ALT/SGPT) 63 U/L (12-78) Alkaline Phosphatase 182 U/L (46-116) Lactate Dehydrogenase 228 U/L (81-234) Total Creatine Kinase 64 U/L (26-308) Creatine Kinase MB 1.5 NG/ML (0.0-3.6) Creatine Kinase MB Relative Index 2.3 Troponin I 0.007 ng/mL (0.000-0.056) C-Reactive Protein, Quantitative 0.7 mg/dL (0.00-0.90) Pro-B-Type Natriuretic Peptide 127 pg/mL (0-125) Total Protein 9.4 G/DL (6.4-8.2) Albumin 3.4 G/DL (3.4-5.0) Globulin 6.0 g/dL Albumin/Globulin Ratio 0.6 (1.0-2.7) Lipase 505 U/L (73-393) Arterial Blood pH 7.254 (7.350-7.450) 7.363 (7.350-7.450) Arterial Blood Partial Pressure CO2 72.1 mmHg (35.0-45.0) 44.8 mmHg (35.0-45.0) Arterial Blood Partial Pressure O2 110.9 mmHg (75.0-100.0) 109.8 mmHg (75.0-100.0) Arterial Blood HCO3 31.2 mmol/L (22.0-26.0) 24.9 mmol/L (22.0-26.0) Arterial Blood Oxygen Saturation 97.8 % (95-100) 98.0 % (95-100) Arterial Blood Base Excess 2.2 (-2-2) -0.6 (-2-2) Madhu Test Positive Positive Test 04/10/20 06:30 04/11/20 03:30 White Blood Count 11.2 K/UL (4.8-10.8) 9.8 K/UL (4.8-10.8) Red Blood Count 4.12 M/UL (4.20-5.40) 3.92 M/UL (4.20-5.40) Hemoglobin 10.1 G/DL (12.0-16.0) 9.6 G/DL (12.0-16.0) Hematocrit 35.0 % (37.0-47.0) 33.4 % (37.0-47.0) Mean Corpuscular Volume 85 FL (80-99) 85 FL (80-99) Mean Corpuscular Hemoglobin 24.6 PG (27.0-31.0) 24.6 PG (27.0-31.0) Mean Corpuscular Hemoglobin Concent 28.9 G/DL (32.0-36.0) 28.8 G/DL (32.0-36.0) Red Cell Distribution Width 17.7 % (11.6-14.8) 18.2 % (11.6-14.8) Platelet Count 254 K/UL (150-450) 245 K/UL (150-450) Mean Platelet Volume 7.0 FL (6.5-10.1) 7.4 FL (6.5-10.1) Neutrophils (%) (Auto) 71.6 % (45.0-75.0) 66.2 % (45.0-75.0) Lymphocytes (%) (Auto) 18.3 % (20.0-45.0) 19.0 % (20.0-45.0) Monocytes (%) (Auto) 4.8 % (1.0-10.0) 7.5 % (1.0-10.0) Eosinophils (%) (Auto) 4.5 % (0.0-3.0) 6.8 % (0.0-3.0) Basophils (%) (Auto) 0.8 % (0.0-2.0) 0.5 % (0.0-2.0) Sodium Level 139 MMOL/L (136-145) 140 MMOL/L (136-145) Potassium Level 3.5 MMOL/L (3.5-5.1) 4.2 MMOL/L (3.5-5.1) Chloride Level 103 MMOL/L (98-107) 105 MMOL/L (98-107) Carbon Dioxide Level 31 MMOL/L (21-32) 33 MMOL/L (21-32) Anion Gap 5 mmol/L (5-15) 2 mmol/L (5-15) Blood Urea Nitrogen 16 mg/dL (7-18) 13 mg/dL (7-18) Creatinine 0.5 MG/DL (0.55-1.30) 0.5 MG/DL (0.55-1.30) Estimat Glomerular Filtration Rate > 60 mL/min (>60) > 60 mL/min (>60) Glucose Level 115 MG/DL (74-106) 122 MG/DL (74-106) Calcium Level 8.3 MG/DL (8.5-10.1) 8.7 MG/DL (8.5-10.1) Magnesium Level 1.8 MG/DL (1.8-2.4) Total Bilirubin 0.3 MG/DL (0.2-1.0) Aspartate Amino Transf (AST/SGOT) 36 U/L (15-37) Alanine Aminotransferase (ALT/SGPT) 49 U/L (12-78) Alkaline Phosphatase 117 U/L (46-116) Pro-B-Type Natriuretic Peptide 439 pg/mL (0-125) Total Protein 7.0 G/DL (6.4-8.2) Albumin 2.5 G/DL (3.4-5.0) Globulin 4.5 g/dL Albumin/Globulin Ratio 0.6 (1.0-2.7) Lactic Acid Level 1.10 mmol/L (0.4-2.0) Vancomycin Level Trough 6.0 ug/mL (5.0-12.0) Height (Feet): 5 Height (Inches): 6.00 Weight (Pounds): 150 Objective Physical Exam Vitals: reviewed, normal General Appearance: no apparent distress, alert Head: normocephalic, atraumatic Heent: bilateral eye normal inspection s/P vent/trach Respiratory: chest non-tender, crackles, speaking full sentences CV: regular rate, rhythm, no edema Gastrointestinal: normal bowel sounds Genitourinary: normal inspection Skin: other - See nursing notes Lymphatic: no adenopathy Martin Hernandez MD Apr 11, 2020 06:47
[2020-04-11] MEDS: Levalbuterol Inh UD 1.25mg/0.5ml HHN SCH ×3 (07:30→19:43)
--- NOTE | 2020-04-11 07:47 | Infectious Diseases Prog Note ---
Assessment/Plan 70yo F with: Afebrile Leukocytosis to 25, improving Hypoxia S/p trach on vent Hypotension 04/09 BCx NTD COVID rapid test neg UA neg, UCx +P.mirabilis, S-CTX MRSA nares neg Resp cx +GNRs 04/10 CXR: Midline tracheostomy tube. Low lung volumes secondary to poor inspiration. Airspace opacities in the bilateral lower lung field, correlate for infiltrate. Superimposed atelectasis not excluded. Small left pleural effusion. Mild-moderate vascular congestion. No pneumothorax. When compared to yesterday's chest radiograph there is mild improvement in the degree of aeration. Cr 0.4 PMH: Spinal injury Quadriplegia HTN Cardiomyopathy GERD Chronic respiratory failure trach/vent dependant Dysphagia s/p GT hx of PNA Constipation Tardive dyskinesia [facility] resident Plan: Cont vanco IV empiric #2 for now, if no GPCs in resp cx can likely stop soon Cont Zosyn #3 for pna/UTI Remove R fem CVC if able, infection risk F/u resp cx + GNRs F/u BCx, UCx Trend WBC Monitor CBC/CMP Monitor resp status Monitor temp curve, hemodynamics D/w RN Thank you for this consult. [facility] will continue to follow. Subjective Allergies: Coded Allergies: No Known Allergies (Unverified , 03/03/19) AF WBC improved to 9 NAD on vent R fem CVC Objective Last 24 Hour Vital Signs Date Time Temp Pulse Resp B/P (MAP) Pulse Ox O2 Delivery O2 Flow Rate FiO2 04/11/20 04:00 Mechanical Ventilator 04/11/20 04:00 98.2 80 15 97/70 (79) 100 04/11/20 04:00 35 04/11/20 03:51 86 10 35 04/11/20 03:32 78 04/11/20 00:10 82 04/11/20 00:00 98.4 83 14 113/76 (88) 100 04/11/20 00:00 Mechanical Ventilator 04/10/20 22:46 91 13 35 04/10/20 20:00 98.2 79 16 110/80 (90) 100 04/10/20 20:00 Mechanical Ventilator 04/10/20 20:00 90 04/10/20 20:00 35 04/10/20 19:02 85 13 100 Mechanical Ventilator 35 89 10 35 04/10/20 16:28 94 04/10/20 16:00 98.2 88 11 134/71 (92) 100 04/10/20 16:00 Mechanical Ventilator 04/10/20 16:00 35 04/10/20 15:42 99 11 35 04/10/20 12:28 96 04/10/20 12:00 35 04/10/20 12:00 Mechanical Ventilator 04/10/20 12:00 98.2 90 14 139/86 (103) 98 04/10/20 11:38 92 24 100 Mechanical Ventilator 35 101 10 35 04/10/20 09:00 76 04/10/20 08:00 97.9 76 11 129/79 (96) 99 04/10/20 08:00 35 04/10/20 08:00 Mechanical Ventilator Height (Feet): 5 Height (Inches): 6.00 Weight (Pounds): 150 Gen: NAD in bed HEENT: NCAT, EOMI, trach CV: RRR Pulm: CTAB Abd: Soft, NTND, +PEG Ext: No c/c/e Neuro: Awake but not interactive Lines: R fem CVC Microbiology Date/Time Source Procedure Growth Status 04/09/20 18:00 Urine,Clean Catch Urine Culture - Preliminary Gram Negative Stan Resulted 04/09/20 11:50 Sputum Gram Stain - Final Resulted 04/09/20 11:50 Sputum Sputum Culture Pending Resulted 04/09/20 09:00 Rectum Received 04/09/20 09:00 Nasal Nares MRSA Culture - Final NO METHICILLIN RESISTANT STAPH AUREUS... Complete 04/09/20 09:00 Blood Blood Culture - Preliminary NO GROWTH AFTER 24 HOURS Resulted 04/09/20 08:45 Urine,Clean Catch Urine Culture - Preliminary Proteus Mirabilis Resulted 04/09/20 08:45 Nasopharynx SARS-CoV-2 RdRp Gene Assay - Final Complete 04/09/20 08:45 Blood Blood Culture - Preliminary NO GROWTH AFTER 24 HOURS Resulted Laboratory Tests Test 04/11/20 03:30 White Blood Count 9.8 K/UL (4.8-10.8) Red Blood Count 3.92 M/UL (4.20-5.40) L Hemoglobin 9.6 G/DL (12.0-16.0) L Hematocrit 33.4 % (37.0-47.0) L Mean Corpuscular Volume 85 FL (80-99) Mean Corpuscular Hemoglobin 24.6 PG (27.0-31.0) L Mean Corpuscular Hemoglobin Concent 28.8 G/DL (32.0-36.0) L Red Cell Distribution Width 18.2 % (11.6-14.8) H Platelet Count 245 K/UL (150-450) Mean Platelet Volume 7.4 FL (6.5-10.1) Neutrophils (%) (Auto) 66.2 % (45.0-75.0) Lymphocytes (%) (Auto) 19.0 % (20.0-45.0) L Monocytes (%) (Auto) 7.5 % (1.0-10.0) Eosinophils (%) (Auto) 6.8 % (0.0-3.0) H Basophils (%) (Auto) 0.5 % (0.0-2.0) Sodium Level 140 MMOL/L (136-145) Potassium Level 4.2 MMOL/L (3.5-5.1) Chloride Level 105 MMOL/L (98-107) Carbon Dioxide Level 33 MMOL/L (21-32) H Anion Gap 2 mmol/L (5-15) L Blood Urea Nitrogen 13 mg/dL (7-18) Creatinine 0.5 MG/DL (0.55-1.30) L Estimat Glomerular Filtration Rate > 60 mL/min (>60) Glucose Level 122 MG/DL (74-106) H Lactic Acid Level 1.10 mmol/L (0.4-2.0) Calcium Level 8.7 MG/DL (8.5-10.1) Vancomycin Level Trough 6.0 ug/mL (5.0-12.0) Current Medications Medications (Trade) Dose Ordered Sig/Rizwana Route PRN Reason Start Time Stop Time Status Last Admin Dose Admin Artificial Tears (Akwa-Tears) 2 drop Q2H PRN BOTH EYES Dry Eyes 04/10/20 07:00 05/10/20 06:59 Ascorbic Acid (Vitamin C) 500 mg DAILY GT 04/10/20 09:00 05/10/20 08:59 04/10/20 09:54 Atorvastatin Calcium (Lipitor) 10 mg BEDTIME GT 04/09/20 21:00 07/08/20 20:59 04/10/20 21:24 Chlorhexidine Gluconate (Julia-Hex 2%) 1 applic DAILY@2000 TOPIC 04/10/20 20:00 07/09/20 19:59 04/10/20 20:02 Clonazepam (KlonoPIN) 0.125 mg BIDPRN PRN GT For Anxiety 04/09/20 16:15 04/16/20 16:14 Heparin Sodium (Porcine) (Heparin 5000 units/ml) 5,000 units EVERY 12 HOURS SUBQ 04/10/20 09:00 05/25/20 08:59 Levalbuterol HCl (Xopenex) 0.63 mg TIDRT HHN 04/09/20 19:00 04/14/20 18:59 04/11/20 07:30 Piperacillin Sod/ Tazobactam Sod 3.375 gm/Sodium Chloride 110 ml @ 27.5 mls/hr Q8H IVPB 04/09/20 18:00 04/16/20 17:59 04/11/20 01:05 Quetiapine Fumarate (SEROqueL) 25 mg Q12HR GT 04/09/20 21:00 05/24/20 20:59 04/10/20 21:24 Tramadol HCl (Ultram) 50 mg Q8H PRN GT For Pain 04/09/20 16:15 04/16/20 16:14 Vancomycin HCl (Vanco pharmacy to dose) 1 ea DAILY PRN MISC Per rx protocol 04/09/20 11:45 05/09/20 11:44 Vancomycin HCl 1 gm/Dextrose 275 ml @ 183.708 mls/hr Q12H IVPB 04/11/20 06:00 04/16/20 05:59 04/11/20 05:31 Jacquie Slaughter M.D. Apr 11, 2020 07:47
[2020-04-11 08:00] VITALS: BP 127/68
[2020-04-11] MEDS: Ascorbic Acid 500mg tab GT SCH (09:34)
[2020-04-11] MEDS: Heparin 5000 units/ml inj SUBQ SCH ×2 (09:34→20:11)
--- NOTE | 2020-04-11 09:57 | Pulmonolgy Critical Care Note ---
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, 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, 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 - Objective Last 24 Hour Vital Signs Date Time Temp Pulse Resp B/P (MAP) Pulse Ox O2 Delivery O2 Flow Rate FiO2 04/11/20 08:00 97.9 69 15 127/68 (87) 100 04/11/20 07:42 87 04/11/20 07:00 93 11 100 Mechanical Ventilator 35 96 11 35 04/11/20 04:00 Mechanical Ventilator 04/11/20 04:00 98.2 80 15 97/70 (79) 100 04/11/20 04:00 35 04/11/20 03:51 86 10 35 04/11/20 03:32 78 04/11/20 00:10 82 04/11/20 00:00 98.4 83 14 113/76 (88) 100 04/11/20 00:00 Mechanical Ventilator 04/10/20 22:46 91 13 35 04/10/20 20:00 98.2 79 16 110/80 (90) 100 04/10/20 20:00 Mechanical Ventilator 04/10/20 20:00 90 04/10/20 20:00 35 04/10/20 19:02 85 13 100 Mechanical Ventilator 35 89 10 35 04/10/20 16:28 94 04/10/20 16:00 98.2 88 11 134/71 (92) 100 04/10/20 16:00 Mechanical Ventilator 04/10/20 16:00 35 04/10/20 15:42 99 11 35 04/10/20 12:28 96 04/10/20 12:00 35 04/10/20 12:00 Mechanical Ventilator 04/10/20 12:00 98.2 90 14 139/86 (103) 98 04/10/20 11:38 92 24 100 Mechanical Ventilator 35 101 10 35 Status: sedated Condition: critical HEENT: atraumatic, normocephalic Neck: full ROM Lungs: chest wall tender Heart: HR/BP stable Abdomen: soft Extremities: no C/C/E Micro: Microbiology Date/Time Source Procedure Growth Status 04/09/20 18:00 Urine,Clean Catch Urine Culture - Preliminary Gram Negative Stan Resulted 04/09/20 11:50 Sputum Gram Stain - Final Resulted 04/09/20 11:50 Sputum Culture - Preliminary Gram Negative Bacillus 1 Usual Respiratory Yamileth Resulted 04/09/20 09:00 Rectum VRE Culture - Final NO VANCOMYCIN RESISTANT ENTEROCOCCUS ... Complete 04/09/20 09:00 Nasal Nares MRSA Culture - Final NO METHICILLIN RESISTANT STAPH AUREUS... Complete 04/09/20 09:00 Blood Blood Culture - Preliminary NO GROWTH AFTER 24 HOURS Resulted 04/09/20 08:45 Urine,Clean Catch Urine Culture - Preliminary Proteus Mirabilis Resulted 04/09/20 08:45 Nasopharynx SARS-CoV-2 RdRp Gene Assay - Final Complete 04/09/20 08:45 Blood Blood Culture - Preliminary NO GROWTH AFTER 24 HOURS Resulted Critical Care - Subjective ROS Limited/Unobtainable: Yes Condition: critical FI02: 35 Vent Support Breath Rate: 10 Vent Support Mode: AC Vent Tidal Volume: 500 Sputum Amount: Moderate PEEP: 5.0 PIP: 26 Tube Feeding Amount: 55 I&O: Intake and Output 04/10/20 04/11/20 19:00 07:00 Intake Total 530.0 ml 1308.708 ml Output Total 800 ml 1950 ml Balance -270.0 ml -641.292 ml Intake Free Water 200 ml 300 ml IV Total 220.0 ml 348.708 ml Tube Feeding 110 ml 660 ml Output Urine Total 800 ml 1950 ml CXR: Airspace opacities in the bilateral lower lung field, correlate for infiltrate. Superimposed atelectasis not excluded. Small left pleural effusion. Mild- moderate vascular congestion. ET-Tube: 7.0 Labs: Laboratory Tests Test 04/11/20 03:30 04/11/20 09:18 White Blood Count 9.8 K/UL (4.8-10.8) Red Blood Count 3.92 M/UL (4.20-5.40) L Hemoglobin 9.6 G/DL (12.0-16.0) L Hematocrit 33.4 % (37.0-47.0) L Mean Corpuscular Volume 85 FL (80-99) Mean Corpuscular Hemoglobin 24.6 PG (27.0-31.0) L Mean Corpuscular Hemoglobin Concent 28.8 G/DL (32.0-36.0) L Red Cell Distribution Width 18.2 % (11.6-14.8) H Platelet Count 245 K/UL (150-450) Mean Platelet Volume 7.4 FL (6.5-10.1) Neutrophils (%) (Auto) 66.2 % (45.0-75.0) Lymphocytes (%) (Auto) 19.0 % (20.0-45.0) L Monocytes (%) (Auto) 7.5 % (1.0-10.0) Eosinophils (%) (Auto) 6.8 % (0.0-3.0) H Basophils (%) (Auto) 0.5 % (0.0-2.0) Sodium Level 140 MMOL/L (136-145) Potassium Level 4.2 MMOL/L (3.5-5.1) Chloride Level 105 MMOL/L (98-107) Carbon Dioxide Level 33 MMOL/L (21-32) H Anion Gap 2 mmol/L (5-15) L Blood Urea Nitrogen 13 mg/dL (7-18) Creatinine 0.5 MG/DL (0.55-1.30) L Estimat Glomerular Filtration Rate > 60 mL/min (>60) Glucose Level 122 MG/DL (74-106) H Lactic Acid Level 1.10 mmol/L (0.4-2.0) Calcium Level 8.7 MG/DL (8.5-10.1) Vancomycin Level Trough 6.0 ug/mL (5.0-12.0) Arterial Blood pH 7.411 (7.350-7.450) Arterial Blood Partial Pressure CO2 49.8 mmHg (35.0-45.0) H Arterial Blood Partial Pressure O2 129.0 mmHg (75.0-100.0) H Arterial Blood HCO3 30.9 mmol/L (22.0-26.0) H Arterial Blood Oxygen Saturation 98.3 % (95-100) Arterial Blood Base Excess 5.4 (-2-2) H [place] Test Positive Ethel Curtis MD Apr 11, 2020 09:57
--- NOTE | 2020-04-11 10:41 | Cardiology Report ---
APPROVED REPORT EXAM: Two-dimensional and M-mode echocardiogram with Doppler and color Doppler. INDICATION Arrhythmia M-Mode DIMENSIONS IVSd0.9 (0.7-1.1cm)Left Atrium (MM)2.8 (1.6-4.0cm) LVDd5.0 (3.5-5.6cm)Aortic Root3.3 (2.0-3.7cm) PWd0.9 (0.7-1.1cm)Aortic Cusp Exc.1.7 (1.5-2.0cm) IVSs1.3 cmEPSS0.7 (>1.0cm) LVDs3.6 (2.5-4.0cm) PWs1.3 cm <Conclusion> Normal left ventricular chamber size, systolic function and wall motion. Left ventricular ejection fraction estimated to be 60 %. No evidence of left ventricular hypertrophy. Left atrial size at upper limits of normal. Right cardiac chamber sizes are within normal limits. Focal aortic valve sclerosis with adequate cusp excursion. Thickened mitral valve leaflets with normal excursion. Moderate mitral annulus and aortic root calcification. Normal pulmonic valve structure. Normal tricuspid valve structure. Subcostal views are not obtainable due to GI tube. A color flow and spectral Doppler study was performed and revealed: Trace aortic regurgitation. Trace mitral regurgitation. Mitral diastolic velocities suggest reduced left ventricular relaxation c/w mild diastolic dysfunction (Grade I). Tricuspid systolic velocities suggests peak right ventricular systolic pressure of 26 mmHg. Moderate pulmonic regurgitation present.
[2020-04-11 12:00] VITALS: BP 138/82
--- NOTE | 2020-04-11 13:20 | Diagnostic Imaging Report ---
Indication: Shortness of breath Technique: One view of the chest Comparison: 04/10/2020 Findings: Opacity at the right lung base likely represents an atelectatic right middle lobe. This is a new finding. Infiltrate at the left lung base appears unchanged. The left hemidiaphragm appears more distinct, may indicate improving pleural fluid. The heart remains borderline enlarged. Tracheostomy is again demonstrated Impression: New right basilar opacity likely represents mostly or completely atelectatic right middle lobe Persistent infiltrate at the left lung base Possible improvement of left pleural effusion
--- NOTE | 2020-04-11 13:54 | Surgery Progress Note ---
Surgery Progress Note Subjective Procedure Performed Right femoral central venous catheter insertion Additional Comments labs improved leukocytosis resolved no n/v comfortable appearing Objective Last 24 Hour Vital Signs Date Time Temp Pulse Resp B/P (MAP) Pulse Ox O2 Delivery O2 Flow Rate FiO2 04/11/20 13:05 60 12 100 Mechanical Ventilator 35 99 12 35 04/11/20 12:00 Mechanical Ventilator 04/11/20 12:00 35 04/11/20 12:00 98.9 89 19 138/82 (100) 98 04/11/20 11:53 86 04/11/20 10:51 103 12 35 04/11/20 08:00 97.9 69 15 127/68 (87) 100 04/11/20 08:00 35 04/11/20 08:00 Mechanical Ventilator 04/11/20 07:42 87 04/11/20 07:00 93 11 100 Mechanical Ventilator 35 96 11 35 04/11/20 04:00 Mechanical Ventilator 04/11/20 04:00 98.2 80 15 97/70 (79) 100 04/11/20 04:00 35 04/11/20 03:51 86 10 35 04/11/20 03:32 78 04/11/20 00:10 82 04/11/20 00:00 98.4 83 14 113/76 (88) 100 04/11/20 00:00 Mechanical Ventilator 04/10/20 22:46 91 13 35 04/10/20 20:00 98.2 79 16 110/80 (90) 100 04/10/20 20:00 Mechanical Ventilator 04/10/20 20:00 90 04/10/20 20:00 35 04/10/20 19:02 85 13 100 Mechanical Ventilator 35 89 10 35 04/10/20 16:28 94 04/10/20 16:00 98.2 88 11 134/71 (92) 100 04/10/20 16:00 Mechanical Ventilator 04/10/20 16:00 35 04/10/20 15:42 99 11 35 I&O Intake and Output0 04/10/20 04/11/20 19:00 07:00 Intake Total 530.0 ml 1308.708 ml Output Total 800 ml 1950 ml Balance -270.0 ml -641.292 ml Intake Free Water 200 ml 300 ml IV Total 220.0 ml 348.708 ml Tube Feeding 110 ml 660 ml Output Urine Total 800 ml 1950 ml Dressing: saturated Cardiovascular: RSR Respiratory: decreased breath sounds Abdomen: non-tender, present bowel sounds, non-distended Extremities: no tenderness, no cyanosis Laboratory Tests Test 04/11/20 03:30 04/11/20 09:18 White Blood Count 9.8 K/UL (4.8-10.8) Red Blood Count 3.92 M/UL (4.20-5.40) L Hemoglobin 9.6 G/DL (12.0-16.0) L Hematocrit 33.4 % (37.0-47.0) L Mean Corpuscular Volume 85 FL (80-99) Mean Corpuscular Hemoglobin 24.6 PG (27.0-31.0) L Mean Corpuscular Hemoglobin Concent 28.8 G/DL (32.0-36.0) L Red Cell Distribution Width 18.2 % (11.6-14.8) H Platelet Count 245 K/UL (150-450) Mean Platelet Volume 7.4 FL (6.5-10.1) Neutrophils (%) (Auto) 66.2 % (45.0-75.0) Lymphocytes (%) (Auto) 19.0 % (20.0-45.0) L Monocytes (%) (Auto) 7.5 % (1.0-10.0) Eosinophils (%) (Auto) 6.8 % (0.0-3.0) H Basophils (%) (Auto) 0.5 % (0.0-2.0) Sodium Level 140 MMOL/L (136-145) Potassium Level 4.2 MMOL/L (3.5-5.1) Chloride Level 105 MMOL/L (98-107) Carbon Dioxide Level 33 MMOL/L (21-32) H Anion Gap 2 mmol/L (5-15) L Blood Urea Nitrogen 13 mg/dL (7-18) Creatinine 0.5 MG/DL (0.55-1.30) L Estimat Glomerular Filtration Rate > 60 mL/min (>60) Glucose Level 122 MG/DL (74-106) H Lactic Acid Level 1.10 mmol/L (0.4-2.0) Calcium Level 8.7 MG/DL (8.5-10.1) Vancomycin Level Trough 6.0 ug/mL (5.0-12.0) Arterial Blood pH 7.411 (7.350-7.450) Arterial Blood Partial Pressure CO2 49.8 mmHg (35.0-45.0) H Arterial Blood Partial Pressure O2 129.0 mmHg (75.0-100.0) H Arterial Blood HCO3 30.9 mmol/L (22.0-26.0) H Arterial Blood Oxygen Saturation 98.3 % (95-100) Arterial Blood Base Excess 5.4 (-2-2) H Madhu Test Positive Plan Problems: (1) CHF (congestive heart failure) (2) Cardiomyopathy (3) Septic shock Assessment & Plan: bp improved okay for diet abd exam benign trach okay. needs more insufflation of cuff for volumes DAILY ESTIMATED NEEDS: Needs based on Critical care, wound 62.6kg abw 22-28 kcals/kg 8865-5538 total kcals 1.25-2 g protein/kg 78-125 g total protein 25-30 mL/kg 1753-9239 total fluid mLs NUTRITION DIAGNOSIS: * Swallowing difficulty r/t resp status as evidenced by pt is trach and peg dep. (CURRENT TF: Glucerna 1.2 @55ml/hr x 24 hrs) ENTERAL NUTRITION RECOMMENDATIONS: Glucerna 1.2 @ 55ml/hr x 24 hrs + Prosource 1 pack daily to provide 1320ml, 1584 kcal, 79g pro + 22g pro, 1063ml free H2O * Maintain current TF * Add Prosource 1 pack daily to better meet est pro needs (added 11g pro) * HOB Over 30 degrees/ water flush per MD ADDITIONAL RECOMMENDATIONS: 1) Calibrated bed scale wts 2) Rec niss/ poc for glycemic control (4) Altered mental status (5) Decubitus skin ulcer Assessment & Plan: patient with historic / chronic decubitus with incontinence associated dermatitis in the sacral region air mattress ordered daughter helps with care has personal turning pillow turn q2h off load pressure heel protectors offload with pillow skin protectant cream and dressings to sacral area daily and prn saturation monitor for incontinence will follow with recs nutritional optimization (6) Sacral decubitus ulcer, stage II (7) Chronic respiratory failure (8) Nosocomial pneumonia (9) Feeding by G-tube Mauro Roldan Apr 11, 2020 13:54
[2020-04-11 16:00] VITALS: BP 148/76
--- NOTE | 2020-04-11 16:44 | Diagnostic Imaging Report ---
Indication: Reason For Exam: ABD PAIN Technique: Grayscale and duplex images of the bilateral lower extremity veins Comparison: Findings: Exam is somewhat limited, due to a central venous catheter limiting visualization of the right femoral vein and deep femoral vein . Otherwise, grayscale and duplex images demonstrate no evidence of intraluminal thrombus. Normal phasic Doppler waveforms, demonstrating normal augmentation response and no evidence of valvular insufficiency. Greater saphenous vein(s) and tibial veins are patent. Normal compressibility. Impression: Negative for evidence of lower extremity deep venous thrombosis bilaterally
[2020-04-11 20:00] VITALS: BP 154/74
[2020-04-11] MEDS: Dyna-Hex 2% Top Sol 2oz TOPIC SCH (20:16)
--- NOTE | 2020-04-11 22:18 | General Progress Note ---
Subjective Constitutional: Reports: no symptoms HEENT: Reports: no symptoms Cardiovascular: Reports: no symptoms Respiratory: Reports: no symptoms Gastrointestinal/Abdominal: Reports: no symptoms Genitourinary: Reports: no symptoms Neurologic/Psychiatric: Reports: no symptoms Endocrine: Reports: no symptoms Hematologic/Lymphatic: Reports: no symptoms Allergies: Coded Allergies: No Known Allergies (Unverified , 03/03/19) Objective Last 24 Hour Vital Signs Date Time Temp Pulse Resp B/P (MAP) Pulse Ox O2 Delivery O2 Flow Rate FiO2 04/11/20 20:00 98.6 96 17 154/74 (100) 99 04/11/20 20:00 35 04/11/20 20:00 Mechanical Ventilator 04/11/20 20:00 91 04/11/20 19:30 78 10 99 Mechanical Ventilator 35 85 10 35 04/11/20 16:00 97.9 90 20 148/76 (100) 99 04/11/20 16:00 35 04/11/20 16:00 Mechanical Ventilator 04/11/20 15:28 93 11 35 04/11/20 15:13 86 04/11/20 13:05 60 12 100 Mechanical Ventilator 35 99 12 35 04/11/20 12:00 Mechanical Ventilator 04/11/20 12:00 35 04/11/20 12:00 98.9 89 19 138/82 (100) 98 04/11/20 11:53 86 04/11/20 10:51 103 12 35 04/11/20 08:00 97.9 69 15 127/68 (87) 100 04/11/20 08:00 35 04/11/20 08:00 Mechanical Ventilator 04/11/20 07:42 87 04/11/20 07:00 93 11 100 Mechanical Ventilator 35 96 11 35 04/11/20 04:00 Mechanical Ventilator 04/11/20 04:00 98.2 80 15 97/70 (79) 100 04/11/20 04:00 35 04/11/20 03:51 86 10 35 04/11/20 03:32 78 04/11/20 00:10 82 04/11/20 00:00 98.4 83 14 113/76 (88) 100 04/11/20 00:00 Mechanical Ventilator 04/10/20 22:46 91 13 35 Intake and Output 04/10/20 04/11/20 19:00 07:00 Intake Total 530.0 ml 1308.708 ml Output Total 800 ml 1950 ml Balance -270.0 ml -641.292 ml Intake Free Water 200 ml 300 ml IV Total 220.0 ml 348.708 ml Tube Feeding 110 ml 660 ml Output Urine Total 800 ml 1950 ml Laboratory Tests 04/11/20 03:30: White Blood Count 9.8, Red Blood Count 3.92L, Hemoglobin 9.6L, Hematocrit 33.4L, Mean Corpuscular Volume 85, Mean Corpuscular Hemoglobin 24.6L, Mean Corpuscular Hemoglobin Concent 28.8L, Red Cell Distribution Width 18.2H, Platelet Count 245, Mean Platelet Volume 7.4, Neutrophils (%) (Auto) 66.2, Lymphocytes (%) (Auto) 19.0L, Monocytes (%) (Auto) 7.5, Eosinophils (%) (Auto) 6.8H, Basophils (%) (Auto) 0.5, Sodium Level 140, Potassium Level 4.2, Chloride Level 105, Carbon Dioxide Level 33H, Anion Gap 2L, Blood Urea Nitrogen 13, Creatinine 0.5L, Estimat Glomerular Filtration Rate > 60, Glucose Level 122H, Lactic Acid Level 1.10, Calcium Level 8.7, Vancomycin Level Trough 6.0 04/11/20 09:18: Arterial Blood pH 7.411, Arterial Blood Partial Pressure CO2 49.8H, Arterial Blood Partial Pressure O2 129.0H, Arterial Blood HCO3 30.9H, Arterial Blood Oxygen Saturation 98.3, Arterial Blood Base Excess 5.4H, Madhu Test Positive Height (Feet): 5 Height (Inches): 6.00 Weight (Pounds): 150 General Appearance: WD/WN, no apparent distress, alert EENT: normal ENT inspection Neck: non-tender, supple Cardiovascular: normal rate, regular rhythm, no gallop/murmur, no JVD Respiratory/Chest: lungs clear, normal breath sounds, no respiratory distress, no accessory muscle use Abdomen: normal bowel sounds, non tender, soft, no mass, abnormal bowel sounds Neurologic: alert, responsive, other - Eye contact smiles Skin: warm/dry Assessment/Plan Status Narrative Is awake alert afebrile hemodynamically stable hours patient went from 25,000 WBC to 9000 intoxicant tachypneic to looking normal nonspecific with normal respiratory rate and agree it appears the patient nearly completed her recovery when chest x-ray will be done new focus of infiltration cannot focus and not completely resolved we will continue with piperacillin vancomycin for the next several days repeat laboratory tests will be done in a.m. assuming Delmy Martins MD Apr 11, 2020 22:18
[2020-04-12] VITALS: BP 106/67
--- NOTE | 2020-04-12 01:35 | Cardiology Progress Note ---
Subjective DATE OF SERVICE: Apr 11, 2020 On vent support. ABG's improved. Monitor: Sinus with frequent PVC's - no sustained arrhythmias, but occasional bi and trigeminy. Objective Last 24 Hour Vital Signs Date Time Temp Pulse Resp B/P (MAP) Pulse Ox O2 Delivery O2 Flow Rate FiO2 04/12/20 00:00 98.5 80 16 106/67 (80) 99 04/12/20 00:00 Mechanical Ventilator 04/12/20 00:00 79 04/11/20 22:58 90 17 35 04/11/20 20:00 98.6 96 17 154/74 (100) 99 04/11/20 20:00 35 04/11/20 20:00 Mechanical Ventilator 04/11/20 20:00 91 04/11/20 19:30 78 10 99 Mechanical Ventilator 35 85 10 35 04/11/20 16:00 97.9 90 20 148/76 (100) 99 04/11/20 16:00 35 04/11/20 16:00 Mechanical Ventilator 04/11/20 15:28 93 11 35 04/11/20 15:13 86 04/11/20 13:05 60 12 100 Mechanical Ventilator 35 99 12 35 04/11/20 12:00 Mechanical Ventilator 04/11/20 12:00 35 04/11/20 12:00 98.9 89 19 138/82 (100) 98 04/11/20 11:53 86 04/11/20 10:51 103 12 35 04/11/20 08:00 97.9 69 15 127/68 (87) 100 04/11/20 08:00 35 04/11/20 08:00 Mechanical Ventilator 04/11/20 07:42 87 04/11/20 07:00 93 11 100 Mechanical Ventilator 35 96 11 35 04/11/20 04:00 Mechanical Ventilator 04/11/20 04:00 98.2 80 15 97/70 (79) 100 04/11/20 04:00 35 04/11/20 03:51 86 10 35 04/11/20 03:32 78 HEENT: Thick Trach secretions RHYTHM: NSR, PVCs LUNGS: bilateral rhonchi CARDIAC: normal rate, regular rhythm, normal S1 and S2 ABDOMEN: normal bowel sounds, non tender, soft, G-Tube intact EXTREMITIES: non-tender, trace edema Laboratory Tests Test 04/11/20 03:30 04/11/20 09:18 White Blood Count 9.8 K/UL (4.8-10.8) Red Blood Count 3.92 M/UL (4.20-5.40) L Hemoglobin 9.6 G/DL (12.0-16.0) L Hematocrit 33.4 % (37.0-47.0) L Mean Corpuscular Volume 85 FL (80-99) Mean Corpuscular Hemoglobin 24.6 PG (27.0-31.0) L Mean Corpuscular Hemoglobin Concent 28.8 G/DL (32.0-36.0) L Red Cell Distribution Width 18.2 % (11.6-14.8) H Platelet Count 245 K/UL (150-450) Mean Platelet Volume 7.4 FL (6.5-10.1) Neutrophils (%) (Auto) 66.2 % (45.0-75.0) Lymphocytes (%) (Auto) 19.0 % (20.0-45.0) L Monocytes (%) (Auto) 7.5 % (1.0-10.0) Eosinophils (%) (Auto) 6.8 % (0.0-3.0) H Basophils (%) (Auto) 0.5 % (0.0-2.0) Sodium Level 140 MMOL/L (136-145) Potassium Level 4.2 MMOL/L (3.5-5.1) Chloride Level 105 MMOL/L (98-107) Carbon Dioxide Level 33 MMOL/L (21-32) H Anion Gap 2 mmol/L (5-15) L Blood Urea Nitrogen 13 mg/dL (7-18) Creatinine 0.5 MG/DL (0.55-1.30) L Estimat Glomerular Filtration Rate > 60 mL/min (>60) Glucose Level 122 MG/DL (74-106) H Lactic Acid Level 1.10 mmol/L (0.4-2.0) Calcium Level 8.7 MG/DL (8.5-10.1) Vancomycin Level Trough 6.0 ug/mL (5.0-12.0) Arterial Blood pH 7.411 (7.350-7.450) Arterial Blood Partial Pressure CO2 49.8 mmHg (35.0-45.0) H Arterial Blood Partial Pressure O2 129.0 mmHg (75.0-100.0) H Arterial Blood HCO3 30.9 mmol/L (22.0-26.0) H Arterial Blood Oxygen Saturation 98.3 % (95-100) Arterial Blood Base Excess 5.4 (-2-2) H Madhu Test Positive Microbiology Date/Time Source Procedure Growth Status 04/09/20 18:00 Urine,Clean Catch Urine Culture - Preliminary Gram Negative Stan Resulted 04/09/20 11:50 Sputum Gram Stain - Final Resulted 04/09/20 11:50 Sputum Culture - Preliminary Gram Negative Bacillus 1 Usual Respiratory Yamileth Resulted 04/09/20 09:00 Rectum VRE Culture - Final NO VANCOMYCIN RESISTANT ENTEROCOCCUS ... Complete 04/09/20 09:00 Nasal Nares MRSA Culture - Final NO METHICILLIN RESISTANT STAPH AUREUS... Complete 04/09/20 09:00 Blood Blood Culture - Preliminary NO GROWTH AFTER 24 HOURS Resulted 04/09/20 08:45 Urine,Clean Catch Urine Culture - Preliminary Proteus Mirabilis Resulted 04/09/20 08:45 Nasopharynx SARS-CoV-2 RdRp Gene Assay - Final Complete 04/09/20 08:45 Blood Blood Culture - Preliminary NO GROWTH AFTER 24 HOURS Resulted Assessment/Plan Assessment/Plan Acute respiratory acidosis - improved Paroxysmal ventricular arrhythmias and ectopy Respiratory failure with trach Hypertensive cardiomyopathy Healthcare associated PNA Sepsis with recovering shock Hypovolemia/dehydration resolved Acute myocardial ischemia recovered Mild acute diastolic CHF with increase in BNP to 439 Abx Vent support Cardiac monitoring Off IVF Maintain therapeutic K+/Mg++ levels; empiric IV Mg ordered DVT prophylaxis Altaf Mchugh MD Apr 12, 2020 01:35
[2020-04-12] MEDS: Zosyn 3.375gm in NS 110ml IVPB SCH (02:02)
[2020-04-12 04:00] VITALS: BP 130/71
[2020-04-12] MEDS: Vancomycin 1gm/D5W 275ml IVPB SCH ×2 (05:26)
[2020-04-12 05:51] LABS: BASOPHILS % (AUTO) 0.6 % (0.0-2.0); EOSINOPHILS % (AUTO) 6.5 % (0.0-3.0); HEMATOCRIT 32.9 % (37.0-47.0); HEMOGLOBIN 9.6 G/DL (12.0-16.0); LYMPHOCYTES % (AUTO) 18.4 % (20.0-45.0); MEAN CORPUSCULAR VOLUME 84 FL (80-99); MONOCYTES % (AUTO) 6.7 % (1.0-10.0); NEUTROPHILS % (AUTO) 67.8 % (45.0-75.0); PLATELET COUNT 233 K/UL (150-450); RED CELL DISTRIBUTION WIDTH 18.1 % (11.6-14.8); WHITE BLOOD COUNT 10.1 K/UL (4.8-10.8)
[2020-04-12 06:15] LABS: ALANINE AMINOTRANSFERASE 32 U/L (12-78); ALBUMIN 2.4 G/DL (3.4-5.0); ALBUMIN/GLOBULIN RATIO 0.5 (1.0-2.7); ALKALINE PHOSPHATASE 122 U/L (46-116); ANION GAP 0 mmol/L (5-15); ASPARTATE AMINO TRANSFERASE 26 U/L (15-37); BILIRUBIN,TOTAL 0.3 MG/DL (0.2-1.0); BLOOD UREA NITROGEN 13 mg/dL (7-18); CALCIUM 8.7 MG/DL (8.5-10.1); CARBON DIOXIDE 36 MMOL/L (21-32); CHLORIDE 103 MMOL/L (98-107); CREATININE 0.5 MG/DL (0.55-1.30); PHOSPHORUS 3.1 MG/DL (2.5-4.9); POTASSIUM 4.2 MMOL/L (3.5-5.1); SODIUM 139 MMOL/L (136-145)
--- NOTE | 2020-04-12 06:51 | Hematology/Onc Progress Note ---
Assessment/Plan Assessment/Plan Assesment and Recs # Anemia of chronic disease due to underlying chronic medical issues, multifactorial v Gi bleed --> Anemia workup has been ordered, rule out gi bleed --> No evidence of hemolysis is noted, peripheral smear has been reviewed. --> Hgb goal >7. Transfuse prn. --> Epogen or iron at this time is not particularly indicated --> Medications have been reviewed --> low threshold for gi evaluation in case has occult + --> hgb 14->9.6 # Leukocytosis/elevated white blood cell count, unspecified likely related to underlying infection --> CXR with pna --> have reviewed peripheral smear and bandemia/neutrophilia noted --> ABX vanc/zosyn --> monitor for resolution --> wbc 25-->11-->9.8 # Elevated ddimer --> venous duiplex legs # Chest pain rule out acs --> trop neg # Respiratory failure s/p trach/vent Placed on ventilator. # Nosocomial pneumonia # Dvt ppx heparin sq The timing of this note does not necessarily reflect the time of the patient was seen. Greatly appreciate consultation. Subjective Constitutional: Denies: no symptoms, chills, fever, malaise, weakness, other HEENT: Denies: no symptoms, eye pain, blurred vision, tearing, double vision, ear pain, ear discharge, nose pain, nose congestion, throat pain, throat swelling, mouth pain, mouth swelling, other Cardiovascular: Denies: no symptoms, chest pain, edema, irregular heart rate, lightheadedness, palpitations, syncope, other Neurologic/Psychiatric: Denies: no symptoms, anxiety, depressed, emotional problems, headache, numbness, paresthesia, pre-existing deficit, seizure, tingling, tremors, weakness, other Endocrine: Denies: no symptoms, excessive sweating, flushing, intolerance to cold, intolerance to heat, increased hunger, increased thirst, increased urine, unexplained weight gain, unexplained weight loss, other Hematologic/Lymphatic: Denies: no symptoms, anemia, easy bleeding, easy bruising, adenopathy, other Allergies: Coded Allergies: No Known Allergies (Unverified , 03/03/19) Subjective 04/11 labs reviewed, meds noted, no bleeding, no fc, hgb low 04/12 vent support, labs reviewed, meds noted, no bleeding Objective Objective Current Medications Medications (Trade) Dose Ordered Sig/Rizwana Route PRN Reason Start Time Stop Time Status Last Admin Dose Admin Artificial Tears (Akwa-Tears) 2 drop Q2H PRN BOTH EYES Dry Eyes 04/10/20 07:00 05/10/20 06:59 Ascorbic Acid (Vitamin C) 500 mg DAILY GT 04/10/20 09:00 05/10/20 08:59 04/11/20 09:34 Atorvastatin Calcium (Lipitor) 10 mg BEDTIME GT 04/09/20 21:00 07/08/20 20:59 04/11/20 20:16 Chlorhexidine Gluconate (Julia-Hex 2%) 1 applic DAILY@2000 TOPIC 04/10/20 20:00 07/09/20 19:59 04/11/20 20:16 Clonazepam (KlonoPIN) 0.125 mg BIDPRN PRN GT For Anxiety 04/09/20 16:15 04/16/20 16:14 Heparin Sodium (Porcine) (Heparin 5000 units/ml) 5,000 units EVERY 12 HOURS SUBQ 04/10/20 09:00 05/25/20 08:59 Levalbuterol HCl (Xopenex) 0.63 mg TIDRT HHN 04/09/20 19:00 04/14/20 18:59 04/11/20 19:43 Piperacillin Sod/ Tazobactam Sod 3.375 gm/Sodium Chloride 110 ml @ 27.5 mls/hr Q8H IVPB 04/09/20 18:00 04/16/20 17:59 04/12/20 02:02 Quetiapine Fumarate (SEROqueL) 25 mg Q12HR GT 04/09/20 21:00 05/24/20 20:59 04/11/20 20:16 Tramadol HCl (Ultram) 50 mg Q8H PRN GT For Pain 04/09/20 16:15 04/16/20 16:14 Vancomycin HCl (Vanco pharmacy to dose) 1 ea DAILY PRN MISC Per rx protocol 04/09/20 11:45 05/09/20 11:44 Vancomycin HCl 1 gm/Dextrose 275 ml @ 183.708 mls/hr Q12H IVPB 04/11/20 06:00 04/16/20 05:59 04/12/20 05:26 Last 24 Hour Vital Signs Date Time Temp Pulse Resp B/P (MAP) Pulse Ox O2 Delivery O2 Flow Rate FiO2 04/12/20 04:01 83 04/12/20 04:00 97.7 81 16 130/71 (90) 99 04/12/20 04:00 Mechanical Ventilator 04/12/20 04:00 35 04/12/20 03:30 73 10 35 04/12/20 00:00 98.5 80 16 106/67 (80) 99 04/12/20 00:00 Mechanical Ventilator 04/12/20 00:00 79 04/11/20 22:58 90 17 35 04/11/20 20:00 98.6 96 17 154/74 (100) 99 04/11/20 20:00 35 04/11/20 20:00 Mechanical Ventilator 04/11/20 20:00 91 04/11/20 19:30 78 10 99 Mechanical Ventilator 35 85 10 35 04/11/20 16:00 97.9 90 20 148/76 (100) 99 04/11/20 16:00 35 04/11/20 16:00 Mechanical Ventilator 04/11/20 15:28 93 11 35 04/11/20 15:13 86 04/11/20 13:05 60 12 100 Mechanical Ventilator 35 99 12 35 04/11/20 12:00 Mechanical Ventilator 04/11/20 12:00 35 04/11/20 12:00 98.9 89 19 138/82 (100) 98 04/11/20 11:53 86 04/11/20 10:51 103 12 35 04/11/20 08:00 97.9 69 15 127/68 (87) 100 04/11/20 08:00 35 04/11/20 08:00 Mechanical Ventilator 04/11/20 07:42 87 04/11/20 07:00 93 11 100 Mechanical Ventilator 35 96 11 35 04/11/20 04:00 Mechanical Ventilator 04/11/20 04:00 98.2 80 15 97/70 (79) 100 04/11/20 04:00 35 04/11/20 03:51 86 10 35 04/11/20 03:32 78 04/11/20 00:10 82 04/11/20 00:00 98.4 83 14 113/76 (88) 100 04/11/20 00:00 Mechanical Ventilator 04/10/20 22:46 91 13 35 04/10/20 20:00 98.2 79 16 110/80 (90) 100 04/10/20 20:00 Mechanical Ventilator 04/10/20 20:00 90 04/10/20 20:00 35 04/10/20 19:02 85 13 100 Mechanical Ventilator 35 89 10 35 04/10/20 16:28 94 04/10/20 16:00 98.2 88 11 134/71 (92) 100 04/10/20 16:00 Mechanical Ventilator 04/10/20 16:00 35 04/10/20 15:42 99 11 35 04/10/20 12:28 96 04/10/20 12:00 35 04/10/20 12:00 Mechanical Ventilator 04/10/20 12:00 98.2 90 14 139/86 (103) 98 04/10/20 11:38 92 24 100 Mechanical Ventilator 35 101 10 35 04/10/20 09:00 76 04/10/20 08:00 97.9 76 11 129/79 (96) 99 04/10/20 08:00 35 04/10/20 08:00 Mechanical Ventilator 04/10/20 07:29 42 10 100 Mechanical Ventilator 35 49 10 35 Intake and Output 04/11/20 04/12/20 19:00 07:00 Intake Total 961.292 ml 1583.708 ml Output Total 1200 ml 1200 ml Balance -238.708 ml 383.708 ml Intake Free Water 300 ml IV Total 201.292 ml 678.708 ml Tube Feeding 660 ml 605 ml Other 100 ml Output Urine Total 1200 ml 1200 ml # Bowel Movements 3 Labs Test 04/09/20 08:45 04/09/20 09:08 04/09/20 18:00 04/09/20 19:25 White Blood Count 25.0 K/UL (4.8-10.8) Red Blood Count 5.74 M/UL (4.20-5.40) Hemoglobin 14.0 G/DL (12.0-16.0) Hematocrit 49.2 % (37.0-47.0) Mean Corpuscular Volume 86 FL (80-99) Mean Corpuscular Hemoglobin 24.4 PG (27.0-31.0) Mean Corpuscular Hemoglobin Concent 28.5 G/DL (32.0-36.0) Red Cell Distribution Width 18.2 % (11.6-14.8) Platelet Count 385 K/UL (150-450) Mean Platelet Volume 7.3 FL (6.5-10.1) Neutrophils (%) (Auto) % (45.0-75.0) Lymphocytes (%) (Auto) % (20.0-45.0) Monocytes (%) (Auto) % (1.0-10.0) Eosinophils (%) (Auto) % (0.0-3.0) Basophils (%) (Auto) % (0.0-2.0) Differential Total Cells Counted 100 Neutrophils % (Manual) 72 % (45-75) Lymphocytes % (Manual) 20 % (20-45) Monocytes % (Manual) 4 % (1-10) Eosinophils % (Manual) 4 % (0-3) Basophils % (Manual) 0 % (0-2) Band Neutrophils 0 % (0-8) Platelet Estimate Adequate Platelet Morphology Normal Anisocytosis 1+ Prothrombin Time 10.8 SEC (9.30-11.50) Prothromb Time International Ratio 1.0 (0.9-1.1) Activated Partial Thromboplast Time 29 SEC (23-33) D-Dimer 1.23 mg/L FEU (0.00-0.49) Urine Color Pale yellow Yellow Urine Appearance Slightly cloudy Very cloudy Urine pH 9 (4.5-8.0) 9 (4.5-8.0) Urine Specific [place] 1.015 (1.005-1.035) 1.020 (1.005-1.035) Urine Protein Negative (NEGATIVE) 2+ (NEGATIVE) Urine Glucose (UA) Negative (NEGATIVE) Negative (NEGATIVE) Urine Ketones Negative (NEGATIVE) Negative (NEGATIVE) Urine Blood Negative (NEGATIVE) 2+ (NEGATIVE) Urine Nitrite Positive (NEGATIVE) Positive (NEGATIVE) Urine Bilirubin Negative (NEGATIVE) Negative (NEGATIVE) Urine Urobilinogen Normal MG/DL (0.0-1.0) Normal MG/DL (0.0-1.0) Urine Leukocyte Esterase 3+ (NEGATIVE) 3+ (NEGATIVE) Urine RBC 0-2 /HPF (0 - 2) 2-4 /HPF (0 - 2) Urine WBC 2-4 /HPF (0 - 2) 5-10 /HPF (0 - 2) Urine Squamous Epithelial Cells Few /LPF (NONE/OCC) Moderate /LPF (NONE/OCC) Urine Triple Phosphate Crystals Moderate /LPF (NONE) Moderate /LPF (NONE) Urine Bacteria Many /HPF (NONE) Many /HPF (NONE) Sodium Level 132 MMOL/L (136-145) Potassium Level 5.3 MMOL/L (3.5-5.1) Chloride Level 96 MMOL/L (98-107) Carbon Dioxide Level 32 MMOL/L (21-32) Anion Gap 4 mmol/L (5-15) Blood Urea Nitrogen 20 mg/dL (7-18) Creatinine 0.4 MG/DL (0.55-1.30) Estimat Glomerular Filtration Rate > 60 mL/min (>60) Glucose Level 222 MG/DL (74-106) Lactic Acid Level 2.00 mmol/L (0.4-2.0) Calcium Level 9.4 MG/DL (8.5-10.1) Ferritin 285 NG/ML (8-388) Total Bilirubin 0.4 MG/DL (0.2-1.0) Aspartate Amino Transf (AST/SGOT) 76 U/L (15-37) Alanine Aminotransferase (ALT/SGPT) 63 U/L (12-78) Alkaline Phosphatase 182 U/L (46-116) Lactate Dehydrogenase 228 U/L (81-234) Total Creatine Kinase 64 U/L (26-308) Creatine Kinase MB 1.5 NG/ML (0.0-3.6) Creatine Kinase MB Relative Index 2.3 Troponin I 0.007 ng/mL (0.000-0.056) C-Reactive Protein, Quantitative 0.7 mg/dL (0.00-0.90) Pro-B-Type Natriuretic Peptide 127 pg/mL (0-125) Total Protein 9.4 G/DL (6.4-8.2) Albumin 3.4 G/DL (3.4-5.0) Globulin 6.0 g/dL Albumin/Globulin Ratio 0.6 (1.0-2.7) Lipase 505 U/L (73-393) Arterial Blood pH 7.254 (7.350-7.450) 7.363 (7.350-7.450) Arterial Blood Partial Pressure CO2 72.1 mmHg (35.0-45.0) 44.8 mmHg (35.0-45.0) Arterial Blood Partial Pressure O2 110.9 mmHg (75.0-100.0) 109.8 mmHg (75.0-100.0) Arterial Blood HCO3 31.2 mmol/L (22.0-26.0) 24.9 mmol/L (22.0-26.0) Arterial Blood Oxygen Saturation 97.8 % (95-100) 98.0 % (95-100) Arterial Blood Base Excess 2.2 (-2-2) -0.6 (-2-2) Madhu Test Positive Positive Test 04/10/20 06:30 04/11/20 03:30 04/11/20 09:18 04/12/20 04:30 White Blood Count 11.2 K/UL (4.8-10.8) 9.8 K/UL (4.8-10.8) 10.1 K/UL (4.8-10.8) Red Blood Count 4.12 M/UL (4.20-5.40) 3.92 M/UL (4.20-5.40) 3.90 M/UL (4.20-5.40) Hemoglobin 10.1 G/DL (12.0-16.0) 9.6 G/DL (12.0-16.0) 9.6 G/DL (12.0-16.0) Hematocrit 35.0 % (37.0-47.0) 33.4 % (37.0-47.0) 32.9 % (37.0-47.0) Mean Corpuscular Volume 85 FL (80-99) 85 FL (80-99) 84 FL (80-99) Mean Corpuscular Hemoglobin 24.6 PG (27.0-31.0) 24.6 PG (27.0-31.0) 24.7 PG (27.0-31.0) Mean Corpuscular Hemoglobin Concent 28.9 G/DL (32.0-36.0) 28.8 G/DL (32.0-36.0) 29.3 G/DL (32.0-36.0) Red Cell Distribution Width 17.7 % (11.6-14.8) 18.2 % (11.6-14.8) 18.1 % (11.6-14.8) Platelet Count 254 K/UL (150-450) 245 K/UL (150-450) 233 K/UL (150-450) Mean Platelet Volume 7.0 FL (6.5-10.1) 7.4 FL (6.5-10.1) 7.7 FL (6.5-10.1) Neutrophils (%) (Auto) 71.6 % (45.0-75.0) 66.2 % (45.0-75.0) 67.8 % (45.0-75.0) Lymphocytes (%) (Auto) 18.3 % (20.0-45.0) 19.0 % (20.0-45.0) 18.4 % (20.0-45.0) Monocytes (%) (Auto) 4.8 % (1.0-10.0) 7.5 % (1.0-10.0) 6.7 % (1.0-10.0) Eosinophils (%) (Auto) 4.5 % (0.0-3.0) 6.8 % (0.0-3.0) 6.5 % (0.0-3.0) Basophils (%) (Auto) 0.8 % (0.0-2.0) 0.5 % (0.0-2.0) 0.6 % (0.0-2.0) Sodium Level 139 MMOL/L (136-145) 140 MMOL/L (136-145) 139 MMOL/L (136-145) Potassium Level 3.5 MMOL/L (3.5-5.1) 4.2 MMOL/L (3.5-5.1) 4.2 MMOL/L (3.5-5.1) Chloride Level 103 MMOL/L (98-107) 105 MMOL/L (98-107) 103 MMOL/L (98-107) Carbon Dioxide Level 31 MMOL/L (21-32) 33 MMOL/L (21-32) 36 MMOL/L (21-32) Anion Gap 5 mmol/L (5-15) 2 mmol/L (5-15) 0 mmol/L (5-15) Blood Urea Nitrogen 16 mg/dL (7-18) 13 mg/dL (7-18) 13 mg/dL (7-18) Creatinine 0.5 MG/DL (0.55-1.30) 0.5 MG/DL (0.55-1.30) 0.5 MG/DL (0.55-1.30) Estimat Glomerular Filtration Rate > 60 mL/min (>60) > 60 mL/min (>60) > 60 mL/min (>60) Glucose Level 115 MG/DL (74-106) 122 MG/DL (74-106) 115 MG/DL (74-106) Calcium Level 8.3 MG/DL (8.5-10.1) 8.7 MG/DL (8.5-10.1) 8.7 MG/DL (8.5-10.1) Magnesium Level 1.8 MG/DL (1.8-2.4) 2.2 MG/DL (1.8-2.4) Total Bilirubin 0.3 MG/DL (0.2-1.0) 0.3 MG/DL (0.2-1.0) Aspartate Amino Transf (AST/SGOT) 36 U/L (15-37) 26 U/L (15-37) Alanine Aminotransferase (ALT/SGPT) 49 U/L (12-78) 32 U/L (12-78) Alkaline Phosphatase 117 U/L (46-116) 122 U/L (46-116) Pro-B-Type Natriuretic Peptide 439 pg/mL (0-125) Total Protein 7.0 G/DL (6.4-8.2) 6.9 G/DL (6.4-8.2) Albumin 2.5 G/DL (3.4-5.0) 2.4 G/DL (3.4-5.0) Globulin 4.5 g/dL 4.5 g/dL Albumin/Globulin Ratio 0.6 (1.0-2.7) 0.5 (1.0-2.7) Lactic Acid Level 1.10 mmol/L (0.4-2.0) Vancomycin Level Trough 6.0 ug/mL (5.0-12.0) Arterial Blood pH 7.411 (7.350-7.450) Arterial Blood Partial Pressure CO2 49.8 mmHg (35.0-45.0) Arterial Blood Partial Pressure O2 129.0 mmHg (75.0-100.0) Arterial Blood HCO3 30.9 mmol/L (22.0-26.0) Arterial Blood Oxygen Saturation 98.3 % (95-100) Arterial Blood Base Excess 5.4 (-2-2) Madhu Test Positive Phosphorus Level 3.1 MG/DL (2.5-4.9) C-Reactive Protein, Quantitative 1.4 mg/dL (0.00-0.90) Height (Feet): 5 Height (Inches): 6.00 Weight (Pounds): 150 Objective Physical Exam Vitals: reviewed, normal General Appearance: no apparent distress, alert Head: normocephalic, atraumatic Heent: bilateral eye normal inspection s/P vent/trach Respiratory: chest non-tender, crackles, speaking full sentences CV: regular rate, rhythm, no edema Gastrointestinal: normal bowel sounds Genitourinary: normal inspection Skin: other - See nursing notes Lymphatic: no adenopathy Martin Hernandez MD Apr 12, 2020 06:51
[2020-04-12] MEDS: Levalbuterol Inh UD 1.25mg/0.5ml HHN SCH ×3 (07:30→19:44)
--- NOTE | 2020-04-12 07:58 | Infectious Diseases Prog Note ---
Assessment/Plan 70yo F with: Afebrile Leukocytosis to 25, improving Hypoxia S/p trach on vent Hypotension 04/09 BCx NTD COVID rapid test neg UA neg, UCx +P.mirabilis, S-CTX & ESBL E.coli MRSA nares neg Resp cx +PsA (R-Zosyn, S-alebrto) & GNRs 04/10 CXR: Midline tracheostomy tube. Low lung volumes secondary to poor inspiration. Airspace opacities in the bilateral lower lung field, correlate for infiltrate. Superimposed atelectasis not excluded. Small left pleural effusion. Mild-moderate vascular congestion. No pneumothorax. When compared to yesterday's chest radiograph there is mild improvement in the degree of aeration. 04/11 CXR: New right basilar opacity likely represents mostly or completely atelectatic right middle lobe. Persistent infiltrate at the left lung base. Possible improvement of left pleural effusion BLE US neg for DVT 04/11 Cr 0.4 PMH: Spinal injury Quadriplegia HTN Cardiomyopathy GERD Chronic respiratory failure trach/vent dependant Dysphagia s/p GT hx of PNA Constipation Tardive dyskinesia [facility] resident Plan: Stop vanco IV empiric #3 Stop Zosyn #3 for pna/UTI given PsA in resp cx resistant to Zosyn Start meropenem #1 / 7 for pneumonia/UTI Remove R fem CVC if able, infection risk F/u resp cx + GNRs, UCx +GNRs Trend WBC Monitor CBC/CMP Monitor resp status Monitor temp curve, hemodynamics D/w RN Thank you for this consult. [facility] will continue to follow. Subjective Allergies: Coded Allergies: No Known Allergies (Unverified , 03/03/19) AF WBC 10 Resp cx +PsA resistant to Zosyn CXR w/ persistent infiltrate NAD on vent R fem CVC still in palce Objective Last 24 Hour Vital Signs Date Time Temp Pulse Resp B/P (MAP) Pulse Ox O2 Delivery O2 Flow Rate FiO2 04/12/20 07:40 59 13 100 Mechanical Ventilator 35 80 11 35 04/12/20 04:01 83 04/12/20 04:00 97.7 81 16 130/71 (90) 99 04/12/20 04:00 Mechanical Ventilator 04/12/20 04:00 35 04/12/20 03:30 73 10 35 04/12/20 00:00 98.5 80 16 106/67 (80) 99 04/12/20 00:00 Mechanical Ventilator 04/12/20 00:00 79 04/11/20 22:58 90 17 35 04/11/20 20:00 98.6 96 17 154/74 (100) 99 04/11/20 20:00 35 04/11/20 20:00 Mechanical Ventilator 04/11/20 20:00 91 04/11/20 19:30 78 10 99 Mechanical Ventilator 35 85 10 35 04/11/20 16:00 97.9 90 20 148/76 (100) 99 04/11/20 16:00 35 04/11/20 16:00 Mechanical Ventilator 04/11/20 15:28 93 11 35 04/11/20 15:13 86 04/11/20 13:05 60 12 100 Mechanical Ventilator 35 99 12 35 04/11/20 12:00 Mechanical Ventilator 04/11/20 12:00 35 04/11/20 12:00 98.9 89 19 138/82 (100) 98 04/11/20 11:53 86 04/11/20 10:51 103 12 35 04/11/20 08:00 97.9 69 15 127/68 (87) 100 04/11/20 08:00 35 04/11/20 08:00 Mechanical Ventilator Height (Feet): 5 Height (Inches): 6.00 Weight (Pounds): 150 Gen: NAD in bed HEENT: NCAT, EOMI, trach CV: RRR Pulm: CTAB Abd: Soft, NTND, +PEG Ext: No c/c/e Neuro: Awake but not interactive Lines: R fem CVC Microbiology Date/Time Source Procedure Growth Status 04/09/20 18:00 Urine,Clean Catch Urine Culture - Preliminary Gram Negative Stan Resulted 04/09/20 11:50 Sputum Gram Stain - Final Resulted 04/09/20 11:50 Sputum Culture - Preliminary Pseudomonas Aeruginosa Gram Negative Bacillus 2 Usual Respiratory Yamileth Resulted 04/09/20 09:00 Rectum VRE Culture - Final NO VANCOMYCIN RESISTANT ENTEROCOCCUS ... Complete 04/09/20 09:00 Nasal Nares MRSA Culture - Final NO METHICILLIN RESISTANT STAPH AUREUS... Complete 04/09/20 09:00 Blood Blood Culture - Preliminary NO GROWTH AFTER 48 HOURS Resulted 04/09/20 08:45 Urine,Clean Catch Urine Culture - Preliminary Proteus Mirabilis Resulted 04/09/20 08:45 Nasopharynx SARS-CoV-2 RdRp Gene Assay - Final Complete 04/09/20 08:45 Blood Blood Culture - Preliminary NO GROWTH AFTER 48 HOURS Resulted Laboratory Tests Test 04/11/20 09:18 04/12/20 04:30 Arterial Blood pH 7.411 (7.350-7.450) Arterial Blood Partial Pressure CO2 49.8 mmHg (35.0-45.0) H Arterial Blood Partial Pressure O2 129.0 mmHg (75.0-100.0) H Arterial Blood HCO3 30.9 mmol/L (22.0-26.0) H Arterial Blood Oxygen Saturation 98.3 % (95-100) Arterial Blood Base Excess 5.4 (-2-2) H Madhu Test Positive White Blood Count 10.1 K/UL (4.8-10.8) Red Blood Count 3.90 M/UL (4.20-5.40) L Hemoglobin 9.6 G/DL (12.0-16.0) L Hematocrit 32.9 % (37.0-47.0) L Mean Corpuscular Volume 84 FL (80-99) Mean Corpuscular Hemoglobin 24.7 PG (27.0-31.0) L Mean Corpuscular Hemoglobin Concent 29.3 G/DL (32.0-36.0) L Red Cell Distribution Width 18.1 % (11.6-14.8) H Platelet Count 233 K/UL (150-450) Mean Platelet Volume 7.7 FL (6.5-10.1) Neutrophils (%) (Auto) 67.8 % (45.0-75.0) Lymphocytes (%) (Auto) 18.4 % (20.0-45.0) L Monocytes (%) (Auto) 6.7 % (1.0-10.0) Eosinophils (%) (Auto) 6.5 % (0.0-3.0) H Basophils (%) (Auto) 0.6 % (0.0-2.0) Erythrocyte Sedimentation Rate 63 MM/HR (0-30) H Sodium Level 139 MMOL/L (136-145) Potassium Level 4.2 MMOL/L (3.5-5.1) Chloride Level 103 MMOL/L (98-107) Carbon Dioxide Level 36 MMOL/L (21-32) H Anion Gap 0 mmol/L (5-15) L Blood Urea Nitrogen 13 mg/dL (7-18) Creatinine 0.5 MG/DL (0.55-1.30) L Estimat Glomerular Filtration Rate > 60 mL/min (>60) Glucose Level 115 MG/DL (74-106) H Calcium Level 8.7 MG/DL (8.5-10.1) Phosphorus Level 3.1 MG/DL (2.5-4.9) Magnesium Level 2.2 MG/DL (1.8-2.4) Total Bilirubin 0.3 MG/DL (0.2-1.0) Aspartate Amino Transf (AST/SGOT) 26 U/L (15-37) Alanine Aminotransferase (ALT/SGPT) 32 U/L (12-78) Alkaline Phosphatase 122 U/L (46-116) H C-Reactive Protein, Quantitative 1.4 mg/dL (0.00-0.90) H Total Protein 6.9 G/DL (6.4-8.2) Albumin 2.4 G/DL (3.4-5.0) L Globulin 4.5 g/dL Albumin/Globulin Ratio 0.5 (1.0-2.7) L Current Medications Medications (Trade) Dose Ordered Sig/Rizwana Route PRN Reason Start Time Stop Time Status Last Admin Dose Admin Artificial Tears (Akwa-Tears) 2 drop Q2H PRN BOTH EYES Dry Eyes 04/10/20 07:00 05/10/20 06:59 Ascorbic Acid (Vitamin C) 500 mg DAILY GT 04/10/20 09:00 05/10/20 08:59 04/11/20 09:34 Atorvastatin Calcium (Lipitor) 10 mg BEDTIME GT 04/09/20 21:00 07/08/20 20:59 04/11/20 20:16 Chlorhexidine Gluconate (Julia-Hex 2%) 1 applic DAILY@1999 TOPIC 04/10/20 20:00 07/09/20 19:59 04/11/20 20:16 Clonazepam (KlonoPIN) 0.125 mg BIDPRN PRN GT For Anxiety 04/09/20 16:15 04/16/20 16:14 Heparin Sodium (Porcine) (Heparin 5000 units/ml) 5,000 units EVERY 12 HOURS SUBQ 04/10/20 09:00 05/25/20 08:59 Levalbuterol HCl (Xopenex) 0.63 mg TIDRT HHN 04/09/20 19:00 04/14/20 18:59 04/12/20 07:30 Piperacillin Sod/ Tazobactam Sod 3.375 gm/Sodium Chloride 110 ml @ 27.5 mls/hr Q8H IVPB 04/09/20 18:00 04/16/20 17:59 04/12/20 02:02 Quetiapine Fumarate (SEROqueL) 25 mg Q12HR GT 04/09/20 21:00 05/24/20 20:59 04/11/20 20:16 Tramadol HCl (Ultram) 50 mg Q8H PRN GT For Pain 04/09/20 16:15 04/16/20 16:14 Vancomycin HCl (Vanco pharmacy to dose) 1 ea DAILY PRN MISC Per rx protocol 04/09/20 11:45 05/09/20 11:44 Vancomycin HCl 1 gm/Dextrose 275 ml @ 183.708 mls/hr Q12H IVPB 04/11/20 06:00 04/16/20 05:59 04/12/20 05:26 Jacquie Slaughter M.D. Apr 12, 2020 07:58
[2020-04-12 08:00] VITALS: BP 147/99
[2020-04-12] MEDS: Ascorbic Acid 500mg tab GT SCH (09:48)
[2020-04-12] MEDS: Meropenem 1 GM in NS 55 ML IVPB SCH ×2 (09:49→17:56)
[2020-04-12] MEDS: Heparin 5000 units/ml inj SUBQ SCH ×2 (09:49→20:33)
--- NOTE | 2020-04-12 11:12 | Surgery Progress Note ---
Surgery Progress Note Subjective Procedure Performed Right femoral central venous catheter insertion Additional Comments slowly improving no n/v labs noted exam stable Objective Last 24 Hour Vital Signs Date Time Temp Pulse Resp B/P (MAP) Pulse Ox O2 Delivery O2 Flow Rate FiO2 04/12/20 08:00 98.2 67 13 147/99 (115) 100 04/12/20 08:00 35 04/12/20 08:00 Mechanical Ventilator 04/12/20 07:40 59 13 100 Mechanical Ventilator 35 80 11 35 04/12/20 04:01 83 04/12/20 04:00 97.7 81 16 130/71 (90) 99 04/12/20 04:00 Mechanical Ventilator 04/12/20 04:00 35 04/12/20 03:30 73 10 35 04/12/20 00:00 98.5 80 16 106/67 (80) 99 04/12/20 00:00 Mechanical Ventilator 04/12/20 00:00 79 04/11/20 22:58 90 17 35 04/11/20 20:00 98.6 96 17 154/74 (100) 99 04/11/20 20:00 35 04/11/20 20:00 Mechanical Ventilator 04/11/20 20:00 91 04/11/20 19:30 78 10 99 Mechanical Ventilator 35 85 10 35 04/11/20 16:00 97.9 90 20 148/76 (100) 99 04/11/20 16:00 35 04/11/20 16:00 Mechanical Ventilator 04/11/20 15:28 93 11 35 04/11/20 15:13 86 04/11/20 13:05 60 12 100 Mechanical Ventilator 35 99 12 35 04/11/20 12:00 Mechanical Ventilator 04/11/20 12:00 35 04/11/20 12:00 98.9 89 19 138/82 (100) 98 04/11/20 11:53 86 I&O Intake and Output 04/11/20 04/12/20 18:59 06:59 Intake Total 961.292 ml 1638.708 ml Output Total 1200 ml 1200 ml Balance -238.708 ml 438.708 ml Intake Free Water 300 ml IV Total 201.292 ml 678.708 ml Tube Feeding 660 ml 660 ml Other 100 ml Output Urine Total 1200 ml 1200 ml # Bowel Movements 3 Dressing: saturated Cardiovascular: RSR Respiratory: decreased breath sounds Abdomen: present bowel sounds, non-distended Extremities: no edema, no cyanosis Laboratory Tests Test 04/12/20 04:30 White Blood Count 10.1 K/UL (4.8-10.8) Red Blood Count 3.90 M/UL (4.20-5.40) L Hemoglobin 9.6 G/DL (12.0-16.0) L Hematocrit 32.9 % (37.0-47.0) L Mean Corpuscular Volume 84 FL (80-99) Mean Corpuscular Hemoglobin 24.7 PG (27.0-31.0) L Mean Corpuscular Hemoglobin Concent 29.3 G/DL (32.0-36.0) L Red Cell Distribution Width 18.1 % (11.6-14.8) H Platelet Count 233 K/UL (150-450) Mean Platelet Volume 7.7 FL (6.5-10.1) Neutrophils (%) (Auto) 67.8 % (45.0-75.0) Lymphocytes (%) (Auto) 18.4 % (20.0-45.0) L Monocytes (%) (Auto) 6.7 % (1.0-10.0) Eosinophils (%) (Auto) 6.5 % (0.0-3.0) H Basophils (%) (Auto) 0.6 % (0.0-2.0) Erythrocyte Sedimentation Rate 63 MM/HR (0-30) H Sodium Level 139 MMOL/L (136-145) Potassium Level 4.2 MMOL/L (3.5-5.1) Chloride Level 103 MMOL/L (98-107) Carbon Dioxide Level 36 MMOL/L (21-32) H Anion Gap 0 mmol/L (5-15) L Blood Urea Nitrogen 13 mg/dL (7-18) Creatinine 0.5 MG/DL (0.55-1.30) L Estimat Glomerular Filtration Rate > 60 mL/min (>60) Glucose Level 115 MG/DL (74-106) H Calcium Level 8.7 MG/DL (8.5-10.1) Phosphorus Level 3.1 MG/DL (2.5-4.9) Magnesium Level 2.2 MG/DL (1.8-2.4) Total Bilirubin 0.3 MG/DL (0.2-1.0) Aspartate Amino Transf (AST/SGOT) 26 U/L (15-37) Alanine Aminotransferase (ALT/SGPT) 32 U/L (12-78) Alkaline Phosphatase 122 U/L (46-116) H C-Reactive Protein, Quantitative 1.4 mg/dL (0.00-0.90) H Total Protein 6.9 G/DL (6.4-8.2) Albumin 2.4 G/DL (3.4-5.0) L Globulin 4.5 g/dL Albumin/Globulin Ratio 0.5 (1.0-2.7) L Plan Problems: (1) CHF (congestive heart failure) (2) Cardiomyopathy (3) Septic shock Assessment & Plan: bp improved okay for diet abd exam benign trach okay. needs more insufflation of cuff for volumes improving slowly labs noted venous duplex negative cxr improved slightly DAILY ESTIMATED NEEDS: Needs based on Critical care, wound 62.6kg abw 22-28 kcals/kg 9771-0452 total kcals 1.25-2 g protein/kg 78-125 g total protein 25-30 mL/kg 2551-5082 total fluid mLs NUTRITION DIAGNOSIS: * Swallowing difficulty r/t resp status as evidenced by pt is trach and peg dep. 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
--- NOTE | 2020-04-12 11:36 | Pulmonolgy Critical Care Note ---
Critical Care - Asmt/Plan Problems: (1) Sepsis (2) Nosocomial pneumonia (3) Chronic respiratory failure (4) Sacral decubitus ulcer, stage II (5) Feeding by G-tube Respiratory: monitor respiratory rate, adjust FIO2, CXR Cardiac: continue pressors, continue to monitor HR/BP Renal: F/U I&O, keep IV fluid, check electrolytes Infectious Disease: check cultures Gastrointestinal: continue feedings/current rate Endocrine: monitor blood sugar, continue sliding scale insulin Hematologic: transfuse if hgb<8.5 Neurologic: PRN Ativan, keep patient comfortable Affect: PRN ativan Prophylaxis: Protonix Time Spent (Minutes): 40 Notes Reviewed: cardio, renal Discussed with: nurses, consultants, case fillermanager restaurant - Objective Last 24 Hour Vital Signs Date Time Temp Pulse Resp B/P (MAP) Pulse Ox O2 Delivery O2 Flow Rate FiO2 04/12/20 08:00 98.2 67 13 147/99 (115) 100 04/12/20 08:00 35 04/12/20 08:00 Mechanical Ventilator 04/12/20 07:40 59 13 100 Mechanical Ventilator 35 80 11 35 04/12/20 04:01 83 04/12/20 04:00 97.7 81 16 130/71 (90) 99 04/12/20 04:00 Mechanical Ventilator 04/12/20 04:00 35 04/12/20 03:30 73 10 35 04/12/20 00:00 98.5 80 16 106/67 (80) 99 04/12/20 00:00 Mechanical Ventilator 04/12/20 00:00 79 04/11/20 22:58 90 17 35 04/11/20 20:00 98.6 96 17 154/74 (100) 99 04/11/20 20:00 35 04/11/20 20:00 Mechanical Ventilator 04/11/20 20:00 91 04/11/20 19:30 78 10 99 Mechanical Ventilator 35 85 10 35 04/11/20 16:00 97.9 90 20 148/76 (100) 99 04/11/20 16:00 35 04/11/20 16:00 Mechanical Ventilator 04/11/20 15:28 93 11 35 04/11/20 15:13 86 04/11/20 13:05 60 12 100 Mechanical Ventilator 35 99 12 35 04/11/20 12:00 Mechanical Ventilator 04/11/20 12:00 35 04/11/20 12:00 98.9 89 19 138/82 (100) 98 04/11/20 11:53 86 Status: awake Condition: critical HEENT: atraumatic, normocephalic Neck: full ROM Lungs: clear, chest wall tender Heart: HR/BP stable Abdomen: soft Extremities: no C/C/E Micro: Microbiology Date/Time Source Procedure Growth Status 04/09/20 18:00 Urine,Clean Catch Urine Culture - Final Proteus Mirabilis Escherichia Coli - Esbl Complete 04/09/20 11:50 Sputum Gram Stain - Final Resulted 04/09/20 11:50 Sputum Culture - Preliminary Pseudomonas Aeruginosa Gram Negative Bacillus 2 Usual Respiratory Yamileth Resulted Critical Care - Subjective ROS Limited/Unobtainable: Yes Condition: critical EKG Rhythm: Sinus Rhythm FI02: 35 Vent Support Breath Rate: 10 Vent Support Mode: AC Vent Tidal Volume: 500 Sputum Amount: Moderate PEEP: 5.0 PIP: 23 Tube Feeding Amount: 55 I&O: Intake and Output 04/11/20 04/12/20 19:00 07:00 Intake Total 961.292 ml 1583.708 ml Output Total 1200 ml 1200 ml Balance -238.708 ml 383.708 ml Intake Free Water 300 ml IV Total 201.292 ml 678.708 ml Tube Feeding 660 ml 605 ml Other 100 ml Output Urine Total 1200 ml 1200 ml # Bowel Movements 3 ET-Tube: 7.0 Labs: Laboratory Tests Test 04/12/20 04:30 White Blood Count 10.1 K/UL (4.8-10.8) Red Blood Count 3.90 M/UL (4.20-5.40) L Hemoglobin 9.6 G/DL (12.0-16.0) L Hematocrit 32.9 % (37.0-47.0) L Mean Corpuscular Volume 84 FL (80-99) Mean Corpuscular Hemoglobin 24.7 PG (27.0-31.0) L Mean Corpuscular Hemoglobin Concent 29.3 G/DL (32.0-36.0) L Red Cell Distribution Width 18.1 % (11.6-14.8) H Platelet Count 233 K/UL (150-450) Mean Platelet Volume 7.7 FL (6.5-10.1) Neutrophils (%) (Auto) 67.8 % (45.0-75.0) Lymphocytes (%) (Auto) 18.4 % (20.0-45.0) L Monocytes (%) (Auto) 6.7 % (1.0-10.0) Eosinophils (%) (Auto) 6.5 % (0.0-3.0) H Basophils (%) (Auto) 0.6 % (0.0-2.0) Erythrocyte Sedimentation Rate 63 MM/HR (0-30) H Sodium Level 139 MMOL/L (136-145) Potassium Level 4.2 MMOL/L (3.5-5.1) Chloride Level 103 MMOL/L (98-107) Carbon Dioxide Level 36 MMOL/L (21-32) H Anion Gap 0 mmol/L (5-15) L Blood Urea Nitrogen 13 mg/dL (7-18) Creatinine 0.5 MG/DL (0.55-1.30) L Estimat Glomerular Filtration Rate > 60 mL/min (>60) Glucose Level 115 MG/DL (74-106) H Calcium Level 8.7 MG/DL (8.5-10.1) Phosphorus Level 3.1 MG/DL (2.5-4.9) Magnesium Level 2.2 MG/DL (1.8-2.4) Total Bilirubin 0.3 MG/DL (0.2-1.0) Aspartate Amino Transf (AST/SGOT) 26 U/L (15-37) Alanine Aminotransferase (ALT/SGPT) 32 U/L (12-78) Alkaline Phosphatase 122 U/L (46-116) H C-Reactive Protein, Quantitative 1.4 mg/dL (0.00-0.90) H Total Protein 6.9 G/DL (6.4-8.2) Albumin 2.4 G/DL (3.4-5.0) L Globulin 4.5 g/dL Albumin/Globulin Ratio 0.5 (1.0-2.7) L Ethel Curtis MD Apr 12, 2020 11:36
[2020-04-12 12:00] VITALS: BP 116/89
[2020-04-12 16:00] VITALS: BP 145/79
--- NOTE | 2020-04-12 18:15 | Cardiology Progress Note ---
Subjective DATE OF SERVICE: Apr 12, 2020 On vent support. ABG's improved 04/11/20. Monitor: Sinus with frequent PVC's - no sustained arrhythmias, but still occasional bi and trigeminy. 2D Echo with normal LVEF 60% and no significant valvular pathology. Objective Last 24 Hour Vital Signs Date Time Temp Pulse Resp B/P (MAP) Pulse Ox O2 Delivery O2 Flow Rate FiO2 04/12/20 16:00 87 04/12/20 16:00 97.9 91 11 145/79 (101) 99 04/12/20 16:00 Mechanical Ventilator 04/12/20 16:00 35 04/12/20 15:00 83 22 35 04/12/20 13:38 82 10 99 Mechanical Ventilator 35 88 10 35 04/12/20 12:00 Mechanical Ventilator 04/12/20 12:00 98.0 60 12 116/89 (98) 100 04/12/20 12:00 35 04/12/20 11:42 93 04/12/20 11:03 91 11 35 04/12/20 08:00 98.2 67 13 147/99 (115) 100 04/12/20 08:00 35 04/12/20 08:00 Mechanical Ventilator 04/12/20 07:45 92 04/12/20 07:40 59 13 100 Mechanical Ventilator 35 80 11 35 04/12/20 04:01 83 04/12/20 04:00 97.7 81 16 130/71 (90) 99 04/12/20 04:00 Mechanical Ventilator 04/12/20 04:00 35 04/12/20 03:30 73 10 35 04/12/20 00:00 98.5 80 16 106/67 (80) 99 04/12/20 00:00 Mechanical Ventilator 04/12/20 00:00 79 04/11/20 22:58 90 17 35 04/11/20 20:00 98.6 96 17 154/74 (100) 99 04/11/20 20:00 35 04/11/20 20:00 Mechanical Ventilator 04/11/20 20:00 91 04/11/20 19:30 78 10 99 Mechanical Ventilator 35 85 10 35 HEENT: Thick Trach secretions RHYTHM: NSR, PVCs LUNGS: bilateral rhonchi CARDIAC: normal rate, regular rhythm, normal S1 and S2 ABDOMEN: normal bowel sounds, non tender, soft, G-Tube intact EXTREMITIES: non-tender, trace edema Laboratory Tests Test 04/12/20 04:30 White Blood Count 10.1 K/UL (4.8-10.8) Red Blood Count 3.90 M/UL (4.20-5.40) L Hemoglobin 9.6 G/DL (12.0-16.0) L Hematocrit 32.9 % (37.0-47.0) L Mean Corpuscular Volume 84 FL (80-99) Mean Corpuscular Hemoglobin 24.7 PG (27.0-31.0) L Mean Corpuscular Hemoglobin Concent 29.3 G/DL (32.0-36.0) L Red Cell Distribution Width 18.1 % (11.6-14.8) H Platelet Count 233 K/UL (150-450) Mean Platelet Volume 7.7 FL (6.5-10.1) Neutrophils (%) (Auto) 67.8 % (45.0-75.0) Lymphocytes (%) (Auto) 18.4 % (20.0-45.0) L Monocytes (%) (Auto) 6.7 % (1.0-10.0) Eosinophils (%) (Auto) 6.5 % (0.0-3.0) H Basophils (%) (Auto) 0.6 % (0.0-2.0) Erythrocyte Sedimentation Rate 63 MM/HR (0-30) H Sodium Level 139 MMOL/L (136-145) Potassium Level 4.2 MMOL/L (3.5-5.1) Chloride Level 103 MMOL/L (98-107) Carbon Dioxide Level 36 MMOL/L (21-32) H Anion Gap 0 mmol/L (5-15) L Blood Urea Nitrogen 13 mg/dL (7-18) Creatinine 0.5 MG/DL (0.55-1.30) L Estimat Glomerular Filtration Rate > 60 mL/min (>60) Glucose Level 115 MG/DL (74-106) H Calcium Level 8.7 MG/DL (8.5-10.1) Phosphorus Level 3.1 MG/DL (2.5-4.9) Magnesium Level 2.2 MG/DL (1.8-2.4) Total Bilirubin 0.3 MG/DL (0.2-1.0) Aspartate Amino Transf (AST/SGOT) 26 U/L (15-37) Alanine Aminotransferase (ALT/SGPT) 32 U/L (12-78) Alkaline Phosphatase 122 U/L (46-116) H C-Reactive Protein, Quantitative 1.4 mg/dL (0.00-0.90) H Total Protein 6.9 G/DL (6.4-8.2) Albumin 2.4 G/DL (3.4-5.0) L Globulin 4.5 g/dL Albumin/Globulin Ratio 0.5 (1.0-2.7) L Assessment/Plan Assessment/Plan Acute respiratory acidosis - resolved Paroxysmal ventricular arrhythmias and ectopy Respiratory failure with trach Hypertensive cardiomyopathy Healthcare associated PNA Sepsis with recovering shock Hypovolemia/dehydration resolved Acute myocardial ischemia recovered Metabolic alkalosis Mild acute diastolic CHF with increase in BNP to 439, now clinically compensated . Abx Vent support Cardiac monitoring Off IVF Maintain therapeutic K+/Mg++ levels; empiric IV Mg admin yesterday DVT prophylaxis Trend BNP Altaf Mchugh MD Apr 12, 2020 18:15
[2020-04-12 20:00] VITALS: BP 134/85
--- NOTE | 2020-04-12 20:10 | General Progress Note ---
Subjective Constitutional: Reports: no symptoms HEENT: Reports: no symptoms Cardiovascular: Reports: no symptoms Respiratory: Reports: no symptoms Gastrointestinal/Abdominal: Reports: no symptoms Genitourinary: Reports: no symptoms Neurologic/Psychiatric: Reports: no symptoms Endocrine: Reports: no symptoms Hematologic/Lymphatic: Reports: no symptoms Allergies: Coded Allergies: No Known Allergies (Unverified , 03/03/19) Objective Last 24 Hour Vital Signs Date Time Temp Pulse Resp B/P (MAP) Pulse Ox O2 Delivery O2 Flow Rate FiO2 04/12/20 19:30 84 11 100 Mechanical Ventilator 35 86 10 35 04/12/20 16:00 87 04/12/20 16:00 97.9 91 11 145/79 (101) 99 04/12/20 16:00 Mechanical Ventilator 04/12/20 16:00 35 04/12/20 15:00 83 22 35 04/12/20 13:38 82 10 99 Mechanical Ventilator 35 88 10 35 04/12/20 12:00 Mechanical Ventilator 04/12/20 12:00 98.0 60 12 116/89 (98) 100 04/12/20 12:00 35 04/12/20 11:42 93 04/12/20 11:03 91 11 35 04/12/20 08:00 98.2 67 13 147/99 (115) 100 04/12/20 08:00 35 04/12/20 08:00 Mechanical Ventilator 04/12/20 07:45 92 04/12/20 07:40 59 13 100 Mechanical Ventilator 35 80 11 35 04/12/20 04:01 83 04/12/20 04:00 97.7 81 16 130/71 (90) 99 04/12/20 04:00 Mechanical Ventilator 04/12/20 04:00 35 04/12/20 03:30 73 10 35 04/12/20 00:00 98.5 80 16 106/67 (80) 99 04/12/20 00:00 Mechanical Ventilator 04/12/20 00:00 79 04/11/20 22:58 90 17 35 Intake and Output 04/11/20 04/12/20 19:00 07:00 Intake Total 961.292 ml 1638.708 ml Output Total 1200 ml 1200 ml Balance -238.708 ml 438.708 ml Intake Free Water 300 ml IV Total 201.292 ml 678.708 ml Tube Feeding 660 ml 660 ml Other 100 ml Output Urine Total 1200 ml 1200 ml # Bowel Movements 3 Laboratory Tests 04/12/20 04:30: White Blood Count 10.1, Red Blood Count 3.90L, Hemoglobin 9.6L, Hematocrit 32.9L , Mean Corpuscular Volume 84, Mean Corpuscular Hemoglobin 24.7L, Mean Corpuscular Hemoglobin Concent 29.3L, Red Cell Distribution Width 18.1H, Platelet Count 233, Mean Platelet Volume 7.7, Neutrophils (%) (Auto) 67.8, Lymphocytes (%) (Auto) 18.4L, Monocytes (%) (Auto) 6.7, Eosinophils (%) (Auto) 6.5H, Basophils (%) (Auto) 0.6, Erythrocyte Sedimentation Rate 63H, Sodium Level 139, Potassium Level 4.2, Chloride Level 103, Carbon Dioxide Level 36H, Anion Gap 0L, Blood Urea Nitrogen 13, Creatinine 0.5L, Estimat Glomerular Filtration Rate > 60, Glucose Level 115H, Calcium Level 8.7, Phosphorus Level 3.1, Magnesium Level 2.2, Total Bilirubin 0.3, Aspartate Amino Transf (AST/SGOT) 26, Alanine Aminotransferase (ALT/SGPT) 32, Alkaline Phosphatase 122H, C-Reactive Protein, Quantitative 1.4H, Total Protein 6.9, Albumin 2.4L, Globulin 4.5, Albumin/Globulin Ratio 0.5L Height (Feet): 5 Height (Inches): 6.00 Weight (Pounds): 150 General Appearance: WD/WN, no apparent distress, alert EENT: TMs normal Neck: supple Cardiovascular: normal rate, regular rhythm, no gallop/murmur, no JVD Respiratory/Chest: no respiratory distress, no accessory muscle use, rhonchi - right Extremities: non-tender Neurologic: alert, aphasia, other - Normal eye contact normal attention span Skin: warm/dry Assessment/Plan Status Narrative Patient is awake alert afebrile hemodynamically stable without any respiratory distress without any cough or wheezing antibiotic was changed today to meropenem and Zosyn and vancomycin DC'd as the sensitivity of both bacteria revealed that both are sensitive to meropenem oratory tests are normal without any leuk ocytosis no foot 2 successive days line will be assessed tomorrow by the general surgeon and if possible will be removed and patient can be discharged back to the extended care facility subacute unit where she will complete IV antibiotic Repeat laboratory tests will be done in a.m. 9. Delmy Ovalle MD, MD Apr 12, 2020 20:10
[2020-04-13] VITALS: BP 135/88
[2020-04-13] MEDS: Meropenem 1 GM in NS 55 ML IVPB SCH ×2 (01:52→09:01)
[2020-04-13 04:00] VITALS: BP 153/95
[2020-04-13 05:35] LABS: BASOPHILS % (AUTO) 0.6 % (0.0-2.0); EOSINOPHILS % (AUTO) 5.4 % (0.0-3.0); HEMATOCRIT 39.1 % (37.0-47.0); HEMOGLOBIN 11.4 G/DL (12.0-16.0); LYMPHOCYTES % (AUTO) 22.5 % (20.0-45.0); MEAN CORPUSCULAR VOLUME 84 FL (80-99); MONOCYTES % (AUTO) 5.8 % (1.0-10.0); NEUTROPHILS % (AUTO) 65.7 % (45.0-75.0); PLATELET COUNT 249 K/UL (150-450); RED BLOOD COUNT 4.66 M/UL (4.20-5.40); RED CELL DISTRIBUTION WIDTH 17.8 % (11.6-14.8); WHITE BLOOD COUNT 11.1 K/UL (4.8-10.8)
[2020-04-13] MEDS: traMADol 50mg tab GT PRN ×2 (05:39→12:09)
[2020-04-13 06:01] LABS: ALANINE AMINOTRANSFERASE 43 U/L (12-78); ALBUMIN 2.6 G/DL (3.4-5.0); ALBUMIN/GLOBULIN RATIO 0.5 (1.0-2.7); ALKALINE PHOSPHATASE 136 U/L (46-116); ANION GAP 2 mmol/L (5-15); ASPARTATE AMINO TRANSFERASE 56 U/L (15-37); BILIRUBIN,TOTAL 0.4 MG/DL (0.2-1.0); BLOOD UREA NITROGEN 15 mg/dL (7-18); CARBON DIOXIDE 33 MMOL/L (21-32); CHLORIDE 101 MMOL/L (98-107); CREATININE 0.4 MG/DL (0.55-1.30); SODIUM 137 MMOL/L (136-145)
[2020-04-13 06:11] LABS: POTASSIUM 6.1 MMOL/L (3.5-5.1)
--- NOTE | 2020-04-13 06:38 | Hematology/Onc Progress Note ---
Assessment/Plan Assessment/Plan Assesment and Recs # Anemia of chronic disease due to underlying chronic medical issues, multifactorial v Gi bleed --> Anemia workup has been ordered, rule out gi bleed --> No evidence of hemolysis is noted, peripheral smear has been reviewed. --> Hgb goal >7. Transfuse prn. --> Epogen or iron at this time is not particularly indicated --> Medications have been reviewed --> low threshold for gi evaluation in case has occult + --> hgb 14->9.6-->11 # Leukocytosis/elevated white blood cell count, unspecified likely related to underlying infection --> CXR with pna --> have reviewed peripheral smear and bandemia/neutrophilia noted --> ABX vanc/zosyn --> monitor for resolution --> wbc 25-->11-->9.8->11 # Elevated ddimer --> venous duiplex legs # Chest pain rule out acs --> trop neg # Respiratory failure s/p trach/vent Placed on ventilator. # Nosocomial pneumonia # Dvt ppx heparin sq The timing of this note does not necessarily reflect the time of the patient was seen. Greatly appreciate consultation. Subjective HEENT: Denies: no symptoms, eye pain, blurred vision, tearing, double vision, ear pain, ear discharge, nose pain, nose congestion, throat pain, throat s welling, mouth pain, mouth swelling, other Cardiovascular: Denies: no symptoms, chest pain, edema, irregular heart rate, lightheadedness, palpitations, syncope, other Gastrointestinal/Abdominal: Denies: no symptoms, abdomen distended, abdominal pain, black stools, tarry stools, blood in stool, constipated, diarrhea, difficulty swallowing, nausea, poor appetite, poor fluid intake, rectal bleeding, vomiting, other Genitourinary: Denies: no symptoms, burning, discharge, frequency, flank pain, hematuria, incontinence, pain, urgency, other Neurologic/Psychiatric: Denies: no symptoms, anxiety, depressed, emotional problems, headache, numbness, paresthesia, pre-existing deficit, seizure, tingling, tremors, weakness, other Endocrine: Denies: no symptoms, excessive sweating, flushing, intolerance to cold, intolerance to heat, increased hunger, increased thirst, increased urine, unexplained weight gain, unexplained weight loss, other Allergies: Coded Allergies: No Known Allergies (Unverified , 03/03/19) Subjective 04/11 labs reviewed, meds noted, no bleeding, no fc, hgb low 04/12 vent support, labs reviewed, meds noted, no bleeding 04/13 bp has improved, labs shows hemolyzed k Objective Objective Current Medications Medications (Trade) Dose Ordered Sig/Rizwana Route PRN Reason Start Time Stop Time Status Last Admin Dose Admin Artificial Tears (Akwa-Tears) 2 drop Q2H PRN BOTH EYES Dry Eyes 04/10/20 07:00 05/10/20 06:59 Ascorbic Acid (Vitamin C) 500 mg DAILY GT 04/10/20 09:00 05/10/20 08:59 04/12/20 09:48 Atorvastatin Calcium (Lipitor) 10 mg BEDTIME GT 04/09/20 21:00 07/08/20 20:59 04/12/20 20:33 Clonazepam (KlonoPIN) 0.125 mg BIDPRN PRN GT For Anxiety 04/09/20 16:15 04/16/20 16:14 Heparin Sodium (Porcine) (Heparin 5000 units/ml) 5,000 units EVERY 12 HOURS SUBQ 04/10/20 09:00 05/25/20 08:59 Levalbuterol HCl (Xopenex) 0.63 mg TIDRT HHN 04/09/20 19:00 04/14/20 18:59 04/12/20 19:44 Meropenem 1 gm/ Sodium Chloride 55 ml @ 110 mls/hr Q8H IVPB 04/12/20 10:00 04/17/20 09:59 04/13/20 01:52 Quetiapine Fumarate (SEROqueL) 25 mg Q12HR GT 04/09/20 21:00 05/24/20 20:59 04/12/20 20:33 Tramadol HCl (Ultram) 50 mg Q8H PRN GT For Pain 04/09/20 16:15 04/16/20 16:14 04/13/20 05:39 Last 24 Hour Vital Signs Date Time Temp Pulse Resp B/P (MAP) Pulse Ox O2 Delivery O2 Flow Rate FiO2 04/13/20 04:00 35 04/13/20 04:00 Mechanical Ventilator 04/13/20 04:00 97.3 88 13 153/95 (114) 99 04/13/20 04:00 87 04/13/20 03:15 44 13 35 04/13/20 00:00 Mechanical Ventilator 04/13/20 00:00 87 04/13/20 00:00 98.1 67 12 135/88 (104) 99 04/12/20 23:23 57 11 35 04/12/20 20:52 Mechanical Ventilator 04/12/20 20:00 35 04/12/20 20:00 83 04/12/20 20:00 98.2 83 14 134/85 (101) 99 04/12/20 19:30 84 11 100 Mechanical Ventilator 35 86 10 35 04/12/20 16:00 87 04/12/20 16:00 97.9 91 11 145/79 (101) 99 04/12/20 16:00 Mechanical Ventilator 04/12/20 16:00 35 04/12/20 15:00 83 22 35 04/12/20 13:38 82 10 99 Mechanical Ventilator 35 88 10 35 04/12/20 12:00 Mechanical Ventilator 04/12/20 12:00 98.0 60 12 116/89 (98) 100 04/12/20 12:00 35 04/12/20 11:42 93 04/12/20 11:03 91 11 35 04/12/20 08:00 98.2 67 13 147/99 (115) 100 04/12/20 08:00 35 04/12/20 08:00 Mechanical Ventilator 04/12/20 07:45 92 04/12/20 07:40 59 13 100 Mechanical Ventilator 35 80 11 35 04/12/20 04:01 83 04/12/20 04:00 97.7 81 16 130/71 (90) 99 04/12/20 04:00 Mechanical Ventilator 04/12/20 04:00 35 04/12/20 03:30 73 10 35 04/12/20 00:00 98.5 80 16 106/67 (80) 99 04/12/20 00:00 Mechanical Ventilator 04/12/20 00:00 79 04/11/20 22:58 90 17 35 04/11/20 20:00 98.6 96 17 154/74 (100) 99 04/11/20 20:00 35 04/11/20 20:00 Mechanical Ventilator 04/11/20 20:00 91 04/11/20 19:30 78 10 99 Mechanical Ventilator 35 85 10 35 04/11/20 16:00 97.9 90 20 148/76 (100) 99 04/11/20 16:00 35 04/11/20 16:00 Mechanical Ventilator 04/11/20 15:28 93 11 35 04/11/20 15:13 86 04/11/20 13:05 60 12 100 Mechanical Ventilator 35 99 12 35 04/11/20 12:00 Mechanical Ventilator 04/11/20 12:00 35 04/11/20 12:00 98.9 89 19 138/82 (100) 98 04/11/20 11:53 86 04/11/20 10:51 103 12 35 04/11/20 08:00 97.9 69 15 127/68 (87) 100 04/11/20 08:00 35 04/11/20 08:00 Mechanical Ventilator 04/11/20 07:42 87 04/11/20 07:00 93 11 100 Mechanical Ventilator 35 96 11 35 Intake and Output 04/12/20 04/13/20 19:00 07:00 Intake Total 1115 ml 1170 ml Output Total 1120 ml 1200 ml Balance -5 ml -30 ml Intake Free Water 400 ml 400 ml IV Total 55 ml 110 ml Tube Feeding 660 ml 660 ml Output Urine Total 1120 ml 1200 ml # Bowel Movements 1 Labs Test 04/11/20 03:30 04/11/20 09:18 04/12/20 04:30 04/13/20 05:10 White Blood Count 9.8 K/UL (4.8-10.8) 10.1 K/UL (4.8-10.8) 11.1 K/UL (4.8-10.8) Red Blood Count 3.92 M/UL (4.20-5.40) 3.90 M/UL (4.20-5.40) 4.66 M/UL (4.20-5.40) Hemoglobin 9.6 G/DL (12.0-16.0) 9.6 G/DL (12.0-16.0) 11.4 G/DL (12.0-16.0) Hematocrit 33.4 % (37.0-47.0) 32.9 % (37.0-47.0) 39.1 % (37.0-47.0) Mean Corpuscular Volume 85 FL (80-99) 84 FL (80-99) 84 FL (80-99) Mean Corpuscular Hemoglobin 24.6 PG (27.0-31.0) 24.7 PG (27.0-31.0) 24.5 PG (27.0-31.0) Mean Corpuscular Hemoglobin Concent 28.8 G/DL (32.0-36.0) 29.3 G/DL (32.0-36.0) 29.2 G/DL (32.0-36.0) Red Cell Distribution Width 18.2 % (11.6-14.8) 18.1 % (11.6-14.8) 17.8 % (11.6-14.8) Platelet Count 245 K/UL (150-450) 233 K/UL (150-450) 249 K/UL (150-450) Mean Platelet Volume 7.4 FL (6.5-10.1) 7.7 FL (6.5-10.1) 7.8 FL (6.5-10.1) Neutrophils (%) (Auto) 66.2 % (45.0-75.0) 67.8 % (45.0-75.0) 65.7 % (45.0-75.0) Lymphocytes (%) (Auto) 19.0 % (20.0-45.0) 18.4 % (20.0-45.0) 22.5 % (20.0-45.0) Monocytes (%) (Auto) 7.5 % (1.0-10.0) 6.7 % (1.0-10.0) 5.8 % (1.0-10.0) Eosinophils (%) (Auto) 6.8 % (0.0-3.0) 6.5 % (0.0-3.0) 5.4 % (0.0-3.0) Basophils (%) (Auto) 0.5 % (0.0-2.0) 0.6 % (0.0-2.0) 0.6 % (0.0-2.0) Sodium Level 140 MMOL/L (136-145) 139 MMOL/L (136-145) 137 MMOL/L (136-145) Potassium Level 4.2 MMOL/L (3.5-5.1) 4.2 MMOL/L (3.5-5.1) 6.1 MMOL/L (3.5-5.1) Chloride Level 105 MMOL/L (98-107) 103 MMOL/L (98-107) 101 MMOL/L (98-107) Carbon Dioxide Level 33 MMOL/L (21-32) 36 MMOL/L (21-32) 33 MMOL/L (21-32) Anion Gap 2 mmol/L (5-15) 0 mmol/L (5-15) 2 mmol/L (5-15) Blood Urea Nitrogen 13 mg/dL (7-18) 13 mg/dL (7-18) 15 mg/dL (7-18) Creatinine 0.5 MG/DL (0.55-1.30) 0.5 MG/DL (0.55-1.30) 0.4 MG/DL (0.55-1.30) Estimat Glomerular Filtration Rate > 60 mL/min (>60) > 60 mL/min (>60) > 60 mL/min (>60) Glucose Level 122 MG/DL (74-106) 115 MG/DL (74-106) 144 MG/DL (74-106) Lactic Acid Level 1.10 mmol/L (0.4-2.0) Calcium Level 8.7 MG/DL (8.5-10.1) 8.7 MG/DL (8.5-10.1) 9.0 MG/DL (8.5-10.1) Vancomycin Level Trough 6.0 ug/mL (5.0-12.0) Arterial Blood pH 7.411 (7.350-7.450) Arterial Blood Partial Pressure CO2 49.8 mmHg (35.0-45.0) Arterial Blood Partial Pressure O2 129.0 mmHg (75.0-100.0) Arterial Blood HCO3 30.9 mmol/L (22.0-26.0) Arterial Blood Oxygen Saturation 98.3 % (95-100) Arterial Blood Base Excess 5.4 (-2-2) Madhu Test Positive Erythrocyte Sedimentation Rate 63 MM/HR (0-30) Phosphorus Level 3.1 MG/DL (2.5-4.9) Magnesium Level 2.2 MG/DL (1.8-2.4) 2.1 MG/DL (1.8-2.4) Total Bilirubin 0.3 MG/DL (0.2-1.0) 0.4 MG/DL (0.2-1.0) Aspartate Amino Transf (AST/SGOT) 26 U/L (15-37) 56 U/L (15-37) Alanine Aminotransferase (ALT/SGPT) 32 U/L (12-78) 43 U/L (12-78) Alkaline Phosphatase 122 U/L (46-116) 136 U/L (46-116) C-Reactive Protein, Quantitative 1.4 mg/dL (0.00-0.90) Total Protein 6.9 G/DL (6.4-8.2) 8.0 G/DL (6.4-8.2) Albumin 2.4 G/DL (3.4-5.0) 2.6 G/DL (3.4-5.0) Globulin 4.5 g/dL 5.4 g/dL Albumin/Globulin Ratio 0.5 (1.0-2.7) 0.5 (1.0-2.7) Pro-B-Type Natriuretic Peptide 436 pg/mL (0-125) Height (Feet): 5 Height (Inches): 6.00 Weight (Pounds): 150 Objective Physical Exam Vitals: reviewed, normal General Appearance: no apparent distress, alert Head: normocephalic, atraumatic Heent: bilateral eye normal inspection s/P vent/trach Respiratory: chest non-tender, crackles, speaking full sentences CV: regular rate, rhythm, no edema Gastrointestinal: normal bowel sounds Genitourinary: normal inspection Skin: other - See nursing notes Lymphatic: no adenopathy Martin Hernandez MD Apr 13, 2020 06:38
--- NOTE | 2020-04-13 07:49 | Infectious Diseases Prog Note ---
Assessment/Plan 70yo F with: Afebrile Leukocytosis to 25, improving Hypoxia S/p trach on vent Hypotension 04/09 BCx NTD COVID rapid test neg UA neg, UCx +P.mirabilis, S-CTX & ESBL E.coli MRSA nares neg Resp cx +PsA (R-Zosyn, S-alberto) & GNRs 04/10 CXR: Midline tracheostomy tube. Low lung volumes secondary to poor inspiration. Airspace opacities in the bilateral lower lung field, correlate for infiltrate. Superimposed atelectasis not excluded. Small left pleural effusion. Mild-moderate vascular congestion. No pneumothorax. When compared to yesterday's chest radiograph there is mild improvement in the degree of aeration. 04/11 CXR: New right basilar opacity likely represents mostly or completely atelectatic right middle lobe. Persistent infiltrate at the left lung base. Possible improvement of left pleural effusion BLE US neg for DVT 04/11 Cr 0.4 PMH: Spinal injury Quadriplegia HTN Cardiomyopathy GERD Chronic respiratory failure trach/vent dependant Dysphagia s/p GT hx of PNA Constipation Tardive dyskinesia [facility] resident Plan: Cont meropenem #2 / 7 for pneumonia/UTI F/u resp cx + GNRs Trend WBC 04/12 SP vanco #3 and Zosyn #3 Monitor CBC/CMP Monitor resp status Monitor temp curve, hemodynamics D/w RN Thank you for this consult. [facility] will continue to follow. Subjective Allergies: Coded Allergies: No Known Allergies (Unverified , 03/03/19) AF WBC 11 from 11 NAD on vent Objective Last 24 Hour Vital Signs Date Time Temp Pulse Resp B/P (MAP) Pulse Ox O2 Delivery O2 Flow Rate FiO2 04/13/20 04:00 35 04/13/20 04:00 Mechanical Ventilator 04/13/20 04:00 97.3 88 13 153/95 (114) 99 04/13/20 04:00 87 04/13/20 03:15 44 13 35 04/13/20 00:00 Mechanical Ventilator 04/13/20 00:00 87 04/13/20 00:00 98.1 67 12 135/88 (104) 99 04/12/20 23:23 57 11 35 04/12/20 20:52 Mechanical Ventilator 04/12/20 20:00 35 04/12/20 20:00 83 04/12/20 20:00 98.2 83 14 134/85 (101) 99 04/12/20 19:30 84 11 100 Mechanical Ventilator 35 86 10 35 04/12/20 16:00 87 04/12/20 16:00 97.9 91 11 145/79 (101) 99 04/12/20 16:00 Mechanical Ventilator 04/12/20 16:00 35 04/12/20 15:00 83 22 35 04/12/20 13:38 82 10 99 Mechanical Ventilator 35 88 10 35 04/12/20 12:00 Mechanical Ventilator 04/12/20 12:00 98.0 60 12 116/89 (98) 100 04/12/20 12:00 35 04/12/20 11:42 93 04/12/20 11:03 91 11 35 04/12/20 08:00 98.2 67 13 147/99 (115) 100 04/12/20 08:00 35 04/12/20 08:00 Mechanical Ventilator Height (Feet): 5 Height (Inches): 6.00 Weight (Pounds): 150 Gen: NAD in bed HEENT: NCAT, EOMI, trach CV: RRR Pulm: CTAB Abd: Soft, NTND, +PEG Ext: No c/c/e Neuro: Awake but not interactive Laboratory Tests Test 04/13/20 05:10 White Blood Count 11.1 K/UL (4.8-10.8) H Red Blood Count 4.66 M/UL (4.20-5.40) Hemoglobin 11.4 G/DL (12.0-16.0) L Hematocrit 39.1 % (37.0-47.0) Mean Corpuscular Volume 84 FL (80-99) Mean Corpuscular Hemoglobin 24.5 PG (27.0-31.0) L Mean Corpuscular Hemoglobin Concent 29.2 G/DL (32.0-36.0) L Red Cell Distribution Width 17.8 % (11.6-14.8) H Platelet Count 249 K/UL (150-450) Mean Platelet Volume 7.8 FL (6.5-10.1) Neutrophils (%) (Auto) 65.7 % (45.0-75.0) Lymphocytes (%) (Auto) 22.5 % (20.0-45.0) Monocytes (%) (Auto) 5.8 % (1.0-10.0) Eosinophils (%) (Auto) 5.4 % (0.0-3.0) H Basophils (%) (Auto) 0.6 % (0.0-2.0) Sodium Level 137 MMOL/L (136-145) Potassium Level 6.1 MMOL/L (3.5-5.1) *H Chloride Level 101 MMOL/L (98-107) Carbon Dioxide Level 33 MMOL/L (21-32) H Anion Gap 2 mmol/L (5-15) L Blood Urea Nitrogen 15 mg/dL (7-18) Creatinine 0.4 MG/DL (0.55-1.30) L Estimat Glomerular Filtration Rate > 60 mL/min (>60) Glucose Level 144 MG/DL (74-106) H Calcium Level 9.0 MG/DL (8.5-10.1) Magnesium Level 2.1 MG/DL (1.8-2.4) Total Bilirubin 0.4 MG/DL (0.2-1.0) Aspartate Amino Transf (AST/SGOT) 56 U/L (15-37) H Alanine Aminotransferase (ALT/SGPT) 43 U/L (12-78) Alkaline Phosphatase 136 U/L (46-116) H Pro-B-Type Natriuretic Peptide 436 pg/mL (0-125) H Total Protein 8.0 G/DL (6.4-8.2) Albumin 2.6 G/DL (3.4-5.0) L Globulin 5.4 g/dL Albumin/Globulin Ratio 0.5 (1.0-2.7) L Current Medications Medications (Trade) Dose Ordered Sig/Rizwana Route PRN Reason Start Time Stop Time Status Last Admin Dose Admin Amlodipine Besylate (Norvasc) 2.5 mg DAILY ORAL 04/13/20 09:00 05/13/20 08:59 Artificial Tears (Akwa-Tears) 2 drop Q2H PRN BOTH EYES Dry Eyes 04/10/20 07:00 05/10/20 06:59 Ascorbic Acid (Vitamin C) 500 mg DAILY GT 04/10/20 09:00 05/10/20 08:59 04/12/20 09:48 Atorvastatin Calcium (Lipitor) 10 mg BEDTIME GT 04/09/20 21:00 07/08/20 20:59 04/12/20 20:33 Clonazepam (KlonoPIN) 0.125 mg BIDPRN PRN GT For Anxiety 04/09/20 16:15 04/16/20 16:14 Heparin Sodium (Porcine) (Heparin 5000 units/ml) 5,000 units EVERY 12 HOURS SUBQ 04/10/20 09:00 05/25/20 08:59 Levalbuterol HCl (Xopenex) 0.63 mg TIDRT HHN 04/09/20 19:00 04/14/20 18:59 04/12/20 19:44 Meropenem 1 gm/ Sodium Chloride 55 ml @ 110 mls/hr Q8H IVPB 04/12/20 10:00 04/17/20 09:59 04/13/20 01:52 Quetiapine Fumarate (SEROqueL) 25 mg Q12HR GT 04/09/20 21:00 05/24/20 20:59 04/12/20 20:33 Tramadol HCl (Ultram) 50 mg Q8H PRN GT For Pain 04/09/20 16:15 04/16/20 16:14 04/13/20 05:39 Jacquie Slaughter M.D. Apr 13, 2020 07:49
[2020-04-13 08:00] VITALS: BP 144/97
[2020-04-13] MEDS: Levalbuterol Inh UD 1.25mg/0.5ml HHN SCH (08:17)
[2020-04-13] MEDS: Heparin 5000 units/ml inj SUBQ SCH (08:52)
[2020-04-13] MEDS: Ascorbic Acid 500mg tab GT SCH (08:52)
--- NOTE | 2020-04-13 11:18 | Pulmonolgy Critical Care Note ---
Critical Care - Asmt/Plan Problems: (1) Sepsis (2) Nosocomial pneumonia (3) Chronic respiratory failure (4) Sacral decubitus ulcer, stage II (5) Feeding by G-tube Respiratory: monitor respiratory rate, adjust FIO2, CXR Cardiac: continue pressors, continue to monitor HR/BP Renal: F/U I&O, check electrolytes Infectious Disease: check cultures, continue antibiotics Gastrointestinal: continue feedings/current rate Endocrine: monitor blood sugar, check TSH, continue sliding scale insulin Hematologic: transfuse if hgb<8.5 Neurologic: PRN Ativan, keep patient comfortable Prophylaxis: Protonix, Heparin Time Spent (Minutes): 40 Notes Reviewed: manager product support, cardio, renal Discussed with: nurses, consultants, 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 - Objective Last 24 Hour Vital Signs Date Time Temp Pulse Resp B/P (MAP) Pulse Ox O2 Delivery O2 Flow Rate FiO2 04/13/20 09:00 Mechanical Ventilator 04/13/20 08:52 87 144/97 04/13/20 08:00 35 04/13/20 08:00 98.4 87 15 144/97 (113) 100 04/13/20 08:00 86 04/13/20 07:52 74 15 100 Mechanical Ventilator 35 77 18 35 04/13/20 04:00 35 04/13/20 04:00 Mechanical Ventilator 04/13/20 04:00 97.3 88 13 153/95 (114) 99 04/13/20 04:00 87 04/13/20 03:15 44 13 35 04/13/20 00:00 Mechanical Ventilator 04/13/20 00:00 87 04/13/20 00:00 98.1 67 12 135/88 (104) 99 04/12/20 23:23 57 11 35 04/12/20 20:52 Mechanical Ventilator 04/12/20 20:00 35 04/12/20 20:00 83 04/12/20 20:00 98.2 83 14 134/85 (101) 99 04/12/20 19:30 84 11 100 Mechanical Ventilator 35 86 10 35 04/12/20 16:00 87 04/12/20 16:00 97.9 91 11 145/79 (101) 99 04/12/20 16:00 Mechanical Ventilator 04/12/20 16:00 35 04/12/20 15:00 83 22 35 04/12/20 13:38 82 10 99 Mechanical Ventilator 35 88 10 35 04/12/20 12:00 Mechanical Ventilator 04/12/20 12:00 98.0 60 12 116/89 (98) 100 04/12/20 12:00 35 04/12/20 11:42 93 Status: awake, sedated Condition: critical HEENT: atraumatic, normocephalic Neck: full ROM Lungs: chest wall tender Heart: HR/BP stable Abdomen: soft, non-tender, active bowel sounds Critical Care - Subjective ROS Limited/Unobtainable: Yes Condition: critical EKG Rhythm: Sinus Rhythm FI02: 35 Vent Support Breath Rate: 10 Vent Support Mode: AC Vent Tidal Volume: 500 Sputum Amount: Small PEEP: 5.0 PIP: 24 Tube Feeding Amount: 55 I&O: Intake and Output 04/12/20 04/13/20 19:00 07:00 Intake Total 1115 ml 1170 ml Output Total 1120 ml 1200 ml Balance -5 ml -30 ml Intake Free Water 400 ml 400 ml IV Total 55 ml 110 ml Tube Feeding 660 ml 660 ml Output Urine Total 1120 ml 1200 ml # Bowel Movements 1 ET-Tube: 7.0 Labs: Laboratory Tests Test 04/13/20 05:10 04/13/20 09:00 White Blood Count 11.1 K/UL (4.8-10.8) H Red Blood Count 4.66 M/UL (4.20-5.40) Hemoglobin 11.4 G/DL (12.0-16.0) L Hematocrit 39.1 % (37.0-47.0) Mean Corpuscular Volume 84 FL (80-99) Mean Corpuscular Hemoglobin 24.5 PG (27.0-31.0) L Mean Corpuscular Hemoglobin Concent 29.2 G/DL (32.0-36.0) L Red Cell Distribution Width 17.8 % (11.6-14.8) H Platelet Count 249 K/UL (150-450) Mean Platelet Volume 7.8 FL (6.5-10.1) Neutrophils (%) (Auto) 65.7 % (45.0-75.0) Lymphocytes (%) (Auto) 22.5 % (20.0-45.0) Monocytes (%) (Auto) 5.8 % (1.0-10.0) Eosinophils (%) (Auto) 5.4 % (0.0-3.0) H Basophils (%) (Auto) 0.6 % (0.0-2.0) Sodium Level 137 MMOL/L (136-145) Potassium Level 6.1 MMOL/L (3.5-5.1) *H 4.4 MMOL/L (3.5-5.1) Chloride Level 101 MMOL/L (98-107) Carbon Dioxide Level 33 MMOL/L (21-32) H Anion Gap 2 mmol/L (5-15) L Blood Urea Nitrogen 15 mg/dL (7-18) Creatinine 0.4 MG/DL (0.55-1.30) L Estimat Glomerular Filtration Rate > 60 mL/min (>60) Glucose Level 144 MG/DL (74-106) H Calcium Level 9.0 MG/DL (8.5-10.1) Magnesium Level 2.1 MG/DL (1.8-2.4) Total Bilirubin 0.4 MG/DL (0.2-1.0) Aspartate Amino Transf (AST/SGOT) 56 U/L (15-37) H Alanine Aminotransferase (ALT/SGPT) 43 U/L (12-78) Alkaline Phosphatase 136 U/L (46-116) H Pro-B-Type Natriuretic Peptide 436 pg/mL (0-125) H Total Protein 8.0 G/DL (6.4-8.2) Albumin 2.6 G/DL (3.4-5.0) L Globulin 5.4 g/dL Albumin/Globulin Ratio 0.5 (1.0-2.7) L Ethel Curtis MD Apr 13, 2020 11:18
[2020-04-13] MEDS ORDERED: MERREM1 GM IV (11:30)
[2020-04-13 12:00] VITALS: BP 132/88
[2020-04-13] MEDS ORDERED: D5W 275ml ONE (13:56)
[2020-04-13] MEDS ORDERED: Tubing IV Secondary IV ONE (13:56)
[2020-04-13] MEDS ORDERED: NS 275ml ONE ×2 (13:56)
--- NOTE | 2020-04-13 16:22 | Diagnostic Imaging Report ---
Indication: Cough Technique: One view of the chest Comparison: 04/11/2020 Findings: Large right pleural effusion persists. Mild interstitial congestion persists. There is better aeration of the left lung base. The heart is upper limits normal in size. There is tracheostomy. Impression: Slightly decreased left basilar atelectasis. Otherwise little change lead 2 days
--- NOTE | 2020-04-13 18:32 | Surgery Progress Note ---
Surgery Progress Note Subjective Procedure Performed Right femoral central venous catheter insertion Additional Comments improved d/cplanning labs noted exam stable Objective Last 24 Hour Vital Signs Date Time Temp Pulse Resp B/P (MAP) Pulse Ox O2 Delivery O2 Flow Rate FiO2 04/13/20 12:00 35 04/13/20 12:00 98.1 82 14 132/88 (103) 98 04/13/20 12:00 Mechanical Ventilator 04/13/20 12:00 92 04/13/20 09:00 Mechanical Ventilator 04/13/20 08:52 87 144/97 04/13/20 08:00 35 04/13/20 08:00 98.4 87 15 144/97 (113) 100 04/13/20 08:00 86 04/13/20 07:52 74 15 100 Mechanical Ventilator 35 77 18 35 04/13/20 04:00 35 04/13/20 04:00 Mechanical Ventilator 04/13/20 04:00 97.3 88 13 153/95 (114) 99 04/13/20 04:00 87 04/13/20 03:15 44 13 35 04/13/20 00:00 Mechanical Ventilator 04/13/20 00:00 87 04/13/20 00:00 98.1 67 12 135/88 (104) 99 04/12/20 23:23 57 11 35 04/12/20 20:52 Mechanical Ventilator 04/12/20 20:00 35 04/12/20 20:00 83 04/12/20 20:00 98.2 83 14 134/85 (101) 99 04/12/20 19:30 84 11 100 Mechanical Ventilator 35 86 10 35 I&O Intake and Output 04/12/20 04/13/20 19:00 07:00 Intake Total 1115 ml 1225 ml Output Total 1120 ml 1200 ml Balance -5 ml 25 ml Intake Free Water 400 ml 400 ml IV Total 55 ml 110 ml Tube Feeding 660 ml 715 ml Output Urine Total 1120 ml 1200 ml # Bowel Movements 1 Laboratory Tests Test 04/13/20 05:10 04/13/20 09:00 White Blood Count 11.1 K/UL (4.8-10.8) H Red Blood Count 4.66 M/UL (4.20-5.40) Hemoglobin 11.4 G/DL (12.0-16.0) L Hematocrit 39.1 % (37.0-47.0) Mean Corpuscular Volume 84 FL (80-99) Mean Corpuscular Hemoglobin 24.5 PG (27.0-31.0) L Mean Corpuscular Hemoglobin Concent 29.2 G/DL (32.0-36.0) L Red Cell Distribution Width 17.8 % (11.6-14.8) H Platelet Count 249 K/UL (150-450) Mean Platelet Volume 7.8 FL (6.5-10.1) Neutrophils (%) (Auto) 65.7 % (45.0-75.0) Lymphocytes (%) (Auto) 22.5 % (20.0-45.0) Monocytes (%) (Auto) 5.8 % (1.0-10.0) Eosinophils (%) (Auto) 5.4 % (0.0-3.0) H Basophils (%) (Auto) 0.6 % (0.0-2.0) Sodium Level 137 MMOL/L (136-145) Potassium Level 6.1 MMOL/L (3.5-5.1) *H 4.4 MMOL/L (3.5-5.1) Chloride Level 101 MMOL/L (98-107) Carbon Dioxide Level 33 MMOL/L (21-32) H Anion Gap 2 mmol/L (5-15) L Blood Urea Nitrogen 15 mg/dL (7-18) Creatinine 0.4 MG/DL (0.55-1.30) L Estimat Glomerular Filtration Rate > 60 mL/min (>60) Glucose Level 144 MG/DL (74-106) H Calcium Level 9.0 MG/DL (8.5-10.1) Magnesium Level 2.1 MG/DL (1.8-2.4) Total Bilirubin 0.4 MG/DL (0.2-1.0) Aspartate Amino Transf (AST/SGOT) 56 U/L (15-37) H Alanine Aminotransferase (ALT/SGPT) 43 U/L (12-78) Alkaline Phosphatase 136 U/L (46-116) H Pro-B-Type Natriuretic Peptide 436 pg/mL (0-125) H Total Protein 8.0 G/DL (6.4-8.2) Albumin 2.6 G/DL (3.4-5.0) L Globulin 5.4 g/dL Albumin/Globulin Ratio 0.5 (1.0-2.7) L Plan Problems: (1) CHF (congestive heart failure) (2) Cardiomyopathy (3) Septic shock Assessment & Plan: bp improved okay for diet abd exam benign trach okay. needs more insufflation of cuff for volumes improving slowly labs noted venous duplex negative cxr improved slightly fem line out improved iv d/c with abx late entry DAILY ESTIMATED NEEDS: Needs based on Critical care, wound 62.6kg abw 22-28 kcals/kg 7199-9587 total kcals 1.25-2 g protein/kg 78-125 g total protein 25-30 mL/kg [id number] total fluid mLs NUTRITION DIAGNOSIS: * Swallowing difficulty r/t resp status as evidenced by pt is trach and peg dep. (CURRENT TF: Glucerna 1.2 @55ml/hr x 24 hrs) ENTERAL NUTRITION RECOMMENDATIONS: Glucerna 1.2 @ 55ml/hr x 24 hrs + Prosource 1 pack daily to provide 1320ml, 1584 kcal, 79g pro + 22g pro, 1063ml free H2O * Maintain current TF * Add Prosource 1 pack daily to better meet est pro needs (added 11g pro) * HOB Over 30 degrees/ water flush per MD ADDITIONAL RECOMMENDATIONS: 1) Calibrated bed scale wts 2) Rec niss/ poc for glycemic control (4) Altered mental status (5) Decubitus skin ulcer Assessment & Plan: patient with historic / chronic decubitus with incontinence associated dermatitis in the sacral region air mattress ordered daughter helps with care has personal turning pillow turn q2h off load pressure heel protectors offload with pillow skin protectant cream and dressings to sacral area daily and prn saturation monitor for incontinence will follow with recs nutritional optimization (6) Sacral decubitus ulcer, stage II (7) Chronic respiratory failure (8) Nosocomial pneumonia (9) Feeding by G-tube Mauro Roldan Apr 13, 2020 18:32
--- NOTE | 2020-04-13 18:34 | Cardiology Progress Note ---
Subjective DATE OF SERVICE: Apr 13, 2020 On chronic vent support. Monitor: Sinus with frequent PVC's - no sustained arrhythmias, but still occasional bi and trigeminy. 2D Echo with normal LVEF 60% and no significant valvular pathology. Objective Last 24 Hour Vital Signs Date Time Temp Pulse Resp B/P (MAP) Pulse Ox O2 Delivery O2 Flow Rate FiO2 04/13/20 12:00 35 04/13/20 12:00 98.1 82 14 132/88 (103) 98 04/13/20 12:00 Mechanical Ventilator 04/13/20 12:00 92 04/13/20 09:00 Mechanical Ventilator 04/13/20 08:52 87 144/97 04/13/20 08:00 35 04/13/20 08:00 98.4 87 15 144/97 (113) 100 04/13/20 08:00 86 04/13/20 07:52 74 15 100 Mechanical Ventilator 35 77 18 35 04/13/20 04:00 35 04/13/20 04:00 Mechanical Ventilator 04/13/20 04:00 97.3 88 13 153/95 (114) 99 04/13/20 04:00 87 04/13/20 03:15 44 13 35 04/13/20 00:00 Mechanical Ventilator 04/13/20 00:00 87 04/13/20 00:00 98.1 67 12 135/88 (104) 99 04/12/20 23:23 57 11 35 04/12/20 20:52 Mechanical Ventilator 04/12/20 20:00 35 04/12/20 20:00 83 04/12/20 20:00 98.2 83 14 134/85 (101) 99 04/12/20 19:30 84 11 100 Mechanical Ventilator 35 86 10 35 HEENT: Thin Trach secretions RHYTHM: NSR, PVCs LUNGS: bilateral rhonchi CARDIAC: normal rate, regular rhythm, normal S1 and S2 ABDOMEN: normal bowel sounds, non tender, soft, G-Tube intact EXTREMITIES: non-tender, trace edema Laboratory Tests Test 04/13/20 05:10 04/13/20 09:00 White Blood Count 11.1 K/UL (4.8-10.8) H Red Blood Count 4.66 M/UL (4.20-5.40) Hemoglobin 11.4 G/DL (12.0-16.0) L Hematocrit 39.1 % (37.0-47.0) Mean Corpuscular Volume 84 FL (80-99) Mean Corpuscular Hemoglobin 24.5 PG (27.0-31.0) L Mean Corpuscular Hemoglobin Concent 29.2 G/DL (32.0-36.0) L Red Cell Distribution Width 17.8 % (11.6-14.8) H Platelet Count 249 K/UL (150-450) Mean Platelet Volume 7.8 FL (6.5-10.1) Neutrophils (%) (Auto) 65.7 % (45.0-75.0) Lymphocytes (%) (Auto) 22.5 % (20.0-45.0) Monocytes (%) (Auto) 5.8 % (1.0-10.0) Eosinophils (%) (Auto) 5.4 % (0.0-3.0) H Basophils (%) (Auto) 0.6 % (0.0-2.0) Sodium Level 137 MMOL/L (136-145) Potassium Level 6.1 MMOL/L (3.5-5.1) *H 4.4 MMOL/L (3.5-5.1) Chloride Level 101 MMOL/L (98-107) Carbon Dioxide Level 33 MMOL/L (21-32) H Anion Gap 2 mmol/L (5-15) L Blood Urea Nitrogen 15 mg/dL (7-18) Creatinine 0.4 MG/DL (0.55-1.30) L Estimat Glomerular Filtration Rate > 60 mL/min (>60) Glucose Level 144 MG/DL (74-106) H Calcium Level 9.0 MG/DL (8.5-10.1) Magnesium Level 2.1 MG/DL (1.8-2.4) Total Bilirubin 0.4 MG/DL (0.2-1.0) Aspartate Amino Transf (AST/SGOT) 56 U/L (15-37) H Alanine Aminotransferase (ALT/SGPT) 43 U/L (12-78) Alkaline Phosphatase 136 U/L (46-116) H Pro-B-Type Natriuretic Peptide 436 pg/mL (0-125) H Total Protein 8.0 G/DL (6.4-8.2) Albumin 2.6 G/DL (3.4-5.0) L Globulin 5.4 g/dL Albumin/Globulin Ratio 0.5 (1.0-2.7) L Assessment/Plan Assessment/Plan Acute respiratory acidosis - resolved Paroxysmal ventricular arrhythmias and ectopy Respiratory failure with trach Hypertensive cardiomyopathy Healthcare associated PNA Sepsis with recovering shock Hypovolemia/dehydration resolved Acute myocardial ischemia recovered Metabolic alkalosis Mild acute diastolic CHF with increase in BNP to 439, now clinically compensated. Abx per ID Vent support Can DC cardiac monitoring Maintain therapeutic K+/Mg++ levels. DVT prophylaxis Stable from subacute from cardiovascular standpoint. Altaf Mchugh MD Apr 13, 2020 18:34
--- NOTE | 2020-04-15 12:16 | Discharge Summary ---
Discharge Summary Discharge Summary _ DATE OF ADMISSION: 04/09/2020 DATE OF DISCHARGE: 04/13/2020 DISCHARGED BY: Dr. Pardo REASON FOR ADMISSION: 70 years old female, with past medical history of chronic ventilator dependent respiratory failure with tracheostomy status, COPD, hypertension, cardiomyopa thy with EF 40%, quadriplegia, secondary to cervical injury from the surgery, dysphagia, feeding by G-tube, hyperlipidemia, chronic pain syndrome, psychosis , DNR/DNI status, was sent from the extended facility due to shortness of breath, chest pain , tachycardia and hypoxia. No reported fever or chills. Patient subsequently was transferred to emergency room for further evaluation and management. In emergency department patient was hypoxic , tachycardic and hypertensive with blood pressure 227/135. ABG revealed acidosis with hypercapnia. Chest x-ray showed bilateral infiltrates. Rapid COVID-19 was negative. Laboratory work-up revealed marked leukocytosis with WBC 25, stable hemoglobin and hematocrit. Lactic acid 2.0. Sodium 132, potassium 5.3. BUN 20, creatinine 0.2. Glucose 222. Troponin negative, pro BNP 127, EKG revealed T wave inversion in lateral leads , no acute ischemic changes UA with borerline pyuria and many bacteria. Patient received IV fluids, pancultured, started on empiric antibiotic . nebulizing treatment provided. Hyperkalemia was treated. Patient admitted to stepdown unit for further management. CONSULTANTS: wash tank tender pulmonary Dr. Curtis ID specialist Dr. Slaughter catalogue maker/oncologist Dr. Hernandez surgery [facility] COURSE: Patient needed reconciliation on unit. Ventilator support and pulmonary toilet provided. Nebulizing treatment provided to the level butyryl as needed with av oidance of beta agonist if able. Patient was follow-up with ABG. Patient started on broad-spectrum antibiotic. DVT prophylaxis provided. Venous duplex bilateral lower extremity revealed no evidence of acute DVT. Settings urine culture revealed Proteus mirabilis and E. coli ESBL. Blood cultures were negative. Sputum culture revealed Pseudomonas aeruginosa and Proteus l antibi otic regimen optimized as per ID specialist recommendation. Leukocytosis trending down. No fevers. ID specialist recommended continue meropenem and the facility to complete the course. Eukocytosis trending down.. Strict aspiration precaution maintained. G-tube feeding continued. Tube feeding formula goal rate and protein supplements provided as per registered dietitian recommendation. Echocardiogram demonstrated preserved ejection fraction of 60%. No evidence of left ventricular hypertrophy. Right ventricular systolic pressure of 26 Patient was hypotensive. Blood hemodynamic status was closely monitored. Blood pressure responded to IV fluids no need for pressors. [employer] Rep[employer]r closely followed. Echocardiogram revealed preserved ejection fraction. As patient clinically improved blood pressure stabilized patient restarted on antihypertensive medication blood pressure was managed with calcium channel ariel. Statin continued. Volumes are closely monitor electrolytes corrected as needed Hemoglobin hematocrit were closely monitored with goal to keep hemoglobin above 7. Prior to discharge hemoglobin 11.4 hematocrit 39.1. No need for blood transfusion Wound care for present on admission decubitus ulcer provided as per surgeon recommendation continue wound care at the facility. Bowel regimen instituted. Supportive care provided. Patient clinically stabilized and was ready for transfer back to [facility] facility for continuation of care FINAL DIAGNOSES: Acute on chronic hypoxemic hypercapnic respiratory failure Chronic respiratory failure , ventilator dependent with tracheostomy status Sepsis with shock Healthcare associated pneumonia/with Pseudomonas and Proteus UTI with Proteus and E. coli ESBL Dysphagia, feeding by G-tube Hypertensive cardiomyopathy Hypovolemia/dehydration- resolved Anemia of chronic disease Mild acute diastolic CHF Hyperlipidemia Paroxysmal ventricular arrhythmia and ectopy Quadriplegia secondary to cervical injury Anemia Hyperkalemia -resolved Decubitus ulcer present on admission DISCHARGE MEDICATIONS: See Medication Reconciliation list. DISCHARGE INSTRUCTIONS: Patient was discharged to the [facility] facility. Follow up with medical doctor at the facility. I have been assigned to dictate discharge summary for this account. Graciela Cisneros NP Apr 15, 2020 12:16
== END 2020-04-13 13:57 | DRG 870 ==
LOC: EDBD 08:50 → EMR 09:08 → EDBEDREQ 09:16 → 2W 11:43
PROC: 5A1955Z Respiratory Ventilation, Greater than 96 Consecutive Hours (ICD-10-PCS; principal; 2020-04-09)
PROC: 04HK33Z Insertion of Infusion Device into Right Femoral Artery, Percutaneous Approach (ICD-10-PCS; principal; 2020-04-09)
DX: A41.9 Sepsis, unspecified organism (principal); R65.21 Severe sepsis with septic shock; G82.50 Quadriplegia, unspecified; J15.6 Pneumonia due to other Gram-negative bacteria; J15.1 Pneumonia due to Pseudomonas; J96.22 Acute and chronic respiratory failure with hypercapnia; J96.21 Acute and chronic respiratory failure with hypoxia; I50.33 Acute on chronic diastolic (congestive) heart failure; N39.0 Urinary tract infection, site not specified; J44.0 Chronic obstructive pulmonary disease with (acute) lower respiratory infection; Z99.11 Dependence on respirator [ventilator] status; I42.9 Cardiomyopathy, unspecified; L89.152 Pressure ulcer of sacral region, stage 2; R13.10 Dysphagia, unspecified; E78.5 Hyperlipidemia, unspecified; I11.0 Hypertensive heart disease with heart failure; Y95 Nosocomial condition; Z93.0 Tracheostomy status; Z93.1 Gastrostomy status; F03.90 Unspecified dementia, unspecified severity, without behavioral disturbance, psychotic disturbance, mood disturbance, and anxiety; N31.9 Neuromuscular dysfunction of bladder, unspecified; F29 Unspecified psychosis not due to a substance or known physiological condition; F39 Unspecified mood [affective] disorder; G89.29 Other chronic pain; E87.5 Hyperkalemia; G24.01 Drug induced subacute dyskinesia; D64.9 Anemia, unspecified; E86.1 Hypovolemia
CPT/HCPCS: 36415; 71045; 80048; 80053; 80202; 81001; 81003; 82550; 82553; 82728; 82803; 83605; 83615; 83690; 83735; 83880; 84100; 84132; 84484; 85007; 85025; 85379; 85610; 85651; 85730; 86140; 87040; 87070; 87081; 87086; 87181; 87205; 93005; 93306; 93970; 94002; 94003; 94664; 96361; 96365; 96367; 96375; 99291; J7030; U0002